=== PATIENT | male | born 1945 | race Caucasian/White ===

== ENCOUNTER 2018-11-28 18:52 | Emergency (ER) | payer MEDICARE, SELFPAY ==
[2018-11-28 18:52] VITALS: BP 165/90; PULSE 77; RESP 15; TEMP 37.1; O2SAT 99; BMI 34.7
--- NOTE | 2018-11-28 20:01 | RAD_ITS ---
STUDY: X-RAY - LEFT HAND, ATTENTION FIRST FINGER REASON FOR EXAM: Male, 72 years old. Laceration TECHNIQUE: 3 view(s) of the finger were obtained. COMPARISON: None. FINDINGS: Normal metacarpal head. There is mild degenerative arthrosis of the metacarpophalangeal joint. Normal proximal phalanx. Normal distal phalanx. Arthrosis of the interphalangeal joint. There is no acute fracture. There is no radiopaque foreign body. RAD/Finger(s) Min 2 Views IMPRESSION: Arthritic change. No fracture or foreign body. Electronically Signed: Graham Acosta MD at 20:38 EDT , Service support ,
--- NOTE | 2018-11-28 20:19 | ED.VISSUMM ---
- ER Visit Summary Date of Service: 11/28/18 Chief Complaint: Left thumb laceration History of Present Illness: The patient is a 72 M who cut his left thumb on a table saw shortly before arrival. Tetanus is up-to-date. Physical Examination: Vital signs significant for blood pressure 165/90, otherwise unremarkable. Patient sitting upright in bed no acute distress. Left upper extremity examination was a 3 cm laceration over the ulnar palmar aspect of the left thumb. He has full range of motion with normal cap refill. Sensation is intact. Test Results: Left thumb x-rays per my review showed no evidence of bony injury. Emergency Department Course and Treatment: Digital block was performed with 5 cc of 1% lidocaine. Wound is irrigated and closed with 7 interrupted sutures of 4-0 nylon. Dressing is applied. Patient is to have sutures removed in 7-10 days. Treatment Plan: [] Disposition: Discharge Impression: Left thumb laceration status post suture This note was generated with [employer] dictation software. It may contain incorrect words, spelling, and punctuation that were not noted in review of the chart prior to signing ED Disposition - Plan for ED Patient: Referrals: Washington Callejas, ELINA-C [Primary Care Provider] -
--- NOTE | 2018-11-28 20:22 | DCINST.ED_ITS ---
ED Disposition - Plan for ED Patient: Disposition: Home or Assisted Living Instructions: ED Laceration Hand Referrals: Washington Callejas, LAPIDARY APPRENTICE-C [Primary Care Provider] - 7 Days for suture removal
--- NOTE | 2018-11-28 20:22 | ED.DCSUM_ITS ---
- ER Visit Summary Date of Service: 11/28/18 Chief Complaint: Left thumb laceration History of Present Illness: The patient is a 72 M who cut his left thumb on a table saw shortly before arrival. Tetanus is up-to-date. Physical Examination: Vital signs significant for blood pressure 165/90, otherwise unremarkable. Patient sitting upright in bed no acute distress. Left upper extremity examination was a 3 cm laceration over the ulnar palmar aspect of the left thumb. He has full range of motion with normal cap refill. Sensation is intact. Test Results: Left thumb x-rays per my review showed no evidence of bony injury. Emergency Department Course and Treatment: Digital block was performed with 5 cc of 1% lidocaine. Wound is irrigated and closed with 7 interrupted sutures of 4- 0 nylon. Dressing is applied. Patient is to have sutures removed in 7-10 days. Treatment Plan: [] Disposition: Discharge Impression: Left thumb laceration status post suture This note was generated with [employer] dictation software. It may contain incorrect words, spelling, and punctuation that were not noted in review of the chart prior to signing ED Disposition - Plan for ED Patient: Referrals: Washington Callejas, ELINA-C [Primary Care Provider] -
--- NOTE | 2018-11-28 20:22 | ED.DEP ---
ED Disposition - Plan for ED Patient: Disposition: Home or Assisted Living Instructions: ED Laceration Hand Referrals: Washington Callejas, HOUSEKEEPING ASSOCIATE-C [Primary Care Provider] - 7 Days for suture removal
== END 2018-11-28 20:38 | disposition home or self-care (01) ==
PROVIDERS: Emergency Provider Emergency Medicine; Family Provider Nurse Practitioner Family; PCP Nurse Practitioner Family
DX: S61.012A Laceration without foreign body of left thumb without damage to nail, initial encounter (principal); W31.2XXA Contact with powered woodworking and forming machines, initial encounter; Y93.9 Activity, unspecified; Y92.9 Unspecified place or not applicable; Y99.9 Unspecified external cause status; K21.9 Gastro-esophageal reflux disease without esophagitis; E11.9 Type 2 diabetes mellitus without complications; I10 Essential (primary) hypertension; E78.00 Pure hypercholesterolemia, unspecified
CPT/HCPCS: 12002; 73140; 99284

== ENCOUNTER → 2021-06-10 14:40 | Outpatient (CLI) | payer MEDICARE, SELFPAY ==
[2021-06-10 20:34] LABS: Specimen Processing Control TNPT
== END ==
PROVIDERS: PCP Nurse Practitioner Family; Referring Provider Physician Assistant; Visit Provider Physician Assistant
DX: Z11.52 Encounter for screening for COVID-19 (principal)
CPT/HCPCS: 87635; U0005; U0003

== ENCOUNTER 2023-04-05 16:35 | Inpatient (IN) | payer MEDICARE, SELFPAY ==
[2023-04-05 16:36] VITALS: BP 137/77; PULSE 77; RESP 18; TEMP 36.4; O2SAT 96; BMI 35.5
--- NOTE | 2023-04-05 17:50 | ED.VIS.DYS ---
HPI History of Present Illness Chief Complaint: Shortness of Breath [facility] Medical History (Updated 04/05/23 @ 21:[address] Leanna Melgar MD) Anxiety and depression CKD (chronic kidney disease), stage III Diabetes mellitus, type 2 Former tobacco use HLD (hyperlipidemia) HTN (hypertension) Hx SBO Obesity RLS (restless legs syndrome) Home Medications amlodipine 5 mg tablet 5 mg PO DAILY 11/28/18 [History Last Taken Unknown] glimepiride 4 mg tablet 4 mg PO DAILY 11/28/18 [History Last Taken Unknown] hydrochlorothiazide 12.5 mg tablet 12.5 mg PO DAILY 11/28/18 [History Last Taken Unknown] metoprolol tartrate 100 mg tablet 100 mg PO BID 11/28/18 [History Last Taken Unknown] pioglitazone 30 mg tablet 30 mg PO DAILY 11/28/18 [History Last Taken Unknown] pramipexole 0.25 mg tablet 0.25 mg PO DAILY 11/28/18 [History Last Taken Unknown] sertraline 100 mg tablet 100 mg PO DAILY 11/28/18 [History Last Taken Unknown] simvastatin 5 mg tablet 5 mg PO DAILY 11/28/18 [History Last Taken Unknown] dulaglutide 1.5 mg/0.5 mL subcutaneous pen injector (Trulicity) 1.5 mg subcut QWEEK 04/05/23 [History Last Taken Unknown] meclizine 25 mg tablet 25 mg PO DAILY PRN PRN dizziness 04/05/23 [History Last Taken Unknown] meloxicam 15 mg tablet 15 mg PO DAILY 04/05/23 [History Last Taken Unknown] Allergy/AdvReac Type Severity Reaction Status Date / Time No Known Allergies Allergy Verified 04/05/23 16:36 Surgical History (Updated 04/05/23 @ 21:[address] Leanna Melgar MD) History of appendectomy History of shoulder surgery Social History (Updated 04/05/23 @ 21:[address] Leanna Melgar MD) household members: spouse Smoking Status: Never smoker alcohol intake: never substance use type: does not use EXAM Physical Exam Const Vital Signs: 04/05/23 16:36 04/05/23 17:47 04/05/23 21:00 Temperature 97.5 F L Temperature Source Temporal Pulse Rate 77 68 Respiratory Rate 18 12 Respiratory Effort Normal Non-Labored Respiratory Depth Normal Respiratory Pattern Normal Blood Pressure 137/77 H Blood Pressure Mean 97 Pulse Ox 96 97 Oxygen Delivery Method Room Air Room Air Room Air [facility] [place] Medical decision making narrative: HISTORY OF PRESENT ILLNESS: 77-year-old male here with shortness of breath. Notes shoulder surgery last week. He is not having chest tightness and shortness of breath. He further states earlier today was at physical therapy. Does not endorse chest pain but notes more chest tightness and sensation of being winded. The patient denies recent immobilization in the last 3 days, denies previous diagnosis of DVT or PE, hemoptysis, unilateral leg swelling or malignancy with treatment the last 6 months. No estrogen use noted. REVIEW OF SYSTEMS: Pertinent positives: Shortness of breath Pertinent negatives: Syncope, chest pain PHYSICAL EXAM: Nursing triage notes reviewed, Vital signs reviewed Constitutional: please see mdm HENT: MMM Eyes: Pupils equal round and reactive to light, Extraocular muscles intact Neck: No stridor, no JVD, full neck ROM Lungs: Clear to auscultation, No wheezing or rales. No increased work of breathing, no conversational dyspnea, no accessory muscle use, no nasal flaring. No respiratory distress noted Heart: Regular rate and rhythm, No murmurs, No rubs and No gallops, 2+ distal pulses (radial, femoral, posterior tibial) in all extremities Abdomen: Soft, there is no tenderness, rigidity, rebound or guarding, no obvious peritoneal signs, no palpable pulsatile abdominal masses, no auscultated abdominal bruit : No CVAT Extremities: No edema Neuro: No focal neurological deficits, cranial nerves II through XII intact, 5/5 strength in all extremities. Intact sensation to light touch in all extremities, 2+ reflexes bilateral patella tendons. Normal gait. No ataxia. Skin: No rash or lesions noted MEDICAL DECISION MAKING: Chief Complaint: Shortness of breath External records reviewed: No recent cardiac catheterizations, stress test or echocardiograms noted in the chart Factors affecting care: Hypertension, type 2 diabetes, hyperlipidemia Social determinants of health: Never smoker History obtained from others: Patient's spouse Consults: Internal medicine ALL IMAGES (IF OBTAINED) HAVE BEEN PERSONALLY REVIEWED AND INTERPRETED BY MYSELF. EKG with normal sinus rhythm, normal intervals, no STEMI, occasional PVCs [facility] Narrative: Patient was hemodynamically stable, afebrile, nontoxic-appearing. I considered the following differential diagnosis: PE, ACS, arrhythmia, anemia, myocardial ischemia, pneumonia Given patient recent surgery and chest pain obtain a CT of the chest. CT of the chest showed evidence of cute bilateral pulmonary embolism there is no evidence of heart strain. Patient troponin and BNP were negative. EKG was nonischemic. Given the patient's PE I started him on heparin and admitted to the floor for transfer to oral anticoagulation The patient and/or family, caregivers express understanding. The patient and/or family, caregivers agrees with the plan. Shared decision making: I will have a discussion with the patient and or visitors regarding risk/benefits of further testing or admission. They will be made aware of of the risk/benefits inherent in this decision they will be given the opportunity to voice understanding. Total critical care time today provided was at least 0 minutes. This excludes separately billable procedures. Critical care time (if documented) is secondary to the patient having high probability of clinically significant/life threatening deterioration in the patient's condition which required my urgent intervention. Lab Data Attestation: I reviewed the patient's lab results. Lab results narrative: CBC with no leukocytosis, no anemia, no thrombocytopenia PT, INR PTT without evidence of coagulopathy BMP without evidence of significant electrolyte abnormalities, no anion gap, no acute kidney injury. Troponin is negative, no evidence of myocardial ischemia BNP within normal limits suggestive of no increased myocyte stretch Labs: Laboratory Results - last 24 hr 04/05/23 18:40 WBC 5.9 RBC 4.55 L Hgb 14.1 Hct 43.8 MCV 96.3 H MCH 31.0 MCHC 32.2 RDW Std Deviation 45.3 H RDW Coeff of Sona 12.6 Plt Count 152 MPV 9.6 Immature Gran % (Auto) 0.500 Neut % (Auto) 68.1 Lymph % (Auto) 12.2 L [place] % (Auto) 13.0 H Eos % (Auto) 5.7 H Baso % (Auto) 0.5 Absolute Neuts (auto) 4.0 Absolute Lymphs (auto) 0.72 L Nucleated RBC % 0 PT 13.4 INR 1.0 APTT 26.8 Sodium 138 Potassium 5.0 Chloride 105 Carbon Dioxide 31.0 Anion Gap 2 L BUN 35 H Creatinine 1.60 H Estim Creat Clear Calc 44.39 Est GFR (MDRD) Af Amer 54 L Est GFR (MDRD) Non-Af 45 L BUN/Creatinine Ratio 21.9 H Glucose 112 H Calcium 9.3 Troponin I High Sens 9 B-Natriuretic Peptide 21.2 Radiography Diagnostic Testing: Clinical Impression(s) from Imaging Studies Chest CTA 04/05/23 17:52 IMPRESSION: Abnormal CTA chest examination, with bilateral pulmonary embolism. Electronically Signed: Graham Acosta MD at 20:23 EDT Reading Location ID and State: [address] [place] [address] , Service support , Discharge Plan Triage Chief Complaint: Shortness of Breath ED Provider: Mahamed Jaffe Dx/Rx/DC Orders Clinical Impression: Pulmonary embolism Primary Care Provider: Washington Callejas NP Disposition Disposition: Acute Care Hospital [facility]
--- NOTE | 2023-04-05 17:52 | EKG12_ITS ---
Test Reason : CP Blood Pressure : / mmHG Vent. Rate : 075 BPM Atrial Rate : 075 BPM P-R Int : 166 ms QRS Dur : 088 ms QT Int : 396 ms P-R-T Axes : 043 -19 035 degrees QTc Int : 442 ms Normal sinus rhythm Normal ECG Confirmed by NORMAN BOWER, TOÑITO ([id number]), online editor MACIEL STOUT ([id number]) on 04/06/2023 1:17:24 PM Referred By: YAS/DEBORAH Confirmed By:TOÑITO AUSTIN MD
--- NOTE | 2023-04-05 17:52 | CT_ITS ---
We are attempting to reach an attending provider to discuss findings. An addendum with communication details will be sent when the communication is complete. STUDY: CTA CHEST REASON FOR EXAM: Male, 77 years old. SOB, recent surgery, r/o PE RADIATION DOSAGE (If Supplied By Facility): CTDIvol = ( 22.17 ) mGy, DLP = ( 576.66 ) mGycm TECHNIQUE: The examination was performed with the intravenous administration of 100mL Isovue-370. Post-processing of the angiographic images was performed, with multiplanar reformation and 3D reconstruction. Individualized dose optimization techniques were used for this CT. COMPARISON: None. FINDINGS: There are filling defects involving bilateral central and peripheral pulmonary arteries consistent with pulmonary embolism. Embolism is seen including in first order, second, and third order branches. Normal thoracic aorta and visualized great vessels. There is no demonstrated aortic dissection. There are calcifications of the coronary arteries. The right ventricle left ventricle ratio is 0.8. Normal mediastinum. Normal hilar regions. Normal visualized trachea and bronchi. The lungs are well expanded. Normal pulmonary parenchyma. Normal pleura. Normal chest wall structures. There are degenerative changes of thoracic spine. There are multiple gallstones. CT/CTA Chest W/WO Contrast IMPRESSION: Abnormal CTA chest examination, with bilateral pulmonary embolism. Electronically Signed: Graham Acosta MD at 20:23 EDT ,
[2023-04-05 18:49] LABS: Absolute Lymphocyte Count 0.72 X10^3/uL (0.83-4.51); Basophil# 0.03 X10^3/uL; Basophil% 0.5 % (0-1); Eosinophil# 0.34 X10^3/uL; Eosinophils% 5.7 % (0-5); Hematocrit 43.8 % (40-54); Hemoglobin 14.1 g/dL (13.0-16.5); Lymphocyte # 0.72 X10^3/ul (0.83-4.51); Lymphocyte % 12.2 % (19-41); Mean Corp Hgb Conc 32.2 g/dL (32-36); Mean Corpuscular Volume 96.3 fL (80-94); Mean Platelet Vol. 9.6 fl (6.2-12.0); Monocyte# 0.77 X10^3/uL; NRBC Flagged by Analyzer 0 % (0-5); Neutrophil # 4.03 X10^3/uL (2.7-7.7); Neutrophil % 68.1 % (47-70); Platelet Count 152 K/mm3 (150-450); RBC Distribution Width CV 12.6 % (11.6-14.6); RBC Distribution Width SD 45.3 fl (35.1-43.9); Red Blood Count 4.55 M/mm3 (4.6-6.2); White Blood Count 5.9 K/mm3 (4.4-11.0)
[2023-04-05 19:13] LABS: BNP,B-Type NATRIURETIC PEPTIDE 21.2 pg/mL (0-100)
[2023-04-05 19:16] LABS: Anion Gap 2 (5-15); BUN 35 mg/dL (7-18); BUN/Creat Ratio 21.9 RATIO (10-20); Calcium,Total 9.3 mg/dL (8.5-10.1); Chloride 105 mmol/L (98-107); EST Glomerular Filtration Rate 45 mL/min (>60); Est Glom Filt Rate - Afr Amer 54 mL/min (>60); Estimated Creatinine Clearance 44.39 ml/min; Glucose 112 mg/dL (74-106); Sodium Level 138 mmol/L (136-145); Troponin-I HS 9 pg/mL (3.0-78.0)
[2023-04-05 20:47] LABS: Partial Thromboplast Time 26.8 Seconds (24.1-36.2); Prothrombin Time (Protime)PT. 13.4 SECONDS (11.7-14.9)
[2023-04-05] MEDS: HEPARIN/D5w 25,000 UNITS 25,000 UNITS/250 ML IV.SOLN. 10 UNITS CONT INF (20:52)
[2023-04-05 21:00] VITALS: PULSE 68; RESP 12; O2SAT 97
--- NOTE | 2023-04-05 21:24 | PCM.HP.STD ---
HPI - General General Date of Admission: 04/05/23 Date of Service: 04/05/23 Chief Complaint: Chest pain, dyspnea. HPI Narrative The patient is a 77 y/o M w/ PMHx: BREN noncompliant with CPAP, CKD stage III unclear subtype (03/02/23 Cr 1.55), Hypothyroidism, Hx SBO, Obesity, RLS, HTN, HLD, Anxiety and Depression, Diabetes mellitus type II, BREN who presents to the [facility] ED on 04/05/23 with history of right shoulder rotator cuff repair at [facility] outpatient approximately 1 week prior to current presentation on 03/29/2023 with since then extreme inactivity as he was under the belief that he could not do anything but he has not even been moving or very active and of the last 6 couple days he does noted dyspnea, worse with exertion and pleuritic chest discomfort bilaterally worse with deep inspiratory effort attempts prompting eventual ED evaluation. Work-up in the ED included T97.5, heart 77, BP 137/77, respiratory rate 18, 96% on room air, CBC with WC 5.9, hemoglobin 14.1, platelet 152 with lymphopenia, unremarkable coags, BMP with BUN/creatinine 35/1.60, glucose 112, troponin 9, BNP 21.2, CTPA with bilateral pulmonary emboli involving central and peripheral pulmonary arteries seen including in the first order, second and third order branches, EKG sinus rhythm with no acute evidence of ischemia. Patient records and labs were obtained from the [employer] system following review of his outpatient data. [facility] Medical History (Updated 04/05/23 @ 21:[address] Leanna Melgar MD) Anxiety and depression CKD (chronic kidney disease), stage III Diabetes mellitus, type 2 Former tobacco use HLD (hyperlipidemia) HTN (hypertension) Hx SBO Obesity RLS (restless legs syndrome) Home Medications amlodipine 5 mg tablet 5 mg PO DAILY 11/28/18 [History Last Taken Unknown] glimepiride 4 mg tablet 4 mg PO DAILY 11/28/18 [History Last Taken Unknown] hydrochlorothiazide 12.5 mg tablet 12.5 mg PO DAILY 11/28/18 [History Last Taken Unknown] metoprolol tartrate 100 mg tablet 100 mg PO BID 11/28/18 [History Last Taken Unknown] pioglitazone 30 mg tablet 30 mg PO DAILY 11/28/18 [History Last Taken Unknown] pramipexole 0.25 mg tablet 0.25 mg PO DAILY 11/28/18 [History Last Taken Unknown] sertraline 100 mg tablet 100 mg PO DAILY 11/28/18 [History Last Taken Unknown] simvastatin 5 mg tablet 5 mg PO DAILY 11/28/18 [History Last Taken Unknown] dulaglutide 1.5 mg/0.5 mL subcutaneous pen injector (Trulicity) 1.5 mg subcut QWEEK 04/05/23 [History Last Taken Unknown] meclizine 25 mg tablet 25 mg PO DAILY PRN PRN dizziness 04/05/23 [History Last Taken Unknown] meloxicam 15 mg tablet 15 mg PO DAILY 04/05/23 [History Last Taken Unknown] Allergy/AdvReac Type Severity Reaction Status Date / Time No Known Allergies Allergy Verified 04/05/23 16:36 Surgical History (Updated 04/05/23 @ 22:[address] Leanna Melgar MD) History of appendectomy History of shoulder surgery Social History (Updated 04/05/23 @ 22:[address] Leanna Melgar MD) household members: spouse Smoking Status: Former smoker how long ago did patient quit smoking: Quit remotely. alcohol intake: never substance use type: does not use ROS ROS Narrative Admission Review of Systems: CONSTITUTIONAL: No weight loss, fever, chills, + weakness or fatigue. HEENT: Eyes: No visual loss, blurred vision, double vision or yellow sclerae. Ears, Nose, Throat: No hearing loss, sneezing, congestion, runny nose or sore throat. SKIN: No rash or itching, lesions, wounds. CARDIOVASCULAR: + chest pain, chest pressure or chest discomfort. No palpitations, edema, orthopnea, syncopal events. RESPIRATORY: + shortness of breath, No cough or sputum, wheezing, hemoptysis. GASTROINTESTINAL: No anorexia, nausea, vomiting or diarrhea, abdominal pain, melena, BRBPR. GENITOURINARY: No dysuria, frequency, urgency or retention. NEUROLOGICAL: No headache, dizziness, syncope, paralysis, ataxia, numbness or tingling in the extremities, focal weakness, change in bowel or bladder control, seizure. MUSCULOSKELETAL: + muscle, back pain, joint pain or stiffness. HEMATOLOGIC: No anemia, bleeding or bruising. LYMPHATICS: No enlarged nodes. No history of splenectomy. PSYCHIATRIC: + history of depression or anxiety. ENDOCRINOLOGIC: No reports of sweating, cold or heat intolerance. No polyuria or polydipsia. ALLERGIES: No history of asthma, hives, eczema or rhinitis. Vital Signs Vital Signs Vital Signs: 04/05/23 16:36 04/05/23 17:47 04/05/23 21:00 Temperature 97.5 F L Temperature Source Temporal Pulse Rate 77 68 Respiratory Rate 18 12 Respiratory Effort Normal Non-Labored Respiratory Depth Normal Respiratory Pattern Normal Blood Pressure 137/77 H Blood Pressure Mean 97 Pulse Ox 96 97 Oxygen Delivery Method Room Air Room Air Room Air Weight Weight: 269 lb 8 oz Body Mass Index (BMI) 35.5 Physical Exam Narrative Physical Examination: General: Awake, alert, oriented x 3 and cooperative, seated upright in ED bed, notes some discomfort especially with deep inspiratory effort, denies any current severe chest pain at this time, heparin drip ongoing. Skin: Normal color, normal turgor, no icterus, no cyanosis except for recent expected postoperative changes right upper extremity status post rotator cuff repair. HEENT: AT/NC, EOMI, PERRLA, MMM, no carotid bruits or JVD noted; however, thickened neck makes evaluation difficult. Lungs: Mildly diminished, greater bases, mildly decreased effort secondary to discomfort elicited with deep inspiratory effort, no rales, ronchi or wheezing. Heart: Regular rate and rhythm; no gallop, rub audible. Abdomen: Soft, obese, NTTP, ND, normal BS, no HSM. Extremities: No cyanosis, no clubbing, status post recent right rotator cuff repair, peripheral pulses intact, no marked edema, expected postop skin changes. Neurological: Patient awake, alert, oriented as noted, cognitive function intact; pupils equally reactive to light and accommodation, cranial nerves grossly normal, moving all 4 extremities except expected reduction to the right upper extremity given recent OR, currently postoperative sling being replaced, strength accordingly mildly to moderately globally decreased secondary to acute presentation and recent operative intervention Psychiatric: Affect appears fatigued otherwise normal, no acute evidence of depressive or anxiety feelings. Results Lab / Micro Data 04/05/23 18:40 04/05/23 18:40 Labs: Laboratory Results - last 24 hr 04/05/23 18:40: WBC 5.9, RBC 4.55 L, Hgb 14.1, Hct 43.8, MCV 96.3 H, MCH 31.0, MCHC 32.2, RDW Std Deviation 45.3 H, RDW Coeff of Sona 12.6, Plt Count 152, MPV 9.6, Immature Gran % (Auto) 0.500, Neut % (Auto) 68.1, Lymph % (Auto) 12.2 L, [place] % (Auto) 13.0 H, Eos % (Auto) 5.7 H, Baso % (Auto) 0.5, Absolute Neuts (auto) 4.0, Absolute Lymphs (auto) 0.72 L, Nucleated RBC % 0, PT 13.4, INR 1.0, APTT 26.8, Sodium 138, Potassium 5.0, Chloride 105, Carbon Dioxide 31.0, Anion Gap 2 L, BUN 35 H, Creatinine 1.60 H, Estim Creat Clear Calc 44.39, Est GFR (MDRD) Af Amer 54 L, Est GFR (MDRD) Non-Af 45 L, BUN/Creatinine Ratio 21.9 H, Glucose 112 H, Calcium 9.3, Troponin I High Sens 9, B-Natriuretic Peptide 21.2 Radiology Impression Chest CTA 04/05/23 17:52 IMPRESSION: Abnormal CTA chest examination, with bilateral pulmonary embolism. Electronically Signed: Graham Acosta MD at 20:23 EDT , Assessment & Plan Assessment/Plan (1) Pulmonary embolism: PLAN: Plan The patient is a 77 y/o M w/ PMHx: BREN noncompliant with CPAP, CKD stage III unclear subtype (03/02/23 Cr 1.55), Hypothyroidism, Hx SBO, Obesity, RLS, HTN, HLD, Anxiety and Depression, Diabetes mellitus type II, BREN who presents to the [facility] ED on 04/05/23 with history of right shoulder rotator cuff repair at [facility] outpatient approximately 1 week prior to current presentation on 03/29/2023 with since then extreme inactivity as he was under the belief that he could not do anything but he has not even been moving or very active and of the last 6 couple days he does noted dyspnea, worse with exertion and pleuritic chest discomfort bilaterally worse with deep inspiratory effort attempts prompting eventual ED evaluation. #1. Dyspnea, chest pain secondary to Acute BL Pulmonary Embolism status post recent operative intervention with significant reduced activity, would consider provoked at this point: CTPA with bilateral pulmonary emboli involving central and peripheral pulmonary arteries seen including in the first order, second and third order branches, EKG sinus rhythm with no acute evidence of ischemia. Will admit to PCU, maintain on cardiac telemetry. Will obtain ECHO to be cautious although initial CT imaging without any concern for strain with normal BNP/troponin initial. Will continue therapeutic herparin drip regimen started in the ED with pending AM insurance oral regimen investigation. Patient surgeon (Dr. Birch) was courtesy updated. #2. Recent right upper extremity rotator cuff repair: We will continue PT and OT assessments, continue sling that is in place, nonweightbearing to this extremity. #3. Chart reported history hypothyroidism: Noted in history, not on regimen, will obtain TSH and free T4 to be cautious. #4. BREN: Patient has been noncompliant secondary to difficulty tolerating but given his presentation willing to try, CPAP nightly. #5. Diabetes mellitus type II: Hold oral home regimen, ADA diet, accu checks w/ ISS. #6. Hypertension: Continue home regimen including hydrochlorothiazide, amlodipine, metoprolol, PRN hydralazine. #7. Hyperlipidemia: We will continue patient on statin therapy. #8. History SBO: Patient with history of SBO previously with prior significant intervention for ruptured appendicitis #9. Obesity: Weight loss and lifestyle changes encouraged. #10. Restless leg syndrome: We will continue patient home pramipexole regimen. #11. Anxiety and depression: We will continue patient home sertraline regimen. #12. Chronic Kidney Disease Stage III, unclear subtype: Admission BUN/Cr 35/1.6, baseline renal function most recently 03/02/2023 creatinine 1.55, repeat BMP in AM. #13. DVT prophylaxis: We will continue heparin drip initiated in the ED pending case management/social work discussion for oral NOAC options [place]. Charges/Coding Visit Charges Inpatient E&M: 82428 Init Hosp L3
[2023-04-05 22:03] VITALS: BP 137/95; PULSE 73; RESP 19; TEMP 36.4; O2SAT 95
--- NOTE | 2023-04-05 22:47 | ECHOCS_ITS ---
Reason For Study: Dyspnea/SOB Procedure This was a 2D Doppler, Color Flow transthoracic echocardiogram. The study was technically difficult. Contrast injection was performed. Patient scanned supine due to recent rotator cuff surgery. Exam performed portable in patient room. Left Ventricle Normal LV size. Left ventricular systolic function is normal. The estimated ejection fraction is 65 %. Stage 1 diastolic dysfunction. No regional wall motion abnormalities noted. Right Ventricle Normal RV size. Normal systolic function. Tricuspid Valve Unable to estimate RV systolic pressure due to inadequate jet, pulmonary artery pressure probably normal. Pulmonic Valve The pulmonic valve is not well visualized. Great Vessels Normal aortic root. Pericardium/Pleural No pericardial effusion. Medication Diluted definity 4.5ml given slow IV push to enhance endocardial definition. MMode/2D Measurements & Calculations LVIDd: 5.1 cm IVSd: 1.2 cm Ao root diam: 3.7 cm LVIDs: 3.6 cm LVPWd: 1.1 cm LA dimension: 3.9 cm FS: 28.8 % LAV(MOD-sp4): 56.9 ml SV(MOD-sp4): 52.1 ml LVAd ap4: 28.9 cm2 LVLd ap4: 7.9 cm EDV(MOD-sp4): 86.6 ml EDV(sp4-el): 90.3 ml LVAs ap4: 17.4 cm2 LVLs ap4: 7.5 cm ESV(MOD-sp4): 34.5 ml ESV(sp4-el): 34.3 ml EF(MOD-sp4): 60.2 % EF(sp4-el): 62.0 % SV(sp4-el): 56.0 ml LA A4 area: 20.0 cm2 Time Measurements MV dec time: 0.20 sec Doppler Measurements & Calculations MV E max kan: 55.9 cm/sec Lat Peak E' Kan: 7.7 cm/sec Med Peak E' Kan: 6.7 cm/sec MV A max kan: 74.2 cm/sec E/E' lat: 7.3 E/E' med: 8.3 MV E/A: 0.75 MV V2 max: 79.1 cm/sec MV P1/2t max kan: 64.4 cm/sec PA V2 max: 74.6 cm/sec MV max P.5 mmHg MV P1/2t: 68.2 msec MV V2 mean: 40.6 cm/sec MV dec slope: 276.5 cm/sec2 MV mean P.81 mmHg MV V2 VTI: 23.1 cm MVA(P1/2t): 3.2 cm2 ECHO/Echo Complete W/ Contrast Interpretation Summary Normal LV size. Left ventricular systolic function is normal. The estimated ejection fraction is 65 %. Stage 1 diastolic dysfunction. Contrast injection was performed. The study was technically difficult. Ordering Physician: Leanna Melgar Performed By: Joe Kendrick RCS
[2023-04-05 23:01] VITALS: BMI 36.4
[2023-04-05 23:43] VITALS: BP 145/70; PULSE 71; RESP 18; TEMP 36.8; O2SAT 95
[2023-04-05 23:45] VITALS: O2SAT 95
[2023-04-05] MEDS: Acetaminophen 325 MG Tablet 650 MG PO (23:46)
[2023-04-05] MEDS: Atorvastatin Calcium 10 MG Tablet 5 MG PO (23:49)
[2023-04-05 23:57] VITALS: BP 145/70; PULSE 71
[2023-04-05] MEDS: Metoprolol Tartrate 100 MG Tablet PO (23:57)
[2023-04-06] MEDS: Pramipexole Di-HCl 0.25 MG Tablet PO (00:20)
[2023-04-06] MEDS: 0.9% Normal Saline 1,000 ML 999 ML IV (00:46)
[2023-04-06 01:10] LABS: Bedside Glucose 138 mg/dL (74-106)
[2023-04-06] MEDS: oxyCODONE 5 MG Tablet PO (03:40)
[2023-04-06 05:30] LABS: Absolute Lymphocyte Count 0.82 X10^3/uL (0.83-4.51); Absolute Neutrophil Count 3.3 X10^3/uL (2.0-7.7); Basophil# 0.02 X10^3/uL; Basophil% 0.4 % (0-1); Eosinophil# 0.31 X10^3/uL; Hematocrit 40.8 % (40-54); Hemoglobin 13.3 g/dL (13.0-16.5); Lymphocyte # 0.82 X10^3/ul (0.83-4.51); Lymphocyte % 15.9 % (19-41); Mean Corp Hgb Conc 32.6 g/dL (32-36); Mean Corpuscular Hgb 30.9 pg (27.0-32.0); Mean Corpuscular Volume 94.9 fL (80-94); Mean Platelet Vol. 10.2 fl (6.2-12.0); Monocyte# 0.66 X10^3/uL; Monocyte% 12.8 % (0-10); NRBC Flagged by Analyzer 0 % (0-5); Neutrophil # 3.33 X10^3/uL (2.7-7.7); Neutrophil % 64.3 % (47-70); Platelet Count 147 K/mm3 (150-450); RBC Distribution Width CV 12.7 % (11.6-14.6); White Blood Count 5.2 K/mm3 (4.4-11.0)
[2023-04-06 05:34] VITALS: BMI 36.4
[2023-04-06 06:23] LABS: ALB/GLOB Ratio 0.9 RATIO (0.9-2.4); AST(SGOT) 28 U/L (15-37); Alanine Aminotransfer ALT/SGPT 29 U/L (16-61); Albumin, Serum 2.9 g/dL (3.2-5.0); Alkaline Phosphatase 61 U/L (45-117); Anion Gap 5 (5-15); BUN 29 mg/dL (7-18); BUN/Creat Ratio 20.3 RATIO (10-20); Calcium,Total 8.6 mg/dL (8.5-10.1); Chloride 109 mmol/L (98-107); Creatinine, Serum 1.43 mg/dL (0.70-1.30); EST Glomerular Filtration Rate 51 mL/min (>60); Est Glom Filt Rate - Afr Amer 62 mL/min (>60); Estimated Creatinine Clearance 48.24 ml/min; Globulin 3.4 g/dL (2.2-4.2); Glucose 139 mg/dL (74-106); Potassium 4.1 mmol/L (3.5-5.1); Protein, Total 6.3 g/dL (6.4-8.2); Sodium Level 141 mmol/L (136-145); T4 Free Direct 1.07 ng/dL (0.76-1.46); Thyroid Stim Hormone (TSH) 4.34 uIU/mL (0.358-3.74)
[2023-04-06 07:00] LABS: Bedside Glucose 142 mg/dL (74-106)
[2023-04-06 07:37] LABS: Partial Thromboplast Time 42.4 Seconds (24.1-36.2)
[2023-04-06 08:18] VITALS: O2SAT 95
--- NOTE | 2023-04-06 08:57 | DCINST_ITS ---
Discharge Instructions Diet Discharge Diet: Low fat / Low cholesterol, 1800 Calorie Control Diet and 2000 mg Sodium Diet Activity Discharge Activity: Return to Normal Activity Weight Bearing Status: Weight bearing as tolerated Dressing / Incision Call your doctor if you observe: Fever of 101 or Higher, Coldness, Increased Pain, Numbness or Tingling, Change in Color, Inability to urinate, Inability to have a bowel movement, Shortness of breath, Dizziness, Fainting spells, Swelling in the ankles, Chest pain, Prolonged hiccupping, Increased palpitations (irregular heartbeat) and Calf discomfort Follow Up Care When: IN 2 WEEKS Test Results: Test results from this visit will be discussed in further detail at your follow- up appointment, if applicable. Discharge Plan Admission Admit Date/Time: 04/05/23 21:18 Primary Reason for Your Visit: Bilateral PE Attending Provider: Mckinley Patton Primary Care Provider: Washington Callejas NP Consulting Providers: Leanna Melgar Discharge Orders/Prescriptions Prescriptions: New sennosides-docusate sodium [Stool Softener-Stimulant Laxat] 8.6-50 mg Tablet 2 tab PO BID PRN PRN (Reason: Constipation) Qty: 0 0RF Eliquis DVT-PE Treat 30D Start 5 mg (74 tabs) tablets,dose pack 5 mg PO BID Qty: 74 2RF Rx Instructions: 10 mg twice daily for 1 week and then 5 mg twice daily to continue Continued metoprolol tartrate 100 MG tablet 100 mg PO BID sertraline 100 MG tablet 100 mg PO DAILY amlodipine 5 MG tablet 5 mg PO DAILY simvastatin 5 MG tablet 5 mg PO DAILY glimepiride 4 MG tablet 4 mg PO DAILY pramipexole 0.25 MG tablet 0.25 mg PO DAILY pioglitazone 30 MG tablet 30 mg PO DAILY meclizine 25 mg tablet 25 mg PO DAILY PRN PRN (Reason: dizziness) Trulicity 1.5 mg/0.5 mL pen injector 1.5 mg subcut QWEEK Rx Instructions: q Monday Held hydrochlorothiazide 12.5 MG tablet 12.5 mg PO DAILY Hold Instructions: Hold for 5 days. meloxicam 15 mg tablet 15 mg PO DAILY Hold Instructions: Hold for 1 week as patient has ALAN. Referrals / Follow Up: Washington Callejas NP, LITHOGRAPHIC RETOUCHER APPRENTICE-C [Primary Care Provider] - Disposition Disposition (needs filled in before D/C Order can be placed): Home, Self Care
[2023-04-06 09:45] VITALS: BP 141/76; PULSE 69; RESP 16; TEMP 36.2; O2SAT 97
[2023-04-06 10:32] LABS: Partial Thromboplast Time 46.5 Seconds (24.1-36.2)
[2023-04-06 10:59] VITALS: BP 141/76; PULSE 70
[2023-04-06] MEDS: amLODIPine 5 MG Tablet PO (10:59)
[2023-04-06] MEDS: Metoprolol Tartrate 100 MG Tablet PO (10:59)
[2023-04-06] MEDS: Sertraline 100 MG Tablet PO (10:59)
[2023-04-06] MEDS: hydroCHLOROthiazide 12.5mg 12.5 MG PO (10:59)
[2023-04-06] MEDS: Insulin Lispro 100 UNIT/ML INSULN.PEN SC (11:12)
[2023-04-06 11:35] VITALS: BP 148/84; PULSE 65; RESP 18; TEMP 36.1; O2SAT 100
--- NOTE | 2023-04-06 11:35 | PCM.DC.SUM ---
Providers Date of Admission: 04/05/23 Date of Discharge: 04/06/23 Primary Care Physician: Washington Callejas, RECYCLER FORKLIFT DRIVER TRUCK DRIVER-C Reason For Visit: BL PE Diagnosis Discharge Diagnosis (1) Pulmonary embolism: Status: Acute Code(s): I26.99 - Other pulmonary embolism without acute cor pulmonale Qualifiers: Pulmonary embolism type: other Chronicity: acute Acute cor pulmonale presence: without acute cor pulmonale Qualified Code(s): I26.99 - Other pulmonary embolism without acute cor pulmonale Plan 1. Acute BL Pulmonary Embolism most likely provoked thromboembolic phenomenon: Patient is being admitted in PCU.Chest CTA images individually reviewed shows filling defect involving bilateral central and peripheral pulmonary arteries seen in first-order second-order and third order branches consistent with bilateral pulmonary embolism. Patient had right-sided rotator cuff surgery done last week on 03/29/2023. Patient started having symptoms of exertional pleuritic chest pain discomfort bilaterally worse with deep inspiration along with shortness of breath progressively getting worse in the last 1 week. Patient was started on IV heparin drip. 2D echo was done but report pending. Patient is discharged on Eliquis 10 mg p.o. twice daily for 1 week then 5 mg twice daily to continue. Patient needs to take at least for 6 months seeing the burden of blood clots. #2. Recent right upper extremity rotator cuff repair: We will continue PT and OT assessments, continue sling that is in place, nonweightbearing to this extremity. Follow-up orthopedic surgeon in 1 week. #3. Unclear whether patient has overt hypothyroidism or subclinical hypothyroidism: Patient not on levothyroxine or thyroid supplement at home. TSH 4.34, free T41.07. TSH slightly elevated. In my opinion patient has subclinical hypothyroidism. Follow-up thyroid function test after 3 months. #4. BREN: Patient has been noncompliant secondary to difficulty tolerating but given his presentation willing to try, CPAP nightly. #5. Diabetes mellitus type II: Hold oral home regimen, ADA diet, accu checks with sliding scale insulin glucoses controlled. #6. Hypertension: Continue home regimen including hydrochlorothiazide, amlodipine, metoprolol, PRN hydralazine. #7. Hyperlipidemia: continue patient on statin therapy. #8. History SBO: Patient with history of SBO previously with prior significant intervention for ruptured appendicitis #9. Obesity: Weight loss and lifestyle changes encouraged. #10. Restless leg syndrome: We will continue patient home pramipexole regimen. #11. Anxiety and depression: We will continue patient home sertraline regimen. #12. 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 Admission BUN/Cr 35/1.6, baseline renal function most recently 03/02/2023 creatinine 1.55, repeat BMP shows improvement 1.43. Advised to hold hydrochlorothiazide for 5 days and repeat BMP before resumption. #13. DVT prophylaxis: We will continue heparin drip initiated in the ED pending case management/social work discussion for oral NOAC options [place]. Medications at Discharge Home Medications amlodipine 5 mg tablet 5 mg PO DAILY blood pressure 11/28/18 glimepiride 4 mg tablet 4 mg PO DAILY diabetes 11/28/18 hydrochlorothiazide 12.5 mg tablet 12.5 mg PO DAILY diuretic 11/28/18 metoprolol tartrate 100 mg tablet 100 mg PO BID blood pressure 11/28/18 pioglitazone 30 mg tablet 30 mg PO DAILY diabetes 11/28/18 pramipexole 0.25 mg tablet 0.25 mg PO DAILY restless legs 11/28/18 sertraline 100 mg tablet 100 mg PO DAILY mental health 11/28/18 simvastatin 5 mg tablet 5 mg PO DAILY cholesterol 11/28/18 dulaglutide 1.5 mg/0.5 mL subcutaneous pen injector (Trulicity) 1.5 mg subcut QWEEK diabetes 04/05/23 meclizine 25 mg tablet 25 mg PO DAILY PRN PRN dizziness 04/05/23 meloxicam 15 mg tablet 15 mg PO DAILY bone health 04/05/23 apixaban 5 mg (74 tabs) tablets in a dose pack (Eliquis DVT-PE Treat 30D Start) 5 mg PO BID #74 tabs 04/06/23 dextromethorphan-guaifenesin ER 60 mg-1,200 mg tab,extend release,12hr (Mucinex DM) 1 tab PO Q12H 7 days #14 tabs 04/06/23 sennosides 8.6 mg-docusate sodium 50 mg tablet (Stool Softener-Stimulant Laxative) 2 tab PO BID PRN PRN Constipation #0 tabs 04/06/23 Physical Exam Narrative General: Alert, Oriented x3, Cooperative, morbid obesity BMI 36.4 kg/m? HEENT: Atraumatic, PERRLA, EOMI, Normocephalic Oral: Oral mucosa moist. No Gingival or Mucosal Lesions/ Ulcerations Neck: Supple, No JVD, Negative Carotid Bruits Lungs: Air entry diminished in bilateral lung bases. No crepitation/rhonchi Cardiovascular: Regular rate, Regular Rhythm, Normal S1, Normal S2, No murmurs Abdomen: Bowel Sounds Present, Soft, Non Tender, Non-Distended : No renal angle tenderness. No suprapubic tenderness. Extremities: Right shoulder: Sling and swath. No acute tenderness. No edema, Capillary Refill Less than 3 Seconds Skin: No rashes, No breakdown Musculoskeletal: No Tenderness to Palpation of Joints or Extremities. Range of motion intact in lower extremities. Neurological: Cranial nerves II-XII grossly intact, DTR 2+/4 and Symmetrical, Neuro grossly intact Psych/Mental Status: Normal Affect, Appropriate. Weight / BMI Weight Weight: 268 lb 11.896 oz Body Mass Index (BMI) 36.4 ABG / Lab / Microbiology Data 04/06/23 03:30 04/06/23 03:30 Laboratory: Laboratory Results - last 24 hr 04/05/23 18:40: WBC 5.9, RBC 4.55 L, Hgb 14.1, Hct 43.8, MCV 96.3 H, MCH 31.0, MCHC 32.2, RDW Std Deviation 45.3 H, RDW Coeff of Sona 12.6, Plt Count 152, MPV 9.6, Immature Gran % (Auto) 0.500, Neut % (Auto) 68.1, Lymph % (Auto) 12.2 L, [place] % (Auto) 13.0 H, Eos % (Auto) 5.7 H, Baso % (Auto) 0.5, Absolute Neuts (auto) 4.0, Absolute Lymphs (auto) 0.72 L, Nucleated RBC % 0, PT 13.4, INR 1.0, APTT 26.8, Sodium 138, Potassium 5.0, Chloride 105, Carbon Dioxide 31.0, Anion Gap 2 L, BUN 35 H, Creatinine 1.60 H, Estim Creat Clear Calc 44.39, Est GFR (MDRD) Af Amer 54 L, Est GFR (MDRD) Non-Af 45 L, BUN/Creatinine Ratio 21.9 H, Glucose 112 H, Calcium 9.3, Troponin I High Sens 9, B-Natriuretic Peptide 21.2 04/05/23 23:45: POC Glucose 138 H 04/06/23 03:30: WBC 5.2, RBC 4.30 L, Hgb 13.3, Hct 40.8, MCV 94.9 H, MCH 30.9, MCHC 32.6, RDW Std Deviation 44.0 H, RDW Coeff of Sona 12.7, Plt Count 147 L, MPV 10.2, Immature Gran % (Auto) 0.600, Neut % (Auto) 64.3, Lymph % (Auto) 15.9 L, [place] % (Auto) 12.8 H, Eos % (Auto) 6.0 H, Baso % (Auto) 0.4, Absolute Neuts (auto) 3.3, Absolute Lymphs (auto) 0.82 L, Nucleated RBC % 0, APTT 42.4 H, Sodium 141, Potassium 4.1, Chloride 109 H, Carbon Dioxide 27.0, Anion Gap 5, BUN 29 H, Creatinine 1.43 H, Estim Creat Clear Calc 48.24, Est GFR (MDRD) Af Amer 62, Est GFR (MDRD) Non-Af 51 L, BUN/Creatinine Ratio 20.3 H, Glucose 139 H, Calcium 8.6, Total Bilirubin 0.50, AST 28, ALT 29, Alkaline Phosphatase 61, Total Protein 6.3 L, Albumin 2.9 L, Globulin 3.4, Albumin/Globulin Ratio 0.9, TSH 4.34 H, Free T4 1.07 04/06/23 06:16: POC Glucose 142 H 04/06/23 10:07: APTT 46.5 H Radiography Diagnostic Testing: Radiology Impression Chest CTA 04/05/23 17:52 IMPRESSION: Abnormal CTA chest examination, with bilateral pulmonary embolism. Electronically Signed: Graham Acosta MD at 20:23 EDT , ADDENDUM: 04/06/23 0004 IMPRESSION: Abnormal CTA chest examination, with bilateral pulmonary embolism. N.B. : The above Results were Read Back by Graham Acosta MD to SHANEL SORENSON DO, and understanding confirmed on 04/05/2023 23:57:37 (ET). Electronically Signed: Graham Acosta MD at 20:23 EDT , D/C Instructions Discharge Diet: Low fat / Low cholesterol, 1800 Calorie Control Diet and 2000 mg Sodium Diet Weight Bearing Status: Weight bearing as tolerated Call your doctor if you observe: Fever of 101 or Higher, Coldness, Increased Pain, Numbness or Tingling, Change in Color, Inability to urinate, Inability to have a bowel movement, Shortness of breath, Dizziness, Fainting spells, Swelling in the ankles, Chest pain, Prolonged hiccupping, Increased palpitations (irregular heartbeat) and Calf discomfort When: IN 2 WEEKS Meaningful Use Info Meaningful Use Diagnoses (Choose all that apply): VTE VTE Anticoag overlap given w/in hospital stay or rx'd at dc?: No Reason overlap not ordered, prescribed, or given for 5 days: Procedure Not Indicated and Treatment Not Indicated Discharge Plan Admission Admit Date/Time: 04/05/23 21:18 Primary Reason for Your Visit: Bilateral PE Attending Provider: Mckinley Patton Primary Care Provider: Washington Callejas RECYCLER FORKLIFT DRIVER TRUCK DRIVER Consulting Providers: Leanna Melgar Instructions Additional Instructions / Restrictions: Follow-up BMP in 3 days and titrate the dose of HCTZ accordingly. Discharge Orders/Prescriptions Prescriptions: New sennosides-docusate sodium [Stool Softener-Stimulant Laxat] 8.6-50 mg Tablet 2 tab PO BID PRN PRN (Reason: Constipation) Qty: 0 0RF Eliquis DVT-PE Treat 30D Start 5 mg (74 tabs) tablets,dose pack 5 mg PO BID Qty: 74 2RF Rx Instructions: 10 mg twice daily for 1 week and then 5 mg twice daily to continue dextromethorphan-guaifenesin [Mucinex DM] 60-1,200 mg tablet extended release 12 hr 1 tab PO Q12H 7 Days Qty: 14 0RF Continued metoprolol tartrate 100 MG tablet 100 mg PO BID sertraline 100 MG tablet 100 mg PO DAILY amlodipine 5 MG tablet 5 mg PO DAILY simvastatin 5 MG tablet 5 mg PO DAILY glimepiride 4 MG tablet 4 mg PO DAILY pramipexole 0.25 MG tablet 0.25 mg PO DAILY pioglitazone 30 MG tablet 30 mg PO DAILY meclizine 25 mg tablet 25 mg PO DAILY PRN PRN (Reason: dizziness) Trulicity 1.5 mg/0.5 mL pen injector 1.5 mg subcut QWEEK Rx Instructions: q Monday Held hydrochlorothiazide 12.5 MG tablet 12.5 mg PO DAILY Hold Instructions: Hold for 5 days. meloxicam 15 mg tablet 15 mg PO DAILY Hold Instructions: Hold for 1 week as patient has ALAN. Referrals / Follow Up: Washington Callejas NP, RECYCLER FORKLIFT DRIVER TRUCK DRIVER-C [Primary Care Provider] - Trey Wong DO [Med Staff - Active Staff] - Within 2 Weeks (Bilateral pulmonary embolism in first, second and third order pulmonary branches) Disposition Disposition (needs filled in before D/C Order can be placed): Home, Self Care
--- NOTE | 2023-04-06 12:05 | CASEMGMT ---
RN CM TEXTILE MACHINERY SALES REPRESENTATIVE CM to room to meet with patient for initial transition planning/care coordination assessment. RN BERNADETTE introduced self and role at [facility].? Pt voices understanding and consents to assessment at this time.? Pt sitting up in chair in room in no distress at this time.? in room w/pt. Pt is A/O at this time and answers all questions appropriately.?? Care providers, pharmacy, and demographics verified/updated at this time. PCP: ELINA Callejas Specialists: none Preferred Pharmacy: [facility] Retail Insurance: [employer] [facility] Prescription Benefit:? Yes. Pt to discharge home on Eliquis. Discussed Eliquis 30-day savings card and made aware this will be applied by [facility] Retail pharmacy. Living Will/HPOA:? Has both LW and HCPOA, who is his , Gudelia LNOK: , Gudelia Living Arrangements: Lives w/ in one-story home w/3 steps to enter. Independent. Works full-time. Transportation: Pt states drives self and states no transportation concerns at this time.? also drives. DME: States has grab bars. Also has a shower chair, cane, and walker available, but does not use any AD to ambulate. Has a BP cuff. Pt does not have a pulse ox and does not have home O2. Should pt qualify for home O2, he prefers [employer] for DME co. OMID FLEMING recommended to get a pulse ox. Pt and state this is affordable. Pt and state no need for further DME at this time.? HHC/SNF: No hx of either. No needs identified. Pt currently going to [facility] for OP PT and plans to resume this once home. Pt wishes to return home and states has no concerns with going home at time of discharge.? CM to follow for home oxygen needs and any further discharge planning/needs.? Pt and voice no further concerns/needs at this time.? Advised them to ask for CM if any further questions/concerns/needs arise.? They voice understanding. PLAN: ?Home. Petros LAIRD RN, CM
--- NOTE | 2023-04-06 13:40 | PHA.DC_ITS ---
Pharmacy [facility] Pharmacy Service has performed discharge medication reconciliation and counseling for this patient. The patient's discharge medication list was reviewed for discrepancies and discrepancies were resolved. The patient was counseled on the following discharge medications and changes in medications for homegoing were reviewed. The Reason for Use, instructions for use, and potential side effects were reviewed for all new medications. The patient's questions regarding all of their medications were answered. 1. Mucinex DM 2. Eliquis 3. Senna-s The patient was able to verbally demonstrate an understanding of their discharge medications. The patient was counselled on new medications by pharmacy informatics manager [place]. Medications at Discharge Home Medications amlodipine 5 mg tablet 5 mg PO DAILY blood pressure 11/28/18 glimepiride 4 mg tablet 4 mg PO DAILY diabetes 11/28/18 hydrochlorothiazide 12.5 mg tablet 12.5 mg PO DAILY diuretic 11/28/18 metoprolol tartrate 100 mg tablet 100 mg PO BID blood pressure 11/28/18 pioglitazone 30 mg tablet 30 mg PO DAILY diabetes 11/28/18 pramipexole 0.25 mg tablet 0.25 mg PO DAILY restless legs 11/28/18 sertraline 100 mg tablet 100 mg PO DAILY mental health 11/28/18 simvastatin 5 mg tablet 5 mg PO DAILY cholesterol 11/28/18 dulaglutide 1.5 mg/0.5 mL subcutaneous pen injector (Trulicity) 1.5 mg subcut QWEEK diabetes 04/05/23 meclizine 25 mg tablet 25 mg PO DAILY PRN PRN dizziness 04/05/23 meloxicam 15 mg tablet 15 mg PO DAILY bone health 04/05/23 apixaban 5 mg (74 tabs) tablets in a dose pack (Eliquis DVT-PE Treat 30D Start) 5 mg PO BID #74 tabs 04/06/23 dextromethorphan-guaifenesin ER 60 mg-1,200 mg tab,extend release,12hr (Mucinex DM) 1 tab PO Q12H 7 days #14 tabs 04/06/23 sennosides 8.6 mg-docusate sodium 50 mg tablet (Stool Softener-Stimulant Laxative) 2 tab PO BID PRN PRN Constipation #0 tabs 04/06/23
[2023-04-06] MEDS: APIXABAN 5 MG TABLET 10 MG PO (14:44)
[2023-04-06 15:35] VITALS: O2SAT 95
[2023-04-06 16:34] LABS: Bedside Glucose 184 mg/dL (74-106)
== END 2023-04-06 16:10 | disposition home or self-care (01) | DRG 176 ==
LOC: ED 18:11 → PCU 21:34
PROVIDERS: Admitting Provider Family Medicine; Emergency Provider Emergency Medicine; PCP Nurse Practitioner Family; Visit Provider Internal Medicine
DX: I26.99 Other pulmonary embolism without acute cor pulmonale (principal); E03.9 Hypothyroidism, unspecified; E11.21 Type 2 diabetes mellitus with diabetic nephropathy; E11.22 Type 2 diabetes mellitus with diabetic chronic kidney disease; N18.30 Chronic kidney disease, stage 3 unspecified; G47.33 Obstructive sleep apnea (adult) (pediatric); E78.5 Hyperlipidemia, unspecified; I12.9 Hypertensive chronic kidney disease with stage 1 through stage 4 chronic kidney disease, or unspecified chronic kidney disease; G25.81 Restless legs syndrome; F32.A Depression, unspecified; F41.9 Anxiety disorder, unspecified; Z87.891 Personal history of nicotine dependence; E66.9 Obesity, unspecified; Z68.35 Body mass index [BMI] 35.0-35.9, adult
CPT/HCPCS: 36415; 71275; 80048; 80053; 82962; 83880; 84439; 84443; 84484; 85025; 85610; 85730; 93005; 93306; 94668; 97161; 97166; 99252; 99285; J7030; Q9957; Q9967; A4216; C8929; G0463

== ENCOUNTER 2025-08-25 22:51 | Emergency (ER) | payer MEDICARE, SELFPAY ==
[2025-08-25 22:53] VITALS: BP 128/84; PULSE 92; RESP 28; TEMP 36.3; O2SAT 94; BMI 32.5
--- NOTE | 2025-08-25 22:57 | EKG12_ITS ---
Test Reason : DYSRHYTHMIA Blood Pressure : */* mmHG Vent. Rate : 97 BPM Atrial Rate : 97 BPM P-R Int : 148 ms QRS Dur : 86 ms QT Int : 358 ms P-R-T Axes : 32 -20 48 degrees QTcB Int : 454 ms Normal sinus rhythm Normal ECG Confirmed by NORMAN BOWER, TOÑITO ([id number]), digital editor MACIEL STOUT ([id number]) on 08/26/2025 1:28:52 PM Referred By: Confirmed By: TOÑITO AUSTIN MD
--- NOTE | 2025-08-25 22:57 | CT_ITS ---
PROCEDURE: BRAIN/HEAD WITHOUT CONTRAST 08/25/2025 REASON FOR EXAM: ALTERED MENTAL STATUS TECHNIQUE: Procedure Code: CTBR Modality: CT Procedure: BRAIN/HEAD WITHOUT CONTRAST Coronal and Sagittal reconstruction series were provided. One or more dose reduction techniques were used (e.g., Automated exposure control, adjustment of the mA and/or kV according to patient size, use of iterative reconstruction technique. RADIATION DOSE SUMMARY: CTDlvol: 44.99 mGy DLP: 1032 mGycm COMPARISON: None. FINDINGS: Right pterional craniectomy. Herniation of the right frontal, parietal and temporal lobes through the craniectomy defect. Hyperdense material is noted in the corresponding sulci, probably associated subarachnoid hemorrhage with surrounding edema. Liquefied hematoma is noted in the right temporal lobe measuring 4.3 x 2.1 cm. 2 mm midline shift to the right side. Cortical/subcortical hypodensity in the territory of the right middle cerebral artery, probably secondary to ischemic pathology. Right mastoid effusion. Moderate chronic mucosal inflammatory changes of the maxillary, sphenoid sinuses and ethmoid air cells. Hypodense foci in the periventricular and subcortical white matter, probably moderate chronic ischemic white matter disease. Normal size of the ventricles and extra-axial spaces for the patient's age. Normal brainstem. Normal cerebellum. There is no demonstrated intraventricular hemorrhage. There is no demonstrated fracture. CT/Brain/Head without Contrast IMPRESSION: Right pterional craniectomy. Herniation of the right frontal, parietal and temporal lobes through the cranie ctomy defect. Hyperdense material is noted in the corresponding sulci, probably associated subarachnoid hemorrhage with surroundi ng edema. Liquefied hematoma is noted in the right temporal lobe measuring 4.3 x 2.1 cm. 2 mm midline shift to the right side. Cortical/subcortical hypodensity in the territory of the right middle cerebral artery, probably secondary to ischemic pathology. Right mastoid effusion. Moderate chronic mucosal inflammatory changes of the maxillary, sphenoid sinuse s and ethmoid air cells. Hypodense foci in the periventricular and subcortical white matter, probably mo derate chronic ischemic white matter disease. I discussed the findings with Dr. Peyman Joel at 12:35 am EST. Reading Location: [place] [id number]
[2025-08-25 22:59] VITALS: PULSE 99; RESP 44
--- NOTE | 2025-08-25 22:59 | EX.ED.DYSGE1 ---
HPI History of Present Illness Chief Complaint: Unresponsive Informant: EMS Onset/Context/Timing Onset: Days Context: Gradual Onset Timing: Continuous Worsened by: Nothing Relieved by: Nothing Narrative Narrative: Patient presents with unresponsiveness that was noticed today. Patient's last known well was approximately 3 days ago. Patient had a recent craniotomy for hemorrhagic stroke. Patient is at the care of a nursing facility. Patient was noticed to be unresponsive tonight. EMS noted that the patient was having difficulty breathing. EMS started bagging the patient. Patient is nonverbal and is a poor informant. Patient was treated for his hemorrhagic stroke at [facility]. [facility] Medical History Former tobacco use CKD (chronic kidney disease), stage III Pulmonary embolism Hx SBO Anxiety and depression RLS (restless legs syndrome) Obesity HLD (hyperlipidemia) HTN (hypertension) Diabetes mellitus, type 2 Home Medications Medication Instructions Recorded Last Taken Type amlodipine 5 mg tablet 10 mg feeding tube DAILY blood 11/28/18 Unknown History pressure hydrochlorothiazide 12.5 mg tablet 25 mg feeding tube DAILY diuretic 11/28/18 Unknown History Held on 04/06/23. Instructions: Hold for 5 days. metoprolol tartrate 100 mg tablet 100 mg feeding tube BID blood 11/28/18 Unknown History pressure pramipexole 0.25 mg tablet 0.25 mg feeding tube DAILY 11/28/18 Unknown History restless legs sertraline 100 mg tablet 100 mg feeding tube DAILY mental 11/28/18 Unknown History health dulaglutide 1.5 mg/0.5 mL 1.5 mg subcut QWEEK diabetes 04/05/23 Unknown History subcutaneous pen injector (Trulicity) apixaban 5 mg (74 tabs) tablets in 5 mg PO BID #74 tabs 04/06/23 Unknown Rx a dose pack (Eliquis DVT-PE Treat 30D Start) dextromethorphan-guaifenesin ER 60 1 tab PO Q12H 7 days #14 tabs 04/06/23 Unknown Rx mg-1,200 mg tab,extend release,12hr (Mucinex DM) sennosides 8.6 mg-docusate sodium 2 tab PO BID PRN PRN Constipation 04/06/23 Unknown Rx 50 mg tablet (Stool #0 tabs Softener-Stimulant Laxative) aspirin 81 mg tablet,delayed 81 mg feeding tube DAILY 08/25/25 Unknown History release (Adult Aspirin Regimen) atorvastatin 40 mg tablet (Lipitor) 40 mg feeding tube DAILY 08/25/25 Unknown History ferrous sulfate 325 mg (65 mg 325 mg feeding tube DAILY 08/25/25 Unknown History iron) tablet (Feosol) heparin (porcine) 5,000 unit/mL (1 5,000 unit subcut Q8H 08/25/25 Unknown History mL) injection cartridge insulin glargine 100 unit/mL (3 50 unit subcut .morning 08/25/25 Unknown History mL) subcutaneous pen (Lantus Solostar U-100 Insulin) insulin regular human 100 unit/mL 1 sliding scale dose subcut .4x 08/26/25 Unknown History injection solution (Humulin R per day Regular U-100 Insulin) levothyroxine 50 mcg tablet 50 mcg feeding tube DAILY 08/26/25 Unknown History (Synthroid) lisinopril 10 mg tablet 10 mg feeding tube DAILY 08/26/25 Unknown History omeprazole 10 mg capsule,delayed 20 mg feeding tube DAILY 08/26/25 Unknown History release omeprazole 20 mg tablet,delayed 20 mg PO DAILY 08/26/25 Unknown History release polyethylene glycol 3350 17 17 g feeding tube BID 08/26/25 Unknown History gram/dose oral powder (Miralax) spironolactone 25 mg tablet 25 mg feeding tube DAILY 08/26/25 Unknown History Allergy/AdvReac Type Severity Reaction Status Date / Time No Known Allergies Allergy Verified 08/25/25 22:57 Surgical History History of shoulder surgery History of appendectomy Social History household members: spouse Smoking Status: Unknown if ever smoked how long ago did patient quit smoking: Quit remotely. alcohol intake: never substance use type: does not use ROS ROS ED Review of Systems ROS Unobtainable: due to mental condition and due to mental status EXAM Physical Exam Const Vital Signs: 08/25/25 22:53 08/25/25 22:59 08/25/25 23:00 Temperature 97.3 F L Temperature Source Temporal Pulse Rate 92 99 Respiratory Rate 28 H 44 H Respiratory Effort Respiratory Depth Respiratory Pattern Tachypnea Blood Pressure 128/84 H Blood Pressure Mean 98 Pulse Ox 94 Oxygen Delivery Method Nasal Cannula Room Air Oxygen Flow Rate (L/min) 3 Fraction of Inspired Oxygen (FIO2) 08/25/25 23:03 08/25/25 23:22 08/25/25 23:32 Temperature 99.8 F H Temperature Source Core Pulse Rate 95 97 Respiratory Rate 40 H 45 H Respiratory Effort Respiratory Depth Respiratory Pattern Tachypnea Blood Pressure 122/83 H 132/86 H Blood Pressure Mean 96 101 Pulse Ox 91 89 Oxygen Delivery Method Nasal Cannula Nasal Cannula Oxygen Flow Rate (L/min) 3 6 Fraction of Inspired Oxygen (FIO2) 08/25/25 23:40 08/26/25 00:00 08/26/25 00:25 Temperature 101.9 F H Temperature Source Core Pulse Rate 105 H Respiratory Rate 47 H Respiratory Effort Accessory Muscle Use Retracting Respiratory Depth Deep Respiratory Pattern Tachypnea Blood Pressure 125/80 H Blood Pressure Mean 95 Pulse Ox 94 91 Oxygen Delivery Method Venturi Mask Venturi Mask Oxygen Flow Rate (L/min) 12 Fraction of Inspired Oxygen (FIO2) 08/26/25 00:30 08/26/25 00:33 Temperature 102 F H Temperature Source Core Pulse Rate 105 H 102 H Respiratory Rate 13 14 Respiratory Effort Respiratory Depth Respiratory Pattern Normal Blood Pressure 103/69 Blood Pressure Mean 80 Pulse Ox 98 98 Oxygen Delivery Method Mechanical Ventilator Oxygen Flow Rate (L/min) Fraction of Inspired Oxygen (FIO2) 100 Positive well nourished and well developed General Appearance ED: well developed HEENT Reports dry mucous membranes Mouth ED: Yes dry mucous membranes Mouth: dry mucous membranes Neck supple and no JVD Resp normal respiratory effort Auscultation: rhonchi Cardio regular rate and regular rhythm GI non-distended Palpation: soft Neuro Neuro Narrative: Patient has a history of left hemiparesis from prior stroke Sensorium / Orientation: stuporous Motor Exam: general weakness MDM MDM MDM Narrative Medical decision making narrative: Differential diagnosis includes but is not limited to pneumonia, sepsis, electrolyte abnormality, intracranial bleeding, stroke, cardiac dysrhythmia, cardiac ischemia, and urinary tract infection. CT scan of the brain will be obtained to assess for stroke and intracranial bleeding. Chest x-ray will be obtained to assess for pneumonia and bronchitis. EKG will be obtained to assess for cardiac dysrhythmia and cardiac ischemia. CBC will be obtained to assess for leukocytosis and anemia. Comprehensive metabolic profile will be obtained to assess for hepatic function, renal function, and electrolyte abnormality. PT with INR and PTT will be obtained to assess for coagulopathy. BNP will be obtained to assess for congestive heart failure. High-sensitivity troponin will be obtained to assess for cardiac ischemia. 2-hour repeat high-sensitivity troponin will be obtained to assess for ongoing cardiac ischemia. Serum lactate will be obtained to assess for sepsis. Urinalysis will be obtained to assess for urinary tract infection and hematuria. Blood cultures will be obtained to assess for sepsis. Urine culture will be obtained to assess for urinary tract infection. History & Record Review Discussion w/independent historian: EMS personnel Additional record(s) reviewed:: Prior inpatient record, Prior ED visit and Prior labs Lab Data Attestation: I reviewed the patient's lab results. Lab results narrative: CBC reviewed leukocytosis 17.1. The remainder is within normal limits. PT with INR and PTT were reviewed. Pro time was 15.8 and INR is 1.2. Urinalysis was reviewed. There is no evidence of urinary tract infection or hematuria. Comprehensive metabolic profile shows elevated BUN of 106 and creatinine of 1.77 these were increased from previous results. Serum lactate was reviewed and was normal at 1.7. Initial high-sensitivity troponin was reviewed and was elevated at 71. BNP was reviewed and was normal at 568. Labs: Laboratory Results - last 24 hr 08/25/25 08/25/25 22:54 23:00 WBC 17.1 H RBC 4.78 Hgb 14.7 Hct 45.4 MCV 95.0 H MCH 30.8 MCHC 32.4 RDW Std Deviation 48.0 H RDW Coeff of Sona 13.9 Plt Count 326 MPV 10.8 Immature Gran % (Auto) 0.500 Neut % (Auto) 85.4 H Lymph % (Auto) 5.7 L [place] % (Auto) 8.1 Eos % (Auto) 0.1 Baso % (Auto) 0.2 Absolute Neuts (auto) 14.6 H Absolute Lymphs (auto) 0.98 Nucleated RBC % 0 PT 15.8 H INR 1.2 APTT 27.8 Sodium 148 H Potassium 4.9 Chloride 108 Carbon Dioxide 27.8 Anion Gap 12 BUN 106 H* Creatinine 1.77 H Estim Creat Clear Calc 43.84 L Est GFR (MDRD) Non-Af 39 L BUN/Creatinine Ratio 59.9 H Glucose 160 H Lactic Acid 1.7 Calcium 8.6 Total Bilirubin 0.62 AST 109 H ALT 89 H Alkaline Phosphatase 99 Troponin T High Sens 71 H* NT pro BNP II 568 Total Protein 6.6 Albumin 3.1 L Globulin 3.6 Albumin/Globulin Ratio 0.9 Urine Color Yellow Urine Clarity Clear Urine pH 6.0 Ur Specific [place] 1.015 Urine Protein 15 H Urine Glucose (UA) Normal Urine Ketones Negative Urine Occult Blood 50 H Urine Nitrite Negative Urine Bilirubin Negative Urine Urobilinogen Normal Ur Leukocyte Esterase Negative Urine RBC 0-5 SEEN Urine WBC 0 SEEN Ur Squamous Epith Cells 0 SEEN Urine Bacteria 0 SEEN Urine Mucus 0 SEEN ABG Data Attestation: I personally reviewed and interpreted this ABG as follows: Interpretation: Arterial blood gas was reviewed. There is a respiratory alkalosis. pH was 7.57 and pCO2 is 31.4. pO2 was 38.6, bicarb was 28.7. Oxygen saturation was 81.6%. Respiratory therapist felt that there could be a mixture of venous blood mixed with arterial blood. ABG results: ABG 08/25/25 23:18 Specimen Type ART Sample Site L Radial pH 7.57 H Bicarbonate Actual 28.7 H Total CO2 30 Base Excess 7 H O2 Saturation 82 L O2 % 3.0 ABG pCO2 31.4 L ABG pO2 39 L* David Test Positive O2 Delivery Device Cannula Vent Mode Not entered Crit Call To/Read Back Yes Blood Gas Notified Whom Marycruz Blood Gas Notified Time 23:20:28 Radiography Chest X-Ray - ED: 1 View, Read by ED Physician, Read by Radiologist and Right Infiltrate Diagnostic Testing: Clinical Impression(s) from Imaging Studies Brain CT 08/25/25 22:57 IMPRESSION: Right pterional craniectomy. Herniation of the right frontal, parietal and temporal lobes through the craniectomy defect. Hyperdense material is noted in the corresponding sulci, probably associated subarachnoid hemorrhage with surrounding edema. Liquefied hematoma is noted in the right temporal lobe measuring 4.3 x 2.1 cm. 2 mm midline shift to the right side. Cortical/subcortical hypodensity in the territory of the right middle cerebral artery, probably secondary to ischemic pathology. Right mastoid effusion. Moderate chronic mucosal inflammatory changes of the maxillary, sphenoid sinuses and ethmoid air cells. Hypodense foci in the periventricular and subcortical white matter, probably moderate chronic ischemic white matter disease. I discussed the findings with Dr. Peyman Joel at 12:35 am EST. Reading Location: [place] [id number] Chest X-Ray 08/25/25 23:25 IMPRESSION: Left lower lung zone 7 mm nodule noted. Bilateral basilar atelectasis and right lower lung zone pneumonic consolidation. Reading Location: [place] [id number] Portable 1 view chest x-ray was obtained. On my independent interpretation, lung dillon show a right lower lobe consolidation and bibasilar atelectasis. There is also a left lower lung nodule measuring 7 mm. There is normal cardiac silhouette. Bony thorax is normal. Radiologist also interpreted the x-ray and agrees. CT scan of the brain was obtained. There is a right craniectomy. There is some herniation of the brain through the craniectomy. There is a question of subarachnoid hemorrhage. It is unclear if this is old or new. This was interpreted by the radiologist. I also independently reviewed the images. I also noted the herniation through the craniectomy and subarachnoid blood. EKG Initial EKG: Attestation: I personally reviewed and interpreted this EKG as follows: Interpretation: Sinus Rhythm (97) and No Acute Injury Pattern Comments: EKG was obtained. On my independent interpretation, it showed a normal sinus rhythm with a rate of 97. WI interval, QRS interval, and QTc intervals were all normal. There is borderline left axis deviation -20. There are no acute ST or T wave changes. Prior EKG tracings: available for review Prior: Unchanged (04/05/2023) Management Discussion w/another healthcare provider: Radiologist Treatment and Re-Evaluation :: was advised of the findings. Patient was starting to become more tachypneic. Because of this, I recommended endotracheal intubation. is agreeable with this. Patient was given etomidate and rocuronium. After adequate sedation and paralysis, patient was intubated with a 7.5 endotracheal tube. There is good consultation on the tube. There is good color change noted with capnography. Breath sounds were equal bilaterally. Patient was placed on the ventilator. was advised of the need for transfer back to [facility]. is agreeable with this. Case was discussed with Dr. Esposito from MICU at [facility]. She recommended contacting neurosurgery. Case was discussed with Dr. Maria from neurosurgery. He did not feel that this was a neurosurgical issue. He recommended admitting to the neuro ICU. Case was discussed with Dr. Yepez. He accepted the patient to be transferred there. He recommended starting vancomycin and Zosyn. This was ordered. Patient will be transferred when a bed becomes available. Transfer service stated that there were beds. Transfer form was filled out. Procedures Intubations Intubation Method: orotracheal Intubation Verification: Positive color change and Bilateral breath sounds confirmed Intubation Complications: no complications Critical Care Time Critical Care Time: Yes Critical care time (excluding procedures): 30-74 minutes (42), Including time spent:, Discussing w/Patient &/or Family/Hearing Aid Consultant, Discussing w/Consultants, Arranging Admission or Transfer and Performing Direct Patient Care at Bedside Discharge Plan Triage Chief Complaint: Unresponsive ED Provider: Peyman Joel Dx/Rx/DC Orders Clinical Impression: Aspiration pneumonia, Altered mental status, Status post craniectomy, Dehydration, Hypernatremia Prescriptions: No Action metoprolol tartrate 100 MG tablet 100 mg feeding tube BID sertraline 100 MG tablet 100 mg feeding tube DAILY amlodipine 5 MG tablet 10 mg feeding tube DAILY pramipexole 0.25 MG tablet 0.25 mg feeding tube DAILY hydrochlorothiazide 12.5 MG tablet 25 mg feeding tube DAILY Trulicity 1.5 mg/0.5 mL pen injector 1.5 mg subcut QWEEK Rx Instructions: q Monday sennosides-docusate sodium [Stool Softener-Stimulant Laxat] 8.6-50 mg Tablet 2 tab PO BID PRN PRN (Reason: Constipation) Qty: 0 0RF Eliquis DVT-PE Treat 30D Start 5 mg (74 tabs) tablets,dose pack 5 mg PO BID Qty: 74 2RF Rx Instructions: 10 mg twice daily for 1 week and then 5 mg twice daily to continue dextromethorphan-guaifenesin [Mucinex DM] 60-1,200 mg tablet extended release 12 hr 1 tab PO Q12H 7 Days Qty: 14 0RF aspirin [Adult Aspirin Regimen] 81 mg tablet,delayed release (DR/EC) 81 mg feeding tube DAILY atorvastatin [Lipitor] 40 mg tablet 40 mg feeding tube DAILY ferrous sulfate [Feosol] 325 mg (65 mg iron) tablet 325 mg feeding tube DAILY heparin (porcine) 5,000 unit/mL (1 mL) cartridge 5,000 unit subcut Q8H insulin glargine [Lantus Solostar U-100 Insulin] 100 unit/mL (3 mL) insulin pen 50 unit subcut .morning levothyroxine [Synthroid] 50 mcg tablet 50 mcg feeding tube DAILY lisinopril 10 mg tablet 10 mg feeding tube DAILY polyethylene glycol 3350 [Miralax] 17 gram/dose powder 17 g feeding tube BID omeprazole 20 mg tablet,delayed release (DR/EC) 20 mg PO DAILY omeprazole 10 mg capsule,delayed release(DR/EC) 20 mg feeding tube DAILY spironolactone 25 mg tablet 25 mg feeding tube DAILY Humulin R Regular U-100 Insuln 100 unit/mL solution 1 sliding scale dose subcut .4x per day Patient Comments: plus 22 units Primary Care Provider: Washington Callejas NP Referrals: Washington Callejas NP, [facility] [Primary Care Provider, Family Practice] Print Language: Lao Disposition Disposition: Acute Care Hospital Discharge Location: [facility]
[2025-08-25 23:03] VITALS: BP 122/83; PULSE 95; RESP 40; TEMP 37.7; O2SAT 91
[2025-08-25 23:12] LABS: Mucous, Urine 0 SEEN /hpf (<or=2+); Squamous Epithelial Cells - UA 0 SEEN /hpf (0-5)
[2025-08-25 23:16] LABS: Hematocrit 45.4 % (40-54); Hemoglobin 14.7 g/dL (13.0-16.5); Immature Granulocytes Count 0.080 X10^3/uL (0.0-0.0); Mean Corp Hgb Conc 32.4 g/dL (32-36); Mean Corpuscular Volume 95.0 fL (80-94); Mean Platelet Vol. 10.8 fl (6.2-12.0); NRBC Flagged by Analyzer 0 % (0-5); Platelet Count 326 K/mm3 (150-450); RBC Distribution Width CV 13.9 % (11.6-14.6); RBC Distribution Width SD 48.0 fl (35.1-43.9); Red Blood Count 4.78 M/mm3 (4.6-6.2); White Blood Count 17.1 K/mm3 (4.4-11.0)
[2025-08-25 23:17] LABS: Color, Urine Yellow (Yellow); Glucose, Dipstick Normal (Normal); Ketone-Dipstick Negative (Negative); Leukocyte Esterase-Dipstick Negative /ul (Negative); Nitrite-Dipstick Negative (Negative); Occult Blood-Urine 50 /ul (Negative); Protein-Dipstick 15 mg/dl (Negative); Specific Gravity, Urine 1.015 (1.002-1.030); Urine Bilirubin Dipstick Negative (Negative)
[2025-08-25 23:22] VITALS: BP 132/86; PULSE 97; RESP 45; O2SAT 89
[2025-08-25 23:23] LABS: Allen Test Positive; Base Excess 7 mmol/L (-2 to +2); FI02 3.0; PO2 39 mmHG (75-100); SITE L Radial; SO2 82 % (94-98)
[2025-08-25 23:25] LABS: Red Blood Cells-Urine 0-5 SEEN /hpf (0-5)
--- NOTE | 2025-08-25 23:25 | RAD_ITS ---
PROCEDURE: CHEST 1 VIEW (PORTABLE) 08/25/2025 REASON FOR EXAM: DYSPNEA TECHNIQUE: Frontal view of the chest. COMPARISON: 04/05/2023 FINDINGS: The lungs are expanded. Left lower lung zone 7 mm nodule is noted. Bilateral basilar atelectasis and right lower lung zone medial segment faint consolidation. No effusion. No pneumothorax. Normal heart and pericardium. Normal visualized aortic arch and descending thoracic aorta. No acute osseous abnormalities . There is no demonstrated abnormality of the visualized soft tissue structures of the upper abdomen. RAD/Chest 1 View (Portable) IMPRESSION: Left lower lung zone 7 mm nodule noted. Bilateral basilar atelectasis and right lower lung zone pneumonic consolidation . Reading [facility]
[2025-08-25 23:28] LABS: Partial Thromboplast Time 27.8 Seconds (24.1-36.2); Prothrombin Time (Protime)PT. 15.8 SECONDS (11.7-14.9)
[2025-08-25 23:40] VITALS: O2SAT 94
[2025-08-25 23:59] LABS: Pro- Brain NATRIURETIC PEPTIDE 568 pg/mL (<=1800)
[2025-08-26] VITALS (10 sets, daily range): BP systolic 99–125; BP diastolic 65–80; PULSE 90–105; RESP 13–47; TEMP 38.3–38.8; O2SAT 90–98
[2025-08-26 00:03] LABS: AST(SGOT) 109 U/L (<=37); Alanine Aminotransfer ALT/SGPT 89 U/L (<=46); Albumin, Serum 3.1 g/dL (3.4-4.8); Alkaline Phosphatase 99 U/L (40-129); Calcium,Total 8.6 mg/dL (7.6-11.0); Carbon Dioxide 27.8 mmol/L (21.0-32.0); Estimated Creatinine Clearance 43.84 ml/min (50-250); Glucose 160 mg/dL (70-99)
[2025-08-26 00:04] LABS: Anion Gap 12 (5-15); Chloride 108 mmol/L (98-108); Globulin 3.6 g/dL (2.2-4.2); Potassium 4.9 mmol/L (3.3-5.1)
--- NOTE | 2025-08-26 00:06 | CPS ---
Pt.'s ABG indicative of mixed ABG/VBG blood. Physician agreeable and okayed gas.
[2025-08-26 00:16] LABS: BUN 106 mg/dL (4-19); BUN/Creat Ratio 59.9 RATIO (10-20); Troponin T High Sensitivity 71 ng/L (<=22)
[2025-08-26] MEDS: Ampicillin/Sulbactam 3 GM in 0.9% Normal Saline (100mL MB+) 100 ML IV (00:19)
[2025-08-26] MEDS: 0.9% Normal Saline (1000mL) 1,000 ML 1000 ML IV (00:22)
--- OUTSIDE RECORDS SUMMARY | 2025-08-26 00:57 | XMS RPT_ITS | CCD ---
Author Organization [facility] Care Team Providers Care Commissioned Fire Officer Name Role Phone DEMETRIUS MEJIA APRN, CNP Primary Care Phys ician Júnior COSMETOLOGY TEACHER, COSMETOLOGY TEACHER-C Demetrius Scanlon Primary Care Pr ovider Dr. Mahamed Jaffe Emergency Provider Dr. Leanna Melgar Admit Provider [phone] Leanna Melgar Attending Provider Dr. Leanna Melgar Other Provider Demetrius Callejas CNP Primary Care Provider DEMETRIUS CALLEJAS Primary Care Unavailable Dr. Gennaro Grace Attending Provider Dr. Mckinley Patton Attending Provider [phone] Dr. Mckinley Patton Other Provider [phone] Demetrius Callejas Primary Care Unavail able Mckinley Patton Attending Unavailable Leanna Melgar Admitting Unavailable Leanna Melgar Consulting Unavailable Mckinley Patton Consulting Unavailable Leanna Melgar Attending Unavailable Demetrius Callejas Primary Care Unavail able Mckinley Patton Attending Unavailable Leanna Melgar Admitting Unavailable Leanna Melgar Consulting Unavailable Demetrius Callejas Primary Care Unavail able Gennaro Grace Attending Unavailable JÚNIOR Gonzalez CNP, DEMETRIUS Melendrez Attending U navailable JÚNIOR CORRECTION WARDEN - PEDIATRIC SOCIAL WORKER, DEMETRIUS Melendrez Primary Care U navailable JÚNIOR CORRECTION WARDEN - PEDIATRIC SOCIAL WORKER, DEMETRIUS Melendrez Attending U navailable JÚNIOR CORRECTION WARDEN - PEDIATRIC SOCIAL WORKER, DEMETRIUS Melendrez Primary Care U navailable JÚNIOR CORRECTION WARDEN - PEDIATRIC SOCIAL WORKER, DEMETRIUS Melendrez Attending U navailable JÚNIOR CORRECTION WARDEN - PEDIATRIC SOCIAL WORKER, DEMETRIUS Melendrez Primary Care U navailable JÚNIOR CORRECTION WARDEN - PEDIATRIC SOCIAL WORKER, DEMETRIUS Melendrez Referring U navailable JÚNIOR CORRECTION WARDEN - PEDIATRIC SOCIAL WORKER, DEMETRIUS Melendrez Attending U navailable JÚNIOR CORRECTION WARDEN - PEDIATRIC SOCIAL WORKER, DEMETRIUS Melendrez Primary Care U navailable JÚNIOR CORRECTION WARDEN - PEDIATRIC SOCIAL WORKER, DEMETRIUS Melendrez Attending U navailable JÚNIOR CORRECTION WARDEN - PEDIATRIC SOCIAL WORKER, DEMETRIUS Melendrez Primary Care U navailable JÚNIOR CORRECTION WARDEN - PEDIATRIC SOCIAL WORKER, DEMETRIUS Melendrez Attending U navailable JÚNIOR CORRECTION WARDEN - PEDIATRIC SOCIAL WORKER, DEMETRIUS Melendrez Primary Care U navailable JÚNIOR CORRECTION WARDEN - PEDIATRIC SOCIAL WORKER, DEMETRIUS Melendrez Attending U navailable JÚNIOR CORRECTION WARDEN - PEDIATRIC SOCIAL WORKER, DEMETRIUS Melendrez Primary Care U navailable JÚNIOR CORRECTION WARDEN - PEDIATRIC SOCIAL WORKER, DEMETRIUS Melendrez Attending U navailable JÚNIOR CORRECTION WARDEN - PEDIATRIC SOCIAL WORKER, DEMETRIUS Melendrez Primary Care U navailable MEE GARZA Attending Unavailable JÚNIOR CORRECTION WARDEN - PEDIATRIC SOCIAL WORKER, DEMETRIUS Melendrez Primary Care U navailable JÚNIOR CORRECTION WARDEN - PEDIATRIC SOCIAL WORKER, DEMETRIUS Melendrez Primary Care U navailable JÚNIOR CORRECTION WARDEN - PEDIATRIC SOCIAL WORKER, DEMETRIUS Melendrez Attending U navailable JÚNIOR CORRECTION WARDEN - PEDIATRIC SOCIAL WORKER, DEMETRIUS Melendrez Primary Care U navailable NICK, ESSIE Attending Unavailable JÚNIOR CORRECTION WARDEN - PEDIATRIC SOCIAL WORKER, DEMETRIUS Melendrez Primary Care U navailable LYNNETTE OLIVERA MD Attending Unavailable JÚNIOR CORRECTION WARDEN - PEDIATRIC SOCIAL WORKER, DEMETRIUS Melendrez Primary Care U navailable JÚNIOR CORRECTION WARDEN - PEDIATRIC SOCIAL WORKER, DEMETRIUS Melendrez Attending U navailable JÚNIOR CORRECTION WARDEN - PEDIATRIC SOCIAL WORKER, DEMETRIUS Melendrez Primary Care U navailable JÚNIOR CORRECTION WARDEN - PEDIATRIC SOCIAL WORKER, DEMETRIUS Melendrez Attending U navailable JÚNIOR CORRECTION WARDEN - PEDIATRIC SOCIAL WORKER, DEMETRIUS Melendrez Primary Care U navailable SUSHIL KIMBLE Attending Unavailable JÚNIOR CORRECTION WARDEN - PEDIATRIC SOCIAL WORKER, DEMETRIUS Melendrez Attending U navailable JÚNIOR CORRECTION WARDEN - PEDIATRIC SOCIAL WORKER, DEMETRIUS Melendrez Primary Care U navailable JÚNIOR CORRECTION WARDEN - PEDIATRIC SOCIAL WORKER, DEMETRIUS Melendrez Attending U navailable JÚNIOR CORRECTION WARDEN - PEDIATRIC SOCIAL WORKER, DEMETRIUS Melendrez Primary Care U navailable Medications Current Medications Medication Drug Class(es) Dates Sig (Normalized) Sig (Original) amLODIPine 10 mg oral tablet (20 sources) Dihydropyridine Calcium Channel Bobby Start: 01-24-2025 amLODIPine 10 mg oral tablet Dose : 10 mg = 1 tab(s), Oral, qDay, # 30 tab(s), 0 Refill(s) Start Date: 01/24/25 Status: Ordered Quantity: 30.0 Unit: tab(s) Repeat number: 1 Start: 11-04-2024 amLODIPine 5 m g oral tablet Dose : 5 mg = 1 tab(s), Oral, qDay, # 90 tab(s), 3 Refill(s), [id number] HTN, goal below 140/90, 183, cm, 10/25/24 9:05:00 EST, Height, kg, 10/25/24 9:05:00 EST, Dosing Weight Start Date: 11/04/24 Status: Ordered Quantity: 90.0 Unit: tab(s) Repeat number: 4 Indications: Essential (primary) hypertension; Start: 04-22-2024 amLODIPine 5 m g oral tablet Dose : 5 mg = 1 tab(s), Oral, qDay, # 90 tab(s), 3 Refill(s), Pharmacy: [facility], HTN, goal below 140/90, 182.5, cm, 01/25/24 10:08:00 EDT, Height, kg, 01/25/24 10:08:00 EDT, Dosing Weight Start Date: 04/22/24 Status: Ordered Start: 08-24-2023 amLODIPine 5 m g oral tablet Dose : 5 mg = 1 tab(s), Oral, qDay, # 90 tab(s), 1 Refill(s), Pharmacy: [facility], HTN, goal below 140/90, 182.5, cm, 08/24/23 9:43:00 EST, Height, kg, 08/24/23 9:43:00 EST, Dosing Weight Start Date: 08/24/23 Status: Ordered Start: 08-20-2021 End: 05-17-2022 amLODIPine 10 mg oral tablet Dose : 10 mg = 1 tab(s), Oral, qDay, # 90 tab(s), 2 Refill(s), Pharmacy: [facility], HTN, goal below 140/90, 181.3, cm, 08/20/21 15:34:00 EST, Height, kg, 08/20/21 15:34:00 EST, Dosing Weight Start Date: 08/20/21 Stop Date: 05/17/22 Status: Ordered Start: 11-28-2018 amLODIPine 5 m g oral tablet Dose : 5 mg = 1 tab(s), Oral, qDay, filling in lieu of pcp, # 90 tab(s), 0 Refill(s), Pharmacy: [facility], HTN, goal below 140/90, 182.9, cm, 02/03/23 14:28:00 EDT, Height, kg, 02/03/23 14:28:00 EDT, Dosing Weight Start Date: 02/27/23 Status: Ordered apixaban 5 mg oral tablet (9 sources) Factor Xa Inhibitor Start: 08-24-2023 Eliquis 5 mg oral tablet Dose : 5 mg = 1 tab(s), Oral, BID, # 180 tab(s), 1 Refill(s), Pharmacy: [facility], 182.5, cm, 08/24/23 9:43:00 EST, Height, 120.2, kg, 08/24/23 9:43:00 EST, Dosing Weight Start Date: 08/24/23 Status: Ordered Start: 04-11-2023 End: 05-11-2023 Eliquis 5 mg oral tablet Dos e : 5 mg = 1 tab(s), Oral, BID, # 180 tab(s), 1 Refill(s), Pharmacy: [facility], 182.9, cm, 04/11/23 7:31:00 EDT, Height, 120.6, kg, 04/11/23 7:31:00 EDT, Dosing Weight Start Date: 04/11/23 Stop Date: 05/11/23 Status: Ordered Start: 04-06-2023 End: 05-07-2023 Eliquis Starter Pack for Darin atment of DVT and PE 5 mg oral tablet [10mg BID x 7days-then 5mg BID], Oral, BID, # 74 tab(s), 0 Refill(s), DVT Treatment Dosing, 121.3 Start Date: 04/07/23 Stop Date: 05/07/23 Status: Ordered cephalexin 500 mg oral capsule (2 sources) Cephalosporin Antibacterial Start: 06-15-2023 cephalexin 500 mg oral capsule Dose : 500 mg = 1 cap(s), Oral, BID, # 10 cap(s), 0 Refill(s), Pharmacy: [id number], 182.5, cm, 06/13/23 8:12:00 EDT, Height, 116.4, kg, 06/13/23 8:12:00 EDT, Dosing Weight Start Date: 06/15/23 Status: Ordered 12 hr dextromethorphan hydrobromide 60 mg / guaiFENesin 1200 mg extended release oral tablet (1 source) Uncompetitive X-mejbao-H-asparta te Receptor Antagonist, Sigma-1 Agonist Start: 04-06-2023 take 60-1200 mg by mouth every twelve hours Dextromethorphan -Guaifenesin (Mucinex Dm) 60-1,200 mg tablet extended release 12 hr Active 1 TABLET PO Q12H 14 April 06, 2023 12:00am docusate sodium 50 mg / sennosides, long-term 8.6 mg oral tablet (1 source) Start: 04-06-2023 take 2 tablets by mouth twice daily as needed Sennosides-Docus ate Sodium (Stool Softener-Stimula nt Laxat) 8.6-50 mg Tablet Active 2 TABLET PO TWICE DAILY NEEDED 0 April 06, 2023 12:00am 0.5 ml dulaglutide 3 mg/ml auto-injector (16 sources) GLP-1 Receptor Agonist Start: 07-26-2024 End: 01-22-2025 inject 1 dose by subcutaneous injection every week Trulicity Pen 1.5 mg/0.5 mL subcutaneous solution Dose : 1.5 mg =, Subcutaneous, qWeek, X 90 day(s), # 3 EA, 1 Refill(s), 01/22/25 10:35:00 AM EDT, Pharmacy: [facility] #[id number], DM type 2, goal HbA1c Start Date: 07/26/24 Stop Date: 01/22/25 Status: Ordered Start: 11-19-2021 End: 07-21-2024 inject 1 dose by subcutaneous injection every week Trulicity Pen 1.5 mg/0.5 mL subcutaneous solution Dose : 1.5 mg =, Subcutaneous, qWeek, X 90 day(s), # 3 EA, 0 Refill(s), 07/21/24 12:05:00 PM EST, [facility] DM type 2, goal HbA1c Start Date: 04/22/24 Stop Date: 07/21/24 Status: Ordered empagliflozin 10 mg oral tablet (3 sources) Sodium-Glucose Cotransporter 2 Inhibitor Start: 01-24-2025 Jardiance 10 mg oral tablet Dose : 10 mg = 1 tab(s), Oral, qAM, # 30 tab(s), 0 Refill(s) Start Date: 01/24/25 Status: Ordered Quantity: 30.0 Unit: tab(s) Repeat number: 1 Start: 12-27-2024 Jardiance 10 m g oral tablet Dose : 10 mg = 1 tab(s), Oral, qAM, 0 Refill(s) Start Date: 12/27/24 Status: Ordered Repeat number: 1 ferrous sulfate 325 mg oral tablet (19 sources) Start: 05-14-2019 IRON (ferrous sulfate 325 mg) 65 mg oral tablet Dose : 325 mg = 1 tab(s), Oral, BIDM, Take with food. Every other day, # 60 tab(s), 3 Refill(s) Start Date: 05/14/19 Status: Ordered Quantity: 60.0 Unit: tab(s) Repeat number: 1 Comment on above: Take 325 mg by mouth twice daily. glimepiride 4 mg oral tablet (20 sources) Sulfonylurea Start: 07-26-2024 End: 07-23-2025 glimepiride 4 mg oral tablet Dose : 4 mg = 1 tab(s), Oral, qDay, # 90 tab(s), 1 Refill(s), Pharmacy: [facility] DM type 2, goal HbA1c Start Date: 01/24/25 Stop Date: 07/23/25 Status: Ordered Quantity: 90.0 Unit: tab(s) Repeat number: 2 Indications: Type 2 diabetes mellitus without complications; Start: 04-22-2024 glimepiride 4 mg oral tablet Dose : 4 mg = 1 tab(s), Oral, qDay, # 90 tab(s), 0 Refill(s), Pharmacy: [facility] DM type 2, goal HbA1c Start Date: 04/22/24 Status: Ordered Start: 08-24-2023 End: 02-20-2024 glimepiride 4 mg oral tablet Dose : 4 mg = 1 tab(s), Oral, qDay, # 90 tab(s), 1 Refill(s), Pharmacy: [facility], DM type 2, goal HbA1c Start Date: 08/24/23 Stop Date: 02/20/24 Status: Ordered Start: 11-28-2018 End: 05-28-2023 glimepiride 4 mg oral tablet Dose : 4 mg = 1 tab(s), Oral, qDay, filling in lieu of pcp, # 90 tab(s), 0 Refill(s), Pharmacy: [facility], DM type 2, goal HbA1c Start Date: 02/27/23 Stop Date: 05/28/23 Status: Ordered take 1 tablet by melyssa th once daily glimepiride 2 mg tablet Take 2 mg by mouth once daily. 0 Active Comment on above: Take 2 mg by mouth o nce daily. hydroCHLOROthiazide 12.5 mg oral tablet (17 sources) Thiazide Diuretic Start: End: hydroCHLOROthiazide 12.5 mg oral tablet Dose : 12.5 mg = 1 tab(s), Oral, qDay, filling in lieu of pcp, # 90 tab(s), 1 Refill(s), Pharmacy: [facility] HTN, goal below 140/90, 183, cm, 07/26/24 9:57:00 EST, Height, kg, 07/26/24 9:57:00 EST, Dosing Weight Start Date: 07/26/24 Stop Date: 01/22/25 Status: Ordered Start: 04-22-2024 hydroCHLOROthi azide 12.5 mg oral tablet Dose : 12.5 mg = 1 tab(s), Oral, qDay, filling in lieu of pcp, # 90 tab(s), 0 Refill(s), Pharmacy: [facility] HTN, goal below 140/90, 182.5, cm, 01/25/24 10:08:00 EDT, Height, kg, 01/25/24 10:08:00 EDT, Dosing Weight Start Date: 04/22/24 Status: Ordered Start: 08-24-2023 End: 02-20-2024 hydroCHLOROthiazide 12.5 mg oral tablet Dose : 12.5 mg = 1 tab(s), Oral, qDay, filling in lieu of pcp, # 90 tab(s), 1 Refill(s), Pharmacy: [facility], HTN, goal below 140/90, 182.5, cm, 08/24/23 9:43:00 EST, Height, kg, 08/24/23 9:43:00 EST, Dosing Weight Start Date: 08/24/23 Stop Date: 02/20/24 Status: Ordered Start: 11-28-2018 End: 05-28-2023 hydroCHLOROthiazide 12.5 mg oral tablet Dose : 12.5 mg = 1 tab(s), Oral, qDay, filling in lieu of pcp, # 90 tab(s), 0 Refill(s), Pharmacy: [facility], HTN, goal below 140/90, 182.9, cm, 02/03/23 14:28:00 EDT, Height, kg, 02/03/23 14:28:00 EDT, Dosing Weight Start Date: 02/27/23 Stop Date: 05/28/23 Status: Ordered levothyroxine sodium 0.05 mg oral tablet (12 sources) l-Thyroxine Start: 07-26-2024 End: 07-23-2025 levothyroxine 50 mcg (0.05 mg) oral tablet Dose : 50 mcg = 1 tab(s), Oral, qDay, # 90 tab(s), 1 Refill(s), Pharmacy: [facility] Hypothyroidism in adult, 183, cm, 01/24/25 9:39:00 EDT, Height, kg, 01/24/25 9:39:00 EDT, Dosing Weight Start Date: 01/24/25 Stop Date: 07/23/25 Status: Ordered Quantity: 90.0 Unit: tab(s) Repeat number: 2 Indications: Hypothyroidism, unspecified; Start: 04-22-2024 levothyroxine 50 mcg (0.05 mg) oral tablet Dose : 50 mcg = 1 tab(s), Oral, qDay, # 90 tab(s), 0 Refill(s), Pharmacy: [facility] Hypothyroidism in adult, 182.5, cm, 01/25/24 10:08:00 EDT, Height, kg, 01/25/24 10:08:00 EDT, Dosing Weight Start Date: 04/22/24 Status: Ordered Start: 08-24-2023 levothyroxine 25 mcg (0.025 mg) oral tablet Dose : 25 mcg = 1 tab(s), Oral, qDay, # 90 tab(s), 1 Refill(s), Pharmacy: [facility], Hypothyroidism in adult Thyroid enlargement, 182.5, cm, 08/24/23 9:43:00 EST, Height, kg, 08/24/23 9:43:00 EST, Dosing Weight Start Date: 08/24/23 Status: Ordered Start: 04-27-2023 End: 05-27-2023 levothyroxine 25 mcg (0.025 mg) oral tablet Dose : 25 mcg = 1 tab(s), Oral, qDay, # 90 tab(s), 1 Refill(s), Pharmacy: [facility], Hypothyroidism in adult Thyroid enlargement, 182.5, cm, 04/27/23 7:16:00 EDT, Height, kg, 04/27/23 7:16:00 EDT, Dosing Weight Start Date: 04/27/23 Stop Date: 05/27/23 Status: Ordered meclizine hydrochloride 25 mg oral tablet (5 sources) Antiemetic Start: 04-05-2023 take 25 mg by mouth once daily as needed Meclizine Active 25 MG PO DAILY NEEDED April 05, 2023 12:00am Start: 01-11-2022 End: 08-27-2022 meclizine 25 mg oral tablet Dose : 25 mg = 1 tab(s), Oral, TID, PRN Dizziness, X 90 day(s), # 270 tab(s), 1 Refill(s), 08/27/22 16:13:00 EST, Pharmacy: [facility] ([facility]), 182.9, cm, 02/28/22 15:38:00 EDT, Height, kg, 02/28/22 1... Start Date: 02/28/22 Stop Date: 08/27/22 Status: Ordered Start: 02-20-2020 take 1 tablet by melyssa every eight hours meclizine 25 mg oral tablet See Instructions, TAKE 1 TABLET EVERY 8 HOURS, # 270 tab(s), 1 Refill(s), Pharmacy: [facility], 181, cm, 01/16/20 10:22:00 EDT, Height, kg, 01/16/20 10:22:00 EDT, Dosing Weight Start Date: 02/20/20 Status: Ordered meloxicam 15 mg oral tablet (17 sources) Nonsteroidal Anti-inflammatory Drug Start: 07-26-2024 End: 01-22-2025 meloxicam 15 mg oral tablet Dose : 15 mg = 1 tab(s), Oral, qDay, # 90 tab(s), 1 Refill(s), Pharmacy: [facility] 183, cm, 07/26/24 9:57:00 EST, Height, kg, 07/26/24 9:57:00 EST, Dosing Weight Start Date: 07/26/24 Stop Date: 01/22/25 Status: Ordered Start: 04-22-2024 meloxicam 15 m g oral tablet Dose : 15 mg = 1 tab(s), Oral, qDay, # 90 tab(s), 0 Refill(s), Pharmacy: [facility] 182.5, cm, 01/25/24 10:08:00 EDT, Height, kg, 01/25/24 10:08:00 EDT, Dosing Weight Start Date: 04/22/24 Status: Ordered Start: 08-24-2023 End: 02-20-2024 meloxicam 15 mg oral tablet Dose : 15 mg = 1 tab(s), Oral, qDay, # 90 tab(s), 1 Refill(s), Pharmacy: [facility], 182.5, cm, 08/24/23 9:43:00 EST, Height, kg, 08/24/23 9:43:00 EST, Dosing Weight Start Date: 08/24/23 Stop Date: 02/20/24 Status: Ordered Start: 11-22-2022 End: 05-21-2023 meloxicam 15 mg oral tablet Dose : 15 mg = 1 tab(s), Oral, qDay, # 90 tab(s), 1 Refill(s), Pharmacy: [facility], 183, cm, 11/22/22 15:43:00 EDT, Height, kg, 11/22/22 15:43:00 EDT, Dosing Weight Start Date: 11/22/22 Stop Date: 05/21/23 Status: Ordered Start: 08-20-2021 End: 08-27-2022 meloxicam 15 mg oral tablet Dose : 15 mg = 1 tab(s), Oral, qDay, # 90 tab(s), 1 Refill(s), Pharmacy: [facility] (Now [facility]), 182.9, cm, 02/28/22 15:38:00 EDT, Height, kg, 02/28/22 15:38:00 EDT, Dosing Weight Start Date: 02/28/22 Stop Date: 08/27/22 Status: Ordered metoprolol tartrate 100 mg oral tablet (20 sources) beta-Adrenergic Bobby Start: 07-26-2024 End: 07-23-2025 Metoprolol Tartrate 100 mg oral tablet Dose : 100 mg = 1 tab(s), Oral, BID, # 180 tab(s), 1 Refill(s), Pharmacy: [facility], HTN, goal below 140/90, 183, cm, 01/24/25 9:39:00 EDT, Height, kg, 01/24/25 9:39:00 EDT, Dosing Weight Start Date: 01/24/25 Stop Date: 07/23/25 Status: Ordered Quantity: 180.0 Unit: tab(s) Repeat number: 2 Indications: Essential (primary) hypertension; Start: 04-22-2024 Metoprolol Tar trate 100 mg oral tablet Dose : 100 mg = 1 tab(s), Oral, BID, filling in lieu of pcp, # 180 tab(s), 0 Refill(s), Pharmacy: [facility] HTN, goal below 140/90, 182.5, cm, 01/25/24 10:08:00 EDT, Height, kg, 01/25/24 10:08:00 EDT, Dosing Weight Start Date: 04/22/24 Status: Ordered Start: 08-24-2023 End: 02-20-2024 Metoprolol Tartrate 100 mg o ral tablet Dose : 100 mg = 1 tab(s), Oral, BID, filling in lieu of pcp, # 180 tab(s), 1 Refill(s), Pharmacy: [facility], HTN, goal below 140/90, 182.5, cm, 08/24/23 9:43:00 EST, Height, kg, 08/24/23 9:43:00 EST, Dosing Weight Start Date: 08/24/23 Stop Date: 02/20/24 Status: Ordered Start: 11-28-2018 End: 05-28-2023 Metoprolol Tartrate 100 mg o ral tablet Dose : 100 mg = 1 tab(s), Oral, BID, filling in lieu of pcp, # 180 tab(s), 0 Refill(s), Pharmacy: [facility], HTN, goal below 140/90, 182.9, cm, 02/03/23 14:28:00 EDT, Height, kg, 02/03/23 14:28:00 EDT, Dosing Weight Start Date: 02/27/23 Stop Date: 05/28/23 Status: Ordered Comment on above: Take 100 mg by mouth twice daily. Multivitamin preparation (18 sources) Start: 05-14-2019 take 1 tablet by mouth once daily Multivitamin Dose = 1 tab(s), Oral, Daily, 0 Refill(s) Start Date: 05/14/19 Status: Ordered Repeat number: 1 Start: 05-14-2019 take 1 tablet by melyssa th once daily Multivitamin Dose = 1 tab(s), Oral, Daily, 0 Refill(s) Start Date: 05/14/19 Status: Ordered omeprazole 10 mg delayed release oral capsule (19 sources) Proton Pump Inhibitor Start: 03-17-2025 omeprazo le 10 mg oral delayed release capsule Dose : 10 mg = 1 cap(s), Oral, qDay, OTC, # 90 cap(s), 0 Refill(s), Pharmacy: [facility] 183, cm, 01/24/25 9:39:00 EDT, Height, kg, 01/24/25 9:39:00 EDT, Dosing Weight Start Date: 03/17/25 Status: Ordered Quantity: 90.0 Unit: cap(s) Repeat number: 1 Start: 11-04-2024 omeprazole 10 mg oral delayed release capsule Dose : 10 mg = 1 cap(s), Oral, qDay, OTC, # 90 cap(s), 0 Refill(s), Pharmacy: [facility] 183, cm, 10/25/24 9:05:00 EST, Height, kg, 10/25/24 9:05:00 EST, Dosing Weight Start Date: 11/04/24 Status: Ordered Quantity: 90.0 Unit: cap(s) Repeat number: 1 Start: 04-22-2024 omeprazole 10 mg oral delayed release capsule Dose : 10 mg = 1 cap(s), Oral, qDay, OTC, # 90 cap(s), 0 Refill(s), [facility] 182.5, cm, 01/25/24 10:08:00 EDT, Height, kg, 01/25/24 10:08:00 EDT, Dosing Weight Start Date: 04/22/24 Status: Ordered Start: 08-24-2023 omeprazole 10 mg oral delayed release capsule Dose : 10 mg = 1 cap(s), Oral, qDay, OTC, # 90 cap(s), 1 Refill(s), Pharmacy: [facility], 182.5, cm, 08/24/23 9:43:00 EST, Height, kg, 08/24/23 9:43:00 EST, Dosing Weight Start Date: 08/24/23 Status: Ordered Start: 08-20-2021 omeprazole 10 mg oral delayed release capsule Dose : 10 mg = 1 cap(s), Oral, qDay, OTC, # 90 cap(s), 2 Refill(s), Pharmacy: [facility], 181.3, cm, 08/20/21 15:34:00 EST, Height, kg, 08/20/21 15:34:00 EST, Dosing Weight Start Date: 08/20/21 Status: Ordered take 1 tablet by melyssa once daily Omeprazole Magnesium (PRILOSEC OTC) 20 mg tablet Take 20 mg by mouth once daily. 0 Active Comment on above: Take 20 mg by mouth once daily. pioglitazone 30 mg oral tablet (20 sources) Peroxisome Proliferator Receptor alpha Agonist, Peroxisome Proliferator Receptor gamma Agonist, Thiazolidinedione Start: 07-26-2024 End: 07-23-2025 pioglitazone 30 mg oral tablet Dose : 30 mg = 1 tab(s), Oral, Daily, # 90 tab(s), 1 Refill(s), Pharmacy: [facility] DM type 2, goal HbA1c Start Date: 01/24/25 Stop Date: 07/23/25 Status: Ordered Quantity: 90.0 Unit: tab(s) Repeat number: 2 Indications: Type 2 diabetes mellitus without complications; Start: 04-22-2024 pioglitazone 3 0 mg oral tablet Dose : 30 mg = 1 tab(s), Oral, Daily, # 90 tab(s), 0 Refill(s), Pharmacy: [facility] DM type 2, goal HbA1c Start Date: 04/22/24 Status: Ordered Start: 08-24-2023 End: 02-20-2024 pioglitazone 30 mg oral tabl et Dose : 30 mg = 1 tab(s), Oral, Daily, # 90 tab(s), 1 Refill(s), Pharmacy: [facility], DM type 2, goal HbA1c Start Date: 08/24/23 Stop Date: 02/20/24 Status: Ordered Start: 11-28-2018 End: 05-28-2023 pioglitazone 30 mg oral tabl et Dose : 30 mg = 1 tab(s), Oral, Daily, filling in lieu of pcp, # 90 tab(s), 0 Refill(s), Pharmacy: [facility], DM type 2, goal HbA1c Start Date: 02/27/23 Stop Date: 05/28/23 Status: Ordered pramipexole dihydrochloride 0.25 mg oral tablet (20 sources) Nonergot Dopamine Agonist Start: 07-26-2024 End: 07-23-2025 pramipexole 0.25 mg oral tablet Dose : 0.25 mg = 1 tab(s), Oral, qDay, # 90 tab(s), 1 Refill(s), Pharmacy: [facility] Restless leg syndrome, 183, cm, 01/24/25 9:39:00 EDT, Height, kg, 01/24/25 9:39:00 EDT, Dosing Weight Start Date: 01/24/25 Stop Date: 07/23/25 Status: Ordered Quantity: 90.0 Unit: tab(s) Repeat number: 2 Indications: Restless legs syndrome; Start: 04-22-2024 pramipexole 0. 25 mg oral tablet Dose : 0.25 mg = 1 tab(s), Oral, qDay, # 90 tab(s), 0 Refill(s), [facility] Restless leg syndrome, 182.5, cm, 01/25/24 10:08:00 EDT, Height, kg, 01/25/24 10:08:00 EDT, Dosing Weight Start Date: 04/22/24 Status: Ordered Start: 08-24-2023 pramipexole 0. 25 mg oral tablet Dose : 0.25 mg = 1 tab(s), Oral, qDay, # 90 tab(s), 1 Refill(s), Pharmacy: [facility], Restless leg syndrome, 182.5, cm, 08/24/23 9:43:00 EST, Height, kg, 08/24/23 9:43:00 EST, Dosing Weight Start Date: 08/24/23 Status: Ordered Start: 11-28-2018 pramipexole 0. 25 mg oral tablet Dose : 0.25 mg = 1 tab(s), Oral, qDay, filling in lieu of pcp, # 90 tab(s), 0 Refill(s), Pharmacy: [facility], Restless leg syndrome, 182.9, cm, 02/03/23 14:28:00 EDT, Height, kg, 02/03/23 14:28:00 EDT, Dosing Weight Start Date: 02/27/23 Status: Ordered sertraline 100 mg oral tablet (20 sources) Serotonin Reuptake Inhibitor Start: 07-26-2024 End: 07-23-2025 sertraline 100 mg oral tablet Dose : 100 mg = 1 tab(s), Oral, qDay, # 90 tab(s), 1 Refill(s), [facility] Cyclothymic disorder, 183, cm, 01/24/25 9:39:00 EDT, Height, kg, 01/24/25 9:39:00 EDT, Dosing Weight Start Date: 01/24/25 Stop Date: 07/23/25 Status: Ordered Quantity: 90.0 Unit: tab(s) Repeat number: 2 Indications: Cyclothymic disorder; Start: 04-22-2024 sertraline 100 mg oral tablet Dose : 100 mg = 1 tab(s), Oral, qDay, # 90 tab(s), 0 Refill(s), Pharmacy: [facility] Cyclothymic disorder, 182.5, cm, 01/25/24 10:08:00 EDT, Height, kg, 01/25/24 10:08:00 EDT, Dosing Weight Start Date: 04/22/24 Status: Ordered Start: 08-24-2023 End: 02-20-2024 sertraline 100 mg oral table t Dose : 100 mg = 1 tab(s), Oral, qDay, # 90 tab(s), 1 Refill(s), Pharmacy: [facility], Cyclothymic disorder, 182.5, cm, 08/24/23 9:43:00 EST, Height, kg, 08/24/23 9:43:00 EST, Dosing Weight Start Date: 08/24/23 Stop Date: 02/20/24 Status: Ordered Start: 11-28-2018 End: 05-28-2023 sertraline 100 mg oral table t Dose : 100 mg = 1 tab(s), Oral, qDay, filling in lieu of pcp, # 90 tab(s), 0 Refill(s), Pharmacy: [facility], Cyclothymic disorder, 182.9, cm, 02/03/23 14:28:00 EDT, Height, kg, 02/03/23 14:28:00 EDT, Dosing Weight Start Date: 02/27/23 Stop Date: 05/28/23 Status: Ordered Comment on above: Take 100 mg by mouth once daily. simvastatin 5 mg oral tablet (17 sources) HMG-CoA Reductase Inhibitor Start: 07-26-2024 End: 07-23-2025 simvastatin 5 mg oral tablet Dose : 5 mg = 1 tab(s), Oral, qHS, # 90 tab(s), 1 Refill(s), [facility] 183, cm, 01/24/25 9:39:00 EDT, Height, kg, 01/24/25 9:39:00 EDT, Dosing Weight Start Date: 01/24/25 Stop Date: 07/23/25 Status: Ordered Quantity: 90.0 Unit: tab(s) Repeat number: 2 Start: 04-22-2024 simvastatin 5 mg oral tablet Dose : 5 mg = 1 tab(s), Oral, qHS, # 90 tab(s), 0 Refill(s), Pharmacy: [facility] 182.5, cm, 01/25/24 10:08:00 EDT, Height, kg, 01/25/24 10:08:00 EDT, Dosing Weight Start Date: 04/22/24 Status: Ordered Start: 08-24-2023 simvastatin 5 mg oral tablet Dose : 5 mg = 1 tab(s), Oral, qHS, # 90 tab(s), 1 Refill(s), Pharmacy: [facility], 182.5, cm, 08/24/23 9:43:00 EST, Height, kg, 08/24/23 9:43:00 EST, Dosing Weight Start Date: 08/24/23 Status: Ordered Start: 05-08-2023 simvastatin 5 mg oral tablet Dose : 5 mg = 1 tab(s), Oral, qHS, # 90 tab(s), 1 Refill(s), [facility]acy: [id number], 182.5, cm, 04/27/23 7:16:00 EDT, Height, kg, 04/27/23 7:16:00 EDT, Dosing Weight Start Date: 05/08/23 Status: Ordered Start: 11-28-2018 End: 08-27-2022 take 5 mg by mouth once daily Simvastatin Active 5 MG PO DAILY November 28, 2018 12:00am spironolactone 25 mg oral tablet (17 sources) Aldosterone Antagonist Start: 07-26-2024 End: 07-23-2025 spironolactone 25 mg oral tablet Dose : 25 mg = 1 tab(s), Oral, qDay, # 90 tab(s), 1 Refill(s), Pharmacy: [facility] Left ventricular hypertrophy, 183, cm, 01/24/25 9:39:00 EDT, Height, kg, 01/24/25 9:39:00 EDT, Dosing Weight Start Date: 01/24/25 Stop Date: 07/23/25 Status: Ordered Quantity: 90.0 Unit: tab(s) Repeat number: 2 Indications: Cardiomegaly; Start: 04-22-2024 spironolactone 25 mg oral tablet Dose : 25 mg = 1 tab(s), Oral, qDay, # 90 tab(s), 0 Refill(s), [facility] Left ventricular hypertrophy, 182.5, cm, 01/25/24 10:08:00 EDT, Height, kg, 01/25/24 10:08:00 EDT, Dosing Weight Start Date: 04/22/24 Status: Ordered Start: 08-24-2023 spironolactone 25 mg oral tablet Dose : 25 mg = 1 tab(s), Oral, qDay, # 90 tab(s), 1 Refill(s), Pharmacy: [facility], Left ventricular hypertrophy, 182.5, cm, 08/24/23 9:43:00 EST, Height, kg, 08/24/23 9:43:00 EST, Dosing Weight Start Date: 08/24/23 Status: Ordered Start: 02-27-2023 spironolactone 25 mg oral tablet Dose : 25 mg = 1 tab(s), Oral, qDay, with meals filling in lieu of pcp, # 90 tab(s), 0 Refill(s), Pharmacy: [facility], Left ventricular hypertrophy, 182.9, cm, 02/03/23 14:28:00 EDT, Height, kg, 02/03/23 14:28:00 EDT, Dosing Weight Start Date: 02/27/23 Status: Ordered Start: 02-28-2022 spironolactone 25 mg oral tablet Dose : 25 mg = 1 tab(s), Oral, qDay, with meals, # 90 tab(s), 1 Refill(s), Pharmacy: [facility] (Now [facility]), Left ventricular hypertrophy, 182.9, cm, 02/28/22 15:38:00 EDT, Height, kg, 02/28/22 15:38:00 E... Start Date: 02/28/22 Status: Ordered Start: 01-11-2022 spironolactone 25 mg oral tablet Dose : 25 mg = 1 tab(s), Oral, qDay, with meals, # 90 tab(s), 1 Refill(s), Pharmacy: [facility], Left ventricular hypertrophy, 181.3, cm, 01/11/22 15:53:00 EDT, Height, kg, 01/11/22 15:53:00 EDT, Dosing Weight Start Date: 01/11/22 Status: Ordered traMADol hydrochloride 50 mg oral tablet (1 source) Opioid Agonist Start: 06-23-2022 End: 06-28-2022 traMADol 50 mg oral tablet Dose : 50 mg = 1 tab(s), Oral, q6hr, Fill Date: 06/23/2022, X 5 day(s), # 20 tab(s), 0 Refill(s), 06/28/22 14:13:00 EDT, Pharmacy: [facility] #[id number], Pain and swelling of left knee, 182.9, cm, 06/23/22 13:20:00 EDT, Height, 122.7 Start Date: 06/23/22 Stop Date: 06/28/22 Status: Ordered Completed/Discontinued Medications Medication Drug Class(es) Dates Sig (Normalized) Sig (Original) lisinopril 10 mg oral tablet (1 source) Angiotensin Converting Enzyme Inhibitor take 2 tablets by mouth once daily lisinopril 10 mg tablet Take 20 mg by mouth once daily. 0 Active Comment on above: Take 20 mg by mouth once daily. 24 hr metFORMIN hydrochloride 500 mg extended release oral tablet (2 sources) Biguanide Start: 11-28-2018 End: 04-05-2023 take 500 mg by mouth once daily Metformin Discontinued 500 MG PO DAILY November 28, 2018 12:00am April 05, 2023 9:27pm multivitamin tablet (1 source) take 1 tablet by mouth once daily multivitamin tablet Take 1 tablet by mouth once daily. 0 Active Comment on above: Take 1 tablet by melyssa th once daily. Problems Active Problems Problem Classification Problem Date Documented Date Episodic/Chronic Biliary tract disease (3 sources) Cholelithiasis without obstruction 08-16-2024 Episodic Chronic kidney disease (19 sources) Chronic kidney disease stage 3; Translations: [Chronic kidney disease, stage 3 unspecified] Onset: 4 02-28-2022 Chronic Chronic kidney disease (4 sources) Chronic kidney disease; Translations: [Chronic kidney disease, stage 3 unspecified] Onset: 3 Conditions associated with dizziness or vertigo (4 sources) Vertigo 01-11-2022 Episodic Congestive heart failure; nonhypertensive (8 sources) Diastolic dysfunction 11-21-2023 Chronic Comment on above: 04/05/2023 Echocardi ogram SUMMARY: 1. Normal LV size. 2. Left ventricular systolic function is normal. 3. The estimated ejection fraction is 65%. 4. Stage I diastolic dysfunction noted. 5. Contrast injection was performed, however, the study was technically difficult but determined benign 12/06/2021 Echocardi ogram SUMMARY: 1. Left ventricle: The cavity size is normal. Wall thickness is mildly increased. Concentric Left Ventricular Hypertrophy Systolic function is normal. The estimated ejection fraction is 55-60%. Wall motion is normal; there are no regional wall motion abnormalities. Unable to assess diastolic function. 2. Ventricular septum: Thickness is mildly increased. 3. Right ventricle: The RV systolic pressure by Doppler is 12 mm Hg. 4. Right atrium: The atrium is mildly dilated. The estimated right atrial pressure is 3 mm Hg. Deficiency and other anemia (10 sources) Anemia 08-24-2023 Episodic Diabetes mellitus without complication (20 sources) Type 2 diabetes mellitus; Translations: [Type 2 diabetes mellitus without complication] Onset: 3 01-16-2020 Chronic Disorders of lipid metabolism (20 sources) Hyperlipidemia; Translations: [Hyperlipidemia, unspecified] Onset: 3 01-16-2020 Chronic Esophageal disorders (20 sources) Gastroesophageal reflux disease; Translations: [Gastroesophageal reflux disease with hiatal hernia] Onset: 4 05-14-2019 Chronic Comment on above: (11/15/2023 11:[address] Angiography Chest w/ Contrast) FINDINGS: No pulmonary embolism is seen on this study to the level of the segmental branches. There is complete resolution of previous emboli. The main pulmonary artery is 3.3 cm in diameter. Nonaneurysmal aorta with moderate atherosclerotic calcification. Mild coronary artery calcifications also. Small hiatal hernia. No dilatation of the esophagus. No pathologic lymphadenopathy in the chest, pleural or pericardial effusion. The included upper abdomen shows gallstones. There is a small fluid density lesion in the inferior right lobe of liver suggesting a cyst of about 2 cm. The lungs show no consolidation, mass or suspicious nodules. There is a calcified granuloma in the right middle lobe. No acute aggressive skeletal abnormality. Thoracic spine degenerative changes. IMPRESSION: 1. Complete resolution of previous pulmonary embolism. No acute findings in the chest. 2. Incidental findings as described. Essential hypertension (20 sources) Hypertensive disorder; Translations: [Essential (primary) hypertension] Onset: 3 01-16-2020 Chronic Comment on above: 12/06/2021 Echocardi ogram: Summary: 1. Left ventricle: The cavity size is normal. Wall thickness is mildly increased. Concentric Left Ventricular Hypertrophy Systolic function is normal. The estimated ejection fraction is 55-60%. Wall motion is normal; there are no regional wall motion abnormalities. Unable to assess diastolic function. 2. Ventricular septum: Thickness is mildly increased. 3. Right ventricle: The RV systolic pressure by Doppler is 12 mm Hg. 4. Right atrium: The atrium is mildly dilated. The estimated right atrial pressure is 3 mm Hg 04/05/2023 Echocardi ogram SUMMARY: 1. Normal LV size. 2. Left ventricular systolic function is normal. 3. The estimated ejection fraction is 65%. 4. Stage I diastolic dysfunction noted. 5. 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 Left ventricle: The cavity size is normal. Wall thickness is mildly increased. Concentric Left Ventricular Hypertrophy Systolic function is normal. The estimated ejection fraction is 55-60%. Wall motion is normal; there are no regional wall motion abnormalities. Unable to assess diastolic function. 2. Ventricular septum: Thickness is mildly increased. 3. Right ventricle: The RV systolic pressure by Doppler is 12 mm Hg. 4. Right atrium: The atrium is mildly dilated. The estimated right atrial pressure is 3 mm Hg. Other circulatory disease (8 sources) Disorder of aorta 11-21-2023 Chronic Comment on above: (11/15/2023 11:[address] Angiography Chest w/ Contrast) FINDINGS: No pulmonary embolism is seen on this study to the level of the segmental branches. There is complete resolution of previous emboli. The main pulmonary artery is 3.3 cm in diameter. Nonaneurysmal aorta with moderate atherosclerotic calcification. Mild coronary artery calcifications also. Small hiatal hernia. No dilatation of the esophagus. No pathologic lymphadenopathy in the chest, pleural or pericardial effusion. The included upper abdomen shows gallstones. There is a small fluid density lesion in the inferior right lobe of liver suggesting a cyst of about 2 cm. The lungs show no consolidation, mass or suspicious nodules. There is a calcified granuloma in the right middle lobe. No acute aggressive skeletal abnormality. Thoracic spine degenerative changes. IMPRESSION: 1. Complete resolution of previous pulmonary embolism. No acute findings in the chest. 2. Incidental findings as described. Other hematologic conditions (11 sources) Myelofibrosis 05-14-2019 Chronic Other hereditary and degenerative nervous system conditions (18 sources) Restless legs 05-14-2019 Chronic Other liver diseases (11 sources) Liver cyst 11-21-2023 Chronic Comment on above: (11/15/2023 11:[address] Angiography Chest w/ Contrast) FINDINGS: No pulmonary embolism is seen on this study to the level of the segmental branches. There is complete resolution of previous emboli. The main pulmonary artery is 3.3 cm in diameter. Nonaneurysmal aorta with moderate atherosclerotic calcification. Mild coronary artery calcifications also. Small hiatal hernia. No dilatation of the esophagus. No pathologic lymphadenopathy in the chest, pleural or pericardial effusion. The included upper abdomen shows gallstones. There is a small fluid density lesion in the inferior right lobe of liver suggesting a cyst of about 2 cm. The lungs show no consolidation, mass or suspicious nodules. There is a calcified granuloma in the right middle lobe. No acute aggressive skeletal abnormality. Thoracic spine degenerative changes. IMPRESSION: 1. Complete resolution of previous pulmonary embolism. No acute findings in the chest. 2. Incidental findings as described. 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 Other non-traumatic joint disorders (5 sources) Shoulder pain 10-18-2019 Episodic Other non-traumatic joint disorders (1 source) Pain of right shoulder joint; Translations: [Pain in right shoulder] Episodic Pulmonary heart disease (19 sources) Pulmonary embolism; Translations: [Other pulmonary embolism without acute cor pulmonale] Onset: 3 04-05-2023 Episodic Residual codes; unclassified (18 sources) Obstructive sleep apnea syndrome 05-14-2019 Chronic Residual codes; unclassified (5 sources) Edema of lower extremity 11-19-2021 Episodic Residual codes; unclassified (18 sources) Increased body mass index 01-16-2020 Episodic Residual codes; unclassified (1 source) Past history of procedure; Translations: [Other specified postprocedural states] Episodic Spondylosis; intervertebral disc disorders; other back problems (3 sources) Degeneration of lumbosacral intervertebral disc 08-16-2024 Chronic Spondylosis; intervertebral disc disorders; other back problems (3 sources) Spinal stenosis of lumbar region 08-16-2024 Episodic Thyroid disorders (20 sources) Hypothyroidism; Translations: [Hypothyroidism, unspecified] Onset: 3 Chronic Unclassified (3 sources) Pain of knee region 06-23-2022 Unclassified (20 sources) Patient encounter status 02-28-2022 Unclassified (1 source) Vaccination needed 06-23-2022 Unclassified (15 sources) Chronic pain of right upper limb 11-22-2022 Comment on above: (05/15/2019 15:48 ED T XR Shoulder Minimum 2 Views Right) FINDINGS: No fracture or dislocation is identified. There is prominent spurring at the acromioclavicular joint without separation or offset, stable suspect ossification along the coracoclavicular ligament, also stable. IMPRESSION: 1. No acute fracture or dislocation. Stable degenerative changes described. Unclassified (2 sources) Drug therapy finding 08-23-2022 Comment on above: Medication managemen t contract signed: 08/2022 Unclassified (15 sources) Non-smoker 08-30-2022 Unclassified (13 sources) Rupture of rotator cuff of shoulder 03-27-2023 Past or Other Problems Problem Classification Problem Date Documented Date Episodic/Chronic Deficiency and other anemia (1 source) Iron deficiency anemia; Translations: [Iron deficiency anemia, unspecified] Onset: 02-01-2012 02-01-2012 Episodic Nutritional deficiencies (10 sources) Iron deficiency; Translations: [Iron deficiency] Onset: 08-17-2023 05-14-2019 Episodic Other screening for suspected conditions (not mental disorders or infectious disease) (19 sources) Echocardiogram abnormal; Translations: [Encounter for screening for malignant neoplasm of prostate] Onset: 07-18-2024 12-14-2021 Episodic Comment on above: Echo Summary: 2021 1. Left ventricle: The cavity size is normal. Wall thickness is mildly increased. Concentric Left Ventricular Hypertrophy Systolic function is normal. The estimated ejection fraction is 55-60%. Wall motion is normal; there are no regional wall motion abnormalities. Unable to assess diastolic function. 2. Ventricular septum: Thickness is mildly increased. 3. Right ventricle: The RV systolic pressure by Doppler is 12 mm Hg. 4. Right atrium: The atrium is mildly dilated. The estimated right atrial pressure is 3 mm Hg. Results Test Name Value Interpretation Reference Range Facility .GFRon 04-07-2025 Estimated Glomerular Filtration Rate 51 ml/min/1.73sqm Normal [facility] Comment on above: Result Comment: Stages of Chronic Kidney Disease (CKD) Stage Description eGFR(ml/min/1.73 sq.m.) CKD 1 Normal kidney function or >=90 normal kindney function with possible kidney damage (ex. Proteinuria) CKD 2 Kidney damage with mild loss 60-89 of kidney function CKD 3a Mild to moderate loss of kidney 45-59 function CKD 3b Moderate to severe loss of 30-44 of kindey function CKD 4 Severe loss of kidney function 15-29 CKD 5 Kidney failure <15 Note: (go live 2024) the eGFR calculation was updated to the 2020 CKD-EPI creatinine equation without a race factor to calculate the eGFR results. Performed By: #### F ERR, GFR, FE, ADIFF, MG, IBC, ANEU, CMP, PHOS, CBC #### [address] [address] #### PTH #### [address] [address] CREon 04-07-2025 Creatinine [Mass/Vol] 1.40 mg/dL High 0.67-1.17 [facility] Comment on above: Performed By: #### F ERR, GFR, FE, ADIFF, MG, IBC, ANEU, CMP, PHOS, CBC #### [address] [address] #### PTH #### [address] [address] [address] LIVER AND SPLEEN W/CONTRA [facility] 04-07-2025 CT LIVER AND SPLEEN W/CONTRAST ORIGINAL EXAM: Multiphase CT of the abdomen with contrast (CT Liver Protocol) dated 04/07/2025. INDICATION: ORDERING SYSTEM PROVIDED HISTORY: Reason for Exam: See comments HYPODENSE MASS INFERIOR-MEDIAL ASPECTI RT HEPATIC LOBE FOLLOW UPNO HX CA COMPARISON: CTA abdomen 08/13/2024 and abdominal ultrasound 06/21/2024 TECHNIQUE: CT images were obtained from the lung bases to the upper thighs following the administration of 120 mL Omnipaque intravenous contrast and reconstructed to a slice thickness of 2.5 and 0.625 mm. Imaging was acquired in an early arterial phase and repeated during a portal venous phase post contrast. Coronal and sagittal reformatted images were obtained and reviewed. CT Radiation Dose: Integrated Dose-length product (DLP) = 541.52 mGy*cm. CT Dose Reduction Employed: Per department protocol including the following measures where applicable: Automated exposure control, adjustment of the mAs and/or kVp according to patient size and/or exam, and an iterative reconstruction algorithm. FINDINGS: The bilateral lung bases are unremarkable. There is a trace amount of pericardial fluid. Mild degenerative changes are noted within the spine. No acute osseous abnormalities. A roughly 1.9 cm round, well-marginated, uniformly hypodense, nonenhancing lesion is seen within the inferior medial right hepatic lobe, consistent with a benign hepatic cyst. The spleen, pancreas, and adrenal glands appear normal. There is cholelithiasis. The visualized portion of the bilateral kidneys demonstrate symmetric excretion. No evidence of hydronephrosis is seen. The visualized portion of the GI tract demonstrates no acute abnormalities. No visualized intra-abdominal lymphadenopathy, free fluid, or free air. Mild aortic atherosclerosis is noted. IMPRESSION: 1.9 cm benign hepatic cyst within the inferomedial right hepatic lobe. No follow-up imaging is needed. Cholelithiasis. I have personally reviewed the images of this examination and agree with the resident's findings and interpretation. Interpreted by: Essie To MD Preliminary Report By: Harriet Sheehan Electronically signed By Essie To MD Dictated Date: 04/07/2025 2:18:43 PM Prelim Date: 04/07/2025 4:15:18 PM Sign Date: 04/07/2025 4:15:18 PM Ordering Provider: DEMETRIUS CALLEJAS [facility] LABORATORYOrdered By: SYSTEM SYSTEM on 04-07-2025 Creatinine [Mass/Vol] 1.40 mg/dL High 0.67 - 1.17 mg/dL AO ADM SS Estimated Glomerular Filtration Rate 51 ml/min/1.73sqm Invalid Interpretation Code AO Chemistry S Comment on above: Interpretive Data: Stages of Chronic Kidney Disease (CKD) Stage Description eGFR(ml/min/1.73 sq.m.) CKD 1 Normal kidney function or >=90 normal kindney function with possible kidney damage (ex. Proteinuria) CKD 2 Kidney damage with mild loss 60-89 of kidney function CKD 3a Mild to moderate loss of kidney 45-59 function CKD 3b Moderate to severe loss of 30-44 of kindey function CKD 4 Severe loss of kidney function 15-29 CKD 5 Kidney failure <15 Note: (go live 2024) the eGFR calculation was updated to the 2020 CKD-EPI creatinine equation without a race factor to calculate the eGFR results. .Auto Diffon 01-20-2025 Basophil, Absolute 0.0 10 3/mcL Normal 0.0-0.3 [facility] Comment on above: Performed By: #### F ERR, GFR, FE, ADIFF, MG, IBC, ANEU, CMP, PHOS, CBC #### [place] [id number] [place], [place] [address] #### PTH #### [address] [address] Basophils/100 WBC (Bld) 0.6 % Normal 0.0-2.[address] [facility] Comment on above: Performed By: #### F ERR, GFR, FE, ADIFF, MG, IBC, ANEU, CMP, PHOS, CBC #### [address] [address] #### PTH #### [address] [address] Eosinophil, Absolute 0.1 10 3/mcL Normal 0.0-0.7 [facility] Comment on above: Performed By: #### F ERR, GFR, FE, ADIFF, MG, IBC, ANEU, CMP, PHOS, CBC #### [place] [address] #### PTH #### [address] [address] Eosinophils/100 WBC (Bld) 2.9 % Normal 0.0-6.[address] [facility] Comment on above: Performed By: #### F ERR, GFR, FE, ADIFF, MG, IBC, ANEU, CMP, PHOS, CBC #### [place] [address] #### PTH #### [address] [address] Lymphocyte, Absolute 1.0 10 3/mcL Normal 0.9-4.3 [facility] Comment on above: Performed By: #### F ERR, GFR, FE, ADIFF, MG, IBC, ANEU, CMP, PHOS, CBC #### [place] [address] #### PTH #### [address] [address] Lymphocytes/100 WBC (Bld) 19.7 % Low 20.0-40.[address] [facility] Comment on above: Performed By: #### F ERR, GFR, FE, ADIFF, MG, IBC, ANEU, CMP, PHOS, CBC #### [place] [address] #### PTH #### [address] [address] Monocyte, Absolute 0.6 10 3/mcL Normal 0.1-1.4 [facility] Comment on above: Performed By: #### F ERR, GFR, FE, ADIFF, MG, IBC, ANEU, CMP, PHOS, CBC #### [address] [address] #### PTH #### [address] [address] Monocytes/100 WBC (Bld) 12.7 % Normal 2.0-13.[address] [facility] Comment on above: Performed By: #### F ERR, GFR, FE, ADIFF, MG, IBC, ANEU, CMP, PHOS, CBC #### [address] [address] #### PTH #### [address] [address] Neutrophils/100 WBC (Bld) 64.1 % Normal 50.0-75.[address] [facility] Comment on above: Performed By: #### F ERR, GFR, FE, ADIFF, MG, IBC, ANEU, CMP, PHOS, CBC #### [address] [address] #### PTH #### [address] [address] .GFRon 01-20-2025 Estimated Glomerular Filtration Rate 51 ml/min/1.73sqm Normal [facility] Comment on above: Result Comment: Stages of Chronic Kidney Disease (CKD) Stage Description eGFR(ml/min/1.73 sq.m.) CKD 1 Normal kidney function or >=90 normal kindney function with possible kidney damage (ex. Proteinuria) CKD 2 Kidney damage with mild loss 60-89 of kidney function CKD 3a Mild to moderate loss of kidney 45-59 function CKD 3b Moderate to severe loss of 30-44 of kindey function CKD 4 Severe loss of kidney function 15-29 CKD 5 Kidney failure <15 Note: (go live 2024) the eGFR calculation was updated to the 2020 CKD-EPI creatinine equation without a race factor to calculate the eGFR results. Performed By: #### F ERR, GFR, FE, ADIFF, MG, IBC, ANEU, CMP, PHOS, CBC #### [place] [address] #### PTH #### [place] [address] .NEUABSon 01-20-2025 Neutrophil, Absolute 3.2 10 3/mcL Normal 2.3-8.1 [facility] Comment on above: Performed By: #### F ERR, GFR, FE, ADIFF, MG, IBC, ANEU, CMP, PHOS, CBC #### [place] [address] #### PTH #### [place] [address] A1Con 01-20-2025 Glucose [Mass/Vol] 166 mg/dL Normal [facility] Comment on above: Result Comment: Ayana mated Average Glucose calculated by equation ((28.7xA1C)-46.7) Estimated average glucose (eAG) is a calculated value from Hemoglobin A1C and is career services representative of the average blood glucose level in the last 2-3 month period. Normal range: less than 114 mg/dL Performed By: #### F ERR, GFR, FE, ADIFF, MG, IBC, ANEU, CMP, PHOS, CBC #### [place] [address] #### PTH #### [place] [address] HbA1c (Bld) [Mass fraction] 7.4 % High 4.3-6.[address] [facility] Comment on above: Performed By: #### F ERR, GFR, FE, ADIFF, MG, IBC, ANEU, CMP, PHOS, CBC #### [place] [address] #### PTH #### [place] [address] CBCon 01-20-2025 Erythrocyte distribution width (RBC) [Ratio] 13.3 % Normal 11.5-15.[address] [facility] Comment on above: Performed By: #### F ERR, GFR, FE, ADIFF, MG, IBC, ANEU, CMP, PHOS, CBC #### [address] [address] #### PTH #### [place] [address] Hematocrit (Bld) [Volume fraction] 45.3 % Normal 40.0-52.[address] [facility] Comment on above: Performed By: #### F ERR, GFR, FE, ADIFF, MG, IBC, ANEU, CMP, PHOS, CBC #### [place] [address] #### PTH #### [place] [address] Hgb 15.2 G/dL Normal 13.0-17.[address] [facility] Comment on above: Performed By: #### F ERR, GFR, FE, ADIFF, MG, IBC, ANEU, CMP, PHOS, CBC #### [place] [address] #### PTH #### [place] [address] MCH (RBC) [Entitic mass] 30.9 pg Normal 27.0-33.[address] [facility] Comment on above: Performed By: #### F ERR, GFR, FE, ADIFF, MG, IBC, ANEU, CMP, PHOS, CBC #### [place] [address] #### PTH #### [place] [address] MCHC 33.6 G/dL Normal 32.0-36.[address] [facility] Comment on above: Performed By: #### F ERR, GFR, FE, ADIFF, MG, IBC, ANEU, CMP, PHOS, CBC #### [place] [address] #### PTH #### [place] [address] MCV (RBC) [Entitic vol] 92.1 fL Normal 81.0-100.[address] [facility] Comment on above: Performed By: #### F ERR, GFR, FE, ADIFF, MG, IBC, ANEU, CMP, PHOS, CBC #### [place] [address] #### PTH #### [place] [address] Platelet 157 10 3/mcL Normal 150-[address] [facility] Comment on above: Performed By: #### F ERR, GFR, FE, ADIFF, MG, IBC, ANEU, CMP, PHOS, CBC #### [place] [address] #### PTH #### [place] [address] Platelet mean volume (Bld) [Entitic vol] 8.2 fL Normal 6.4-10.[address] [facility] Comment on above: Performed By: #### F ERR, GFR, FE, ADIFF, MG, IBC, ANEU, CMP, PHOS, CBC #### [place] [address] #### PTH #### [place] [address] RBC 4.92 10 6/mcL Normal 4.50-6.[address] [facility] Comment on above: Performed By: #### F ERR, GFR, FE, ADIFF, MG, IBC, ANEU, CMP, PHOS, CBC #### [place] [address] #### PTH #### [place] [address] WBC 5.0 10 3/mcL Normal 4.5-10.[address] [facility] Comment on above: Performed By: #### F ERR, GFR, FE, ADIFF, MG, IBC, ANEU, CMP, PHOS, CBC #### [place] [address] #### PTH #### [place] [id number] CMPon 01-20-2025 Albumin Level 3.6 G/dL Normal 3.4-4.[address] [facility] Comment on above: Performed By: #### F ERR, GFR, FE, ADIFF, MG, IBC, ANEU, CMP, PHOS, CBC #### [place] [address] #### PTH #### [place] [address] Albumin/Globulin [Mass ratio] 1.0 {ratio} Low 1.1-2.[address] [facility] Comment on above: Performed By: #### F ERR, GFR, FE, ADIFF, MG, IBC, ANEU, CMP, PHOS, CBC #### [place] [address] #### PTH #### [place] [address] ALP [Catalytic activity/Vol] 75 U/L Normal 40-[address] [facility] Comment on above: Performed By: #### F ERR, GFR, FE, ADIFF, MG, IBC, ANEU, CMP, PHOS, CBC #### [place] [address] #### PTH #### [place] [address] ALT [Catalytic activity/Vol] 43 U/L Normal 16-[address] [facility] Comment on above: Performed By: #### F ERR, GFR, FE, ADIFF, MG, IBC, ANEU, CMP, PHOS, CBC #### [place] [address] #### PTH #### [place] [address] AST [Catalytic activity/Vol] 34 U/L Normal 10-[address] [facility] Comment on above: Performed By: #### F ERR, GFR, FE, ADIFF, MG, IBC, ANEU, CMP, PHOS, CBC #### [place] [id number] #### PTH #### [address] [address] Bili Total 0.8 mg/dL Normal 0.2-1.[address] [facility] Comment on above: Result Comment: Use of this assay is not recommended for patients undergoing treatment with eltrombopag due to the potential for falsely elevated results. Performed By: #### F ERR, GFR, FE, ADIFF, MG, IBC, ANEU, CMP, PHOS, CBC #### [place] [address] #### PTH #### [place] [address] BUN/Creatinine Ratio 18 ratio Normal 7-27 [facility] Comment on above: Performed By: #### F ERR, GFR, FE, ADIFF, MG, IBC, ANEU, CMP, PHOS, CBC #### [place] [address] #### PTH #### [place] [address] Calcium [Mass/Vol] 9.1 mg/dL Normal 8.4-10.2 [facility] Comment on above: Performed By: #### F ERR, GFR, FE, ADIFF, MG, IBC, ANEU, CMP, PHOS, CBC #### [place] [address] #### PTH #### [place] [address] Chloride [Moles/Vol] 107 mmol/L Normal 98-107 [facility] Comment on above: Performed By: #### F ERR, GFR, FE, ADIFF, MG, IBC, ANEU, CMP, PHOS, CBC #### [place] [address] #### PTH #### [place] [id number] CO2 [Moles/Vol] 28 mmol/L Normal 23-[address] [facility] Comment on above: Performed By: #### F ERR, GFR, FE, ADIFF, MG, IBC, ANEU, CMP, PHOS, CBC #### [place] [address] #### PTH #### [address] [address] Creatinine [Mass/Vol] 1.41 mg/dL High 0.67-1.17 [facility] Comment on above: Performed By: #### F ERR, GFR, FE, ADIFF, MG, IBC, ANEU, CMP, PHOS, CBC #### [place] [address] #### PTH #### [place] [address] Electrolyte Balance 8.0 mEq/L Normal 4.0-15.0 [facility] Comment on above: Performed By: #### F ERR, GFR, FE, ADIFF, MG, IBC, ANEU, CMP, PHOS, CBC #### [place] [address] #### PTH #### [place] [address] Globulin 3.5 G/dL Normal 2.7-4.[address] [facility] Comment on above: Performed By: #### F ERR, GFR, FE, ADIFF, MG, IBC, ANEU, CMP, PHOS, CBC #### [place] [address] #### PTH #### [address] [address] Glucose [Mass/Vol] 147 mg/dL High 83-110 [facility] Comment on above: Performed By: #### F ERR, GFR, FE, ADIFF, MG, IBC, ANEU, CMP, PHOS, CBC #### [place] [address] #### PTH #### [address] [address] Potassium [Moles/Vol] 4.7 mmol/L Normal 3.5-5.1 [facility] Comment on above: Performed By: #### F ERR, GFR, FE, ADIFF, MG, IBC, ANEU, CMP, PHOS, CBC #### [address] [address] #### PTH #### [address] [address] Sodium [Moles/Vol] 143 mmol/L Normal 136-145 [facility] Comment on above: Performed By: #### F ERR, GFR, FE, ADIFF, MG, IBC, ANEU, CMP, PHOS, CBC #### [place] [address] #### PTH #### [place] [address] Total Protein 7.1 G/dL Normal 6.4-8.[address] [facility] Comment on above: Performed By: #### F ERR, GFR, FE, ADIFF, MG, IBC, ANEU, CMP, PHOS, CBC #### [place] [address] #### PTH #### [place] [address] Urea nitrogen [Mass/Vol] 25 mg/dL High 7-[address] [facility] Comment on above: Performed By: #### F ERR, GFR, FE, ADIFF, MG, IBC, ANEU, CMP, PHOS, CBC #### [place] [address] #### PTH #### [place] [address] FEon 01-20-2025 Iron [Mass/Vol] 83 ug/dL Normal 65-[address] [facility] Comment on above: Performed By: #### F ERR, GFR, FE, ADIFF, MG, IBC, ANEU, CMP, PHOS, CBC #### [address] [address] #### PTH #### [place] [id number] FT4on 01-20-2025 Free T4 [Mass/Vol] 0.95 ng/dL Normal 0.76-1.46 [facility] Comment on above: Performed By: #### F ERR, GFR, FE, ADIFF, MG, IBC, ANEU, CMP, PHOS, CBC #### [address] [address] #### PTH #### [address] [address] IBCon 01-20-2025 TIBC 337 mcg/dL Normal 250-[address] [facility] Comment on above: Performed By: #### F ERR, GFR, FE, ADIFF, MG, IBC, ANEU, CMP, PHOS, CBC #### [address] [address] #### PTH #### [address] [address] LABORATORYOrdered By: SYSTEM SYSTEM on 01-20-2025 25-hydroxyvitamin D3 [Mass/Vol] 41.4 ng/mL Invalid Interpretation Code AO ADM SS Comment on above: Interpretive Data: I nterpretive Values Based on Total 25(OH) Vitamin D: Deficient <20 ng/mL Insufficient 20 - <30 ng/mL Sufficient 30-100 ng/mL Albumin BCP dye [Mass/Vol] 3.6 G/dL Normal 3.4 - 4.8 G/dL AO ADM SS Albumin/Globulin [Mass ratio] 1.0 {ratio} Low 1.1 - 2.5 ratio AO ADM SS ALP [Catalytic activity/Vol] 75 U/L Normal 40 - 135 U/L AO ADM SS ALT With P-5'-P [Catalytic activity/Vol] 43 U/L Normal 16 - 63 U/L AO ADM SS AST With P-5'-P [Catalytic activity/Vol] 34 U/L Normal 10 - 40 U/L AO ADM SS Basophils (Bld) [#/Vol] 0.0 103/mcL Normal 0.0 - 0.3 10^3/mcL AO Workflow SS Basophils/100 WBC (Bld) 0.6 % Normal 0.0 - 2.5 % AO Workflow SS Bilirubin [Mass/Vol] 0.8 mg/dL Normal 0.2 - 1 .0 mg/dL AO ADM SS Comment on above: Interpretive Data: U se of this assay is not recommended for patients undergoing treatment with eltrombopag due to the potential for falsely elevated results. Calcium [Mass/Vol] 9.1 mg/dL Normal 8.4 - 10. 2 mg/dL AO ADM SS Chloride [Moles/Vol] 107 mmol/L Normal 98 - 10 7 mmol/L AO ADM SS CO2 [Moles/Vol] 28 mmol/L Normal 23 - 31 mmol/L AO ADM SS Creatinine [Mass/Vol] 1.41 mg/dL High 0.67 - 1.17 mg/dL AO ADM SS Electrolyte Balance 8.0 mEq/L Normal 4.0 - 15 .0 mEq/L AO ADM SS Eosinophil, Absolute 0.1 103/mcL Normal 0.0 - 0 .7 10^3/mcL AO Workflow SS Eosinophils/100 WBC (Bld) 2.9 % Normal 0.0 - 6.0 % AO Workflow SS Erythrocyte distribution width (RBC) [Ratio] 13.3 % Normal 11.5 - 15.5 % AO Workflow SS Estimated Glomerular Filtration Rate 51 ml/min/1.73sqm Invalid Interpretation Code AO Chemistry S Comment on above: Interpretive Data: Stages of Chronic Kidney Disease (CKD) Stage Description eGFR(ml/min/1.73 sq.m.) CKD 1 Normal kidney function or >=90 normal kindney function with possible kidney damage (ex. Proteinuria) CKD 2 Kidney damage with mild loss 60-89 of kidney function CKD 3a Mild to moderate loss of kidney 45-59 function CKD 3b Moderate to severe loss of 30-44 of kindey function CKD 4 Severe loss of kidney function 15-29 CKD 5 Kidney failure <15 Note: (go live 2024) the eGFR calculation was updated to the 2020 CKD-EPI creatinine equation without a race factor to calculate the eGFR results. Free T4 [Mass/Vol] 0.95 ng/dL Normal 0.76 - 1. 46 ng/dL AO ADM SS Globulin 3.5 G/dL Normal 2.7 - 4.4 G/dL AO ADM SS Glucose [Mass/Vol] 166 mg/dL Invalid Interpretation Code AO Chemistry S Comment on above: Interpretive Data: E stimated average glucose (eAG) is a calculated value from Hemoglobin A1C and is career services representative of the average blood glucose level in the last 2-3 month period. Normal range: less than 114 mg/dL Glucose [Mass/Vol] 147 mg/dL High 83 - 110 mg/dL AO ADM SS HbA1c (Bld) [Mass fraction] 7.4 % High 4.3 - 6.4 % AO ADM SS Hematocrit (Bld) [Volume fraction] 45.3 % Normal 40.0 - 52.0 % AO Workflow SS Hemoglobin (Bld) [Mass/Vol] 15.2 G/dL Normal 13.0 - 17.5 G/dL AO Workflow SS Iron [Mass/Vol] 83 ug/dL Normal 65 - 175 mcg/dL AO ADM SS Iron binding capacity [Mass/Vol] 337 mcg/dL Normal 250 - 450 mcg/dL AO ADM SS Lymphocytes (Bld) [#/Vol] 1.0 103/mcL Normal 0.9 - 4.3 10^3/mcL AO Workflow SS Lymphocytes/100 WBC (Bld) 19.7 % Low 20.0 - 40.0 % AO Workflow SS Magnesium [Mass/Vol] 2.0 mg/dL Normal 1.8 - 2 .4 mg/dL AO ADM SS MCH (RBC) [Entitic mass] 30.9 pg Normal 27.0 - 33.0 pg AO Workflow SS MCHC 33.6 G/dL Normal 32.0 - 36.0 G/dL AO Workflow SS MCV (RBC) [Entitic vol] 92.1 fL Normal 81.0 - 100.0 fL AO Workflow SS Monocytes (Bld) [#/Vol] 0.6 103/mcL Normal 0.1 - 1.4 10^3/mcL AO Workflow SS Monocytes/100 WBC (Bld) 12.7 % Normal 2.0 - 13.0 % AO Workflow SS Neutrophils (Bld) [#/Vol] 3.2 103/mcL Normal 2.3 - 8.1 10^3/mcL AO Workflow SS Neutrophils/100 WBC (Bld) 64.1 % Normal 50.0 - 75.0 % AO Workflow SS Parathyrin.intact [Mass/Vol] 128.5 pg/mL High 18.5 - 88.0 pg/mL AH ADM SS Platelet mean volume (Bld) [Entitic vol] 8.2 fL Normal 6.4 - 10.5 fL AO Workflow SS Platelets (Bld) [#/Vol] 157 103/mcL Normal 150 - 450 10^3/mcL AO Workflow SS Potassium [Moles/Vol] 4.7 mmol/L Normal 3.5 - 5.1 mmol/L AO ADM SS Prostate specific Ag [Mass/Vol] 1.35 ng/mL Normal 0.02 - 4.00 ng/mL AH ADM SS Comment on above: Interpretive Data: P atient results determined by assays using different manufacturers for methods may not be comparable. Protein [Mass/Vol] 7.1 G/dL Normal 6.4 - 8.2 G/dL AO ADM SS RBC (Bld) [#/Vol] 4.92 106/mcL Normal 4.50 - 6.0 0 10^6/mcL AO Workflow SS Sodium [Moles/Vol] 143 mmol/L Normal 136 - 145 mmol/L AO ADM SS TSH Qn 2.55 m[IU]/L Normal 0.36 - 3.74 mcIU/mL AO ADM SS Urea nitrogen [Mass/Vol] 25 mg/dL High 7 - 18 mg/dL AO ADM SS Urea nitrogen/Creatinine [Mass ratio] 18 ratio Normal 7 - 27 ratio AO ADM SS WBC (Bld) [#/Vol] 5.0 103/mcL Normal 4.5 - 10.8 10^3/mcL AO Workflow SS LABORATORYOrdered By: Monae Gregory on 01-20-2025 Cholesterol [Mass/Vol] 129 mg/dL Normal 0 - 200 mg/dL AO ADM SS Comment on above: Interpretive Data: C holesterol Reference Interval: Less than 200 Desirable 200-239 Borderline high risk 240 and above High risk Cholesterol in HDL [Mass/Vol] 38 mg/dL Low 40 - 60 mg/dL AO ADM SS Cholesterol in LDL [Mass/Vol] 71 mg/dL Normal 0 - 130 mg/dL AO ADM SS Triglyceride [Mass/Vol] 98 mg/dL Normal 0 - 150 mg/dL AO ADM SS Comment on above: Interpretive Data: T riglyceride Reference Interval: Less than 150 Normal 150-199 Borderline high risk 200-499 High risk 500 or higher Very high risk LIPIDon 01-20-2025 Cholesterol [Mass/Vol] 129 mg/dL Normal 0-200 [facility] Comment on above: Result Comment: Chol esterol Reference Interval: Less than 200 Desirable 200-239 Borderline high risk 240 and above High risk Performed By: #### F ERR, GFR, FE, ADIFF, MG, IBC, ANEU, CMP, PHOS, CBC #### [address] [address] #### PTH #### [address] [address] Cholesterol in HDL [Mass/Vol] 38 mg/dL Low 40-[address] [facility] Comment on above: Performed By: #### F ERR, GFR, FE, ADIFF, MG, IBC, ANEU, CMP, PHOS, CBC #### [address] [address] #### PTH #### [address] [address] Cholesterol in LDL [Mass/Vol] 71 mg/dL Normal 0-[address] [facility] Comment on above: Performed By: #### F ERR, GFR, FE, ADIFF, MG, IBC, ANEU, CMP, PHOS, CBC #### [address] [address] #### PTH #### [address] [address] Triglyceride [Mass/Vol] 98 mg/dL Normal 0-[address] [facility] Comment on above: Result Comment: Trig lyceride Reference Interval: Less than 150 Normal 150-199 Borderline high risk 200-499 High risk 500 or higher Very high risk Performed By: #### F ERR, GFR, FE, ADIFF, MG, IBC, ANEU, CMP, PHOS, CBC #### [address] [address] #### PTH #### [address] [address] MGon 01-20-2025 Magnesium [Mass/Vol] 2.0 mg/dL Normal 1.8-2.4 [facility] Comment on above: Performed By: #### F ERR, GFR, FE, ADIFF, MG, IBC, ANEU, CMP, PHOS, CBC #### [address] [address] #### PTH #### [address] [address] PSAon 01-20-2025 Prostate Specific Antigen 1.35 ng/mL Normal 0.02-4.[address] [facility] Comment on above: Result Comment: Pratima ent results determined by assays using different manufacturers for methods may not be comparable. Performed By: #### F ERR, GFR, FE, ADIFF, MG, IBC, ANEU, CMP, PHOS, CBC #### [place] [address] #### PTH #### [place] [address] PTHon 01-20-2025 PTH, Intact 128.5 pg/mL High 18.5-88.[address] [facility] Comment on above: Performed By: #### F ERR, GFR, FE, ADIFF, MG, IBC, ANEU, CMP, PHOS, CBC #### [place] [address] #### PTH #### [place] [address] TSHon 01-20-2025 TSH Qn 2.55 m[IU]/L Normal 0.36-3.[address] [facility] Comment on above: Performed By: #### F ERR, GFR, FE, ADIFF, MG, IBC, ANEU, CMP, PHOS, CBC #### [address] [address] #### PTH #### [place] [address] VIDHon 01-20-2025 Vit. D 25-Hydroxy 41.4 ng/mL Normal [facility] Comment on above: Result Comment: Inte rpretive Values Based on Total 25(OH) Vitamin D: Deficient <20 ng/mL Insufficient 20 - <30 ng/mL Sufficient 30-100 ng/mL Performed By: #### F ERR, GFR, FE, ADIFF, MG, IBC, ANEU, CMP, PHOS, CBC #### [place] [address] #### PTH #### [place] [address] .Auto Diffon 11-28-2024 Basophil, Absolute 0.0 10 3/mcL Normal 0.0-0.2 [facility] Comment on above: Performed By: #### F ERR, GFR, FE, ADIFF, MG, IBC, ANEU, CMP, PHOS, CBC #### [address] [address] #### PTH #### [address] [address] Basophils/100 WBC (Bld) 0.8 % Normal 0.0-2.[address] [facility] Comment on above: Performed By: #### F ERR, GFR, FE, ADIFF, MG, IBC, ANEU, CMP, PHOS, CBC #### [place] [address] #### PTH #### [address] [address] Eosinophil, Absolute 0.2 10 3/mcL Normal 0.0-0.7 [facility] Comment on above: Performed By: #### F ERR, GFR, FE, ADIFF, MG, IBC, ANEU, CMP, PHOS, CBC #### [place] [address] #### PTH #### [address] [address] Eosinophils/100 WBC (Bld) 3.6 % Normal 0.0-7.[address] [facility] Comment on above: Performed By: #### F ERR, GFR, FE, ADIFF, MG, IBC, ANEU, CMP, PHOS, CBC #### [place] [address] #### PTH #### [address] [address] Lymphocyte, Absolute 1.0 10 3/mcL Normal 0.9-4.3 [facility] Comment on above: Performed By: #### F ERR, GFR, FE, ADIFF, MG, IBC, ANEU, CMP, PHOS, CBC #### [place] [address] #### PTH #### [address] [address] Lymphocytes/100 WBC (Bld) 23.6 % Normal 20.0-40.[address] [facility] Comment on above: Performed By: #### F ERR, GFR, FE, ADIFF, MG, IBC, ANEU, CMP, PHOS, CBC #### [address] [address] #### PTH #### [address] [address] Monocyte, Absolute 0.6 10 3/mcL Normal 0.1-1.4 [facility] Comment on above: Performed By: #### F ERR, GFR, FE, ADIFF, MG, IBC, ANEU, CMP, PHOS, CBC #### [address] [address] #### PTH #### [address] [address] Monocytes/100 WBC (Bld) 12.7 % Normal 2.0-13.[address] [facility] Comment on above: Performed By: #### F ERR, GFR, FE, ADIFF, MG, IBC, ANEU, CMP, PHOS, CBC #### [address] [address] #### PTH #### [address] [address] Neutrophils/100 WBC (Bld) 59.3 % Normal 50.0-75.[address] [facility] Comment on above: Performed By: #### F ERR, GFR, FE, ADIFF, MG, IBC, ANEU, CMP, PHOS, CBC #### [address] [address] #### PTH #### [address] [address] .GFRon 11-28-2024 Estimated Glomerular Filtration Rate 48 ml/min/1.73sqm Normal [facility] Comment on above: Result Comment: Stages of Chronic Kidney Disease (CKD) Stage Description eGFR(ml/min/1.73 sq.m.) CKD 1 Normal kidney function or >=90 normal kindney function with possible kidney damage (ex. Proteinuria) CKD 2 Kidney damage with mild loss 60-89 of kidney function CKD 3a Mild to moderate loss of kidney 45-59 function CKD 3b Moderate to severe loss of 30-44 of kindey function CKD 4 Severe loss of kidney function 15-29 CKD 5 Kidney failure <15 Note: (go live 2024) the eGFR calculation was updated to the 2020 CKD-EPI creatinine equation without a race factor to calculate the eGFR results. Performed By: #### F ERR, GFR, FE, ADIFF, MG, IBC, ANEU, CMP, PHOS, CBC #### [place] [address] #### PTH #### [address] [address] .NEUABSon 11-28-2024 Neutrophil, Absolute 2.6 10 3/mcL Normal 2.3-8.1 [facility] Comment on above: Performed By: #### F ERR, GFR, FE, ADIFF, MG, IBC, ANEU, CMP, PHOS, CBC #### [place] [address] #### PTH #### [address] [address] CBCon 11-28-2024 Erythrocyte distribution width (RBC) [Ratio] 13.3 % Normal 11.5-15.[address] [facility] Comment on above: Performed By: #### F ERR, GFR, FE, ADIFF, MG, IBC, ANEU, CMP, PHOS, CBC #### [place] [address] #### PTH #### [place] [address] Hematocrit (Bld) [Volume fraction] 47.7 % Normal 40.0-52.[address] [facility] Comment on above: Performed By: #### F ERR, GFR, FE, ADIFF, MG, IBC, ANEU, CMP, PHOS, CBC #### [place] [address] #### PTH #### [place] [address] Hgb 16.0 G/dL Normal 13.0-17.[address] [facility] Comment on above: Performed By: #### F ERR, GFR, FE, ADIFF, MG, IBC, ANEU, CMP, PHOS, CBC #### [place] [address] #### PTH #### [place] [address] MCH (RBC) [Entitic mass] 31.0 pg Normal 27.0-33.[address] [facility] Comment on above: Performed By: #### F ERR, GFR, FE, ADIFF, MG, IBC, ANEU, CMP, PHOS, CBC #### [place] [address] #### PTH #### [place] [address] MCHC 33.5 G/dL Normal 32.0-36.[address] [facility] Comment on above: Performed By: #### F ERR, GFR, FE, ADIFF, MG, IBC, ANEU, CMP, PHOS, CBC #### [place] [address] #### PTH #### [place] [address] MCV (RBC) [Entitic vol] 92.4 fL Normal 81.0-100.[address] [facility] Comment on above: Performed By: #### F ERR, GFR, FE, ADIFF, MG, IBC, ANEU, CMP, PHOS, CBC #### [place] [address] #### PTH #### [place] [address] Platelet 153 10 3/mcL Normal 150-[address] [facility] Comment on above: Performed By: #### F ERR, GFR, FE, ADIFF, MG, IBC, ANEU, CMP, PHOS, CBC #### [address] [address] #### PTH #### [address] [address] Platelet mean volume (Bld) [Entitic vol] 8.2 fL Normal 6.4-10.[address] [facility] Comment on above: Performed By: #### F ERR, GFR, FE, ADIFF, MG, IBC, ANEU, CMP, PHOS, CBC #### [place] [address] #### PTH #### [place] [address] RBC 5.16 10 6/mcL Normal 4.50-6.[address] [facility] Comment on above: Performed By: #### F ERR, GFR, FE, ADIFF, MG, IBC, ANEU, CMP, PHOS, CBC #### [place] [address] #### PTH #### [place] [address] WBC 4.4 10 3/mcL Low 4.5-10.[address] [facility] Comment on above: Performed By: #### F ERR, GFR, FE, ADIFF, MG, IBC, ANEU, CMP, PHOS, CBC #### [address] [address] #### PTH #### [place] [address] CMPon 11-28-2024 Albumin Level 3.9 G/dL Normal 3.4-4.[address] [facility] Comment on above: Performed By: #### F ERR, GFR, FE, ADIFF, MG, IBC, ANEU, CMP, PHOS, CBC #### [place] [address] #### PTH #### [place] [address] Albumin/Globulin [Mass ratio] 1.1 {ratio} Normal 1.1-2.[address] [facility] Comment on above: Performed By: #### F ERR, GFR, FE, ADIFF, MG, IBC, ANEU, CMP, PHOS, CBC #### [place] [address] #### PTH #### [place] [address] ALP [Catalytic activity/Vol] 75 U/L Normal 40-[address] [facility] Comment on above: Performed By: #### F ERR, GFR, FE, ADIFF, MG, IBC, ANEU, CMP, PHOS, CBC #### [place] [address] #### PTH #### [place] [address] ALT [Catalytic activity/Vol] 42 U/L Normal 16-[address] [facility] Comment on above: Performed By: #### F ERR, GFR, FE, ADIFF, MG, IBC, ANEU, CMP, PHOS, CBC #### [place] [address] #### PTH #### [place] [address] AST [Catalytic activity/Vol] 32 U/L Normal 10-[address] [facility] Comment on above: Performed By: #### F ERR, GFR, FE, ADIFF, MG, IBC, ANEU, CMP, PHOS, CBC #### [place] [address] #### PTH #### [place] [address] Bili Total 0.7 mg/dL Normal 0.2-1.[address] [facility] Comment on above: Result Comment: Use of this assay is not recommended for patients undergoing treatment with eltrombopag due to the potential for falsely elevated results. Performed By: #### F ERR, GFR, FE, ADIFF, MG, IBC, ANEU, CMP, PHOS, CBC #### [place] [address] #### PTH #### [place] [address] BUN/Creatinine Ratio 17 ratio Normal 7-27 [facility] Comment on above: Performed By: #### F ERR, GFR, FE, ADIFF, MG, IBC, ANEU, CMP, PHOS, CBC #### [address] [address] #### PTH #### [address] [address] [address] Calcium [Mass/Vol] 9.3 mg/dL Normal 8.4-10.2 [facility] Comment on above: Performed By: #### F ERR, GFR, FE, ADIFF, MG, IBC, ANEU, CMP, PHOS, CBC #### [place] [address] #### PTH #### [address] [address] Chloride [Moles/Vol] 106 mmol/L Normal 98-107 [facility] Comment on above: Performed By: #### F ERR, GFR, FE, ADIFF, MG, IBC, ANEU, CMP, PHOS, CBC #### [address] [address] #### PTH #### [address] [address] CO2 [Moles/Vol] 31 mmol/L Normal 23-[address] [facility] Comment on above: Performed By: #### F ERR, GFR, FE, ADIFF, MG, IBC, ANEU, CMP, PHOS, CBC #### [place] [address] #### PTH #### [address] [address] Creatinine [Mass/Vol] 1.48 mg/dL High 0.70-1.30 [facility] Comment on above: Result Comment: Test ing performed on [employer] Dimension EXL analyzer using a modified kinetic Meño technique. Performed By: #### F ERR, GFR, FE, ADIFF, MG, IBC, ANEU, CMP, PHOS, CBC #### [place] [address] #### PTH #### [address] [address] Electrolyte Balance 6.0 mEq/L Normal 4.0-15.0 [facility] Comment on above: Performed By: #### F ERR, GFR, FE, ADIFF, MG, IBC, ANEU, CMP, PHOS, CBC #### [address] [address] #### PTH #### [address] [address] Globulin 3.4 G/dL Normal 1.5-3.[address] [facility] Comment on above: Performed By: #### F ERR, GFR, FE, ADIFF, MG, IBC, ANEU, CMP, PHOS, CBC #### [place] [address] #### PTH #### [address] [address] Glucose [Mass/Vol] 123 mg/dL High 83-110 [facility] Comment on above: Performed By: #### F ERR, GFR, FE, ADIFF, MG, IBC, ANEU, CMP, PHOS, CBC #### [address] [address] #### PTH #### [address] [address] Potassium [Moles/Vol] 4.4 mmol/L Normal 3.5-5.1 [facility] Comment on above: Performed By: #### F ERR, GFR, FE, ADIFF, MG, IBC, ANEU, CMP, PHOS, CBC #### [address] [address] #### PTH #### [address] [address] Sodium [Moles/Vol] 143 mmol/L Normal 136-145 [facility] Comment on above: Performed By: #### F ERR, GFR, FE, ADIFF, MG, IBC, ANEU, CMP, PHOS, CBC #### [place] [id number] #### PTH #### [address] [address] Total Protein 7.3 G/dL Normal 6.4-8.[address] [facility] Comment on above: Performed By: #### F ERR, GFR, FE, ADIFF, MG, IBC, ANEU, CMP, PHOS, CBC #### [address] [address] #### PTH #### [place] [address] Urea nitrogen [Mass/Vol] 25 mg/dL High 7-[address] [facility] Comment on above: Performed By: #### F ERR, GFR, FE, ADIFF, MG, IBC, ANEU, CMP, PHOS, CBC #### [place] [address] #### PTH #### [place] [address] FEon 11-28-2024 Iron [Mass/Vol] 89 ug/dL Normal 65-[address] [facility] Comment on above: Performed By: #### F ERR, GFR, FE, ADIFF, MG, IBC, ANEU, CMP, PHOS, CBC #### [place] [address] #### PTH #### [place] [address] Ruby 11-28-2024 Ferritin [Mass/Vol] 76.0 ng/mL Normal 26.0-388.0 [facility] Comment on above: Performed By: #### F ERR, GFR, FE, ADIFF, MG, IBC, ANEU, CMP, PHOS, CBC #### [place] [address] #### PTH #### [place] [address] IBCon 11-28-2024 TIBC 356 mcg/dL Normal 250-[address] [facility] Comment on above: Performed By: #### F ERR, GFR, FE, ADIFF, MG, IBC, ANEU, CMP, PHOS, CBC #### [address] [address] #### PTH #### [address] [address] MGon 11-28-2024 Magnesium [Mass/Vol] 1.9 mg/dL Normal 1.8-2.4 [facility] Comment on above: Performed By: #### F ERR, GFR, FE, ADIFF, MG, IBC, ANEU, CMP, PHOS, CBC #### [address] [address] #### PTH #### [place] [address] PHOSon 11-28-2024 Phosphate [Mass/Vol] 3.2 mg/dL Normal 2.3-4.1 [facility] Comment on above: Performed By: #### F ERR, GFR, FE, ADIFF, MG, IBC, ANEU, CMP, PHOS, CBC #### [address] [address] #### PTH #### [place] [address] PTHon 11-28-2024 PTH, Intact 102.5 pg/mL High 18.5-88.[address] [facility] Comment on above: Performed By: #### F ERR, GFR, FE, ADIFF, MG, IBC, ANEU, CMP, PHOS, CBC #### [address] [address] #### PTH #### [address] [address] RPCURon 11-28-2024 U Creatinine 252.0 mg/dL Normal [facility] Comment on above: Performed By: #### F ERR, GFR, FE, ADIFF, MG, IBC, ANEU, CMP, PHOS, CBC #### [address] [address] #### PTH #### [place] [address] U Protein 130 mg/dL Normal [facility] Comment on above: Performed By: #### F ERR, GFR, FE, ADIFF, MG, IBC, ANEU, CMP, PHOS, CBC #### [address] [address] #### PTH #### [facility] [address] [place] [address] U Ratio Prot/Creat 0.5 ratio Normal [facility] Comment on above: Performed By: #### F ERR, GFR, FE, ADIFF, MG, IBC, ANEU, CMP, PHOS, CBC #### [place] [address] [place], [place] [address] #### PTH #### [address] [address] [address] ANGIOGRAPHY RENAL ARTERIE S W/PPon 08-14-2024 CT ANGIOGRAPHY RENAL ARTERIES W/PP ORIGINAL EXAMINATION: CTA OF THE ABDOMEN WITH CONTRAST 08/13/2024 10:08 am TECHNIQUE: CTA of the abdomen was performed with the administration of intravenous contrast. Multiplanar reformatted images are provided for review. MIP images are provided for review. Automated exposure control, iterative reconstruction, and/or weight based adjustment of the mA/kV was utilized to reduce the radiation dose to as low as reasonably achievable. COMPARISON: None. HISTORY: ORDERING SYSTEM PROVIDED HISTORY: Reason for Exam: Renal CT angiogram to evaluate for progressive renal artery disease. FINDINGS: Visualized descending thoracic aorta, abdominal aorta, common iliac, visualized internal and external iliac arteries demonstrate no acute CT angiographic abnormality. Celiac artery and its branches, superior mesenteric artery and its branches, renal arteries and their branches, inferior mesenteric artery and its branches demonstrate no acute CT angiographic abnormality. No hemodynamically significant renal artery stenosis. Small accessory right renal artery noted supplying portions of inferior pole the right kidney. Visualized lower thorax: Foci of parenchymal scarring and subsegmental atelectasis which appear chronic. No acute CT abnormality visualized lower thorax. Abdominal organs: Gallstones without CT evidence of acute cholecystitis, biliary ductal dilatation or pancreatitis. Hypodense mass inferior-medial aspect right hepatic lobe 2.3 cm in greatest dimension with density values suggesting cyst. Finding is similar to abdomen ultrasound 06/21/2024. GI tract: No acute CT abnormality. Unremarkable appearance of GI anastomosis right lower abdomen. Mesentery and retroperitoneum: Vascular findings described above. No acute CT abnormality. Osseous structures and soft tissues: Advanced intervertebral disc space narrowing, foraminal osteophyte formation and exiting nerve effacement/compress ion L5-S1, moderate-severe central spinal canal stenosis and nerve effacement L4-L5. Findings are due to disc bulging, disc space narrowing and osteophyte formation. No acute abnormality. IMPRESSION: 1. No acute CT angiographic abnormality. No hemodynamically significant renal artery stenosis. Small accessory right renal artery supplying portions of inferior pole right kidney. 2. Gallstones without CT evidence of acute cholecystitis, biliary ductal dilatation or pancreatitis. 3. Hypodense mass inferior-medial aspect right hepatic lobe 2.3 cm in greatest dimension with density values suggesting cyst. Finding is similar to abdomen ultrasound 06/21/2024. 4. Advanced intervertebral disc space narrowing, foraminal osteophyte formation and exiting nerve effacement/compress ion L5-S1, moderate-severe central spinal canal stenosis and nerve effacement L4-L5. Findings are due to disc bulging, disc space narrowing and osteophyte formation. Interpreted by: Essie Nunez DO Preliminary Report By: Essie Nunez DO Electronically signed By Essie Nunez DO Dictated Date: 08/14/2024 3:59:48 PM Prelim Date: 08/14/2024 4:06:52 PM Sign Date: 08/14/2024 4:06:52 PM Ordering Provider: DEMETRIUS CALLEJAS Normal [facility] .GFRon 08-13-2024 GFR 52 ml/min/1.73sqm Normal [facility] Comment on above: Result Comment: GFR Population mean for , Non- Americans Ages 20-29 = 116 mL/min/1.73 sq.m. Ages 30-39 = 107 mL/min/1.73 sq.m. Ages 40-49 = 99 mL/min/1.73 sq.m. Ages 50-59 = 93 mL/min/1.73 sq.m. Ages 60-69 = 85 mL/min/1.73 sq.m. Ages 70+ = 75 mL/min/1.73 sq.m. Chronic Kidney Disease: Less than 60 mL/min/1.73 square meters End Stage Renal Disease: Less than 15 mL/min/1.73 square meters Performed By: #### F ERR, GFR, FE, ADIFF, MG, IBC, ANEU, CMP, PHOS, CBC #### [address] [address] #### PTH #### [address] [address] GFR Non- 43 ml/min/1.73sqm Normal [facility] Comment on above: Result Comment: GFR Population mean for , Non- Americans Ages 20-29 = 116 mL/min/1.73 sq.m. Ages 30-39 = 107 mL/min/1.73 sq.m. Ages 40-49 = 99 mL/min/1.73 sq.m. Ages 50-59 = 93 mL/min/1.73 sq.m. Ages 60-69 = 85 mL/min/1.73 sq.m. Ages 70+ = 75 mL/min/1.73 sq.m. Chronic Kidney Disease: Less than 60 mL/min/1.73 square meters End Stage Renal Disease: Less than 15 mL/min/1.73 square meters Performed By: #### F ERR, GFR, FE, ADIFF, MG, IBC, ANEU, CMP, PHOS, CBC #### [address] [address] #### PTH #### [address] [address] CREon 08-13-2024 Creatinine [Mass/Vol] 1.57 mg/dL High 0.70-1.30 [facility] Comment on above: Result Comment: Test ing performed on [employer] Dimension EXL analyzer using a modified kinetic Meño technique. Performed By: #### F ERR, GFR, FE, ADIFF, MG, IBC, ANEU, CMP, PHOS, CBC #### [address] [address] #### PTH #### [address] [address] LABORATORYOrdered By: SYSTEM SYSTEM on 08-13-2024 Creatinine [Mass/Vol] 1.57 mg/dL High 0.70 - 1.30 mg/dL AO ADM SS Comment on above: Interpretive Data: T esting performed on [employer] Dimension EXL analyzer using a modified kinetic Meño technique. GFR/1.73 sq M.predicted among blacks MDRD (S/P/Bld) [Vol rate/Area] 52 ml/min/1.73sqm Invalid Interpretation Code AO Chemistry S Comment on above: Interpretive Data: GFR Population mean for , Non- Americans Ages 20-29 = 116 mL/min/1.73 sq.m. Ages 30-39 = 107 mL/min/1.73 sq.m. Ages 40-49 = 99 mL/min/1.73 sq.m. Ages 50-59 = 93 mL/min/1.73 sq.m. Ages 60-69 = 85 mL/min/1.73 sq.m. Ages 70+ = 75 mL/min/1.73 sq.m. Chronic Kidney Disease: Less than 60 mL/min/1.73 square meters End Stage Renal Disease: Less than 15 mL/min/1.73 square meters GFR/1.73 sq M.predicted among non-blacks MDRD (S/P/Bld) [Vol rate/Area] 43 ml/min/1.73sqm Invalid Interpretation Code AO Chemistry S Comment on above: Interpretive Data: GFR Population mean for , Non- Americans Ages 20-29 = 116 mL/min/1.73 sq.m. Ages 30-39 = 107 mL/min/1.73 sq.m. Ages 40-49 = 99 mL/min/1.73 sq.m. Ages 50-59 = 93 mL/min/1.73 sq.m. Ages 60-69 = 85 mL/min/1.73 sq.m. Ages 70+ = 75 mL/min/1.73 sq.m. Chronic Kidney Disease: Less than 60 mL/min/1.73 square meters End Stage Renal Disease: Less than 15 mL/min/1.73 square meters .Auto Diffon 07-18-2024 Basophil, Absolute 0.0 10 3/mcL Normal 0.0-0.2 [facility] Comment on above: Performed By: #### F ERR, GFR, FE, ADIFF, MG, IBC, ANEU, CMP, PHOS, CBC #### [place] [address] #### PTH #### [address] [address] Basophils/100 WBC (Bld) 0.6 % Normal 0.0-2.[address] [facility] Comment on above: Performed By: #### F ERR, GFR, FE, ADIFF, MG, IBC, ANEU, CMP, PHOS, CBC #### [place] [address] #### PTH #### [address] [address] Eosinophil, Absolute 0.2 10 3/mcL Normal 0.0-0.7 [facility] Comment on above: Performed By: #### F ERR, GFR, FE, ADIFF, MG, IBC, ANEU, CMP, PHOS, CBC #### [place] [address] #### PTH #### [address] [address] Eosinophils/100 WBC (Bld) 4.6 % Normal 0.0-7.[address] [facility] Comment on above: Performed By: #### F ERR, GFR, FE, ADIFF, MG, IBC, ANEU, CMP, PHOS, CBC #### [place] [address] #### PTH #### [address] [address] Lymphocyte, Absolute 0.9 10 3/mcL Normal 0.9-4.3 [facility] Comment on above: Performed By: #### F ERR, GFR, FE, ADIFF, MG, IBC, ANEU, CMP, PHOS, CBC #### [place] [address] #### PTH #### [address] [address] Lymphocytes/100 WBC (Bld) 20.6 % Normal 20.0-40.[address] [facility] Comment on above: Performed By: #### F ERR, GFR, FE, ADIFF, MG, IBC, ANEU, CMP, PHOS, CBC #### [address] [address] #### PTH #### [address] [address] Monocyte, Absolute 0.5 10 3/mcL Normal 0.1-1.4 [facility] Comment on above: Performed By: #### F ERR, GFR, FE, ADIFF, MG, IBC, ANEU, CMP, PHOS, CBC #### [address] [address] #### PTH #### [address] [address] Monocytes/100 WBC (Bld) 12.8 % Normal 2.0-13.[address] [facility] Comment on above: Performed By: #### F ERR, GFR, FE, ADIFF, MG, IBC, ANEU, CMP, PHOS, CBC #### [address] [address] #### PTH #### [address] [address] Neutrophils/100 WBC (Bld) 61.4 % Normal 50.0-75.[address] [facility] Comment on above: Performed By: #### F ERR, GFR, FE, ADIFF, MG, IBC, ANEU, CMP, PHOS, CBC #### [address] [address] #### PTH #### [address] [address] .GFRon 07-18-2024 GFR 45 ml/min/1.73sqm Normal [facility] Comment on above: Result Comment: GFR Population mean for , Non- Americans Ages 20-29 = 116 mL/min/1.73 sq.m. Ages 30-39 = 107 mL/min/1.73 sq.m. Ages 40-49 = 99 mL/min/1.73 sq.m. Ages 50-59 = 93 mL/min/1.73 sq.m. Ages 60-69 = 85 mL/min/1.73 sq.m. Ages 70+ = 75 mL/min/1.73 sq.m. Chronic Kidney Disease: Less than 60 mL/min/1.73 square meters End Stage Renal Disease: Less than 15 mL/min/1.73 square meters Performed By: #### F ERR, GFR, FE, ADIFF, MG, IBC, ANEU, CMP, PHOS, CBC #### [address] [address] #### PTH #### [address] [address] GFR Non- 37 ml/min/1.73sqm Normal [facility] Comment on above: Result Comment: GFR Population mean for , Non- Americans Ages 20-29 = 116 mL/min/1.73 sq.m. Ages 30-39 = 107 mL/min/1.73 sq.m. Ages 40-49 = 99 mL/min/1.73 sq.m. Ages 50-59 = 93 mL/min/1.73 sq.m. Ages 60-69 = 85 mL/min/1.73 sq.m. Ages 70+ = 75 mL/min/1.73 sq.m. Chronic Kidney Disease: Less than 60 mL/min/1.73 square meters End Stage Renal Disease: Less than 15 mL/min/1.73 square meters Performed By: #### F ERR, GFR, FE, ADIFF, MG, IBC, ANEU, CMP, PHOS, CBC #### [address] [address] #### PTH #### [address] [address] .NEUABSon 07-18-2024 Neutrophil, Absolute 2.6 10 3/mcL Normal 2.3-8.1 [facility] Comment on above: Performed By: #### F ERR, GFR, FE, ADIFF, MG, IBC, ANEU, CMP, PHOS, CBC #### [address] [address] #### PTH #### [address] [address] A1Con 07-18-2024 Glucose [Mass/Vol] 131 mg/dL Normal [facility] Comment on above: Result Comment: Ayana mated Average Glucose calculated by equation ((28.7xA1C)-46.7) Estimated average glucose (eAG) is a calculated value from Hemoglobin A1C and is career services representative of the average blood glucose level in the last 2-3 month period. Normal range: less than 114 mg/dL Performed By: #### F ERR, GFR, FE, ADIFF, MG, IBC, ANEU, CMP, PHOS, CBC #### [place] [address] #### PTH #### [place] [address] HbA1c (Bld) [Mass fraction] 6.2 % Normal 4.3-6.[address] [facility] Comment on above: Performed By: #### F ERR, GFR, FE, ADIFF, MG, IBC, ANEU, CMP, PHOS, CBC #### [place] [address] #### PTH #### [address] 07-18-2024 Erythrocyte distribution width (RBC) [Ratio] 12.9 % Normal 11.5-15.[address] [facility] Comment on above: Performed By: #### F ERR, GFR, FE, ADIFF, MG, IBC, ANEU, CMP, PHOS, CBC #### [place] [address] #### PTH #### [place] [address] Hematocrit (Bld) [Volume fraction] 45.2 % Normal 40.0-52.[address] [facility] Comment on above: Performed By: #### F ERR, GFR, FE, ADIFF, MG, IBC, ANEU, CMP, PHOS, CBC #### [place] [address] #### PTH #### [place] [address] Hgb 15.3 G/dL Normal 13.0-17.[address] [facility] Comment on above: Performed By: #### F ERR, GFR, FE, ADIFF, MG, IBC, ANEU, CMP, PHOS, CBC #### [place] [address] #### PTH #### [place] [address] MCH (RBC) [Entitic mass] 31.7 pg Normal 27.0-33.[address] [facility] Comment on above: Performed By: #### F ERR, GFR, FE, ADIFF, MG, IBC, ANEU, CMP, PHOS, CBC #### [place] [address] #### PTH #### [place] [address] MCHC 33.9 G/dL Normal 32.0-36.[address] [facility] Comment on above: Performed By: #### F ERR, GFR, FE, ADIFF, MG, IBC, ANEU, CMP, PHOS, CBC #### [place] [address] #### PTH #### [place] [address] MCV (RBC) [Entitic vol] 93.4 fL Normal 81.0-100.[address] [facility] Comment on above: Performed By: #### F ERR, GFR, FE, ADIFF, MG, IBC, ANEU, CMP, PHOS, CBC #### [place] [address] #### PTH #### [place] [address] Platelet 165 10 3/mcL Normal 150-[address] [facility] Comment on above: Performed By: #### F ERR, GFR, FE, ADIFF, MG, IBC, ANEU, CMP, PHOS, CBC #### [place] [address] #### PTH #### [place] [address] Platelet mean volume (Bld) [Entitic vol] 8.3 fL Normal 6.4-10.[address] [facility] Comment on above: Performed By: #### F ERR, GFR, FE, ADIFF, MG, IBC, ANEU, CMP, PHOS, CBC #### [place] [address] #### PTH #### [place] [address] RBC 4.84 10 6/mcL Normal 4.50-6.[address] [facility] Comment on above: Performed By: #### F ERR, GFR, FE, ADIFF, MG, IBC, ANEU, CMP, PHOS, CBC #### [place] [address] #### PTH #### [place] [address] WBC 4.3 10 3/mcL Low 4.5-10.[address] [facility] Comment on above: Performed By: #### F ERR, GFR, FE, ADIFF, MG, IBC, ANEU, CMP, PHOS, CBC #### [place] [address] #### PTH #### [place] [address] CMPon 07-18-2024 Albumin Level 3.9 G/dL Normal 3.4-4.[address] [facility] Comment on above: Performed By: #### F ERR, GFR, FE, ADIFF, MG, IBC, ANEU, CMP, PHOS, CBC #### [place] [address] #### PTH #### [place] [address] Albumin/Globulin [Mass ratio] 1.3 {ratio} Normal 1.1-2.[address] [facility] Comment on above: Performed By: #### F ERR, GFR, FE, ADIFF, MG, IBC, ANEU, CMP, PHOS, CBC #### [place] [address] #### PTH #### [address] [address] ALP [Catalytic activity/Vol] 67 U/L Normal 40-[address] [facility] Comment on above: Performed By: #### F ERR, GFR, FE, ADIFF, MG, IBC, ANEU, CMP, PHOS, CBC #### [place] [address] #### PTH #### [place] [address] ALT [Catalytic activity/Vol] 45 U/L Normal 16-[address] [facility] Comment on above: Performed By: #### F ERR, GFR, FE, ADIFF, MG, IBC, ANEU, CMP, PHOS, CBC #### [place] [address] #### PTH #### [place] [address] AST [Catalytic activity/Vol] 30 U/L Normal 10-[address] [facility] Comment on above: Performed By: #### F ERR, GFR, FE, ADIFF, MG, IBC, ANEU, CMP, PHOS, CBC #### [place] [address] #### PTH #### [place] [address] Bili Total 0.6 mg/dL Normal 0.2-1.[address] [facility] Comment on above: Result Comment: Use of this assay is not recommended for patients undergoing treatment with eltrombopag due to the potential for falsely elevated results. Performed By: #### F ERR, GFR, FE, ADIFF, MG, IBC, ANEU, CMP, PHOS, CBC #### [place] [address] #### PTH #### [place] [address] BUN/Creatinine Ratio 17 ratio Normal 7-27 [facility] Comment on above: Performed By: #### F ERR, GFR, FE, ADIFF, MG, IBC, ANEU, CMP, PHOS, CBC #### [address] [address] #### PTH #### [address] [address] Calcium [Mass/Vol] 9.2 mg/dL Normal 8.4-10.2 [facility] Comment on above: Performed By: #### F ERR, GFR, FE, ADIFF, MG, IBC, ANEU, CMP, PHOS, CBC #### [place] [address] #### PTH #### [address] [address] Chloride [Moles/Vol] 106 mmol/L Normal 98-107 [facility] Comment on above: Performed By: #### F ERR, GFR, FE, ADIFF, MG, IBC, ANEU, CMP, PHOS, CBC #### [place] [address] #### PTH #### [place] [address] CO2 [Moles/Vol] 31 mmol/L Normal 23-[address] [facility] Comment on above: Performed By: #### F ERR, GFR, FE, ADIFF, MG, IBC, ANEU, CMP, PHOS, CBC #### [address] [address] #### PTH #### [place] [address] Creatinine [Mass/Vol] 1.77 mg/dL High 0.70-1.30 [facility] Comment on above: Result Comment: Test ing performed on Siemens Dimension EXL analyzer using a modified kinetic Meño technique. Performed By: #### F ERR, GFR, FE, ADIFF, MG, IBC, ANEU, CMP, PHOS, CBC #### [place] [address] #### PTH #### [place] [address] Electrolyte Balance 6.0 mEq/L Normal 4.0-15.0 [facility] Comment on above: Performed By: #### F ERR, GFR, FE, ADIFF, MG, IBC, ANEU, CMP, PHOS, CBC #### [place] [address] #### PTH #### [address] [address] Globulin 2.9 G/dL Normal [facility] Comment on above: Performed By: #### F ERR, GFR, FE, ADIFF, MG, IBC, ANEU, CMP, PHOS, CBC #### [place] [address] #### PTH #### [address] [address] Glucose [Mass/Vol] 97 mg/dL Normal 83-110 [facility] Comment on above: Performed By: #### F ERR, GFR, FE, ADIFF, MG, IBC, ANEU, CMP, PHOS, CBC #### [place] [address] #### PTH #### [place] [address] Potassium [Moles/Vol] 4.7 mmol/L Normal 3.5-5.1 [facility] Comment on above: Performed By: #### F ERR, GFR, FE, ADIFF, MG, IBC, ANEU, CMP, PHOS, CBC #### [place] [address] #### PTH #### [place] [address] Sodium [Moles/Vol] 143 mmol/L Normal 136-145 [facility] Comment on above: Performed By: #### F ERR, GFR, FE, ADIFF, MG, IBC, ANEU, CMP, PHOS, CBC #### [place] [address] #### PTH #### [place] [address] Total Protein 6.8 G/dL Normal 6.4-8.[address] [facility] Comment on above: Performed By: #### F ERR, GFR, FE, ADIFF, MG, IBC, ANEU, CMP, PHOS, CBC #### [address] [address] #### PTH #### [address] [address] Urea nitrogen [Mass/Vol] 30 mg/dL High 7-[address] [facility] Comment on above: Performed By: #### F ERR, GFR, FE, ADIFF, MG, IBC, ANEU, CMP, PHOS, CBC #### [address] [address] #### PTH #### [address] [address] FT4on 07-18-2024 Free T4 [Mass/Vol] 0.82 ng/dL Normal 0.76-1.46 [facility] Comment on above: Performed By: #### F ERR, GFR, FE, ADIFF, MG, IBC, ANEU, CMP, PHOS, CBC #### [address] [address] #### PTH #### [place] [address] LABORATORYOrdered By: SYSTEM SYSTEM on 07-18-2024 25-hydroxyvitamin D3 [Mass/Vol] 42.2 ng/mL Invalid Interpretation Code AO ADM SS Comment on above: Interpretive Data: I nterpretive Values Based on Total 25(OH) Vitamin D: Deficient <20 ng/mL Insufficient 20 - <30 ng/mL Sufficient 30-100 ng/mL Albumin BCP dye [Mass/Vol] 3.9 G/dL Normal 3.4 - 4.8 G/dL AO ADM SS Albumin/Globulin [Mass ratio] 1.3 {ratio} Normal 1.1 - 2.5 ratio AO ADM SS ALP [Catalytic activity/Vol] 67 U/L Normal 40 - 135 U/L AO ADM SS ALT With P-5'-P [Catalytic activity/Vol] 45 U/L Normal 16 - 63 U/L AO ADM SS AST With P-5'-P [Catalytic activity/Vol] 30 U/L Normal 10 - 40 U/L AO ADM SS Basophils (Bld) [#/Vol] 0.0 103/mcL Normal 0.0 - 0.2 10^3/mcL AO Workflow SS Basophils/100 WBC (Bld) 0.6 % Normal 0.0 - 2.5 % AO Workflow SS Bilirubin [Mass/Vol] 0.6 mg/dL Normal 0.2 - 1 .0 mg/dL AO ADM SS Comment on above: Interpretive Data: U se of this assay is not recommended for patients undergoing treatment with eltrombopag due to the potential for falsely elevated results. Calcium [Mass/Vol] 9.2 mg/dL Normal 8.4 - 10. 2 mg/dL AO ADM SS Chloride [Moles/Vol] 106 mmol/L Normal 98 - 10 7 mmol/L AO ADM SS CO2 [Moles/Vol] 31 mmol/L Normal 23 - 31 mmol/L AO ADM SS Creatinine [Mass/Vol] 1.77 mg/dL High 0.70 - 1.30 mg/dL AO ADM SS Comment on above: Interpretive Data: T esting performed on Siem[employer] Dimension EXL analyzer using a modified kinetic Meño technique. Electrolyte Balance 6.0 mEq/L Normal 4.0 - 15 .0 mEq/L AO ADM SS Eosinophil, Absolute 0.2 103/mcL Normal 0.0 - 0 .7 10^3/mcL AO Workflow SS Eosinophils/100 WBC (Bld) 4.6 % Normal 0.0 - 7.0 % AO Workflow SS Erythrocyte distribution width (RBC) [Ratio] 12.9 % Normal 11.5 - 15.5 % AO Workflow SS Free T4 [Mass/Vol] 0.82 ng/dL Normal 0.76 - 1. 46 ng/dL AO ADM SS GFR/1.73 sq M.predicted among blacks MDRD (S/P/Bld) [Vol rate/Area] 45 ml/min/1.73sqm Invalid Interpretation Code AO Chemistry S Comment on above: Interpretive Data: GFR Population mean for , Non- Americans Ages 20-29 = 116 mL/min/1.73 sq.m. Ages 30-39 = 107 mL/min/1.73 sq.m. Ages 40-49 = 99 mL/min/1.73 sq.m. Ages 50-59 = 93 mL/min/1.73 sq.m. Ages 60-69 = 85 mL/min/1.73 sq.m. Ages 70+ = 75 mL/min/1.73 sq.m. Chronic Kidney Disease: Less than 60 mL/min/1.73 square meters End Stage Renal Disease: Less than 15 mL/min/1.73 square meters GFR/1.73 sq M.predicted among non-blacks MDRD (S/P/Bld) [Vol rate/Area] 37 ml/min/1.73sqm Invalid Interpretation Code AO Chemistry S Comment on above: Interpretive Data: GFR Population mean for , Non- Americans Ages 20-29 = 116 mL/min/1.73 sq.m. Ages 30-39 = 107 mL/min/1.73 sq.m. Ages 40-49 = 99 mL/min/1.73 sq.m. Ages 50-59 = 93 mL/min/1.73 sq.m. Ages 60-69 = 85 mL/min/1.73 sq.m. Ages 70+ = 75 mL/min/1.73 sq.m. Chronic Kidney Disease: Less than 60 mL/min/1.73 square meters End Stage Renal Disease: Less than 15 mL/min/1.73 square meters Globulin 2.9 G/dL Invalid Interpretation Code AO ADM SS Glucose [Mass/Vol] 97 mg/dL Normal 83 - 110 mg/dL AO ADM SS Glucose [Mass/Vol] 131 mg/dL Invalid Interpretation Code AO Chemistry S Comment on above: Interpretive Data: E stimated average glucose (eAG) is a calculated value from Hemoglobin A1C and is career services representative of the average blood glucose level in the last 2-3 month period. Normal range: less than 114 mg/dL HbA1c (Bld) [Mass fraction] 6.2 % Normal 4.3 - 6.4 % AO ADM SS Hematocrit (Bld) [Volume fraction] 45.2 % Normal 40.0 - 52.0 % AO Workflow SS Hemoglobin (Bld) [Mass/Vol] 15.3 G/dL Normal 13.0 - 17.5 G/dL AO Workflow SS Lymphocytes (Bld) [#/Vol] 0.9 103/mcL Normal 0.9 - 4.3 10^3/mcL AO Workflow SS Lymphocytes/100 WBC (Bld) 20.6 % Normal 20.0 - 40.0 % AO Workflow SS Magnesium [Mass/Vol] 2.1 mg/dL Normal 1.8 - 2 .4 mg/dL AO ADM SS MCH (RBC) [Entitic mass] 31.7 pg Normal 27.0 - 33.0 pg AO Workflow SS MCHC 33.9 G/dL Normal 32.0 - 36.0 G/dL AO Workflow SS MCV (RBC) [Entitic vol] 93.4 fL Normal 81.0 - 100.0 fL AO Workflow SS Monocytes (Bld) [#/Vol] 0.5 103/mcL Normal 0.1 - 1.4 10^3/mcL AO Workflow SS Monocytes/100 WBC (Bld) 12.8 % Normal 2.0 - 13.0 % AO Workflow SS Neutrophils (Bld) [#/Vol] 2.6 103/mcL Normal 2.3 - 8.1 10^3/mcL AO Workflow SS Neutrophils/100 WBC (Bld) 61.4 % Normal 50.0 - 75.0 % AO Workflow SS Platelet mean volume (Bld) [Entitic vol] 8.3 fL Normal 6.4 - 10.5 fL AO Workflow SS Platelets (Bld) [#/Vol] 165 103/mcL Normal 150 - 450 10^3/mcL AO Workflow SS Potassium [Moles/Vol] 4.7 mmol/L Normal 3.5 - 5.1 mmol/L AO ADM SS Prostate specific Ag [Mass/Vol] 1.77 ng/mL Normal 0.00 - 4.00 ng/mL AO ADM SS Protein [Mass/Vol] 6.8 G/dL Normal 6.4 - 8.2 G/dL AO ADM SS RBC (Bld) [#/Vol] 4.84 106/mcL Normal 4.50 - 6.0 0 10^6/mcL AO Workflow SS Sodium [Moles/Vol] 143 mmol/L Normal 136 - 145 mmol/L AO ADM SS TSH Qn 4.10 m[IU]/L High 0.36 - 3.74 mcIU/mL AO ADM SS Urea nitrogen [Mass/Vol] 30 mg/dL High 7 - 18 mg/dL AO ADM SS Urea nitrogen/Creatinine [Mass ratio] 17 ratio Normal 7 - 27 ratio AO ADM SS WBC (Bld) [#/Vol] 4.3 103/mcL Low 4.5 - 10.8 10^3/mcL AO Workflow SS LABORATORYOrdered By: Edgardo Heaton on 07-18-2024 Cholesterol [Mass/Vol] 150 mg/dL Normal 0 - 200 mg/dL AO ADM SS Comment on above: Interpretive Data: C holesterol Reference Interval: Less than 200 Desirable 200-239 Borderline high risk 240 and above High risk Cholesterol in HDL [Mass/Vol] 42 mg/dL Normal 40 - 60 mg/dL AO ADM SS Cholesterol in LDL [Mass/Vol] 84 mg/dL Normal 0 - 130 mg/dL AO ADM SS Triglyceride [Mass/Vol] 121 mg/dL Normal 0 - 150 mg/dL AO ADM SS Comment on above: Interpretive Data: T riglyceride Reference Interval: Less than 150 Normal 150-199 Borderline high risk 200-499 High risk 500 or higher Very high risk LIPIDon 07-18-2024 Cholesterol [Mass/Vol] 150 mg/dL Normal 0-200 [facility] Comment on above: Result Comment: Chol esterol Reference Interval: Less than 200 Desirable 200-239 Borderline high risk 240 and above High risk Performed By: #### F ERR, GFR, FE, ADIFF, MG, IBC, ANEU, CMP, PHOS, CBC #### [address] [address] #### PTH #### [address] [address] Cholesterol in HDL [Mass/Vol] 42 mg/dL Normal 40-[address] [facility] Comment on above: Performed By: #### F ERR, GFR, FE, ADIFF, MG, IBC, ANEU, CMP, PHOS, CBC #### [address] [address] #### PTH #### [address] [address] Cholesterol in LDL [Mass/Vol] 84 mg/dL Normal 0-[address] [facility] Comment on above: Performed By: #### F ERR, GFR, FE, ADIFF, MG, IBC, ANEU, CMP, PHOS, CBC #### [address] [address] #### PTH #### [address] [address] Triglyceride [Mass/Vol] 121 mg/dL Normal 0-[address] [facility] Comment on above: Result Comment: Trig lyceride Reference Interval: Less than 150 Normal 150-199 Borderline high risk 200-499 High risk 500 or higher Very high risk Performed By: #### F ERR, GFR, FE, ADIFF, MG, IBC, ANEU, CMP, PHOS, CBC #### [place] [address] #### PTH #### [place] [address] MGon 07-18-2024 Magnesium [Mass/Vol] 2.1 mg/dL Normal 1.8-2.4 [facility] Comment on above: Performed By: #### F ERR, GFR, FE, ADIFF, MG, IBC, ANEU, CMP, PHOS, CBC #### [place] [address] #### PTH #### [place] [address] PSAon 07-18-2024 Prostate Specific Antigen 1.77 ng/mL Normal 0.00-4.[address] [facility] Comment on above: Performed By: #### F ERR, GFR, FE, ADIFF, MG, IBC, ANEU, CMP, PHOS, CBC #### [place] [address] #### PTH #### [place] [address] TSHon 07-18-2024 TSH Qn 4.10 m[IU]/L High 0.36-3.[address] [facility] Comment on above: Performed By: #### F ERR, GFR, FE, ADIFF, MG, IBC, ANEU, CMP, PHOS, CBC #### [place] [address] #### PTH #### [place] [address] VIDHon 07-18-2024 Vit. D 25-Hydroxy 42.2 ng/mL Normal [facility] Comment on above: Result Comment: Inte rpretive Values Based on Total 25(OH) Vitamin D: Deficient <20 ng/mL Insufficient 20 - <30 ng/mL Sufficient 30-100 ng/mL Performed By: #### F ERR, GFR, FE, ADIFF, MG, IBC, ANEU, CMP, PHOS, CBC #### [address] [address] #### PTH #### [place] [address] US ABDOMEN LIMITEDon 024 US ABDOMEN LIMITED ORIGINAL EXAMINATION: RIGHT UPPER QUADRANT ULTRASOUND 06/21/2024 7:42 am COMPARISON: None. HISTORY: ORDERING SYSTEM PROVIDED HISTORY: Reason for Exam: 6-month follow-up to evaluate incidental 2 cm liver mass/cyst on right lobe to ensure stability FINDINGS: LIVER: The liver demonstrates diffuse increased echogenicity without evidence of intrahepatic biliary ductal dilatation. BILIARY SYSTEM: Gallbladder is appropriately distended contains multiple dependent shadowing stones. There is no ultrasound Gregory sign or gallbladder wall thickening. Common bile duct is within normal limits measuring 2.9 mm. RIGHT KIDNEY: The right kidney is grossly unremarkable without evidence of hydronephrosis. Right kidney measures 12.5 x 6.1 x 6.2 cm. PANCREAS: Visualized portions of the pancreas are unremarkable. OTHER: No evidence of right upper quadrant ascites. IMPRESSION: 1. Diffuse fatty infiltration of the liver. 2. Cholelithiasis without evidence for acute cholecystitis or biliary ductal dilatation. Interpreted by: Sushil Bolaños DO Preliminary Report By: Sushil Bolaños DO Electronically signed By Sushil Bolaños DO Dictated Date: 06/24/2024 11:02:20 AM Prelim Date: 06/24/2024 11:04:02 AM Sign Date: 06/24/2024 11:04:02 AM Ordering Provider: DEMETRIUS CALLEJAS Normal [facility] A1Con 01-19-2024 HbA1c (Bld) [Mass fraction] 6.5 % High 4.3-6.4 [facility] ([place]) Comment on above: Performed By: #### T SH, FT4 #### [place] [address] [place], [place] [address] .Auto Diffon 01-18-2024 Basophil, Absolute 0.0 10 3/mcL Normal 0.0-0.2 [facility] ([place]) Comment on above: Performed By: #### V IDH, CMP, TSH, ANEU, A1C, FT4, LIPID, CBC, GFR, ADIFF #### [address] [address] #### PTH #### [address] [address] Basophils/100 WBC (Bld) 0.4 % Normal 0.0-2.5 [facility] ([place]) Comment on above: Performed By: #### V IDH, CMP, TSH, ANEU, A1C, FT4, LIPID, CBC, GFR, ADIFF #### [place] [address] #### PTH #### [address] [address] Eosinophil, Absolute 0.2 10 3/mcL Normal 0.0-0.4 [facility] ([place]) Comment on above: Performed By: #### V IDH, CMP, TSH, ANEU, A1C, FT4, LIPID, CBC, GFR, ADIFF #### [address] [address] #### PTH #### [address] [address] Eosinophils/100 WBC (Bld) 4.0 % Normal 0.0-7.0 [facility] ([place]) Comment on above: Performed By: #### V IDH, CMP, TSH, ANEU, A1C, FT4, LIPID, CBC, GFR, ADIFF #### [address] [address] #### PTH #### [address] [address] Lymphocyte, Absolute 0.8 10 3/mcL Normal 0.8-3.9 [facility] ([place] Comment on above: Performed By: #### V IDH, CMP, TSH, ANEU, A1C, FT4, LIPID, CBC, GFR, ADIFF #### [place] [address] #### PTH #### [address] [address] Lymphocytes/100 WBC (Bld) 20.5 % Normal 10.0-50.0 [facility] ([place]) Comment on above: Performed By: #### V IDH, CMP, TSH, ANEU, A1C, FT4, LIPID, CBC, GFR, ADIFF #### [address] [address] #### PTH #### [address] [address] Monocyte, Absolute 0.5 10 3/mcL Normal 0.2-1.0 [facility] ([place]) Comment on above: Performed By: #### V IDH, CMP, TSH, ANEU, A1C, FT4, LIPID, CBC, GFR, ADIFF #### [address] [address] #### PTH #### [address] [address] Monocytes/100 WBC (Bld) 12.3 % Normal 1.7-13.0 [facility] ([place]) Comment on above: Performed By: #### V IDH, CMP, TSH, ANEU, A1C, FT4, LIPID, CBC, GFR, ADIFF #### [address] [address] #### PTH #### [address] [address] Neutrophils/100 WBC (Bld) 62.8 % Normal 37.0-80.0 [facility] ([place] Comment on above: Performed By: #### V IDH, CMP, TSH, ANEU, A1C, FT4, LIPID, CBC, GFR, ADIFF #### [address] [address] #### PTH #### [address] [address] .GFRon 01-18-2024 GFR 60 ml/min/1.73sqm Normal [facility] ([place]) Comment on above: Result Comment: GFR Population mean for , Non- Americans Ages 20-29 = 116 mL/min/1.73 sq.m. Ages 30-39 = 107 mL/min/1.73 sq.m. Ages 40-49 = 99 mL/min/1.73 sq.m. Ages 50-59 = 93 mL/min/1.73 sq.m. Ages 60-69 = 85 mL/min/1.73 sq.m. Ages 70+ = 75 mL/min/1.73 sq.m. Chronic Kidney Disease: Less than 60 mL/min/1.73 square meters End Stage Renal Disease: Less than 15 mL/min/1.73 square meters Performed By: #### T SH, FT4 #### [address] [address] GFR Non- 50 ml/min/1.73sqm Normal [facility] ([place]) Comment on above: Result Comment: GFR Population mean for , Non- Americans Ages 20-29 = 116 mL/min/1.73 sq.m. Ages 30-39 = 107 mL/min/1.73 sq.m. Ages 40-49 = 99 mL/min/1.73 sq.m. Ages 50-59 = 93 mL/min/1.73 sq.m. Ages 60-69 = 85 mL/min/1.73 sq.m. Ages 70+ = 75 mL/min/1.73 sq.m. Chronic Kidney Disease: Less than 60 mL/min/1.73 square meters End Stage Renal Disease: Less than 15 mL/min/1.73 square meters Performed By: #### T SH, FT4 #### [address] [address] .NEUABSon 01-18-2024 Neutrophil, Absolute 2.5 10 3/mcL Low 2.9-6.2 [facility] ([place]) Comment on above: Performed By: #### V IDH, CMP, TSH, ANEU, A1C, FT4, LIPID, CBC, GFR, ADIFF #### [address] [address] #### PTH #### [address] [address] CBCon 01-18-2024 Erythrocyte distribution width (RBC) [Ratio] 14.1 % Normal 11.5-14.5 [facility] ([place]) Comment on above: Performed By: #### V IDH, CMP, TSH, ANEU, A1C, FT4, LIPID, CBC, GFR, ADIFF #### [address] [address] #### PTH #### [address] [address] Hematocrit (Bld) [Volume fraction] 42.6 % Normal 42.0-52.0 [facility] ([place]) Comment on above: Performed By: #### V IDH, CMP, TSH, ANEU, A1C, FT4, LIPID, CBC, GFR, ADIFF #### [place] [address] #### PTH #### [place] [address] Hgb 14.6 G/dL Normal 14.0-18.0 [facility] ([place] Comment on above: Performed By: #### V IDH, CMP, TSH, ANEU, A1C, FT4, LIPID, CBC, GFR, ADIFF #### [address] [address] #### PTH #### [address] [address] MCH (RBC) [Entitic mass] 31.4 pg High 27.0-31.2 [facility] ([place]) Comment on above: Performed By: #### V IDH, CMP, TSH, ANEU, A1C, FT4, LIPID, CBC, GFR, ADIFF #### [address] [address] #### PTH #### [place] [address] MCHC 34.4 G/dL Normal 31.8-35.4 [facility] ([place] Comment on above: Performed By: #### V IDH, CMP, TSH, ANEU, A1C, FT4, LIPID, CBC, GFR, ADIFF #### [place] [address] #### PTH #### [address] [address] MCV (RBC) [Entitic vol] 91.2 fL Normal 80.0-94.0 [facility] ([place] Comment on above: Performed By: #### V IDH, CMP, TSH, ANEU, A1C, FT4, LIPID, CBC, GFR, ADIFF #### [address] [address] #### PTH #### [place] [address] Platelet 157 10 3/mcL Normal 130-400 [facility] ([place] Comment on above: Performed By: #### V IDH, CMP, TSH, ANEU, A1C, FT4, LIPID, CBC, GFR, ADIFF #### [place] [address] #### PTH #### [place] [address] Platelet mean volume (Bld) [Entitic vol] 8.8 fL Normal 7.4-10.4 [facility] ([place] Comment on above: Performed By: #### V IDH, CMP, TSH, ANEU, A1C, FT4, LIPID, CBC, GFR, ADIFF #### [place] [address] #### PTH #### [place] [address] RBC 4.67 10 6/mcL Normal 4.04-6.13 [facility] ([place] Comment on above: Performed By: #### V IDH, CMP, TSH, ANEU, A1C, FT4, LIPID, CBC, GFR, ADIFF #### [place] [address] #### PTH #### [place] [address] WBC 4.0 10 3/mcL Low 4.6-10.8 [facility] ([place] Comment on above: Performed By: #### V IDH, CMP, TSH, ANEU, A1C, FT4, LIPID, CBC, GFR, ADIFF #### [place] [id number] #### PTH #### [facility] [address] [place] [id number] [place] [address] 01-18-2024 Albumin Level 3.7 G/dL Normal 3.4-4.8 [facility] ([place]) Comment on above: Performed By: #### T SH, FT4 #### [address] [address] Albumin/Globulin [Mass ratio] 1.2 {ratio} Normal 1.1-2.5 [facility] ([place]) Comment on above: Performed By: #### T RAIN, FT4 #### [address] [address] ALP [Catalytic activity/Vol] 67 U/L Normal 40-135 [facility] ([place] Comment on above: Performed By: #### T RAIN, FT4 #### [address] [address] ALT [Catalytic activity/Vol] 29 U/L Normal 16-63 [facility] ([place] Comment on above: Performed By: #### T RAIN, FT4 #### [address] [address] AST [Catalytic activity/Vol] 25 U/L Normal 10-40 [facility] ([place]) Comment on above: Performed By: #### T RAIN, FT4 #### [address] [address] Bili Total 0.7 mg/dL Normal 0.2-1.0 [facility] ([place] Comment on above: Result Comment: Use of this assay is not recommended for patients undergoing treatment with eltrombopag due to the potential for falsely elevated results. Performed By: #### T RAIN, FT4 #### [address] [address] BUN/Creatinine Ratio 22 ratio Normal 7-27 [facility] ([place]) Comment on above: Performed By: #### T SH, FT4 #### [address] [address] Calcium [Mass/Vol] 8.8 mg/dL Normal 8.4-10.2 [facility] ([place] Comment on above: Performed By: #### T RAIN, FT4 #### [address] [address] Chloride [Moles/Vol] 105 mmol/L Normal 98-107 [facility] ([place]) Comment on above: Performed By: #### T RAIN, FT4 #### [address] [address] CO2 [Moles/Vol] 28 mmol/L Normal 23-31 [facility] ([place] Comment on above: Performed By: #### T RAIN, FT4 #### [address] [address] Creatinine [Mass/Vol] 1.39 mg/dL High 0.70-1.30 [facility] ([place]) Comment on above: Performed By: #### T RAIN, FT4 #### [address] [address] Electrolyte Balance 10.0 mEq/L Normal 4.0-15.0 [facility] ([place]) Comment on above: Performed By: #### T RAIN, FT4 #### [address] [address] Globulin 3.1 G/dL Normal [facility] ([place] Comment on above: Performed By: #### T RAIN, FT4 #### [address] [address] Glucose [Mass/Vol] 162 mg/dL High 83-110 [facility] ([place] Comment on above: Performed By: #### T RAIN, FT4 #### [address] [address] Potassium [Moles/Vol] 4.3 mmol/L Normal 3.5-5.1 [facility] ([place]) Comment on above: Performed By: #### T RAIN, FT4 #### [address] [address] Sodium [Moles/Vol] 143 mmol/L Normal 136-145 [facility] ([place] Comment on above: Performed By: #### T SH, FT4 #### [address] [address] Total Protein 6.8 G/dL Normal 6.4-8.2 [facility] ([place] Comment on above: Performed By: #### T SH, FT4 #### [place] [address] [place], [place] [address] Urea nitrogen [Mass/Vol] 30 mg/dL High 7-18 [facility] ([place]) Comment on above: Performed By: #### T SH, FT4 #### [address] [address] FT4on 01-18-2024 Free T4 [Mass/Vol] 1.00 ng/dL Normal 0.76-1.46 [facility] ([place]) Comment on above: Performed By: #### T RAIN, FT4 #### [address] [address] LABORATORYOrdered By: SYSTEM SYSTEM on 01-18-2024 25-hydroxyvitamin D3 [Mass/Vol] 42.1 ng/mL Invalid Interpretation Code AO ADM SS Comment on above: Interpretive Data: I nterpretive Values Based on Total 25(OH) Vitamin D: Deficient <20 ng/mL Insufficient 20 - <30 ng/mL Sufficient 30-100 ng/mL Albumin BCP dye [Mass/Vol] 3.7 G/dL Normal 3.4 - 4.8 G/dL AO ADM SS Albumin/Globulin [Mass ratio] 1.2 {ratio} Normal 1.1 - 2.5 ratio AO ADM SS ALP [Catalytic activity/Vol] 67 U/L Normal 40 - 135 U/L AO ADM SS ALT With P-5'-P [Catalytic activity/Vol] 29 U/L Normal 16 - 63 U/L AO ADM SS AST With P-5'-P [Catalytic activity/Vol] 25 U/L Normal 10 - 40 U/L AO ADM SS Basophil, Absolute 0.0 103/mcL Normal 0.0 - 0.2 10^3/mcL AO Workflow SS Basophils/100 WBC (Bld) 0.4 % Normal 0.0 - 2.5 % AO Workflow SS Bilirubin [Mass/Vol] 0.7 mg/dL Normal 0.2 - 1 .0 mg/dL AO ADM SS Comment on above: Interpretive Data: U se of this assay is not recommended for patients undergoing treatment with eltrombopag due to the potential for falsely elevated results. Calcium [Mass/Vol] 8.8 mg/dL Normal 8.4 - 10. 2 mg/dL AO ADM SS Chloride [Moles/Vol] 105 mmol/L Normal 98 - 10 7 mmol/L AO ADM SS CO2 [Moles/Vol] 28 mmol/L Normal 23 - 31 mmol/L AO ADM SS Creatinine [Mass/Vol] 1.39 mg/dL High 0.70 - 1.30 mg/dL AO ADM SS Electrolyte Balance 10.0 mEq/L Normal 4.0 - 15 .0 mEq/L AO ADM SS Eosinophil, Absolute 0.2 103/mcL Normal 0.0 - 0 .4 10^3/mcL AO Workflow SS Eosinophils/100 WBC (Bld) 4.0 % Normal 0.0 - 7.0 % AO Workflow SS Erythrocyte distribution width (RBC) [Ratio] 14.1 % Normal 11.5 - 14.5 % AO Workflow SS Free T4 [Mass/Vol] 1.00 ng/dL Normal 0.76 - 1. 46 ng/dL AO ADM SS GFR/1.73 sq M.predicted among blacks MDRD (S/P/Bld) [Vol rate/Area] 60 ml/min/1.73sqm Invalid Interpretation Code AO Chemistry S Comment on above: Interpretive Data: GFR Population mean for , Non- Americans Ages 20-29 = 116 mL/min/1.73 sq.m. Ages 30-39 = 107 mL/min/1.73 sq.m. Ages 40-49 = 99 mL/min/1.73 sq.m. Ages 50-59 = 93 mL/min/1.73 sq.m. Ages 60-69 = 85 mL/min/1.73 sq.m. Ages 70+ = 75 mL/min/1.73 sq.m. Chronic Kidney Disease: Less than 60 mL/min/1.73 square meters End Stage Renal Disease: Less than 15 mL/min/1.73 square meters GFR/1.73 sq M.predicted among non-blacks MDRD (S/P/Bld) [Vol rate/Area] 50 ml/min/1.73sqm Invalid Interpretation Code AO Chemistry S Comment on above: Interpretive Data: GFR Population mean for , Non- Americans Ages 20-29 = 116 mL/min/1.73 sq.m. Ages 30-39 = 107 mL/min/1.73 sq.m. Ages 40-49 = 99 mL/min/1.73 sq.m. Ages 50-59 = 93 mL/min/1.73 sq.m. Ages 60-69 = 85 mL/min/1.73 sq.m. Ages 70+ = 75 mL/min/1.73 sq.m. Chronic Kidney Disease: Less than 60 mL/min/1.73 square meters End Stage Renal Disease: Less than 15 mL/min/1.73 square meters Globulin 3.1 G/dL Invalid Interpretation Code AO ADM SS Glucose [Mass/Vol] 162 mg/dL High 83 - 110 mg/dL AO ADM SS Hematocrit (Bld) [Volume fraction] 42.6 % Normal 42.0 - 52.0 % AO Workflow SS Hemoglobin (Bld) [Mass/Vol] 14.6 G/dL Normal 14.0 - 18.0 G/dL AO Workflow SS Lymphocyte, Absolute 0.8 103/mcL Normal 0.8 - 3 .9 10^3/mcL AO Workflow SS Lymphocytes/100 WBC (Bld) 20.5 % Normal 10.0 - 50.0 % AO Workflow SS MCH (RBC) [Entitic mass] 31.4 pg High 27.0 - 31.2 pg AO Workflow SS MCHC 34.4 G/dL Normal 31.8 - 35.4 G/dL AO Workflow SS MCV (RBC) [Entitic vol] 91.2 fL Normal 80.0 - 94.0 fL AO Workflow SS Monocyte, Absolute 0.5 103/mcL Normal 0.2 - 1.0 10^3/mcL AO Workflow SS Monocytes/100 WBC (Bld) 12.3 % Normal 1.7 - 13.0 % AO Workflow SS Neutrophil, Absolute 2.5 103/mcL Low 2.9 - 6 .2 10^3/mcL AO Workflow SS Neutrophils/100 WBC (Bld) 62.8 % Normal 37.0 - 80.0 % AO Workflow SS Parathyrin.intact [Mass/Vol] 98.9 pg/mL High 18.5 - 88.0 pg/mL AH ADM SS Platelet mean volume (Bld) [Entitic vol] 8.8 fL Normal 7.4 - 10.4 fL AO Workflow SS Platelets (Bld) [#/Vol] 157 103/mcL Normal 130 - 400 10^3/mcL AO Workflow SS Potassium [Moles/Vol] 4.3 mmol/L Normal 3.5 - 5.1 mmol/L AO ADM SS Protein [Mass/Vol] 6.8 G/dL Normal 6.4 - 8.2 G/dL AO ADM SS RBC (Bld) [#/Vol] 4.67 106/mcL Normal 4.04 - 6.1 3 10^6/mcL AO Workflow SS Sodium [Moles/Vol] 143 mmol/L Normal 136 - 145 mmol/L AO ADM SS TSH Qn 3.57 m[IU]/L Normal 0.36 - 3.74 mcIU/mL AO ADM SS Urea nitrogen [Mass/Vol] 30 mg/dL High 7 - 18 mg/dL AO ADM SS Urea nitrogen/Creatinine [Mass ratio] 22 ratio Normal 7 - 27 ratio AO ADM SS WBC (Bld) [#/Vol] 4.0 103/mcL Low 4.6 - 10.8 10^3/mcL AO Workflow SS LABORATORYOrdered By: Edgardo Heaton on 01-18-2024 Albumin DL <= 20 mg/L (U) [Mass/Vol] 1181 mcg/dL Invalid Interpretation Code AO ADM SS Albumin/Creatinine DL <= 20 mg/L (U) [Mass ratio] 9 mcg/mg Normal 0 - 30 mcg/mg AO ADM SS Creatinine (U) [Mass/Vol] 134.9 mg/dL Normal 39.0 - 259.0 mg/dL AO ADM SS LABORATORYOrdered By: Krishna Haines on 01-18-2024 Cholesterol [Mass/Vol] 156 mg/dL Normal 0 - 200 mg/dL AO ADM SS Comment on above: Interpretive Data: C holesterol Reference Interval: Less than 200 Desirable 200-239 Borderline high risk 240 and above High risk Cholesterol in HDL [Mass/Vol] 40 mg/dL Normal 40 - 60 mg/dL AO ADM SS Cholesterol in LDL [Mass/Vol] 97 mg/dL Normal 0 - 130 mg/dL AO ADM SS Triglyceride [Mass/Vol] 97 mg/dL Normal 0 - 150 mg/dL AO ADM SS Comment on above: Interpretive Data: T riglyceride Reference Interval: Less than 150 Normal 150-199 Borderline high risk 200-499 High risk 500 or higher Very high risk LIPIDon 01-18-2024 Cholesterol [Mass/Vol] 156 mg/dL Normal 0-200 [facility] ([place]) Comment on above: Result Comment: Chol esterol Reference Interval: Less than 200 Desirable 200-239 Borderline high risk 240 and above High risk Performed By: #### T RAIN, FT4 #### [address] [address] Cholesterol in HDL [Mass/Vol] 40 mg/dL Normal 40-60 [facility] ([place]) Comment on above: Performed By: #### T RAIN, FT4 #### [address] [address] Cholesterol in LDL [Mass/Vol] 97 mg/dL Normal 0-130 [facility] ([place]) Comment on above: Performed By: #### T RAIN, FT4 #### [address] [address] Triglyceride [Mass/Vol] 97 mg/dL Normal 0-150 [facility] ([place] Comment on above: Result Comment: Trig lyceride Reference Interval: Less than 150 Normal 150-199 Borderline high risk 200-499 High risk 500 or higher Very high risk Performed By: #### T RAIN, FT4 #### [address] [address] MALBRon 01-18-2024 U Creatinine 134.9 mg/dL Normal 39.0-259.0 [facility] ([place] Comment on above: Performed By: #### M ALBR #### [address] [address] U Microalb 1181 mcg/dL Normal [facility] [place] Comment on above: Performed By: #### M ALBR #### [address] [address] U Ratio Alb/Cre 9 mcg/mg Normal 0-30 [facility] ([place] Comment on above: Performed By: #### M ALBR #### [address] [address] PTHon 01-18-2024 PTH, Intact 98.9 pg/mL High 18.5-88.0 [facility] ([place]) Comment on above: Performed By: #### V IDH, CMP, TSH, ANEU, A1C, FT4, LIPID, CBC, GFR, ADIFF #### [address] [address] [address] #### PTH #### [address] [address] TSHon 01-18-2024 TSH Qn 3.57 m[IU]/L Normal 0.36-3.74 [facility] ([place]) Comment on above: Performed By: #### T SH, FT4 #### [address] [address] VIDHon 01-18-2024 Vit. D 25-Hydroxy 42.1 ng/mL Normal [facility] ([place]) Comment on above: Result Comment: Inte rpretive Values Based on Total 25(OH) Vitamin D: Deficient <20 ng/mL Insufficient 20 - <30 ng/mL Sufficient 30-100 ng/mL Performed By: #### T SH, FT4 #### [address] [address] [address] ANGIOGRAPHY CHEST W/CONTR Christina 11-21-2023 CT ANGIOGRAPHY CHEST W/CONTRAST ORIGINAL EXAMINATION: CTA OF THE CHEST11/15/2023 12:[address] angiogram Chest with intravenous contrast, PE Protocol TECHNIQUE: CT angiogram Chest with intravenous contrast, Image Post Processing, 3-D and coronal reconstructions on an independent work station RADIATION DOSE REDUCTION: This exam was performed according to the departmental dose-optimization program which includes automated exposure control, adjustment of the mA and/or kV according to patient size and/or use of iterative reconstruction technique. Unless otherwise specified, incidental findings do not require dedicated imaging and follow-up. COMPARISON: Outside CT 04/05/2023 HISTORY: ORDERING SYSTEM PROVIDED HISTORY: Reason for Exam: 3-month reevaluation of previous pulmonary embolus, check for resolution secondary to patient preparing for surgery of rotator cuff revision., , evaluate for pulmonary embolism FINDINGS: Axial source, post-processed, 3-D and coronal reformatted images were reviewed. No pulmonary embolism is seen on this study to the level of the segmental branches. There is complete resolution of previous emboli. The main pulmonary artery is 3.3 cm in diameter. Nonaneurysmal aorta with moderate atherosclerotic calcification. Mild coronary artery calcifications also. Small hiatal hernia. No dilatation of the esophagus. No pathologic lymphadenopathy in the chest, pleural or pericardial effusion. The included upper abdomen shows gallstones. There is a small fluid density lesion in the inferior right lobe of liver suggesting a cyst of about 2 cm. The lungs show no consolidation, mass or suspicious nodules. There is a calcified granuloma in the right middle lobe. No acute aggressive skeletal abnormality. Thoracic spine degenerative changes. IMPRESSION: Complete resolution of previous pulmonary embolism. No acute findings in the chest. Incidental findings as described. RECOMMENDATIONS: Unless otherwise specified, incidental findings do not require dedicated imaging and follow-up. Interpreted by: Rocky Chaudhari MD Preliminary Report By: Rocky Chaudhari MD Electronically signed By Rocky Chaudhari MD Dictated Date: 11/21/2023 8:48:08 AM Prelim Date: 11/21/2023 8:51:06 AM Sign Date: 11/21/2023 8:51:06 AM Ordering Provider: DEMETRIUS CALLEJAS Normal [facility] ([place]) .GFRon 11-15-2023 GFR 56 ml/min/1.73sqm Normal [facility] ([place]) Comment on above: Result Comment: GFR Population mean for , Non- Americans Ages 20-29 = 116 mL/min/1.73 sq.m. Ages 30-39 = 107 mL/min/1.73 sq.m. Ages 40-49 = 99 mL/min/1.73 sq.m. Ages 50-59 = 93 mL/min/1.73 sq.m. Ages 60-69 = 85 mL/min/1.73 sq.m. Ages 70+ = 75 mL/min/1.73 sq.m. Chronic Kidney Disease: Less than 60 mL/min/1.73 square meters End Stage Renal Disease: Less than 15 mL/min/1.73 square meters Performed By: #### M ALBR #### [address] [place] [id number] GFR Non- 46 ml/min/1.73sqm Normal [facility] ([place]) Comment on above: Result Comment: GFR Population mean for , Non- Americans Ages 20-29 = 116 mL/min/1.73 sq.m. Ages 30-39 = 107 mL/min/1.73 sq.m. Ages 40-49 = 99 mL/min/1.73 sq.m. Ages 50-59 = 93 mL/min/1.73 sq.m. Ages 60-69 = 85 mL/min/1.73 sq.m. Ages 70+ = 75 mL/min/1.73 sq.m. Chronic Kidney Disease: Less than 60 mL/min/1.73 square meters End Stage Renal Disease: Less than 15 mL/min/1.73 square meters Performed By: #### M ALBR #### [address] [address] CREon 11-15-2023 Creatinine [Mass/Vol] 1.48 mg/dL High 0.70-1.30 [facility] ([place]) Comment on above: Performed By: #### M ALBR #### [address] [address] LABORATORYOrdered By: SYSTEM SYSTEM on 11-15-2023 Creatinine [Mass/Vol] 1.48 mg/dL High 0.70 - 1.30 mg/dL AO ADM SS GFR/1.73 sq M.predicted among blacks MDRD (S/P/Bld) [Vol rate/Area] 56 ml/min/1.73sqm Invalid Interpretation Code AO Chemistry S Comment on above: Interpretive Data: GFR Population mean for , Non- Americans Ages 20-29 = 116 mL/min/1.73 sq.m. Ages 30-39 = 107 mL/min/1.73 sq.m. Ages 40-49 = 99 mL/min/1.73 sq.m. Ages 50-59 = 93 mL/min/1.73 sq.m. Ages 60-69 = 85 mL/min/1.73 sq.m. Ages 70+ = 75 mL/min/1.73 sq.m. Chronic Kidney Disease: Less than 60 mL/min/1.73 square meters End Stage Renal Disease: Less than 15 mL/min/1.73 square meters GFR/1.73 sq M.predicted among non-blacks MDRD (S/P/Bld) [Vol rate/Area] 46 ml/min/1.73sqm Invalid Interpretation Code AO Chemistry S Comment on above: Interpretive Data: GFR Population mean for , Non- Americans Ages 20-29 = 116 mL/min/1.73 sq.m. Ages 30-39 = 107 mL/min/1.73 sq.m. Ages 40-49 = 99 mL/min/1.73 sq.m. Ages 50-59 = 93 mL/min/1.73 sq.m. Ages 60-69 = 85 mL/min/1.73 sq.m. Ages 70+ = 75 mL/min/1.73 sq.m. Chronic Kidney Disease: Less than 60 mL/min/1.73 square meters End Stage Renal Disease: Less than 15 mL/min/1.73 square meters DIMERon 10-05-2023 D-Dimer <200 Normal 0-230 [facility] ([place]) Comment on above: Result Comment: DDN: Results reported in D-DU ng/mL. Negative for D-dimer. DVT/PE is highly unlikely. Note: False negative results may be seen in patients on anticoagulant therapy. The result of the D-Dimer test should be evaluated in the context of all the clinical and laboratory data available. In those instances where the laboratory result does not agree with the clinical evaluation, additional tests should be performed accordingly. If the D-Dimer result is used to exclude DVT or PE, the recommended cutoff value is less than 230 ng/mL. The D-Dimer result should not be used alone to rule in DVT/PE, but should be used in conjunction with a clinical pretest probability (PTP)assessment model to exclude venous thromboembolism (VTE) in outpatients suspected of deep venous thrombosis (DVT) and pulmonary embolism (PE). Performed By: #### T RAIN, FT4 #### [address] [place] [address] [place], [place] [address] FT4on 10-05-2023 Free T4 [Mass/Vol] 0.98 ng/dL Normal 0.76-1.46 [facility] ([place]) Comment on above: Performed By: #### T RAIN, FT4 #### [address] [address] TSHon 10-05-2023 TSH Qn 2.48 m[IU]/L Normal 0.36-3.74 [facility] ([place]) Comment on above: Performed By: #### T SH, FT4 #### [address] [address] .Auto Diffon 08-17-2023 Basophil, Absolute 0.0 10 3/mcL Normal 0.0-0.2 [facility] ([place]) Comment on above: Performed By: #### M ALBR #### [address] [address] Basophils/100 WBC (Bld) 0.5 % Normal 0.0-2.5 [facility] ([place]) Comment on above: Performed By: #### M ALBR #### [address] [address] Eosinophil, Absolute 0.2 10 3/mcL Normal 0.0-0.4 [facility] ([place]) Comment on above: Performed By: #### M ALBR #### [address] [address] Eosinophils/100 WBC (Bld) 3.3 % Normal 0.0-7.0 [facility] ([place]) Comment on above: Performed By: #### M ALBR #### [address] [address] Lymphocyte, Absolute 1.0 10 3/mcL Normal 0.8-3.9 [facility] ([place]) Comment on above: Performed By: #### M ALBR #### [address] [address] Lymphocytes/100 WBC (Bld) 17.2 % Normal 10.0-50.0 [facility] ([place]) Comment on above: Performed By: #### M ALBR #### [address] [address] Monocyte, Absolute 0.6 10 3/mcL Normal 0.2-1.0 [facility] ([place]) Comment on above: Performed By: #### M ALBR #### [place] [address] [place], [place] [address] Monocytes/100 WBC (Bld) 9.5 % Normal 1.7-13.0 [facility] ([place]) Comment on above: Performed By: #### M ALBR #### [place] [address] [place], [place] [address] Neutrophils/100 WBC (Bld) 69.5 % Normal 37.0-80.0 [facility] ([place]) Comment on above: Performed By: #### M ALBR #### [place] [address] [place], [place] [address] .GFRon 08-17-2023 GFR 67 ml/min/1.73sqm Normal [facility] ([place]) Comment on above: Result Comment: GFR Population mean for , Non- Americans Ages 20-29 = 116 mL/min/1.73 sq.m. Ages 30-39 = 107 mL/min/1.73 sq.m. Ages 40-49 = 99 mL/min/1.73 sq.m. Ages 50-59 = 93 mL/min/1.73 sq.m. Ages 60-69 = 85 mL/min/1.73 sq.m. Ages 70+ = 75 mL/min/1.73 sq.m. Chronic Kidney Disease: Less than 60 mL/min/1.73 square meters End Stage Renal Disease: Less than 15 mL/min/1.73 square meters Performed By: #### P SA, CBC, A1C, IBC, CMP, ANEU, FE, VIDH, LIPID, GFR, ADIFF ####[place] [address] [place], [place] [address] GFR Non- 55 ml/min/1.73sqm Normal [facility] ([place]) Comment on above: Result Comment: GFR Population mean for , Non- Americans Ages 20-29 = 116 mL/min/1.73 sq.m. Ages 30-39 = 107 mL/min/1.73 sq.m. Ages 40-49 = 99 mL/min/1.73 sq.m. Ages 50-59 = 93 mL/min/1.73 sq.m. Ages 60-69 = 85 mL/min/1.73 sq.m. Ages 70+ = 75 mL/min/1.73 sq.m. Chronic Kidney Disease: Less than 60 mL/min/1.73 square meters End Stage Renal Disease: Less than 15 mL/min/1.73 square meters Performed By: #### P SA, CBC, A1C, IBC, CMP, ANEU, FE, VIDH, LIPID, GFR, ADIFF ####[address] [address] .NEUABSon 08-17-2023 Neutrophil, Absolute 4.2 10 3/mcL Normal 2.9-6.2 [facility] ([place]) Comment on above: Performed By: #### M ALBR #### [address] [address] A1Con 08-17-2023 HbA1c (Bld) [Mass fraction] 5.9 % Normal 4.3-6.4 [facility] ([place]) Comment on above: Performed By: #### M ALBR #### [address] [address] CBCon 08-17-2023 Erythrocyte distribution width (RBC) [Ratio] 13.4 % Normal 11.5-14.5 [facility] ([place]) Comment on above: Performed By: #### M ALBR #### [address] [address] Hematocrit (Bld) [Volume fraction] 42.4 % Normal 42.0-52.0 [facility] ([place]) Comment on above: Performed By: #### M ALBR #### [address] [address] Hgb 14.0 G/dL Normal 14.0-18.0 [facility] ([place] Comment on above: Performed By: #### M ALBR #### [address] [address] MCH (RBC) [Entitic mass] 30.5 pg Normal 27.0-31.2 [facility] ([place]) Comment on above: Performed By: #### M ALBR #### [address] [address] MCHC 33.0 G/dL Normal 31.8-35.4 [facility] ([place]) Comment on above: Performed By: #### M ALBR #### Kat [address] [address] MCV (RBC) [Entitic vol] 92.5 fL Normal 80.0-94.0 [facility] ([place] Comment on above: Performed By: #### M ALBR #### [address] [address] Platelet 217 10 3/mcL Normal 130-400 [facility] ([place] Comment on above: Performed By: #### M ALBR #### [address] [address] Platelet mean volume (Bld) [Entitic vol] 8.2 fL Normal 7.4-10.4 [facility] ([place] Comment on above: Performed By: #### M ALBR #### [address] [address] RBC 4.58 10 6/mcL Normal 4.04-6.13 [facility] ([place] Comment on above: Performed By: #### M ALBR #### [address] [address] WBC 6.0 10 3/mcL Normal 4.6-10.8 [facility] ([place] Comment on above: Performed By: #### M ALBR #### [address] [address] CMPon 08-17-2023 Albumin Level 3.5 G/dL Normal 3.4-4.8 [facility] ([place] Comment on above: Performed By: #### M ALBR #### [address] [address] Albumin/Globulin [Mass ratio] 1.0 {ratio} Low 1.1-2.5 [facility] ([place] Comment on above: Performed By: #### M ALBR #### [address] [address] ALP [Catalytic activity/Vol] 83 U/L Normal 40-135 [facility] ([place]) Comment on above: Performed By: #### M ALBR #### [address] [address] ALT [Catalytic activity/Vol] 29 U/L Normal 16-63 [facility] ([place] Comment on above: Performed By: #### M ALBR #### [address] [address] AST [Catalytic activity/Vol] 28 U/L Normal 10-40 [facility] ([place] Comment on above: Performed By: #### M ALBR #### [address] [address] Bili Total 0.4 mg/dL Normal 0.2-1.0 [facility] ([place]) Comment on above: Result Comment: Use of this assay is not recommended for patients undergoing treatment with eltrombopag due to the potential for falsely elevated results. Performed By: #### M ALBR #### [address] [address] BUN/Creatinine Ratio 23 ratio Normal 7-27 [facility] ([place]) Comment on above: Performed By: #### M ALBR #### [address] [address] Calcium [Mass/Vol] 9.3 mg/dL Normal 8.4-10.2 [facility] ([place]) Comment on above: Performed By: #### M ALBR #### [address] [address] Chloride [Moles/Vol] 103 mmol/L Normal 98-107 [facility] ([place]) Comment on above: Performed By: #### M ALBR #### [address] [address] CO2 [Moles/Vol] 30 mmol/L Normal 23-31 [facility] ([place] Comment on above: Performed By: #### M ALBR #### [address] [address] Creatinine [Mass/Vol] 1.27 mg/dL Normal 0.70-1.30 [facility] ([place]) Comment on above: Performed By: #### M ALBR #### [address] [address] Electrolyte Balance 7.0 mEq/L Normal 4.0-15.0 [facility] ([place]) Comment on above: Performed By: #### M ALBR #### [address] [address] Globulin 3.6 G/dL Normal [facility] ([place]) Comment on above: Performed By: #### M ALBR #### [address] [address] Glucose [Mass/Vol] 73 mg/dL Low 83-110 [facility] ([place] Comment on above: Performed By: #### M ALBR #### [address] [address] Potassium [Moles/Vol] 3.8 mmol/L Normal 3.5-5.1 [facility] ([place]) Comment on above: Performed By: #### M ALBR #### [address] [address] Sodium [Moles/Vol] 140 mmol/L Normal 136-145 [facility] ([place] Comment on above: Performed By: #### M ALBR #### Kat [address] [address] Total Protein 7.1 G/dL Normal 6.4-8.2 [facility] ([place]) Comment on above: Performed By: #### M ALBR #### [address] [address] Urea nitrogen [Mass/Vol] 29 mg/dL High 7-18 [facility] ([place]) Comment on above: Performed By: #### M ALBR #### Kat [address] [address] FEon 08-17-2023 Iron [Mass/Vol] 82 ug/dL Normal 65-175 [facility] ([place]) Comment on above: Performed By: #### M ALBR #### [address] [place], [place] [address] IBCon 08-17-2023 TIBC 364 mcg/dL Normal 250-450 [facility] ([place]) Comment on above: Performed By: #### P SA, CBC, A1C, IBC, CMP, ANEU, FE, VIDH, LIPID, GFR, ADIFF ####[address] [place], [place] [address] LABORATORYOrdered By: SYSTEM SYSTEM on 08-17-2023 25-hydroxyvitamin D3 [Mass/Vol] 40.2 ng/mL Invalid Interpretation Code AO ADM SS Comment on above: Interpretive Data: I nterpretive Values Based on Total 25(OH) Vitamin D: Deficient <20 ng/mL Insufficient 20 - <30 ng/mL Sufficient 30-100 ng/mL Albumin BCP dye [Mass/Vol] 3.5 G/dL Normal 3.4 - 4.8 G/dL AO ADM SS Albumin/Globulin [Mass ratio] 1.0 {ratio} Low 1.1 - 2.5 ratio AO ADM SS ALP [Catalytic activity/Vol] 83 U/L Normal 40 - 135 U/L AO ADM SS ALT With P-5'-P [Catalytic activity/Vol] 29 U/L Normal 16 - 63 U/L AO ADM SS AST With P-5'-P [Catalytic activity/Vol] 28 U/L Normal 10 - 40 U/L AO ADM SS Basophil, Absolute 0.0 103/mcL Normal 0.0 - 0.2 10^3/mcL AO Workflow SS Basophils/100 WBC (Bld) 0.5 % Normal 0.0 - 2.5 % AO Workflow SS Bilirubin [Mass/Vol] 0.4 mg/dL Normal 0.2 - 1 .0 mg/dL AO ADM SS Comment on above: Interpretive Data: U se of this assay is not recommended for patients undergoing treatment with eltrombopag due to the potential for falsely elevated results. Calcium [Mass/Vol] 9.3 mg/dL Normal 8.4 - 10. 2 mg/dL AO ADM SS Chloride [Moles/Vol] 103 mmol/L Normal 98 - 10 7 mmol/L AO ADM SS CO2 [Moles/Vol] 30 mmol/L Normal 23 - 31 mmol/L AO ADM SS Creatinine [Mass/Vol] 1.27 mg/dL Normal 0.70 - 1.30 mg/dL AO ADM SS Electrolyte Balance 7.0 mEq/L Normal 4.0 - 15 .0 mEq/L AO ADM SS Eosinophil, Absolute 0.2 103/mcL Normal 0.0 - 0 .4 10^3/mcL AO Workflow SS Eosinophils/100 WBC (Bld) 3.3 % Normal 0.0 - 7.0 % AO Workflow SS Erythrocyte distribution width (RBC) [Ratio] 13.4 % Normal 11.5 - 14.5 % AO Workflow SS GFR/1.73 sq M.predicted among blacks MDRD (S/P/Bld) [Vol rate/Area] 67 ml/min/1.73sqm Invalid Interpretation Code AO Chemistry S Comment on above: Interpretive Data: GFR Population mean for , Non- Americans Ages 20-29 = 116 mL/min/1.73 sq.m. Ages 30-39 = 107 mL/min/1.73 sq.m. Ages 40-49 = 99 mL/min/1.73 sq.m. Ages 50-59 = 93 mL/min/1.73 sq.m. Ages 60-69 = 85 mL/min/1.73 sq.m. Ages 70+ = 75 mL/min/1.73 sq.m. Chronic Kidney Disease: Less than 60 mL/min/1.73 square meters End Stage Renal Disease: Less than 15 mL/min/1.73 square meters GFR/1.73 sq M.predicted among non-blacks MDRD (S/P/Bld) [Vol rate/Area] 55 ml/min/1.73sqm Invalid Interpretation Code AO Chemistry S Comment on above: Interpretive Data: GFR Population mean for , Non- Americans Ages 20-29 = 116 mL/min/1.73 sq.m. Ages 30-39 = 107 mL/min/1.73 sq.m. Ages 40-49 = 99 mL/min/1.73 sq.m. Ages 50-59 = 93 mL/min/1.73 sq.m. Ages 60-69 = 85 mL/min/1.73 sq.m. Ages 70+ = 75 mL/min/1.73 sq.m. Chronic Kidney Disease: Less than 60 mL/min/1.73 square meters End Stage Renal Disease: Less than 15 mL/min/1.73 square meters Globulin 3.6 G/dL Invalid Interpretation Code AO ADM SS Glucose [Mass/Vol] 73 mg/dL Low 83 - 110 mg/dL AO ADM SS HbA1c (Bld) [Mass fraction] 5.9 % Normal 4.3 - 6.4 % AO ADM SS Hematocrit (Bld) [Volume fraction] 42.4 % Normal 42.0 - 52.0 % AO Workflow SS Hemoglobin (Bld) [Mass/Vol] 14.0 G/dL Normal 14.0 - 18.0 G/dL AO Workflow SS Iron [Mass/Vol] 82 ug/dL Normal 65 - 175 mcg/dL AO ADM SS Iron binding capacity [Mass/Vol] 364 mcg/dL Normal 250 - 450 mcg/dL AO ADM SS Lymphocyte, Absolute 1.0 103/mcL Normal 0.8 - 3 .9 10^3/mcL AO Workflow SS Lymphocytes/100 WBC (Bld) 17.2 % Normal 10.0 - 50.0 % AO Workflow SS MCH (RBC) [Entitic mass] 30.5 pg Normal 27.0 - 31.2 pg AO Workflow SS MCHC 33.0 G/dL Normal 31.8 - 35.4 G/dL AO Workflow SS MCV (RBC) [Entitic vol] 92.5 fL Normal 80.0 - 94.0 fL AO Workflow SS Monocyte, Absolute 0.6 103/mcL Normal 0.2 - 1.0 10^3/mcL AO Workflow SS Monocytes/100 WBC (Bld) 9.5 % Normal 1.7 - 13.0 % AO Workflow SS Neutrophil, Absolute 4.2 103/mcL Normal 2.9 - 6 .2 10^3/mcL AO Workflow SS Neutrophils/100 WBC (Bld) 69.5 % Normal 37.0 - 80.0 % AO Workflow SS Platelet mean volume (Bld) [Entitic vol] 8.2 fL Normal 7.4 - 10.4 fL AO Workflow SS Platelets (Bld) [#/Vol] 217 103/mcL Normal 130 - 400 10^3/mcL AO Workflow SS Potassium [Moles/Vol] 3.8 mmol/L Normal 3.5 - 5.1 mmol/L AO ADM SS Prostate specific Ag [Mass/Vol] 2.64 ng/mL Normal 0.00 - 4.00 ng/mL AO ADM SS Protein [Mass/Vol] 7.1 G/dL Normal 6.4 - 8.2 G/dL AO ADM SS RBC (Bld) [#/Vol] 4.58 106/mcL Normal 4.04 - 6.1 3 10^6/mcL AO Workflow SS Sodium [Moles/Vol] 140 mmol/L Normal 136 - 145 mmol/L AO ADM SS Urea nitrogen [Mass/Vol] 29 mg/dL High 7 - 18 mg/dL AO ADM SS Urea nitrogen/Creatinine [Mass ratio] 23 ratio Normal 7 - 27 ratio AO ADM SS WBC (Bld) [#/Vol] 6.0 103/mcL Normal 4.6 - 10.8 10^3/mcL AO Workflow SS LABORATORYOrdered By: Gisselle Alicia on 08-17-2023 Cholesterol [Mass/Vol] 155 mg/dL Normal 0 - 200 mg/dL AO ADM SS Comment on above: Interpretive Data: C holesterol Reference Interval: Less than 200 Desirable 200-239 Borderline high risk 240 and above High risk Cholesterol in HDL [Mass/Vol] 40 mg/dL Normal 40 - 60 mg/dL AO ADM SS Cholesterol in LDL [Mass/Vol] 99 mg/dL Normal 0 - 130 mg/dL AO ADM SS Triglyceride [Mass/Vol] 78 mg/dL Normal 0 - 150 mg/dL AO ADM SS Comment on above: Interpretive Data: T riglyceride Reference Interval: Less than 150 Normal 150-199 Borderline high risk 200-499 High risk 500 or higher Very high risk LIPIDon 08-17-2023 Cholesterol [Mass/Vol] 155 mg/dL Normal 0-200 [facility] ([place]) Comment on above: Result Comment: Chol esterol Reference Interval: Less than 200 Desirable 200-239 Borderline high risk 240 and above High risk Performed By: #### P SA, CBC, A1C, IBC, CMP, ANEU, FE, VIDH, LIPID, GFR, ADIFF ####[address] [place], [place] [address] Cholesterol in HDL [Mass/Vol] 40 mg/dL Normal 40-60 [facility] ([place]) Comment on above: Performed By: #### P SA, CBC, A1C, IBC, CMP, ANEU, FE, VIDH, LIPID, GFR, ADIFF ####[address] [place], [place] [address] Cholesterol in LDL [Mass/Vol] 99 mg/dL Normal 0-130 [facility] ([place]) Comment on above: Performed By: #### P SA, CBC, A1C, IBC, CMP, ANEU, FE, VIDH, LIPID, GFR, ADIFF ####[address] [place], [place] [address] Triglyceride [Mass/Vol] 78 mg/dL Normal 0-150 [facility] ([place] Comment on above: Result Comment: Trig lyceride Reference Interval: Less than 150 Normal 150-199 Borderline high risk 200-499 High risk 500 or higher Very high risk Performed By: #### P SA, CBC, A1C, IBC, CMP, ANEU, FE, VIDH, LIPID, GFR, ADIFF ####[address] [place], [place] [address] PSAon 08-17-2023 Prostate Specific Antigen 2.64 ng/mL Normal 0.00-4.00 [facility] ([place]) Comment on above: Performed By: #### M ALBR #### Kat [address] [address] VIDHon 08-17-2023 Vit. D 25-Hydroxy 40.2 ng/mL Normal [facility] ([place]) Comment on above: Result Comment: Inte rpretive Values Based on Total 25(OH) Vitamin D: Deficient <20 ng/mL Insufficient 20 - <30 ng/mL Sufficient 30-100 ng/mL Performed By: #### M ALBR #### [address] [address] FT4on 07-20-2023 Free T4 [Mass/Vol] 0.85 ng/dL Normal 0.76-1.46 [facility] ([place]) Comment on above: Performed By: #### T SH, FT4 #### [address] [address] LABORATORYOrdered By: SYSTEM SYSTEM on 07-20-2023 Free T4 [Mass/Vol] 0.85 ng/dL Invalid Interpretation Code 0.76 - 1.46 ng/dL AO ADM SS TSH Qn 4.67 m[IU]/L Invalid Interpretation Code 0.36 - 3.74 mcIU/mL AO ADM SS TSHon 07-20-2023 TSH Qn 4.67 m[IU]/L High 0.36-3.74 [facility] ([place]) Comment on above: Performed By: #### T RAIN, FT4 #### [address] [address] FT4on 04-24-2023 Free T4 [Mass/Vol] 0.90 ng/dL Normal 0.76-1.46 [facility] ([place]) Comment on above: Performed By: #### T RAIN, FT4 #### [address] [address] LABORATORYOrdered By: SYSTEM SYSTEM on 04-24-2023 Free T4 [Mass/Vol] 0.90 ng/dL Invalid Interpretation Code 0.76 - 1.46 ng/dL AO ADM SS TSH Qn 5.12 m[IU]/L Invalid Interpretation Code 0.36 - 3.74 mcIU/mL AO ADM SS TSHon 04-24-2023 TSH Qn 5.12 m[IU]/L High 0.36-3.74 [facility] ([place]) Comment on above: Performed By: #### T RAIN, FT4 #### [address] [address] Absolute lymphocyte countOrd ered By: Leanna Ramón on 04-06-2023 Lymphocytes Auto (Unsp spec) [#/Vol] 0.82 10*3/uL 0.83-4.51 [facility] Basophil percentageOrdered B y: Leanna Melgar on 04-06-2023 Basophils/100 WBC (Bld) 0.4 % 0-1 [facility] Bilirubin [Mass/Vol] 0.50 mg/dL 0.20-1.00 [facility] Comment on above: For patients on eltr ombopag therapy, use of Dimension [place] TBIL is not recommended. Chloride [Moles/Vol] 109 mmol/L 98-107 [facility] Eosinophils/100 WBC (Bld) 6.0 % 0-5 [facility] Glucose [Mass/Vol] 139 mg/dL 74-106 [facility] Comment on above: Fasting Glucose resu lt greater than or equal to 126 mg/dL suggests DIABETES MELLITUS per A.D.A. criteria. Neutrophils (Bld) [#/Vol] 3.3 10*3/uL 2.0-7.7 [facility] Neutrophils/100 WBC (Bld) 64.3 % 47-70 [facility] Potassium [Moles/Vol] 4.1 mmol/L 3.5-5.1 [facility] Protein [Mass/Vol] 6.3 g/dL 6.4-8.2 [facility] Sodium [Moles/Vol] 141 mmol/L 136-145 [facility] WBC (Bld) [#/Vol] 5.2 10*3/uL 4.4-11.0 [facility] Bedside Glucoseon 04-06-2023 FINGERSTICK GLU 184 mg/dL High [address] [place] [address] Comment on above: Result Comment: BRENDA GEMENT OF PATIENT CARE PER NURSING PROTOCOL Performed By: #### L 300.3900, L300.4310 #### [facility] [address] [place], [address] FINGERSTICK GLU 142 mg/dL High [address] [place] [address] Comment on above: Result Comment: BRENDA GEMENT OF PATIENT CARE PER NURSING PROTOCOL Performed By: #### L 300.3900, L300.4310 #### [facility] [address] [place], [address] FINGERSTICK GLU 138 mg/dL High [address] [place] [address] Comment on above: Result Comment: BRENDA GEMENT OF PATIENT CARE PER NURSING PROTOCOL Performed By: #### L 300.3900, L300.4310 #### [facility] [address] [place], [address] Blood erythrocytes count (nu mber/volume)Ordered By: Leanna Melgar on 04-06-2023 RBC (Bld) [#/Vol] 4.30 10*6/uL 4.6-6.2 [facility] Blood hemoglobin measurement (mass/volume)Ordered By: Leanna Melgar on 04-06-2023 Hemoglobin (Bld) [Mass/Vol] 13.3 g/dL 13.0-16.5 [facility] Blood lymphocytes/100 leukoc ytesOrdered By: Leanna Ramón on 04-06-2023 Lymphocytes/100 WBC (Bld) 15.9 % 19-41 [facility] Blood monocytes/100 leukocyt esOrdered By: Leanna Ramón on 04-06-2023 Monocytes/100 WBC (Bld) 12.8 % 0-10 [facility] Blood platelet mean volumeOr dered By: Leanna Ramón on 04-06-2023 Platelet mean volume (Bld) [Entitic vol] 10.2 fL 6.2-12.0 [facility] CBC W/Diff, Automatedon 03-12 Absolute Lymph 0.82 X10 3/uL Low 0.83-4.51 [facility] Comment on above: Performed By: #### L 500.4050, L501.9520, L506.0400, L100.0100 #### [facility] [address] [place], [address] Absolute Neut 3.3 X10 3/uL Normal 2.0-7.7 [facility] Comment on above: Performed By: #### L 500.4050, L501.9520, L506.0400, L100.0100 #### [facility] [address] [place], [address] Basophils/100 WBC (Bld) 0.4 % Normal 0-1 [facility] Comment on above: Performed By: #### L 500.4050, L501.9520, L506.0400, L100.0100 #### [facility] [address] [place], [address] Eosinophils/100 WBC (Bld) 6.0 % High 0-5 [facility] Comment on above: Performed By: #### L 500.4050, L501.9520, L506.0400, L100.0100 #### [facility] [address] [place], [address] Erythrocyte distribution width (RBC) [Ratio] 12.7 % Normal 11.6-14.6 [facility] Comment on above: Performed By: #### L 500.4050, L501.9520, L506.0400, L100.0100 #### [facility] [address] [place], [address] Hematocrit (Bld) [Volume fraction] 40.8 % Normal 40-54 [facility] Comment on above: Performed By: #### L 500.4050, L501.9520, L506.0400, L100.0100 #### [facility] [address] [place], [address] Hemoglobin (Bld) [Mass/Vol] 13.3 g/dL Normal 13.0-16.5 [facility] Comment on above: Performed By: #### L 500.4050, L501.9520, L506.0400, L100.0100 #### [facility] [address] [place], [address] IG% 0.600 Normal 0.0-0.9 [facility] Comment on above: Result Comment: IG% - Immature Granulocytes (promyelocytes, myelocytes and metamyelocytes) > 1% indicates that a LEFT SHIFT is Present. Performed By: #### L 500.4050, L501.9520, L506.0400, L100.0100 #### [facility] [address] [place], [address] Lymphocytes/100 WBC (Bld) 15.9 % Low 19-41 [facility] Comment on above: Performed By: #### L 500.4050, L501.9520, L506.0400, L100.0100 #### [facility] [address] [place], [address] MCH (RBC) [Entitic mass] 30.9 pg Normal 27.0-32.0 [facility] Comment on above: Performed By: #### L 500.4050, L501.9520, L506.0400, L100.0100 #### [facility] [address] [place], [address] MCHC (RBC) [Mass/Vol] 32.6 g/dL Normal 32-36 [facility] Comment on above: Performed By: #### L 500.4050, L501.9520, L506.0400, L100.0100 #### [facility] [address] [place], [address] MCV (RBC) [Entitic vol] 94.9 fL High 80-94 [facility] Comment on above: Performed By: #### L 500.4050, L501.9520, L506.0400, L100.0100 #### [facility] [address] [place], [address] Monocytes/100 WBC (Bld) 12.8 % High 0-10 [facility] Comment on above: Performed By: #### L 500.4050, L501.9520, L506.0400, L100.0100 #### [facility] [address] [place], [address] Neutrophils/100 WBC (Bld) 64.3 % Normal 47-70 [facility] Comment on above: Performed By: #### L 500.4050, L501.9520, L506.0400, L100.0100 #### [facility] [address] [place], [address] Nucleated RBC (Bld) [#/Vol] 0 10*3/uL Normal 0-5 [facility] Comment on above: Performed By: #### L 500.4050, L501.9520, L506.0400, L100.0100 #### [facility] [address] [place], [address] Platelet mean volume (Bld) [Entitic vol] 10.2 fL Normal 6.2-12.0 [facility] Comment on above: Performed By: #### L 500.4050, L501.9520, L506.0400, L100.0100 #### [facility] [address] [place], [address] Platelets (Bld) [#/Vol] 147 10*3/uL Low 150-450 [facility] Comment on above: Performed By: #### L 500.4050, L501.9520, L506.0400, L100.0100 #### [facility] [address] [place], [address] RBC (Bld) [#/Vol] 4.30 10*6/uL Low 4.6-6.2 [facility] Comment on above: Performed By: #### L 500.4050, L501.9520, L506.0400, L100.0100 #### [facility] [address] [place], [address] RDW SD 44.0 fl High 35.1-43.9 [facility] Comment on above: Performed By: #### L 500.4050, L501.9520, L506.0400, L100.0100 #### [facility] [address] [place], [address] WBC (Bld) [#/Vol] 5.2 10*3/uL Normal 4.4-11.0 [facility] Comment on above: Performed By: #### L 500.4050, L501.9520, L506.0400, L100.0100 #### [facility] [address] [place], [address] Comprehensive Metabolic Prof ilon 04-06-2023 Albumin [Mass/Vol] 2.9 g/dL Low 3.2-5.0 [facility] Comment on above: Performed By: #### L 500.4050, L501.9520, L506.0400, L100.0100 #### [facility] [address] [place], [address] Albumin/Globulin [Mass ratio] 0.9 {ratio} Normal 0.9-2.4 [facility] Comment on above: Performed By: #### L 500.4050, L501.9520, L506.0400, L100.0100 #### [facility] [address] [place], [address] ALK P 61 U/L Normal 45-117 [facility] Comment on above: Performed By: #### L 500.4050, L501.9520, L506.0400, L100.0100 #### [facility] [address] [place], [address] ALT [Catalytic activity/Vol] 29 U/L Normal 16-61 [facility] Comment on above: Performed By: #### L 500.4050, L501.9520, L506.0400, L100.0100 #### [facility] [address] [place], [address] AST [Catalytic activity/Vol] 28 U/L Normal 15-37 [facility] Comment on above: Performed By: #### L 500.4050, L501.9520, L506.0400, L100.0100 #### [facility] [address] [place], [address] Bilirubin [Mass/Vol] 0.50 mg/dL Normal 0.20-1.00 [facility] Comment on above: Result Comment: For patients on eltrombopag therapy, use of Dimension [place] TBIL is not recommended. Performed By: #### L 500.4050, L501.9520, L506.0400, L100.0100 #### [facility] [address] [place], [address] BUN/CRE 20.3 RATIO High 10-20 [facility] Comment on above: Performed By: #### L 500.4050, L501.9520, L506.0400, L100.0100 #### [facility] [address] [place], [address] CA,Total 8.6 mg/dL Normal 8.5-10.1 [facility] Comment on above: Performed By: #### L 500.4050, L501.9520, L506.0400, L100.0100 #### [facility] [address] [place], [address] Chloride [Moles/Vol] 109 mmol/L High 98-107 [facility] Comment on above: Performed By: #### L 500.4050, L501.9520, L506.0400, L100.0100 #### [facility] [address] [place], [address] CO2 [Moles/Vol] 27.0 mmol/L Normal 21.0-32.0 [facility] Comment on above: Performed By: #### L 500.4050, L501.9520, L506.0400, L100.0100 #### [facility] [address] [place], [address] Creatinine [Mass/Vol] 1.43 mg/dL High 0.70-1.30 [facility] Comment on above: Result Comment: The validity of the calculated GFR GFRAA in patients over 70 years has not been determined. Clinical correlation is essential. Performed By: #### L 500.4050, L501.9520, L506.0400, L100.0100 #### [facility] [address] [place], [address] ECRCL 48.24 ml/min Normal [facility] Comment on above: Performed By: #### L 500.4050, L501.9520, L506.0400, L100.0100 #### [facility] [address] [place], [address] EST GFR - AA 62 mL/min Normal >60 [facility] Comment on above: Result Comment: Afri can Syrian GFR Calc Performed By: #### L 500.4050, L501.9520, L506.0400, L100.0100 #### [facility] [address] [place], [address] GAP 5 Normal 5-15 [facility] Comment on above: Performed By: #### L 500.4050, L501.9520, L506.0400, L100.0100 #### [facility] [address] [place], [address] GFR/1.73 sq M.predicted among non-blacks MDRD (S/P/Bld) [Vol rate/Area] 51 mL/min/{1.73_m2} Low >60 [facility] Comment on above: Result Comment: Non- GFR Calc Performed By: #### L 500.4050, L501.9520, L506.0400, L100.0100 #### [facility] [address] [place], [address] Globulin (S) [Mass/Vol] 3.4 g/dL Normal 2.2-4.2 [facility] Comment on above: Performed By: #### L 500.4050, L501.9520, L506.0400, L100.0100 #### [facility] [address] [place], [address] Glucose [Mass/Vol] 139 mg/dL High 74-106 [facility] Comment on above: Result Comment: Fast ing Glucose result greater than or equal to 126 mg/dL suggests DIABETES MELLITUS per A.D.A. criteria. Performed By: #### L 500.4050, L501.9520, L506.0400, L100.0100 #### [facility] [address] [place], [address] Potassium [Moles/Vol] 4.1 mmol/L Normal 3.5-5.1 [facility] Comment on above: Performed By: #### L 500.4050, L501.9520, L506.0400, L100.0100 #### [facility] [address] [place], [address] Sodium [Moles/Vol] 141 mmol/L Normal 136-145 [facility] Comment on above: Performed By: #### L 500.4050, L501.9520, L506.0400, L100.0100 #### [facility] [address] [place], [address] T PROT 6.3 g/dL Low 6.4-8.2 [facility] Comment on above: Performed By: #### L 500.4050, L501.9520, L506.0400, L100.0100 #### [facility] [address] [place], [address] Urea nitrogen [Mass/Vol] 29 mg/dL High 7-18 [facility] Comment on above: Performed By: #### L 500.4050, L501.9520, L506.0400, L100.0100 #### [facility] [address] [place], [address] Determination of erythrocyte mean corpuscular volume (MCV)Ordered By: Leanna Melgar on 04-06-2023 MCV (RBC) [Entitic vol] 94.9 fL 80-94 [facility] Discharge Instructionon 03-12 Discharge Instruction [facility] Medical Records Department [address] [place] [address] Instructions for Home/Discharge Instructions 04/06/23 0857 MR#: [id number] Acct: [id number] Name: SHARLENE MAC Rep #: [id number] : 1945 77 From: Mckinley Patton MD PCP: Demetrius Callejas COSMETOLOGY TEACHER-C Status:ADM IN Discharge Instructions Diet Discharge Diet: Low fat / Low cholesterol, 1800 Calorie Control Diet and 2000 mg Sodium Diet Activity Discharge Activity: Return to Normal Activity Weight Bearing Status: Weight bearing as tolerated Dressing / Incision Call your doctor if you observe: Fever of 101 or Higher, Coldness, Increased Pain, Numbness or Tingling, Change in Color, Inability to urinate, Inability to have a bowel movement, Shortness of breath, Dizziness, Fainting spells, Swelling in the ankles, Chest pain, Prolonged hiccupping, Increased palpitations (irregular heartbeat) and Calf discomfort Follow Up Care When: IN 2 WEEKS Test Results: Test results from this visit will be discussed in further detail at your follow-up appointment, if applicable. Discharge Plan Admission Admit Date/Time: 04/05/23 21:18 Primary Reason for Your Visit: Bilateral PE Attending Provider: Mckinley Patton Primary Care Provider: Demetrius Callejas NP Consulting Providers: Leanna Melgar Discharge Orders/Prescription s Prescriptions: New sennosides-docusate sodium [Stool Softener-Stimulant Laxat] 8.6-50 mg Tablet 2 tab PO BID PRN PRN (Reason: Constipation) Qty: 0 0RF Eliquis DVT-PE Treat 30D Start 5 mg (74 tabs) tablets,dose pack 5 mg PO BID Qty: 74 2RF Rx Instructions: 10 mg twice daily for 1 week and then 5 mg twice daily to continue Continued metoprolol tartrate 100 MG tablet 100 mg PO BID sertraline 100 MG tablet 100 mg PO DAILY amlodipine 5 MG tablet 5 mg PO DAILY simvastatin 5 MG tablet 5 mg PO DAILY glimepiride 4 MG tablet 4 mg PO DAILY pramipexole 0.25 MG tablet 0.25 mg PO DAILY pioglitazone 30 MG tablet 30 mg PO DAILY meclizine 25 mg tablet 25 mg PO DAILY PRN PRN (Reason: dizziness) Trulicity 1.5 mg/0.5 mL pen injector 1.5 mg subcut QWEEK Rx Instructions: q Monday Held hydrochlorothiazide 12.5 MG tablet 12.5 mg PO DAILY Hold Instructions: Hold for 5 days. meloxicam 15 mg tablet 15 mg PO DAILY Hold Instructions: Hold for 1 week as patient has ALAN. Referrals / Follow Up: Demetrius Callejas COSMETOLOGY TEACHER, COSMETOLOGY TEACHER-C [Primary Care Provider] - Disposition Disposition (needs filled in before D/C Order can be placed): Home, Self Care 04/06/23 1135 Mckinley Patton MD CC: COSMETOLOGY TEACHER-C Demetrius Callejas; Dr. Leanna Melgar MD Signed Normal [facility] Echo Complete W/ Contraston 04-06-2023 Echo Complete W/ Contrast [facility] [address] [place] [address] Echo Complete W/ Contrast 04/06/23 0830 MR#: [id number] Acct: [id number] Name: SHARLENE MAC JARAD Rep #: [id number] : 1945 77 From: Gennaro Grace MD Attending Dr: Dr. Mckinley Patton MD Status: ADM IN Ordering Dr: Leanna Melgar MD Date: 04/05/23 Location: PCU Sex: M C Admitted: 04/05/23 Reason For Study: Dyspnea/SOB Procedure This was a 2D Doppler, Color Flow transthoracic echocardiogram. The study was technically difficult. Contrast injection was performed. Patient scanned supine due to recent rotator cuff surgery. Exam performed portable in patient room. Left Ventricle Normal LV size. Left ventricular systolic function is normal. The estimated ejection fraction is 65 %. Stage 1 diastolic dysfunction. No regional wall motion abnormalities noted. Right Ventricle Normal RV size. Normal systolic function. Tricuspid Valve Unable to estimate RV systolic pressure due to inadequate jet, pulmonary artery pressure probably normal. Pulmonic Valve The pulmonic valve is not well visualized. Great Vessels Normal aortic root. Pericardium/Pleural No pericardial effusion. Medication Diluted definity 4.5ml given slow IV push to enhance endocardial definition. MMode/2D Measurements Calculations LVIDd: 5.1 cm IVSd: 1.2 cm Ao root diam: 3.7 cm LVIDs: 3.6 cm LVPWd: 1.1 cm LA dimension: 3.9 cm FS: 28.8 % LAV(MOD-sp4): 56.9 ml SV(MOD-sp4): 52.1 ml LVAd ap4: 28.9 cm2 LVLd ap4: 7.9 cm EDV(MOD-sp4): 86.6 ml EDV(sp4-el): 90.3 ml LVAs ap4: 17.4 cm2 LVLs ap4: 7.5 cm ESV(MOD-sp4): 34.5 ml ESV(sp4-el): 34.3 ml EF(MOD-sp4): 60.2 % EF(sp4-el): 62.0 % SV(sp4-el): 56.0 ml LA A4 area: 20.0 cm2 Time Measurements MV dec time: 0.20 sec Doppler Measurements Calculations MV E max chucho: 55.9 cm/sec Lat Peak E' Chucho: 7.7 cm/sec Med Peak E' Chucho: 6.7 cm/sec MV A max chucho: 74.2 cm/sec E/E' lat: 7.3 E/E' med: 8.3 MV E/A: 0.75 MV V2 max: 79.1 cm/sec MV P1/2t max chucho: 64.4 cm/sec PA V2 max: 74.6 cm/sec MV max P.5 mmHg MV P1/2t: 68.2 msec MV V2 mean: 40.6 cm/sec MV dec slope: 276.5 cm/sec2 MV mean P.81 mmHg MV V2 VTI: 23.1 cm MVA(P1/2t): 3.2 cm2 ECHO/Echo Complete W/ Contrast Interpretation Summary Normal LV size. Left ventricular systolic function is normal. The estimated ejection fraction is 65 %. Stage 1 diastolic dysfunction. Contrast injection was performed. The study was technically difficult. __ Ordering Physician: eLanna Melgar Performed By: Joe Kendrick RCS 04/06/23 1246 Date Gennaro Grace MD CC: COSMETOLOGY TEACHER-C Demetrius Callejas; Dr. Leanna Melgar MD; Dr. Mckinley Patton MD Date Dictated: 04/06/23829 Date Transcribed: 04/06/231245 Brake Repairer Air: Signed Normal [facility] Glucose Glucometer (BldC) [M ass/Vol]Ordered By: Leanna Melgar on 04-06-2023 Glucose [Mass/Vol] 142 mg/dL 74-106 [facility] Comment on above: MANAGEMENT OF PATIEN T CARE PER NURSING PROTOCOL Hematocrit Auto (Bld) [Volum e fraction]Ordered By: Leanna Melgar on 04-06-2023 Hematocrit (Bld) [Volume fraction] 40.8 % 40-54 [facility] - Chemistry and C hemistry - challengeOrdered By: Leanna Melgar on 04-06-2023 ALP [Catalytic activity/Vol] 61 U/L 45-117 [facility] ALT [Catalytic activity/Vol] 29 U/L 16-61 [facility] CO2 [Moles/Vol] 27.0 mmol/L 21.0-32.0 [facility] Free T4 [Mass/Vol] 1.07 ng/dL 0.76-1.46 [facility] Globulin (S) [Mass/Vol] 3.4 g/dL 2.2-4.2 [facility] Urea nitrogen/Creatinine [Mass ratio] 20.3 mg/mg 10-20 [facility] - CoagulationOrde red By: Leanna Melgar on 04-06-2023 aPTT Coag (Bld) [Time] 46.5 s 24.1-36.2 [facility] - Hematology and Cell countsOrdered By: Leanna Melgar on 04-06-2023 Erythrocyte distribution width (RBC) [Entitic vol] 44.0 fL 35.1-43.9 [facility] Erythrocyte distribution width (RBC) [Ratio] 12.7 % 11.6-14.6 [facility] Immature granulocytes/100 WBC (Bld) 0.600 % 0.0-0.9 [facility] Comment on above: IG% - Immature Granu locytes (promyelocytes, myelocytes and metamyelocytes) > 1% indicates that a LEFT SHIFT is Present. MCH (RBC) [Entitic mass] 30.9 pg 27.0-32.0 [facility] Nucleated RBC/100 WBC (Bld) [Ratio] 0 % 0-5 [facility] MCHC Auto (RBC) [Mass/Vol]Or dered By: Leanna Melgar on 04-06-2023 MCHC (RBC) [Mass/Vol] 32.6 g/dL 32-36 [facility] No Panel InformationOrdered By: Leanna Melgar on 04-06-2023 Estimated Creatinine Clearance Calc 48.24 ml/min [facility] Estimated GFR (MDRD) Amer 62 mL/min >60 [facility] Comment on above: GFR Calc Estimated GFR (MDRD) Non-Af Amer 51 mL/min >60 [facility] Comment on above: Non- GFR Calc Thyroid Stimulating Hormone (TSH) 4.34 uIU/mL 0.358-3.74 [facility] Partial Thromboplast Timeon 04-06-2023 aPTT Coag (Bld) [Time] 46.5 s High 24.1-36.2 [facility] Comment on above: Performed By: #### L 300.3900, L300.4310 #### [facility] [address] [place], [address] aPTT Coag (Bld) [Time] 42.4 s High 24.1-36.2 [facility] Comment on above: Performed By: #### L 300.3900, L300.4310 #### [facility] [address] [place], [address] Platelets bldOrdered By: Aria Melgar on 04-06-2023 Platelets (Bld) [#/Vol] 147 10*3/uL 150-450 [facility] Serum or plasma albumin charu urement (mass/volume)Ordered By: Leanna Melgar on 04-06-2023 Albumin [Mass/Vol] 2.9 g/dL 3.2-5.0 [facility] Serum or plasma albumin/glob ulin mass ratioOrdered By: Leanna Ramón on 04-06-2023 Albumin/Globulin [Mass ratio] 0.9 {ratio} 0.9-2.4 [facility] Serum or plasma calcium charu urement (mass/volume)Ordered By: Leanna Melgar on 04-06-2023 Calcium [Mass/Vol] 8.6 mg/dL 8.5-10.1 [facility] Serum or plasma creatinine m easurement (mass/volume)Ordered By: Leanna Ramón on 04-06-2023 Creatinine [Mass/Vol] 1.43 mg/dL 0.70-1.30 [facility] Comment on above: The validity of the calculated GFR & GFRAA in patients over 70 years has not been determined. Clinical correlation is essential. Serum or plasma urea nitroge n measurement (mass/volume)Ordered By: Leanna Melgar on 04-06-2023 Urea nitrogen [Mass/Vol] 29 mg/dL 7-18 [facility] T4 Free Directon 04-06-2023 T4 FREE DIRECT 1.07 ng/dL Normal 0.76-1.46 [facility] Comment on above: Performed By: #### L 500.4050, L501.9520, L506.0400, L100.0100 #### [facility] [address] [place], [address] Thin prep Papanicolaou smear with manual screeningOrdered By: Leanna White on 04-06-2023 Thin prep Papanicolaou smear with manual screening 28 U/L 15-37 [facility] Thin prep Papanicolaou smear with manual screening 5 5-15 [facility] Thyroid Stim Hormone (TSH)on 04-06-2023 TSH 4.34 uIU/mL High 0.358-3.74 [facility] Comment on above: Performed By: #### L 500.4050, L501.9520, L506.0400, L100.0100 #### [facility] [address] [place], [address] 12 Lead EKGon 04-05-2023 12 Lead EKG [facility] [address] [place] [address] 12 Lead EKG 04/05/23 1644 MR#: [id number] Acct: [id number] Name: SHARLENE MAC JARAD Rep #: [id number] : 1945 77 From: Gennaro Grace MD Attending Dr: Dr. Mckinley Patton MD Status: ADM IN Ordering Dr: Mahamed Jaffe DO Date: 04/05/23 Location: [facility] Sex: M C Admitted: 04/05/23 Test Reason : CP Blood Pressure : / mmHG Vent. Rate : 075 BPM Atrial Rate : 075 BPM P-R Int : 166 ms QRS Dur : 088 ms QT Int : 396 ms P-R-T Axes : 043 -19 035 degrees QTc Int : 442 ms Normal sinus rhythm Normal ECG Confirmed by NORMAN BOWER, GENNARO ([id number]), tape editor MACIEL STOUT ([id number]) on 04/06/2023 1:17:24 PM Referred By: ALANNAH/DEBORAH Confirmed By:GENNARO GRACE MD 04/06/23 1317 Date Gennaro Grace MD CC: BLANCA Callejas; Dr. Mckinley Patton MD; Dr. Mahamed Jaffe, DO Signed Normal [facility] Absolute lymphocyte countOrd ered By: Mahamed Jaffe on 04-05-2023 Lymphocytes Auto (Unsp spec) [#/Vol] 0.72 10*3/uL 0.83-4.51 [facility] BNP,B-Type NATRIURETIC PEPTI Dolly 04-05-2023 Natriuretic peptide B (Bld) [Mass/Vol] 21.2 pg/mL Normal 0-100 [facility] Comment on above: Performed By: #### L 500.2500, L503.6620, L501.4020, L100.0100 #### [facility] [address] [place], [address] Basic Metabolic Profile (BMP )on 04-05-2023 BUN/CRE 21.9 RATIO High 10-20 [facility] Comment on above: Order Comment: 'TROP ' Serial specimen #1, #2 or #3: 1 Performed By: #### L 500.2500, L503.6620, L501.4020, L100.0100 #### [facility] [address] [place], [address] CA,Total 9.3 mg/dL Normal 8.5-10.1 [facility] Comment on above: Order Comment: 'TROP ' Serial specimen #1, #2 or #3: 1 Performed By: #### L 500.2500, L503.6620, L501.4020, L100.0100 #### [facility] [address] [place], [address] Chloride [Moles/Vol] 105 mmol/L Normal 98-107 [facility] Comment on above: Order Comment: 'TROP ' Serial specimen #1, #2 or #3: 1 Performed By: #### L 500.2500, L503.6620, L501.4020, L100.0100 #### [facility] [address] [place], [address] CO2 [Moles/Vol] 31.0 mmol/L Normal 21.0-32.0 [facility] Comment on above: Order Comment: 'TROP ' Serial specimen #1, #2 or #3: 1 Performed By: #### L 500.2500, L503.6620, L501.4020, L100.0100 #### [facility] [address] [place], [address] Creatinine [Mass/Vol] 1.60 mg/dL High 0.70-1.30 [facility] Comment on above: Order Comment: 'TROP ' Serial specimen #1, #2 or #3: 1 Result Comment: The validity of the calculated GFR GFRAA in patients over 70 years has not been determined. Clinical correlation is essential. Performed By: #### L 500.2500, L503.6620, L501.4020, L100.0100 #### [facility] [address] [place], [address] ECRCL 44.39 ml/min Normal [facility] Comment on above: Order Comment: 'TROP ' Serial specimen #1, #2 or #3: 1 Performed By: #### L 500.2500, L503.6620, L501.4020, L100.0100 #### [facility] [address] [place], [address] EST GFR - AA 54 mL/min Low >60 [facility] Comment on above: Order Comment: 'TROP ' Serial specimen #1, #2 or #3: 1 Result Comment: Afri can Syrian GFR Calc Performed By: #### L 500.2500, L503.6620, L501.4020, L100.0100 #### [facility] [address] [place], [address] GAP 2 Low 5-15 [facility] Comment on above: Order Comment: 'TROP ' Serial specimen #1, #2 or #3: 1 Performed By: #### L 500.2500, L503.6620, L501.4020, L100.0100 #### [facility] [address] [place], [address] GFR/1.73 sq M.predicted among non-blacks MDRD (S/P/Bld) [Vol rate/Area] 45 mL/min/{1.73_m2} Low >60 [facility] Comment on above: Order Comment: 'TROP ' Serial specimen #1, #2 or #3: 1 Result Comment: Non- GFR Calc Performed By: #### L 500.2500, L503.6620, L501.4020, L100.0100 #### [facility] [address] [place], [address] Glucose [Mass/Vol] 112 mg/dL High 74-106 [facility] Comment on above: Order Comment: 'TROP ' Serial specimen #1, #2 or #3: 1 Result Comment: Fast ing Glucose result from 100 to 125 mg/dL suggests IMPAIRED HOMEOSTASIS per A.D.A. criteria. Performed By: #### L 500.2500, L503.6620, L501.4020, L100.0100 #### [facility] [address] [place], [address] Potassium [Moles/Vol] 5.0 mmol/L Normal 3.5-5.1 [facility] Comment on above: Order Comment: 'TROP ' Serial specimen #1, #2 or #3: 1 Performed By: #### L 500.2500, L503.6620, L501.4020, L100.0100 #### [facility] [address] [place], [address] Sodium [Moles/Vol] 138 mmol/L Normal 136-145 [facility] Comment on above: Order Comment: 'TROP ' Serial specimen #1, #2 or #3: 1 Performed By: #### L 500.2500, L503.6620, L501.4020, L100.0100 #### [facility] [address] [place], [address] Urea nitrogen [Mass/Vol] 35 mg/dL High 7-18 [facility] Comment on above: Order Comment: 'TROP ' Serial specimen #1, #2 or #3: 1 Performed By: #### L 500.2500, L503.6620, L501.4020, L100.0100 #### [facility] [address] [place], [address] Basophil percentageOrdered B y: Mahamed Jaffe on 04-05-2023 Basophils/100 WBC (Bld) 0.5 % 0-1 [facility] Chloride [Moles/Vol] 105 mmol/L 98-107 [facility] Eosinophils/100 WBC (Bld) 5.7 % 0-5 [facility] Glucose [Mass/Vol] 112 mg/dL 74-106 [facility] Comment on above: Fasting Glucose resu lt from 100 to 125 mg/dL suggests IMPAIRED HOMEOSTASIS per A.D.A. criteria. Neutrophils (Bld) [#/Vol] 4.0 10*3/uL 2.0-7.7 [facility] Neutrophils/100 WBC (Bld) 68.1 % 47-70 [facility] Potassium [Moles/Vol] 5.0 mmol/L 3.5-5.1 [facility] Sodium [Moles/Vol] 138 mmol/L 136-145 [facility] WBC (Bld) [#/Vol] 5.9 10*3/uL 4.4-11.0 [facility] Blood erythrocytes count (nu mber/volume)Ordered By: Mahamed Jaffe on 04-05-2023 RBC (Bld) [#/Vol] 4.55 10*6/uL 4.6-6.2 [facility] Blood hemoglobin measurement (mass/volume)Ordered By: Mahamed Jaffe on 04-05-2023 Hemoglobin (Bld) [Mass/Vol] 14.1 g/dL 13.0-16.5 [facility] Blood lymphocytes/100 leukoc ytesOrdered By: Mahamed Jaffe on 04-05-2023 Lymphocytes/100 WBC (Bld) 12.2 % 19-41 [facility] Blood monocytes/100 leukocyt esOrdered By: Mahamed Jaffe on 04-05-2023 Monocytes/100 WBC (Bld) 13.0 % 0-10 [facility] Blood platelet mean volumeOr dered By: Mahamed Jaffe on 04-05-2023 Platelet mean volume (Bld) [Entitic vol] 9.6 fL 6.2-12.0 [facility] CBC W/Diff, Automatedon 03-12 Absolute Lymph 0.72 X10 3/uL Low 0.83-4.51 [facility] Comment on above: Performed By: #### L 500.2500, L503.6620, L501.4020, L100.0100 #### [facility] [address] [place], [address] Absolute Neut 4.0 X10 3/uL Normal 2.0-7.7 [facility] Comment on above: Performed By: #### L 500.2500, L503.6620, L501.4020, L100.0100 #### [facility] [address] [place], [address] Basophils/100 WBC (Bld) 0.5 % Normal 0-1 [facility] Comment on above: Performed By: #### L 500.2500, L503.6620, L501.4020, L100.0100 #### [facility] [address] [place], [address] Eosinophils/100 WBC (Bld) 5.7 % High 0-5 [facility] Comment on above: Performed By: #### L 500.2500, L503.6620, L501.4020, L100.0100 #### [facility] [address] [place], [address] Erythrocyte distribution width (RBC) [Ratio] 12.6 % Normal 11.6-14.6 [facility] Comment on above: Performed By: #### L 500.2500, L503.6620, L501.4020, L100.0100 #### [facility] [address] [place], [address] Hematocrit (Bld) [Volume fraction] 43.8 % Normal 40-54 [facility] Comment on above: Performed By: #### L 500.2500, L503.6620, L501.4020, L100.0100 #### [facility] [address] [place], [address] Hemoglobin (Bld) [Mass/Vol] 14.1 g/dL Normal 13.0-16.5 [facility] Comment on above: Performed By: #### L 500.2500, L503.6620, L501.4020, L100.0100 #### [facility] [address] [place], [address] IG% 0.500 Normal 0.0-0.9 [facility] Comment on above: Result Comment: IG% - Immature Granulocytes (promyelocytes, myelocytes and metamyelocytes) > 1% indicates that a LEFT SHIFT is Present. Performed By: #### L 500.2500, L503.6620, L501.4020, L100.0100 #### [facility] [address] [place], [address] Lymphocytes/100 WBC (Bld) 12.2 % Low 19-41 [facility] Comment on above: Performed By: #### L 500.2500, L503.6620, L501.4020, L100.0100 #### [facility] [address] [place], [address] MCH (RBC) [Entitic mass] 31.0 pg Normal 27.0-32.0 [facility] Comment on above: Performed By: #### L 500.2500, L503.6620, L501.4020, L100.0100 #### [facility] [address] [place], [address] MCHC (RBC) [Mass/Vol] 32.2 g/dL Normal 32-36 [facility] Comment on above: Performed By: #### L 500.2500, L503.6620, L501.4020, L100.0100 #### [facility] [address] [place], [address] MCV (RBC) [Entitic vol] 96.3 fL High 80-94 [facility] Comment on above: Performed By: #### L 500.2500, L503.6620, L501.4020, L100.0100 #### [facility] [address] [place], [address] Monocytes/100 WBC (Bld) 13.0 % High 0-10 [facility] Comment on above: Performed By: #### L 500.2500, L503.6620, L501.4020, L100.0100 #### [facility] [address] [place], [address] Neutrophils/100 WBC (Bld) 68.1 % Normal 47-70 [facility] Comment on above: Performed By: #### L 500.2500, L503.6620, L501.4020, L100.0100 #### [facility] [address] [place], [address] Nucleated RBC (Bld) [#/Vol] 0 10*3/uL Normal 0-5 [facility] Comment on above: Performed By: #### L 500.2500, L503.6620, L501.4020, L100.0100 #### [facility] [address] [place], [address] Platelet mean volume (Bld) [Entitic vol] 9.6 fL Normal 6.2-12.0 [facility] Comment on above: Performed By: #### L 500.2500, L503.6620, L501.4020, L100.0100 #### [facility] [address] [place], [address] Platelets (Bld) [#/Vol] 152 10*3/uL Normal 150-450 [facility] Comment on above: Performed By: #### L 500.2500, L503.6620, L501.4020, L100.0100 #### [facility] [address] [place], [address] RBC (Bld) [#/Vol] 4.55 10*6/uL Low 4.6-6.2 [facility] Comment on above: Performed By: #### L 500.2500, L503.6620, L501.4020, L100.0100 #### [facility] [address] [place], [address] RDW SD 45.3 fl High 35.1-43.9 [facility] Comment on above: Performed By: #### L 500.2500, L503.6620, L501.4020, L100.0100 #### [facility] [address] [place], [address] WBC (Bld) [#/Vol] 5.9 10*3/uL Normal 4.4-11.0 [facility] Comment on above: Performed By: #### L 500.2500, L503.6620, L501.4020, L100.0100 #### [facility] [address] [place], [address] CNOVon 04-05-2023 CNOV Office Visit ([facility]) ---- DANNYSHARLENE SHAH ([id number]) 1945 M Date Time Provider Department 04/05/23 4:15 PM DALI PYLE [facility] During your visit today, we recorded the following information about you: Dali Pyle APRN.PEDIATRIC SOCIAL WORKER 04/05/2023 4:42 PM Signed Patient triaged at [facility]. Here today with chest pressure. Patient is 1 week post surgical. Was told by PT to get checked for blood clot. I discussed limitations of the [facility] care and referred patient to ER, to drive pov to ER. Allergies As of Date: 04/05/2023 (No Known Allergies) Date Reviewed: 02/01/2012 Reviewed by: Delma Evans Ma - Fully Assessed Primary Visit Diagnosis:Chest pressure [R07.89] Prescriptions as of 04/05/2023 - Ferrous Sulfate 325 mg (65 mg iron) tablet Take 325 mg by mouth twice daily. - Omeprazole Magnesium (PRILOSEC OTC) 20 mg tablet Take 20 mg by mouth once daily. - metoprolol tartrate, short acting, 100 mg tablet Take 100 mg by mouth twice daily. - multivitamin tablet Take 1 tablet by mouth once daily. - lisinopril 10 mg tablet Take 20 mg by mouth once daily. - sertraline 100 mg tablet Take 100 mg by mouth once daily. - glimepiride 2 mg tablet Take 2 mg by mouth once daily. Problem List As Of Date 04/05/2023 Noted Resolved Iron deficiency anemia [D50.9] 02/01/2012 Encounter Status:Closed by DALI PYLE on 04/05/23 [facility] CTA Chest W/WO Contraston CTA Chest W/WO Contrast [facility] [address] [place] [address] CTA Chest W/WO Contrast MR#: [id number] Acct: [id number] Name: SHARLENE MAC JARAD Rep #: [id number] : 1945 M 77 From: Graham Acosta MD PCP: Demetrius Callejas, COSMETOLOGY TEACHER-C Status: ADM IN Study: CTA Chest W/WO Contrast Date of Exam: 04/05/23 Exam# [id number] Ordering Dr: Mahamed Jaffe DO ADDENDUM by Dr. Graham Acosta MD on 04/05/23 at 2022 STUDY: CTA CHEST REASON FOR EXAM: Male, 77 years old. SOB, recent surgery, r/o PE RADIATION DOSAGE (If Supplied By Facility): CTDIvol = ( 22.17 ) mGy, DLP = ( 576.66 ) mGycm TECHNIQUE: The examination was performed with the intravenous administration of 100mL Isovue-370. Post-processing of the angiographic images was performed, with multiplanar reformation and 3D reconstruction. Individualized dose optimization techniques were used for this CT. COMPARISON: None. FINDINGS: There are filling defects involving bilateral central and peripheral pulmonary arteries consistent with pulmonary embolism. Embolism is seen including in first order, second, and third order branches. Normal thoracic aorta and visualized great vessels. There is no demonstrated aortic dissection. There are calcifications of the coronary arteries. The right ventricle left ventricle ratio is 0.8. Normal mediastinum. Normal hilar regions. Normal visualized trachea and bronchi. The lungs are well expanded. Normal pulmonary parenchyma. Normal pleura. Normal chest wall structures. There are degenerative changes of thoracic spine. There are multiple gallstones. 04/05/232022 Date cc: COSMETOLOGY TEACHER-C Demetrius Callejas; Dr. Mahamed Jaffe DO * Signed ADDENDUM by Dr. Graham Acosta MD on 04/05/[address]/CTA Chest W/WO Contrast IMPRESSION: Abnormal CTA chest examination, with bilateral pulmonary embolism. N.B. : The above Results were Read Back by Graham Acosta MD to ALANNAH, MAHAMED, DO, and understanding confirmed on 04/05/2023 23:57:37 (ET). Electronically Signed: Graham Acosta MD at 20:23 EDT , 04/06/23 0004 Date cc: BLANCA Callejas; Dr. Mahamed Jaffe, DO * Signed We are attempting to reach an attending provider to discuss findings. An addendum with communication details will be sent when the communication is complete. STUDY: CTA CHEST REASON FOR EXAM: Male, 77 years old. SOB, recent surgery, r/o PE RADIATION DOSAGE (If Supplied By Facility): CTDIvol = ( 22.17 ) mGy, DLP = ( 576.66 ) mGycm TECHNIQUE: The examination was performed with the intravenous administration of 100mL Isovue-370. Post-processing of the angiographic images was performed, with multiplanar reformation and 3D reconstruction. Individualized dose optimization techniques were used for this CT. COMPARISON: None. FINDINGS: There are filling defects involving bilateral central and peripheral pulmonary arteries consistent with pulmonary embolism. Embolism is seen including in first order, second, and third order branches. Normal thoracic aorta and visualized great vessels. There is no demonstrated aortic dissection. There are calcifications of the coronary arteries. The right ventricle left ventricle ratio is 0.8. Normal mediastinum. Normal hilar regions. Normal visualized trachea and bronchi. The lungs are well expanded. Normal pulmonary parenchyma. Normal pleura. Normal chest wall structures. There are degenerative changes of thoracic spine. There are multiple gallstones. CT/CTA Chest W/WO Contrast IMPRESSION: Abnormal CTA chest examination, with bilateral pulmonary embolism. Electronically Signed: Graham Acosta MD at 20:23 EDT , CC: BLANCA Callejas; Dr. Mahamed Jaffe DO Brake Repairer Air: Signed Normal [facility] Determination of erythrocyte mean corpuscular volume (MCV)Ordered By: Mahamed Jaffe on 04-05-2023 MCV (RBC) [Entitic vol] 96.3 fL 80-94 [facility] Emergency Department Summary on 04-05-2023 Emergency Department Summary [facility] Medical Records Department [address] [place] [address] Emergency Department Summary 04/05/23 MR#: [id number] Acct: [id number] Name: SHARLENE MAC Rep #: [id number] : 1945 77 From: Mahamed Jaffe DO PCP: BLANCA Nelson Status:ADM IN Location: [place] [address] HPI History of Present Illness Chief Complaint: Shortness of Breath [facility] Medical History (Updated 04/05/23 @ 21:[address] Leanna Melgar MD) Anxiety and depression CKD (chronic kidney disease), stage III Diabetes mellitus, type 2 Former tobacco use HLD (hyperlipidemia) HTN (hypertension) Hx SBO Obesity RLS (restless legs syndrome) Home Medications amlodipine 5 mg tablet 5 mg PO DAILY 11/28/18 [History Last Taken Unknown] glimepiride 4 mg tablet 4 mg PO DAILY 11/28/18 [History Last Taken Unknown] hydrochlorothiazide 12.5 mg tablet 12.5 mg PO DAILY 11/28/18 [History Last Taken Unknown] metoprolol tartrate 100 mg tablet 100 mg PO BID 11/28/18 [History Last Taken Unknown] pioglitazone 30 mg tablet 30 mg PO DAILY 11/28/18 [History Last Taken Unknown] pramipexole 0.25 mg tablet 0.25 mg PO DAILY 11/28/18 [History Last Taken Unknown] sertraline 100 mg tablet 100 mg PO DAILY 11/28/18 [History Last Taken Unknown] simvastatin 5 mg tablet 5 mg PO DAILY 11/28/18 [History Last Taken Unknown] dulaglutide 1.5 mg/0.5 mL subcutaneous pen injector (Trulicity) 1.5 mg subcut QWEEK 04/05/23 [History Last Taken Unknown] meclizine 25 mg tablet 25 mg PO DAILY PRN PRN dizziness 04/05/23 [History Last Taken Unknown] meloxicam 15 mg tablet 15 mg PO DAILY 04/05/23 [History Last Taken Unknown] Allergy/AdvReac Type Severity Reaction Status Date / Time No Known Allergies Allergy Verified 04/05/23 16:36 Surgical History (Updated 04/05/23 @ 21:[address] Leanna Melgar MD) History of appendectomy History of shoulder surgery Social History (Updated 04/05/23 @ 21:[address] Leanna Melgar MD) household members: spouse Smoking Status: Never smoker alcohol intake: never substance use type: does not use EXAM Physical Exam Const Vital Signs: 04/05/23 16:36 04/05/23 17:47 04/05/23 21:00 Temperature 97.5 F L Temperature Source Temporal Pulse Rate 77 68 Respiratory Rate 18 12 Respiratory Effort Normal Non-Labored Respiratory Depth Normal Respiratory Pattern Normal Blood Pressure 137/77 H Blood Pressure Mean 97 Pulse Ox 96 97 Oxygen Delivery Method Room Air Room Air Room Air MDM MDM MDM Narrative Medical decision making narrative: HISTORY OF PRESENT ILLNESS: 77-year-old male here with shortness of breath. Notes shoulder surgery last week. He is not having chest tightness and shortness of breath. He further states earlier today was at physical therapy. Does not endorse chest pain but notes more chest tightness and sensation of being winded. The patient denies recent immobilization in the last 3 days, denies previous diagnosis of DVT or PE, hemoptysis, unilateral leg swelling or malignancy with treatment the last 6 months. No estrogen use noted. REVIEW OF SYSTEMS: Pertinent positives: Shortness of breath Pertinent negatives: Syncope, chest pain PHYSICAL EXAM: Nursing triage notes reviewed, Vital signs reviewed Constitutional: please see mdm HENT: MMM Eyes: Pupils equal round and reactive to light, Extraocular muscles intact Neck: No stridor, no JVD, full neck ROM Lungs: Clear to auscultation, No wheezing or rales. No increased work of breathing, no conversational dyspnea, no accessory muscle use, no nasal flaring. No respiratory distress noted Heart: Regular rate and rhythm, No murmurs, No rubs and No gallops, 2+ distal pulses (radial, femoral, posterior tibial) in all extremities Abdomen: Soft, there is no tenderness, rigidity, rebound or guarding, no obvious peritoneal signs, no palpable pulsatile abdominal masses, no auscultated abdominal bruit : No CVAT Extremities: No edema Neuro: No focal neurological deficits, cranial nerves II through XII intact, 5/5 strength in all extremities. Intact sensation to light touch in all extremities, 2+ reflexes bilateral patella tendons. Normal gait. No ataxia. Skin: No rash or lesions noted MEDICAL DECISION MAKING: Chief Complaint: Shortness of breath External records reviewed: No recent cardiac catheterizations, stress test or echocardiograms noted in the chart Factors affecting care: Hypertension, type 2 diabetes, hyperlipidemia Social determinants of health: Never smoker History obtained from others: Patient's spouse Consults: Internal medicine ALL IMAGES (IF OBTAINED) HAVE BEEN PERSONALLY REVIEWED AND INTERPRETED BY MYSELF. EKG with normal sinus rhythm, normal intervals, no STEMI, occasional PVCs MDM Narrative: Patient was (more content not included)... Normal [facility] H AND P Exam - [facility] 04-05-2023 H&P Exam - Hospitalist [facility] Medical Records Department [address] [place] [address] H P Exam - Hospitalist 04/05/234 MR#: [id number] Acct: [id number] Name: SHARLENE MAC Rep #: [id number] : 1945 77 From: Leanna Melgar MD PCP: Demetrius Callejas, COSMETOLOGY TEACHER-C Status:ADM IN Location: [address] HPI - General General Date of Admission: 04/05/23 Date of Service: 04/05/23 Chief Complaint: Chest pain, dyspnea. HPI Narrative The patient is a 77 y/o M w/ PMHx: BREN noncompliant with CPAP, CKD stage III unclear subtype (03/02/23 Cr 1.55), Hypothyroidism, Hx SBO, Obesity, RLS, HTN, HLD, Anxiety and Depression, Diabetes mellitus type II, BREN who presents to the [facility] ED on 04/05/23 with history of right shoulder rotator cuff repair at [place] [facility] outpatient approximately 1 week prior to current presentation on 03/29/2023 with since then extreme inactivity as he was under the belief that he could not do anything but he has not even been moving or very active and of the last 6 couple days he does noted dyspnea, worse with exertion and pleuritic chest discomfort bilaterally worse with deep inspiratory effort attempts prompting eventual ED evaluation. Work-up in the ED included T97.5, heart 77, BP 137/77, respiratory rate 18, 96% on room air, CBC with WC 5.9, hemoglobin 14.1, platelet 152 with lymphopenia, unremarkable coags, BMP with BUN/creatinine 35/1.60, glucose 112, troponin 9, BNP 21.2, CTPA with bilateral pulmonary emboli involving central and peripheral pulmonary arteries seen including in the first order, second and third order branches, EKG sinus rhythm with no acute evidence of ischemia. Patient records and labs were obtained from the [employer] system following review of his outpatient data. [facility] Medical History (Updated 04/05/23 @ 21:[address] Leanna Melgar MD) Anxiety and depression CKD (chronic kidney disease), stage III Diabetes mellitus, type 2 Former tobacco use HLD (hyperlipidemia) HTN (hypertension) Hx SBO Obesity RLS (restless legs syndrome) Home Medications amlodipine 5 mg tablet 5 mg PO DAILY 11/28/18 [History Last Taken Unknown] glimepiride 4 mg tablet 4 mg PO DAILY 11/28/18 [History Last Taken Unknown] hydrochlorothiazide 12.5 mg tablet 12.5 mg PO DAILY 11/28/18 [History Last Taken Unknown] metoprolol tartrate 100 mg tablet 100 mg PO BID 11/28/18 [History Last Taken Unknown] pioglitazone 30 mg tablet 30 mg PO DAILY 11/28/18 [History Last Taken Unknown] pramipexole 0.25 mg tablet 0.25 mg PO DAILY 11/28/18 [History Last Taken Unknown] sertraline 100 mg tablet 100 mg PO DAILY 11/28/18 [History Last Taken Unknown] simvastatin 5 mg tablet 5 mg PO DAILY 11/28/18 [History Last Taken Unknown] dulaglutide 1.5 mg/0.5 mL subcutaneous pen injector (Trulicity) 1.5 mg subcut QWEEK 04/05/23 [History Last Taken Unknown] meclizine 25 mg tablet 25 mg PO DAILY PRN PRN dizziness 04/05/23 [History Last Taken Unknown] meloxicam 15 mg tablet 15 mg PO DAILY 04/05/23 [History Last Taken Unknown] Allergy/AdvReac Type Severity Reaction Status Date / Time No Known Allergies Allergy Verified 04/05/23 16:36 Surgical History (Updated 04/05/23 @ 22:[address] Leanna Melgar MD) History of appendectomy History of shoulder surgery Social History (Updated 04/05/23 @ 22:[address] Leanna Melgar MD) household members: spouse Smoking Status: Former smoker how long ago did patient quit smoking: Quit remotely. alcohol intake: never substance use type: does not use ROS ROS Narrative Admission Review of Systems: CONSTITUTIONAL: No weight loss, fever, chills, + weakness or fatigue. HEENT: Eyes: No visual loss, blurred vision, double vision or yellow sclerae. Ears, Nose, Throat: No hearing loss, sneezing, congestion, runny nose or sore throat. SKIN: No rash or itching, lesions, wounds. CARDIOVASCULAR: + chest pain, chest pressure or chest discomfort. No palpitations, edema, orthopnea, syncopal events. RESPIRATORY: + shortness of breath, No cough or sputum, wheezing, hemoptysis. GASTROINTESTINAL: No anorexia, nausea, vomiting or diarrhea, abdominal pain, melena, BRBPR. GENITOURINARY: No dysuria, frequency, urgency or retention. NEUROLOGICAL: No headache, dizziness, syncope, paralysis, ataxia, numbness or tingling in the extremities, focal weakness, change in bowel or bladder control, seizure. MUSCULOSKELETAL: + muscle, back pain, joint pain or stiffness. HEMATOLOGIC: No anemia, bleeding or bruising. LYMPHATICS: No enlarged nodes. No history of splenectomy. PSYCHIATRIC: + history of depression or anxiety. ENDOCRINOLOGIC: No reports of sweating, cold or heat intolerance. No polyuria or polydipsia. ALLERGIES: No history of asthma, hives, eczema or rhinitis. Vital Signs Vital Signs Vital Signs: 04/05/23 16:36 04/05/23 17:47 04/05/23 21:00 Temperature 97 (more content not included)... Normal [facility] Hematocrit Auto (Bld) [Volum e fraction]Ordered By: Mahamed Jaffe on 04-05-2023 Hematocrit (Bld) [Volume fraction] 43.8 % 40-54 [facility] INR in Blood by Coagulation assayOrdered By: Mahamed Jaffe on 04-05-2023 INR Coag (Bld) [Relative time] 1.0 {INR} [facility] L501.4020on 04-05-2023 TROPONIN-I HS 9 pg/mL Normal 3.0-78.0 [facility] Comment on above: Order Comment: 'TROP ' Serial specimen #1, #2 or #3: 1 Result Comment: Ra medel Note: New Test Units and Gender Specific Reference Ranges. For more information see Policy Stat Procedure [place] High Sensitivity Troponin (TNIH) and attachments. Performed By: #### L 500.2500, L503.6620, L501.4020, L100.0100 #### [facility] [address] [place], [address] Laboratory - Chemistry and C hemistry - challengeOrdered By: Mahamed Jaffe on 04-05-2023 CO2 [Moles/Vol] 31.0 mmol/L 21.0-32.0 [facility] Natriuretic peptide B (Bld) [Mass/Vol] 21.2 pg/mL 0-100 [facility] Urea nitrogen/Creatinine [Mass ratio] 21.9 mg/mg 10-20 [facility] Laboratory - CoagulationOrde red By: Mahamed Jaffe on 04-05-2023 aPTT Coag (Bld) [Time] 26.8 s 24.1-36.2 [facility] PT Coag (PPP) [Time] 13.4 s 11.7-14.9 [facility] Laboratory - Hematology and Cell countsOrdered By: Mahamed Jaffe on 04-05-2023 Erythrocyte distribution width (RBC) [Entitic vol] 45.3 fL 35.1-43.9 [facility] Erythrocyte distribution width (RBC) [Ratio] 12.6 % 11.6-14.6 [facility] Immature granulocytes/100 WBC (Bld) 0.500 % 0.0-0.9 [facility] Comment on above: IG% - Immature Granu locytes (promyelocytes, myelocytes and metamyelocytes) > 1% indicates that a LEFT SHIFT is Present. MCH (RBC) [Entitic mass] 31.0 pg 27.0-32.0 [facility] Nucleated RBC/100 WBC (Bld) [Ratio] 0 % 0-5 [facility] (RBC) [Mass/Vol]Or dered By: Mahamed Jaffe on 04-05-2023 MCHC (RBC) [Mass/Vol] 32.2 g/dL 32-36 [facility] No Panel InformationOrdered By: Mahamed Jaffe on 04-05-2023 Estimated Creatinine Clearance Calc 44.39 ml/min [facility] Estimated GFR (MDRD) Amer 54 mL/min >60 [facility] Comment on above: GFR Calc Estimated GFR (MDRD) Non-Af Amer 45 mL/min >60 [facility] Comment on above: Non- GFR Calc Troponin I High Sensitivity 9 pg/mL 3.0-78.0 [facility] Comment on above: Please Note: New Jenny t Units and Gender Specific Reference Ranges. For more information see Policy Stat Procedure [place] High Sensitivity Troponin (TNIH) and attachments. Partial Thromboplast Timeon 04-05-2023 aPTT Coag (Bld) [Time] 26.8 s Normal 24.1-36.2 [facility] Comment on above: Performed By: #### L 300.3900, L300.4310 #### [facility] [address] [place], [address] Platelets bldOrdered By: Cathy Jaffe on 04-05-2023 Platelets (Bld) [#/Vol] 152 10*3/uL 150-450 [facility] Prothrombin Time w/INRon INR Coag (PPP) [Relative time] 1.0 {INR} Normal [facility] Comment on above: Performed By: #### L 300.3900, L300.4310 #### [facility] [address] [place], [address] PT Coag (PPP) [Time] 13.4 s Normal 11.7-14.9 [facility] Comment on above: Performed By: #### L 300.3900, L300.4310 #### [facility] [address] [place], [address] Serum or plasma calcium charu urement (mass/volume)Ordered By: Mahamed Jaffe on 04-05-2023 Calcium [Mass/Vol] 9.3 mg/dL 8.5-10.1 [facility] Serum or plasma creatinine m easurement (mass/volume)Ordered By: Mahamed Jaffe on 04-05-2023 Creatinine [Mass/Vol] 1.60 mg/dL 0.70-1.30 [facility] Comment on above: The validity of the calculated GFR & GFRAA in patients over 70 years has not been determined. Clinical correlation is essential. Serum or plasma urea nitroge n measurement (mass/volume)Ordered By: Mahamed Jaffe on 04-05-2023 Urea nitrogen [Mass/Vol] 35 mg/dL 7-18 [facility] Thin prep Papanicolaou smear with manual screeningOrdered By: Mahamed Jaffe on 04-05-2023 Thin prep Papanicolaou smear with manual screening 2 5-15 [facility] .Auto Diffon 03-02-2023 Basophil, Absolute 0.0 10 3/mcL Normal 0.0-0.2 [facility] ([place]) Comment on above: Performed By: #### A 1C, CBC, FT4, GFR, ANEU, TSH, ADIFF, CMP, LIPID ####[address], [place] [address] Basophils/100 WBC (Bld) 0.6 % Normal 0.0-2.5 [facility] ([place]) Comment on above: Performed By: #### A 1C, CBC, FT4, GFR, ANEU, TSH, ADIFF, CMP, LIPID ####[address], [place] [address] Eosinophil, Absolute 0.2 10 3/mcL Normal 0.0-0.4 [facility] ([place]) Comment on above: Performed By: #### A 1C, CBC, FT4, GFR, ANEU, TSH, ADIFF, CMP, LIPID ####[address], [place] [address] Eosinophils/100 WBC (Bld) 3.3 % Normal 0.0-7.0 [facility] ([place] Comment on above: Performed By: #### A 1C, CBC, FT4, GFR, ANEU, TSH, ADIFF, CMP, LIPID ####[address], [place] [address] Lymphocyte, Absolute 1.0 10 3/mcL Normal 0.8-3.9 [facility] ([place] Comment on above: Performed By: #### A 1C, CBC, FT4, GFR, ANEU, TSH, ADIFF, CMP, LIPID ####[address], [place] [address] Lymphocytes/100 WBC (Bld) 18.2 % Normal 10.0-50.0 [facility] ([place] Comment on above: Performed By: #### A 1C, CBC, FT4, GFR, ANEU, TSH, ADIFF, CMP, LIPID ####[address], [place] [address] Monocyte, Absolute 0.7 10 3/mcL Normal 0.2-1.0 [facility] ([place]) Comment on above: Performed By: #### A 1C, CBC, FT4, GFR, ANEU, TSH, ADIFF, CMP, LIPID ####[place] [address], [place] [address] Monocytes/100 WBC (Bld) 12.9 % Normal 1.7-13.0 [facility] ([place]) Comment on above: Performed By: #### A 1C, CBC, FT4, GFR, ANEU, TSH, ADIFF, CMP, LIPID ####[address], [place] [address] Neutrophils/100 WBC (Bld) 65.0 % Normal 37.0-80.0 [facility] ([place] Comment on above: Performed By: #### A 1C, CBC, FT4, GFR, ANEU, TSH, ADIFF, CMP, LIPID ####[address], [place] [address] .GFRon 03-02-2023 GFR Non- 44 ml/min/1.73sqm Normal [facility] ([place]) Comment on above: Result Comment: GFR Population mean for , Non- Americans Ages 20-29 = 116 mL/min/1.73 sq.m. Ages 30-39 = 107 mL/min/1.73 sq.m. Ages 40-49 = 99 mL/min/1.73 sq.m. Ages 50-59 = 93 mL/min/1.73 sq.m. Ages 60-69 = 85 mL/min/1.73 sq.m. Ages 70+ = 75 mL/min/1.73 sq.m. Chronic Kidney Disease: Less than 60 mL/min/1.73 square meters End Stage Renal Disease: Less than 15 mL/min/1.73 square meters Performed By: #### T SH, FT4 #### Kat [address] [address] GFR 53 ml/min/1.73sqm Normal [facility] ([place]) Comment on above: Result Comment: GFR Population mean for , Non- Americans Ages 20-29 = 116 mL/min/1.73 sq.m. Ages 30-39 = 107 mL/min/1.73 sq.m. Ages 40-49 = 99 mL/min/1.73 sq.m. Ages 50-59 = 93 mL/min/1.73 sq.m. Ages 60-69 = 85 mL/min/1.73 sq.m. Ages 70+ = 75 mL/min/1.73 sq.m. Chronic Kidney Disease: Less than 60 mL/min/1.73 square meters End Stage Renal Disease: Less than 15 mL/min/1.73 square meters Performed By: #### T SH, FT4 #### [address] [address] .NEUABSon 03-02-2023 Neutrophil, Absolute 3.4 10 3/mcL Normal 2.9-6.2 [facility] ([place]) Comment on above: Performed By: #### A 1C, CBC, FT4, GFR, ANEU, TSH, ADIFF, CMP, LIPID ####[address] [place], [place] [address] A1Con 06-22-2023 HbA1c (Bld) [Mass fraction] 7.2 % High 4.3-6.4 [facility] ([place]) Comment on above: Performed By: #### A 1C, CBC, FT4, GFR, ANEU, TSH, ADIFF, CMP, LIPID ####[address], [place] [address] CBCon 03-02-2023 Erythrocyte distribution width (RBC) [Ratio] 13.4 % Normal 11.5-14.5 [facility] ([place]) Comment on above: Performed By: #### A 1C, CBC, FT4, GFR, ANEU, TSH, ADIFF, CMP, LIPID ####[address], [place] [address] Hematocrit (Bld) [Volume fraction] 43.3 % Normal 42.0-52.0 [facility] ([place]) Comment on above: Performed By: #### A 1C, CBC, FT4, GFR, ANEU, TSH, ADIFF, CMP, LIPID ####[address], [place] [address] Hgb 14.7 G/dL Normal 14.0-18.0 [facility] ([place] Comment on above: Performed By: #### A 1C, CBC, FT4, GFR, ANEU, TSH, ADIFF, CMP, LIPID ####[address], [place] [address] MCH (RBC) [Entitic mass] 31.1 pg Normal 27.0-31.2 [facility] ([place] Comment on above: Performed By: #### A 1C, CBC, FT4, GFR, ANEU, TSH, ADIFF, CMP, LIPID ####[address], [place] [address] MCHC 33.9 G/dL Normal 31.8-35.4 [facility] ([place] Comment on above: Performed By: #### A 1C, CBC, FT4, GFR, ANEU, TSH, ADIFF, CMP, LIPID ####[address], [place] [address] MCV (RBC) [Entitic vol] 91.9 fL Normal 80.0-94.0 [facility] ([place] Comment on above: Performed By: #### A 1C, CBC, FT4, GFR, ANEU, TSH, ADIFF, CMP, LIPID ####[address], [place] [address] Platelet 187 10 3/mcL Normal 130-400 [facility] ([place] Comment on above: Performed By: #### A 1C, CBC, FT4, GFR, ANEU, TSH, ADIFF, CMP, LIPID ####[address], [place] [address] Platelet mean volume (Bld) [Entitic vol] 7.8 fL Normal 7.4-10.4 [facility] ([place] Comment on above: Performed By: #### A 1C, CBC, FT4, GFR, ANEU, TSH, ADIFF, CMP, LIPID ####[address], [place] [address] RBC 4.72 10 6/mcL Normal 4.04-6.13 [facility] ([place] Comment on above: Performed By: #### A 1C, CBC, FT4, GFR, ANEU, TSH, ADIFF, CMP, LIPID ####[address], [place] [address] WBC 5.2 10 3/mcL Normal 4.6-10.8 [facility] ([place] Comment on above: Performed By: #### A 1C, CBC, FT4, GFR, ANEU, TSH, ADIFF, CMP, LIPID ####[address], [place] [address] CMPon 03-02-2023 Albumin Level 3.9 G/dL Normal 3.4-4.8 [facility] ([place] Comment on above: Performed By: #### A 1C, CBC, FT4, GFR, ANEU, TSH, ADIFF, CMP, LIPID ####[address], [place] [address] Albumin/Globulin [Mass ratio] 1.4 {ratio} Normal 1.1-2.5 [facility] ([place] Comment on above: Performed By: #### A 1C, CBC, FT4, GFR, ANEU, TSH, ADIFF, CMP, LIPID ####[place] [address], [place] [address] ALP [Catalytic activity/Vol] 60 U/L Normal 40-135 [facility] ([place] Comment on above: Performed By: #### A 1C, CBC, FT4, GFR, ANEU, TSH, ADIFF, CMP, LIPID ####[facility], [place] [address] ALT [Catalytic activity/Vol] 48 U/L Normal 16-63 [facility] ([place] Comment on above: Performed By: #### A 1C, CBC, FT4, GFR, ANEU, TSH, ADIFF, CMP, LIPID ####[place] [address], [place] [address] AST [Catalytic activity/Vol] 39 U/L Normal 10-40 [facility] ([place] Comment on above: Performed By: #### A 1C, CBC, FT4, GFR, ANEU, TSH, ADIFF, CMP, LIPID ####[facility], [place] [address] Bili Total 0.7 mg/dL Normal 0.2-1.0 [facility] ([place] Comment on above: Result Comment: Use of this assay is not recommended for patients undergoing treatment with eltrombopag due to the potential for falsely elevated results. Performed By: #### A 1C, CBC, FT4, GFR, ANEU, TSH, ADIFF, CMP, LIPID ####[facility], [place] [address] BUN/Creatinine Ratio 18 ratio Normal 7-27 [facility] ([place]) Comment on above: Performed By: #### A 1C, CBC, FT4, GFR, ANEU, TSH, ADIFF, CMP, LIPID ####[place] [address], [place] [address] Calcium [Mass/Vol] 9.3 mg/dL Normal 8.4-10.2 [facility] ([place] Comment on above: Performed By: #### A 1C, CBC, FT4, GFR, ANEU, TSH, ADIFF, CMP, LIPID ####[facility], [place] [address] Chloride [Moles/Vol] 105 mmol/L Normal 98-107 [facility] ([place]) Comment on above: Performed By: #### A 1C, CBC, FT4, GFR, ANEU, TSH, ADIFF, CMP, LIPID ####[address], [place] [address] CO2 [Moles/Vol] 30 mmol/L Normal 23-31 [facility] ([place] Comment on above: Performed By: #### A 1C, CBC, FT4, GFR, ANEU, TSH, ADIFF, CMP, LIPID ####[address], [place] [address] Creatinine [Mass/Vol] 1.55 mg/dL High 0.70-1.30 [facility] ([place]) Comment on above: Performed By: #### A 1C, CBC, FT4, GFR, ANEU, TSH, ADIFF, CMP, LIPID ####[address], [place] [address] Electrolyte Balance 7.0 mEq/L Normal 4.0-15.0 [facility] ([place]) Comment on above: Performed By: #### A 1C, CBC, FT4, GFR, ANEU, TSH, ADIFF, CMP, LIPID ####[address], [place] [address] Globulin 2.8 G/dL Normal [facility] ([place] Comment on above: Performed By: #### A 1C, CBC, FT4, GFR, ANEU, TSH, ADIFF, CMP, LIPID ####[address], [place] [address] Glucose [Mass/Vol] 147 mg/dL High 83-110 [facility] ([place] Comment on above: Performed By: #### A 1C, CBC, FT4, GFR, ANEU, TSH, ADIFF, CMP, LIPID ####[address], [place] [address] Potassium [Moles/Vol] 4.7 mmol/L Normal 3.5-5.1 [facility] ([place]) Comment on above: Performed By: #### A 1C, CBC, FT4, GFR, ANEU, TSH, ADIFF, CMP, LIPID ####[address], [place] [address] Sodium [Moles/Vol] 142 mmol/L Normal 136-145 [facility] ([place] Comment on above: Performed By: #### A 1C, CBC, FT4, GFR, ANEU, TSH, ADIFF, CMP, LIPID ####[address], [place] [address] Total Protein 6.7 G/dL Normal 6.4-8.2 [facility] ([place] Comment on above: Performed By: #### A 1C, CBC, FT4, GFR, ANEU, TSH, ADIFF, CMP, LIPID ####[address], [place] [address] Urea nitrogen [Mass/Vol] 28 mg/dL High 7-18 [facility] ([place] Comment on above: Performed By: #### A 1C, CBC, FT4, GFR, ANEU, TSH, ADIFF, CMP, LIPID ####[address], [place] [address] FT4on 03-02-2023 Free T4 [Mass/Vol] 0.77 ng/dL Normal 0.76-1.46 [facility] ([place] Comment on above: Performed By: #### A 1C, CBC, FT4, GFR, ANEU, TSH, ADIFF, CMP, LIPID ####[address], [place] [address] LABORATORYOrdered By: SYSTEM SYSTEM on 03-02-2023 Albumin BCP dye [Mass/Vol] 3.9 G/dL Invalid Interpretation Code 3.4 - 4.8 G/dL AO ADM SS Albumin/Globulin [Mass ratio] 1.4 {ratio} Invalid Interpretation Code 1.1 - 2.5 ratio AO ADM SS ALP [Catalytic activity/Vol] 60 U/L Invalid Interpretation Code 40 - 135 U/L AO ADM SS ALT With P-5'-P [Catalytic activity/Vol] 48 U/L Invalid Interpretation Code 16 - 63 U/L AO ADM SS AST With P-5'-P [Catalytic activity/Vol] 39 U/L Invalid Interpretation Code 10 - 40 U/L AO ADM SS Bilirubin [Mass/Vol] 0.7 mg/dL Invalid Interpretation Code 0.2 - 1.0 mg/dL AO ADM SS Calcium [Mass/Vol] 9.3 mg/dL Invalid Interpretation Code 8.4 - 10.2 mg/dL AO ADM SS Chloride [Moles/Vol] 105 mmol/L Invalid Interpretation Code 98 - 107 mmol/L AO ADM SS CO2 [Moles/Vol] 30 mmol/L Invalid Interpretation Code 23 - 31 mmol/L AO ADM SS Creatinine [Mass/Vol] 1.55 mg/dL Invalid Interpretation Code 0.70 - 1.30 mg/dL AO ADM SS Electrolyte Balance 7.0 mEq/L Invalid Interpretation Code 4.0 - 15.0 mEq/L AO ADM SS Free T4 [Mass/Vol] 0.77 ng/dL Invalid Interpretation Code 0.76 - 1.46 ng/dL AO ADM SS GFR/1.73 sq M.predicted among blacks MDRD (S/P/Bld) [Vol rate/Area] 53 ml/min/1.73sqm Invalid Interpretation Code AO Chemistry S GFR/1.73 sq M.predicted among non-blacks MDRD (S/P/Bld) [Vol rate/Area] 44 ml/min/1.73sqm Invalid Interpretation Code AO Chemistry S Globulin 2.8 G/dL Invalid Interpretation Code AO ADM SS Glucose [Mass/Vol] 147 mg/dL Invalid Interpretation Code 83 - 110 mg/dL AO ADM SS HbA1c (Bld) [Mass fraction] 7.2 % Invalid Interpretation Code 4.3 - 6.4 % AO ADM SS Potassium [Moles/Vol] 4.7 mmol/L Invalid Interpretation Code 3.5 - 5.1 mmol/L AO ADM SS Protein [Mass/Vol] 6.7 G/dL Invalid Interpretation Code 6.4 - 8.2 G/dL AO ADM SS Sodium [Moles/Vol] 142 mmol/L Invalid Interpretation Code 136 - 145 mmol/L AO ADM SS TSH Qn 3.23 m[IU]/L Invalid Interpretation Code 0.36 - 3.74 mcIU/mL AO ADM SS Urea nitrogen [Mass/Vol] 28 mg/dL Invalid Interpretation Code 7 - 18 mg/dL AO ADM SS Urea nitrogen/Creatinine [Mass ratio] 18 ratio Invalid Interpretation Code 7 - 27 ratio AO ADM SS LABORATORYOrdered By: Saman Austin on 03-02-2023 Basophil, Absolute 0.0 103/mcL Invalid Interpretation Code 0.0 - 0.2 10^3/mcL AO Workflow SS Basophils/100 WBC (Bld) 0.6 % Invalid Interpretation Code 0.0 - 2.5 % AO Workflow SS Eosinophil, Absolute 0.2 103/mcL Invalid Interpretation Code 0.0 - 0.4 10^3/mcL AO Workflow SS Eosinophils/100 WBC (Bld) 3.3 % Invalid Interpretation Code 0.0 - 7.0 % AO Workflow SS Erythrocyte distribution width (RBC) [Ratio] 13.4 % Invalid Interpretation Code 11.5 - 14.5 % AO Workflow SS Hematocrit (Bld) [Volume fraction] 43.3 % Invalid Interpretation Code 42.0 - 52.0 % AO Workflow SS Hemoglobin (Bld) [Mass/Vol] 14.7 G/dL Invalid Interpretation Code 14.0 - 18.0 G/dL AO Workflow SS Lymphocyte, Absolute 1.0 103/mcL Invalid Interpretation Code 0.8 - 3.9 10^3/mcL AO Workflow SS Lymphocytes/100 WBC (Bld) 18.2 % Invalid Interpretation Code 10.0 - 50.0 % AO Workflow SS MCH (RBC) [Entitic mass] 31.1 pg Invalid Interpretation Code 27.0 - 31.2 pg AO Workflow SS MCHC 33.9 G/dL Invalid Interpretation Code 31.8 - 35.4 G/dL AO Workflow SS MCV (RBC) [Entitic vol] 91.9 fL Invalid Interpretation Code 80.0 - 94.0 fL AO Workflow SS Monocyte, Absolute 0.7 103/mcL Invalid Interpretation Code 0.2 - 1.0 10^3/mcL AO Workflow SS Monocytes/100 WBC (Bld) 12.9 % Invalid Interpretation Code 1.7 - 13.0 % AO Workflow SS Neutrophil, Absolute 3.4 103/mcL Invalid Interpretation Code 2.9 - 6.2 10^3/mcL AO Workflow SS Neutrophils/100 WBC (Bld) 65.0 % Invalid Interpretation Code 37.0 - 80.0 % AO Workflow SS Platelet mean volume (Bld) [Entitic vol] 7.8 fL Invalid Interpretation Code 7.4 - 10.4 fL AO Workflow SS Platelets (Bld) [#/Vol] 187 103/mcL Invalid Interpretation Code 130 - 400 10^3/mcL AO Workflow SS RBC (Bld) [#/Vol] 4.72 106/mcL Invalid Interpretation Code 4.04 - 6.13 10^6/mcL AO Workflow SS WBC (Bld) [#/Vol] 5.2 103/mcL Invalid Interpretation Code 4.6 - 10.8 10^3/mcL AO Workflow SS LABORATORYOrdered By: Lexie Chaidez on 03-02-2023 Cholesterol [Mass/Vol] 144 mg/dL Invalid Interpretation Code 0 - 200 mg/dL AO ADM SS Cholesterol in HDL [Mass/Vol] 39 mg/dL Invalid Interpretation Code 40 - 60 mg/dL AO ADM SS Cholesterol in LDL [Mass/Vol] 80 mg/dL Invalid Interpretation Code 0 - 130 mg/dL AO ADM SS Triglyceride [Mass/Vol] 124 mg/dL Invalid Interpretation Code 0 - 150 mg/dL AO ADM SS LIPIDon 03-02-2023 Cholesterol [Mass/Vol] 144 mg/dL Normal 0-200 [facility] ([place]) Comment on above: Result Comment: Chol esterol Reference Interval: Less than 200 Desirable 200-239 Borderline high risk 240 and above High risk Performed By: #### T SH, FT4 #### [address] [address] Cholesterol in HDL [Mass/Vol] 39 mg/dL Low 40-60 [facility] ([place]) Comment on above: Performed By: #### T SH, FT4 #### [address] [address] Cholesterol in LDL [Mass/Vol] 80 mg/dL Normal 0-130 [facility] ([place]) Comment on above: Performed By: #### T SH, FT4 #### [facility] [address] [place], [place] [address] Triglyceride [Mass/Vol] 124 mg/dL Normal 0-150 [facility] ([place]) Comment on above: Result Comment: Trig lyceride Reference Interval: Less than 150 Normal 150-199 Borderline high risk 200-499 High risk 500 or higher Very high risk Performed By: #### T SH, FT4 #### [address] [address] TSHon 03-02-2023 TSH Qn 3.23 m[IU]/L Normal 0.36-3.74 [facility] ([place]) Comment on above: Performed By: #### A 1C, CBC, FT4, GFR, ANEU, TSH, ADIFF, CMP, LIPID ####[address], [place] [address] Vital Signs Date Time Vital Sign Value Performing Clinician Facility 04-06-2023 15:35-0400 SaO2% (BldA) [Mass fraction] 95 % COSMETOLOGY TEACHER-C Demetrius Callejas COSMETOLOGY TEACHER Work Phone: [facility] 04-06-2023 11:35-0400 Body temperature 97 [degF] COSMETOLOGY TEACHER-C Demetrius Callejas COSMETOLOGY TEACHER Work Phone: [facility] 04-06-2023 11:35-0400 Diastolic blood pressure 84 mm[Hg] COSMETOLOGY TEACHER-C Demetrius Callejas COSMETOLOGY TEACHER Work Phone: [facility] 04-06-2023 11:35-0400 Heart rate 65 /min COSMETOLOGY TEACHER-C Demetrius Callejas COSMETOLOGY TEACHER Work Phone: [facility] 04-06-2023 11:35-0400 Respiratory rate 18 /min COSMETOLOGY TEACHER-C Demetrius Callejas COSMETOLOGY TEACHER Work Phone: [facility] 04-06-2023 11:35-0400 Systolic blood pressure 148 mm[Hg] COSMETOLOGY TEACHER-C Demetrius Callejas COSMETOLOGY TEACHER Work Phone: [facility] 04-06-2023 05:34-0400 Body mass index (BMI) [Ratio] 36.4 kg/m2 COSMETOLOGY TEACHER-C Demetrius Callejas COSMETOLOGY TEACHER Work Phone: [facility] 04-06-2023 05:34-0400 Body weight 121.9 kg COSMETOLOGY TEACHER-C Demetrius Callejas COSMETOLOGY TEACHER Work Phone: [facility] 04-05-2023 23:01-0400 Body height 182.88 cm COSMETOLOGY TEACHER-C Demetrius Callejas COSMETOLOGY TEACHER Work Phone: [facility] 04-05-2023 22:03-0400 Body temperature 97.6 [degF] COSMETOLOGY TEACHER-C Demetrius Callejas COSMETOLOGY TEACHER Work Phone: [facility] 04-05-2023 22:03-0400 Diastolic blood pressure 95 mm[Hg] COSMETOLOGY TEACHER-C Demetrius Callejas COSMETOLOGY TEACHER Work Phone: [facility] 04-05-2023 22:03-0400 Heart rate 73 /min COSMETOLOGY TEACHER-C Demetrius Callejas COSMETOLOGY TEACHER Work Phone: [facility] 04-05-2023 22:03-0400 Respiratory rate 19 /min COSMETOLOGY TEACHER-C Demetrius Callejas COSMETOLOGY TEACHER Work Phone: [facility] 04-05-2023 22:03-0400 SaO2% (BldA) [Mass fraction] 95 % COSMETOLOGY TEACHER-C Demetrius Callejas COSMETOLOGY TEACHER Work Phone: [facility] 04-05-2023 22:03-0400 Systolic blood pressure 137 mm[Hg] COSMETOLOGY TEACHER-C Demetrius Callejas COSMETOLOGY TEACHER Work Phone: [facility] 04-05-2023 16:36-0400 Body height 185.42 cm COSMETOLOGY TEACHER-C Demetrius Callejas COSMETOLOGY TEACHER Work Phone: [facility] 04-05-2023 16:36-0400 Body mass index (BMI) [Ratio] 35.5 kg/m2 COSMETOLOGY TEACHER-C Demetrius Callejas COSMETOLOGY TEACHER Work Phone: [facility] 04-05-2023 16:36-0400 Body weight 122.24 kg COSMETOLOGY TEACHER-C Demetrius Callejas COSMETOLOGY TEACHER Work Phone: [facility] 02-25-2022 15:15-0400 Body height 182.9 cm IAN LOVE MD [facility] 02-25-2022 15:15-0400 Body temperature 97.88 [degF] IAN LOVE MD [facility] 02-25-2022 15:15-0400 Body weight 122.7 kg IAN LOVE MD [facility] 02-25-2022 15:15-0400 Diastolic blood pressure 77 mm[Hg] IAN LOVE MD [facility] 02-25-2022 15:15-0400 Heart rate 72 /min IAN LOVE MD [facility] 02-25-2022 15:15-0400 Mean blood pressure 101 mm[Hg] IAN LOVE MD [facility] 02-25-2022 15:15-0400 Respiratory rate 16 /min IAN LOVE MD [facility] 02-25-2022 15:15-0400 Systolic blood pressure 148 mm[Hg] IAN LOVE MD [facility] Encounters Encounter Date Encounter Type Care Provider Facility Start: 04-07-2025 End: 04-07-2025 ambulatory DEMETRIUS CALLEJAS [employer] - PEDIATRIC SOCIAL WORKER Facility:[facility] Start: 04-07-2025 End: 04-07-2025 Patient encounter procedure DEMETRIUS CALLEJAS [employer] - PEDIATRIC SOCIAL WORKER [facility] Start: 01-20-2025 End: 01-20-2025 ambulatory DEMETRIUS CALLEJAS [employer] [place] [employer] PEDIAT[employer]IC SOCIAL WORKER Facility:[facility] Start: 01-20-2025 End: 01-20-2025 Patient encounter procedure DEMETRIUS CALLEJAS [employer] - PEDIATRIC SOCIAL WORKER [facility] Start: 11-28-2024 End: 11-28-2024 ambulatory DEMETRIUS TUTTLEPKINS [employer] [place] [employer]IC SOCIAL WORKER Facility:[facility] Start: 08-13-2024 End: 08-13-2024 ambulatory DEMETRIUS Melendrez JÚNIOR [employer] [place] [employer] PEDIATRIC SOCIAL WORKER Facility:[facility] Start: 08-13-2024 End: 08-13-2024 Patient encounter procedure ESSIE ROMERO MD [facility] Start: 07-18-2024 End: 07-22-2024 ambulatory DEMETRIUS Melendrez JÚNIOR [employer] - PEDIATRIC SOCIAL WORKER Facility:[facility] Start: 07-18-2024 End: 07-22-2024 Outreach Lab DEMETRIUS TUTTLEPKINS [employer] - PEDIATRIC SOCIAL WORKER [facility] Start: 06-21-2024 End: 06-21-2024 ambulatory DEMETRIUS TUTTLEPKINS [employer] - PEDIATRIC SOCIAL WORKER Facility:[facility] Start: 06-21-2024 End: 06-21-2024 Patient encounter procedure DEMETRIUS TUTTLEPKINS [employer] - PEDIATRIC SOCIAL WORKER [facility] Start: 01-18-2024 End: 01-19-2024 ambulatory DEMETRIUS TUTTLEPKINS [employer] - PEDIATRIC SOCIAL WORKER Facility:[facility] Start: 01-18-2024 End: 01-18-2024 Patient encounter procedure DEMETRIUS TUTTLEPKINS [employer] - PEDIATRIC SOCIAL WORKER [facility] Start: 11-15-2023 End: 11-16-2023 ambulatory MEE GARZA Facility:[facility] Start: 11-15-2023 End: 11-15-2023 Patient encounter procedure EDMETRIUS Melendrez JÚNIOR [employer] - PEDIATRIC SOCIAL WORKER [facility] Start: 10-05-2023 End: 10-06-2023 ambulatory DEMETRIUS Aneesh JÚNIOR [employer] - PEDIATRIC SOCIAL WORKER Facility:[facility] Start: 08-17-2023 End: 08-22-2023 ambulatory DEMETRIUS CALLEJAS [employer] - PEDIATRIC SOCIAL WORKER Facility:[facility] Start: 08-17-2023 End: 08-21-2023 Outreach Lab DEMETRIUS CALLEJAS [employer] - PEDIATRIC SOCIAL WORKER [facility] Start: 07-20-2023 End: 07-25-2023 ambulatory DEMETRIUS CALLEJAS [employer] - PEDIATRIC SOCIAL WORKER Facility:[facility] Start: 07-20-2023 End: 07-24-2023 Outreach Lab DEMETRIUS CALLEJAS [employer] - PEDIATRIC SOCIAL WORKER [facility] Start: 04-24-2023 End: 04-25-2023 ambulatory DEMETRIUS CALLEJAS [employer] - PEDIATRIC SOCIAL WORKER Facility:[facility] Start: 04-24-2023 End: 04-24-2023 Patient encounter procedure DEMETRIUS CALLEJAS [employer] - PEDIATRIC SOCIAL WORKER [facility] Start: 04-06-2023 Non-patient / Non-visit COSMETOLOGY TEACHER-C R alonzo Callejas COSMETOLOGY TEACHER Work Phone: [facility] Work Phone: Start: 04-06-2023 ambulatory Demetrius Capo Tuttlepkins Facility:[facility] Start: 04-06-2023 Non-patient / Non-visit COSMETOLOGY TEACHER-C George Callejas COSMETOLOGY TEACHER Work Phone: [facility] Start: 04-05-2023 ambulatory Demetrius Capo Tuttlepkins Facility:[facility] Start: 04-05-2023 End: 04-06-2023 Evaluation and management of inpatient Demetrius Jjkins Facility:[facility] Start: 04-05-2023 Non-patient / Non-visit COSMETOLOGY TEACHER-C George Callejas COSMETOLOGY TEACHER Work Phone: [facility] Work Phone: Start: 04-05-2023 End: 04-06-2023 Evaluation and management of inpatient COSMETOLOGY TEACHER-C Demetrius Callejas COSMETOLOGY TEACHER Work Phone: [facility] Work Phone: Start: 04-05-2023 End: 04-06-2023 ambulatory DEMETRIUS CALLEJAS Facility:[facility] Start: 04-05-2023 End: 04-05-2023 Patient encounter procedure Dali Pyle [employer].PEDIATRIC SOCIAL WORKER Work Phone: [facility] Comment on above: Chest pressure (Prim shin Dx) Start: 03-02-2023 End: 03-03-2023 ambulatory DEMETRIUS CALLEJAS [employer] - PEDIATRIC SOCIAL WORKER Facility:[facility] Start: 03-02-2023 End: 03-02-2023 Patient encounter procedure DEMETRIUS CALLEJAS [employer] - PEDIATRIC SOCIAL WORKER [facility] Start: 02-13-2023 End: 03-17-2023 ambulatory DEMETRIUS CALLEJAS [employer] - PEDIATRIC SOCIAL WORKER Facility:[facility] Start: 02-13-2023 End: 03-17-2023 Physical therapy management DEMETRIUS CALLEJAS [employer] - PEDIATRIC SOCIAL WORKER [facility] Start: 06-23-2022 End: 06-23-2022 Patient encounter procedure DEMETRIUS CALLEJAS [employer] - PEDIATRIC SOCIAL WORKER [facility] Start: 02-25-2022 End: 02-25-2022 Emergency department patient visit IAN LOVE MD [facility] Start: 12-06-2021 End: 12-06-2021 Patient encounter procedure DEMETRIUS CALLEJAS [employer] - PEDIATRIC SOCIAL WORKER [facility] Procedures Date Procedure Procedure Detail Performing Clinician Start: 04-05-2023 CT angiography of chest with contrast COSMETOLOGY TEACHER-C Demetrius Callejas COSMETOLOGY TEACHER Work Phone: History of repair of musculotendinous cuff of shoulder S/P rotator cuff repair DEMETRIUS TUTTLEPKINS [employer] - PEDIATRIC SOCIAL WORKER Plan of Treatment Date Care Activity Detail Author Start: 05-12-2023 Influenza vaccination INFLUENZA (#1) [facility] Start: 04-06-2023 Partial thromboplastin time, activated [facility] Start: 04-06-2023 Patient discharge [facility] Start: 04-05-2023 Following clinical pathway protocol [facility] Start: 04-05-2023 Assessment of risk of venous thromboembolism [facility] Start: 04-05-2023 Care regimes management [facility] Start: 04-05-2023 Continuous positive airway pressure ventilation treatment [facility] Start: 04-05-2023 Fall prevention [facility] Start: 04-05-2023 Incentive spirometry [facility] Start: 04-05-2023 Inhalation therapy procedure [facility] Start: 04-05-2023 Insertion of catheter into peripheral vein [facility] Start: 04-05-2023 Introduction of urinary catheter [facility] Start: 04-05-2023 Measuring intake and output [facility] Start: 04-05-2023 Notification of physician [facility] Start: 04-05-2023 Oxygen therapy [facility] Start: 04-05-2023 Providing care according to standard [facility] Start: 04-05-2023 Provision of activity privileges [facility] Start: 04-05-2023 Referral to occupational therapist [facility] Start: 04-05-2023 Referral to service [facility] Start: 04-05-2023 [facility] Start: 04-05-2023 Verification routine [facility] Start: 04-05-2023 Admission procedure [facility] Start: 04-05-2023 Patient referral to dietitian [facility] Start: 09-11-2022 ADVANCE DIRECTIVE DISCUSSION ADVANCE DIRECTIVE DISCUSSION [facility] Start: 09-11-2022 DEPRESSION ASSESSMENT DEPRESSION ASSESSMENT [facility] Start: 01-31-2015 DIABETES SCREEN DIABETES SCREEN [facility] Start: 12-30-2011 PNEUMOCOCCAL: 65+ (1 - PCV) PNEUMOCOCCAL: 65+ (1 - PCV) [facility] Start: 1996 SHINGRIX VACCINE (1 of 2) SHINGRIX VACCINE (1 of 2) [facility] Start: 1965 Urine microalbumin profile DTAP,TDAP,TD (1 - Tdap) [facility] Start: 1964 HEPATITIS C SCREENING HEPATITIS C SCREENING [facility] Start: 06-30-1947 COVID-19 VACCINE (#1) COVID-19 VACCINE (#1) [facility] Patient referral [facility] Work Phone: Immunizations Immunization Date Immunization Notes Care Provider Fa cili 07-14-2023 influenza, injectabl e, quadrivalent, contains preservative; Translations: [Fluarix PF Quadrivalent ] DEMETRIUS CALLEJAS [employer] - PEDIATRIC SOCIAL WORKER [facility] 06-23-2022 influenza, injectabl e, quadrivalent, contains preservative; Translations: [Fluarix PF Quadrivalent ] DEMETRIUS CALLEJAS [employer] - PEDIATRIC SOCIAL WORKER [facility] 02-25-2022 tetanus and diphther ia toxoids, adsorbed, preservative free, for adult use (2 Lf of tetanus toxoid and 2 Lf of diphtheria toxoid) IAN LOVE MD [facility] 06-20-2021 influenza virus vacc ine, unspecified formulation DEMETRIUS CALLEJAS [employer] - PEDIATRIC SOCIAL WORKER [facility] 07-05-2020 influenza virus vacc ine, unspecified formulation DEMETRIUS CALLEJAS [employer] - PEDIATRIC SOCIAL WORKER [facility] 07-18-2019 influenza, injectabl e, quadrivalent, preservative free; Translations: [Fluarix PF Quadrivalent ] DEMETRIUS CALLEJAS [employer] - PEDIATRIC SOCIAL WORKER [facility] 07-10-2018 influenza virus vacc ine, unspecified formulation DEMETRIUS CALLEJAS [employer] - PEDIATRIC SOCIAL WORKER [facility] 07-10-2017 influenza virus vacc ine, unspecified formulation DEMETRIUS CALLEJAS [employer] - PEDIATRIC SOCIAL WORKER [facility] 07-08-2016 influenza virus vacc ine, unspecified formulation DEMETRIUS CALLEJAS [employer] - PEDIATRIC SOCIAL WORKER [facility] 06-30-2015 influenza virus vacc ine, unspecified formulation DEMETRIUS CALLEJAS [employer] - PEDIATRIC SOCIAL WORKER [facility] 04-09-2015 pneumococcal conjuga te vaccine, 13 valent DEMETRIUS CALLEJAS [employer] - PEDIATRIC SOCIAL WORKER [facility] 06-13-2013 influenza virus vacc ine, unspecified formulation DEMETRIUS CALLEJAS [employer] - PEDIATRIC SOCIAL WORKER [facility] 12-13-2012 tetanus toxoid, redu pérez diphtheria toxoid, and acellular pertussis vaccine, adsorbed DEMETRIUS CALLEJAS [employer] - PEDIATRIC SOCIAL WORKER [facility] 06-22-2012 influenza virus vacc ine, unspecified formulation DEMETRIUS CALLEJAS [employer] - PEDIATRIC SOCIAL WORKER [facility] 06-22-2012 pneumococcal polysaccharide vaccine, 23 valent DEMETRIUS CALLEJAS [employer] - PEDIATRIC SOCIAL WORKER [facility] Payers Date Payer Category Payer Private Health Insurance [id number] 2024 Unknown [id number] 2024 Unknown [id number] 2024 Unknown [id number] 2023 Self-pay [id number] 2018 Medicare [id number] 2018 Medicare HUMANA MEDICARE HUMANA MEDICARE PPO [id number] 2018-Present [phone] [address] [address] [place] [address] PPO [id number] 2011 Medicare ANTHEM MEDICARE PPO [id number] 1945 Unknown [id number] .[id number] .1945 Unknown [id number] .[id number] 1945 Unknown [id number] .1.162206.3.579.2 .1946 Unknown [id number] 10.27.830.1.953078.3.579.2 .1945 Unknown [id number] 10.27.830.1.443808.3.579.2 1945 Unknown [id number] 10.27.830.1.693910.3.579.2 .1946 Unknown [id number] 10.27.830.1.692745.3.579.2 .1945 Unknown [id number] 2.16.840.1.657872.3.579.2 .62 1945 Unknown [id number] 2.16.840.1.805708.3.579.2 .1945 Unknown [id number] 2.16.840.1.935234.3.579.2 .1945 Unknown [id number] 2.16.840.1.708838.3.579.2 .1945 Unknown [id number] 2.16.840.1.754898.3.579.2 .1946 Unknown [id number] 2.16.840.1.466927.3.579.2 .1946 Unknown [id number] 2.16.840.1.502766.3.579.2 .1945 Unknown [id number] 2.16.840.1.972653.3.579.2 .1945 Unknown [id number] 2.16.840.1.462023.3.579.2 .1945 Unknown [id number] 2.16.840.1.759587.3.579.2 .627 Unknown [id number] 2.16.840.1.430452.3.579.2 .462 Unknown [id number] 2.16.840.1.044841.3.579.2 .462 Unknown [id number] 2.16.840.1.906718.3.579.2 .462 Unknown [id number] 2.16.840.1.310999.3.579.2 .462 Social History Date Type Detail Facility Start: 05-14-2019 End: 01-24-2025 Ex-smoker (finding) [facility] Comment on above: No smoke exposure Start: 1945 Sex Assigned At Male [facility] Start: 04-05-2023 End: 04-05-2023 Tobacco smoking status NHIS Unknown if ever smoked [facility] Start: 06-10-[address] [facility] Start: 06-10-[address] [facility] Start: 02-01-2012 Tobacco smoking stat us NHIS Never smoked tobacco [facility] Start: 02-01-2012 Tobacco use and exposure Smoke less tobacco non-user [facility] Start: 04-28-2022 Alcohol intake Not Asked [facility] Start: 04-28-2022 History of Social function [facility] Start: 04-28-2022 Tobacco use panel [facility] Start: 1945 Sex Assigned At Not on file [facility] Sexual Orientation [facility] Start: 03-06-2019 Sex Male (finding) [facility] Functional Status Date Assessment Result Facility 04-06-2023 Functional status Activity Abili ty Standby Assist [facility] Work Phone: 02-25-2022 Functional Status Standard Safet y ID band on, Allergy Band on, Call device within reach, Bed in low position, Wheels locked, Upper/Half-Length side-rails up [facility] Mental Status Date Assessment Result Facility 04-06-2023 Cognitive function Voice/Name [facility] Work Phone: 02-25-2022 Mental Status Oriented x 4 [facility] Clinical Notes 02-25-2022 to 04-07-2025 Note Date & Type Note Facility 04-07-2025 Note Exam Date Time Procedure Performing Provider Status 04/07/25 11:[address] Liver/Spleen w/Contrast DEANDRE TO MD; Auth (Verified) [id number] ORIGINAL EXAM: Multiphase CT of the abdomen with contrast (CT Liver Protocol) dated 04/07/2025. INDICATION: ORDERING SYSTEM PROVIDED HISTORY: Reason for Exam: See comments HYPODENSE MASS INFERIOR-MEDIAL ASPECTI RT HEPATIC LOBE FOLLOW UPNO HX CA COMPARISON: CTA abdomen 08/13/2024 and abdominal ultrasound 06/21/2024 TECHNIQUE: CT images were obtained from the lung bases to the upper thighs following the administration of 120 mL Omnipaque intravenous contrast and reconstructed to a slice thickness of 2.5 and 0.625 mm. Imaging was acquired in an early arterial phase and repeated during a portal venous phase post contrast. Coronal and sagittal reformatted images were obtained and reviewed. CT Radiation Dose: Integrated Dose-length product (DLP) = 541.52 mGy*cm. CT Dose Reduction Employed: Per department protocol including the following measures where applicable: Automated exposure control, adjustment of the mAs and/or kVp according to patient size and/or exam, and an iterative reconstruction algorithm. FINDINGS: The bilateral lung bases are unremarkable. There is a trace amount of pericardial fluid. Mild degenerative changes are noted within the spine. No acute osseous abnormalities. A roughly 1.9 cm round, well-marginated, uniformly hypodense, nonenhancing lesion is seen within the inferior medial right hepatic lobe, consistent with a benign hepatic cyst. The spleen, pancreas, and adrenal glands appear normal. There is cholelithiasis. The visualized portion of the bilateral kidneys demonstrate symmetric excretion. No evidence of hydronephrosis is seen. The visualized portion of the GI tract demonstrates no acute abnormalities. No visualized intra-abdominal lymphadenopathy, free fluid, or free air. Mild aortic atherosclerosis is noted. IMPRESSION: 1.9 cm benign hepatic cyst within the inferomedial right hepatic lobe. No follow-up imaging is needed. Cholelithiasis. I have personally reviewed the images of this examination and agree with the resident's findings and interpretation. Interpreted by: Essie To MD Preliminary Report By: Harriet Sheehan Electronically signed By Essie To MD Dictated Date: 04/07/2025 2:18:43 PM Prelim Date: 04/07/2025 4:15:18 PM Sign Date: 04/07/2025 4:15:18 PM Ordering Provider: DEMETRIUS CALLEJAS [facility]07-27-2023 Consult note Author Chava Suárez [facility] April 06, 2023 1:41pm Note Date/Time April 06, 2023 1:42 pm [facility] Medical Records Department [address] [place] [address] Counseling Note - Pharmacy 04/06/23 1340 MR#: [id number] Acct: [id number] Name: SHARLENE MAC Rep #:[id number] : 1945 77 From: Chava Suárez PCP: BLANCA Nelson tus:ADM IN Y Location: [place] [address] Pharmacy [facility] has performed discharge medication reconciliation and counseling for this patient. The patient's discharge medication list was reviewed for discrepancies and discrepancies were resolved. The patient was counseled on the following discharge medications and changes in medications for homegoing were reviewed. The Reason for Use, instructions for use, and potential side effects were reviewed for all new medications. The patient's questions regarding all of their medications were answered. 1. Mucinex DM 2. Eliquis 3. Senna-s The patient was able to verbally demonstrate an understanding of their dischargemedications. The patient was counselled on new medications by student services director [place]. Medications at Discharge Home Medications amlodipine 5 mg tablet 5 mg PO DAILY blood pressure 11/28/18 glimepiride 4 mg tablet 4 mg PO DAILY diabetes 11/28/18 hydrochlorothiazide 12.5 mg tablet 12.5 mg PO DAILY diuretic 11/28/18 metoprolol tartrate 100 mg tablet 100 mg PO BID blood pressure 11/28/18 pioglitazone 30 mg tablet 30 mg PO DAILY diabetes 11/28/18 pramipexole 0.25 mg tablet 0.25 mg PO DAILY restless legs 11/28/18 sertraline 100 mg tablet 100 mg PO DAILY mental health 11/28/18 simvastatin 5 mg tablet 5 mg PO DAILY cholesterol 11/28/18 dulaglutide 1.5 mg/0.5 mL subcutaneous pen injector (Trulicity) 1.5 mg subcut QWEEK diabetes 04/05/23 meclizine 25 mg tablet 25 mg PO DAILY PRN PRN dizziness 04/05/23 meloxicam 15 mg tablet 15 mg PO DAILY bone health 04/05/23 apixaban 5 mg (74 tabs) tablets in a dose pack (Eliquis DVT-PE Treat 30D Start) 5 mg PO BID #74 tabs 04/06/23 dextromethorphan-guaifenesin ER 60 mg-1,200 mg tab,extend release,12hr (Mucinex DM) 1 tab PO Q12H 7 days #14 tabs 04/06/23 sennosides 8.6 mg-docusate sodium 50 mg tablet (Stool Softener-Stimulant Laxative) 2 tab PO BID PRN PRN Constipation #0 tabs 04/06/23 04/06/23 1341 <Electronically signed by Chava beckett> Date _ Chava Negreteigner Signature (if applicable): Date CC: ~ Signed [facility] Work Phone: 1(799) 500-792607-27-2023 Discharge summary Author Mckinleytony Patton [facility] April 06, 2023 12:47pm Note Date/Time April 06, 2023 11:4 5am [facility] Medical Records Department [address] [place] [address] Discharge Summary 04/06/23 1135 MR#: [id number] Acct: [id number] Name: SHARLENE MAC JARAD Rep #:[id number] : 1945 77 From: Mckinley Melendrez PCP: BLANCA Nelson Sta tus:ADM IN Location: [place] [address] Providers Date of Admission: 04/05/23 Date of Discharge: 04/06/23 Primary Care Physician: BLANCA Nelson Reason For Visit: BL PE Diagnosis Discharge Diagnosis (1) Pulmonary embolism: Status: Acute Code(s): I26.99 - Other pulmonary embolism without acute cor pulmonale Qualifiers: Pulmonary embolism type: other Chronicity: acute Acute cor pulmonale presence: without acute cor pulmonale Qualified Code(s): I26.99 - Other pulmonary embolism without acute cor pulmonale Plan 1. Acute BL Pulmonary Embolism most likely provoked thromboembolic phenomenon: Patient is being admitted in PCU.Chest CTA images individually reviewed shows filling defect involving bilateral central and peripheral pulmonary arteries seen in first-order second-order and third order branches consistent with bilateral pulmonary embolism. Patient had right-sided rotator cuff surgery donelast week on 03/29/2023. Patient started having symptoms of exertional pleuriticchest pain discomfort bilaterally worse with deep inspiration along with shortness of breath progressively getting worse in the last 1 week. Patient was started on IV heparin drip. 2D echo was done but report pending. Patient is discharged on Eliquis 10 mg p.o. twice daily for 1 week then 5 mg twice daily tocontinue. Patient needs to take at least for 6 months seeing the burden of blood clots. #2. Recent right upper extremity rotator cuff repair: We will continue PT and OT assessments, continue sling that is in place, nonweightbearing to this extremity. Follow-up orthopedic surgeon in 1 week. #3. Unclear whether patient has overt hypothyroidism or subclinical hypothyroidism: Patient not on levothyroxine or thyroid supplement at home. TSH4.34, free T41.07. TSH slightly elevated. In my opinion patient has subclinical hypothyroidism. Follow- up thyroid function test after 3 months. #4. BREN: Patient has been noncompliant secondary to difficulty tolerating but given his presentation willing to try, CPAP nightly. #5. Diabetes mellitus type II: Hold oral home regimen, ADA diet, accu checks with sliding scale insulin glucoses controlled. #6. Hypertension: Continue home regimen including hydrochlorothiazide, amlodipine, metoprolol, PRN hydralazine. #7. Hyperlipidemia: continue patient on statin therapy. #8. History SBO: Patient with history of SBO previously with prior significant intervention for ruptured appendicitis #9. Obesity: Weight loss and lifestyle changes encouraged. #10. Restless leg syndrome: We will continue patient home pramipexole regimen. #11. Anxiety and depression: We will continue patient home sertraline regimen. #12. 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 Admission BUN/Cr 35/1.6, baseline renal function most recently 03/02/2023 creatinine 1.55, repeat BMP shows improvement 1.43. Advised to hold hydrochlorothiazide for 5 days and repeat BMP before resumption. #13. DVT prophylaxis: We will continue heparin drip initiated in the ED pendingcase management/social work discussion for oral NOAC options [place]. Medications at Discharge Home Medications amlodipine 5 mg tablet 5 mg PO DAILY blood pressure 11/28/18 glimepiride 4 mg tablet 4 mg PO DAILY diabetes 11/28/18 hydrochlorothiazide 12.5 mg tablet 12.5 mg PO DAILY diuretic 11/28/18 metoprolol tartrate 100 mg tablet 100 mg PO BID blood pressure 11/28/18 pioglitazone 30 mg tablet 30 mg PO DAILY diabetes 11/28/18 pramipexole 0.25 mg tablet 0.25 mg PO DAILY restless legs 11/28/18 sertraline 100 mg tablet 100 mg PO DAILY mental health 11/28/18 simvastatin 5 mg tablet 5 mg PO DAILY cholesterol 11/28/18 dulaglutide 1.5 mg/0.5 mL subcutaneous pen injector (Trulicity) 1.5 mg subcut QWEEK diabetes 04/05/23 meclizine 25 mg tablet 25 mg PO DAILY PRN PRN dizziness 04/05/23 meloxicam 15 mg tablet 15 mg PO DAILY bone health 04/05/23 apixaban 5 mg (74 tabs) tablets in a dose pack (EliquTopFun DVT-PE Treat 30D Start) 5 mg PO BID #74 tabs 04/06/23 dextromethorphan-guaifenesin ER 60 mg-1,200 mg tab,extend release,12hr (Mucinex DM) 1 tab PO Q12H 7 days #14 tabs 04/06/23 sennosides 8.6 mg-docusate sodium 50 mg tablet (Stool Softener-Stimulant Laxative) 2 tab PO BID PRN PRN Constipation #0 tabs 04/06/23 Physical Exam Narrative General: Alert, Oriented x3, Cooperative, morbid obesity BMI 36.4 kg/m? HEENT: Atraumatic, PERRLA, EOMI, Normocephalic Oral: Oral mucosa moist. No Gingival or Mucosal Lesions/ Ulcerations Neck: Supple, No JVD, Negative Carotid Bruits Lungs: Air entry diminished in bilateral lung bases. No crepitation/rhonchi Cardiovascular: Regular rate, Regular Rhythm, Normal S1, Normal S2, No murmurs Abdomen: Bowel Sounds Present, Soft, Non Tender, Non-Distended : No renal angle tenderness. No suprapubic tenderness. Extremities: Right shoulder: Sling and swath. No acute tenderness. No edema, Capillary Refill Less than 3 Seconds Skin: No rashes, No breakdown Musculoskeletal: No Tenderness to Palpation of Joints or Extremities. Range of motion intact in lower extremities. Neurological: Cranial nerves II-XII grossly intact, DTR 2+/4 and Symmetrical, Neuro grossly intact Psych/Mental Status: Normal Affect, Appropriate. Weight / BMI Weight Weight: 268 lb 11.896 oz Body Mass Index (BMI) 36.4 ABG / Lab / Microbiology Data 04/06/23 03:30 04/06/23 03:30 Laboratory: Laboratory Results - last 24 hr 04/05/23 18:40: WBC 5.9, RBC 4.55 L, Hgb 14.1, Hct 43.8, MCV 96.3 H, MCH 31.0, MCHC 32.2, RDW Std Deviation 45.3 H, RDW Coeff of Sona 12.6, Plt Count 152, MPV 9.6, Immature Gran % (Auto) 0.500, Neut % (Auto) 68.1, Lymph % (Auto) 12.2 L, Cataño % (Auto) 13.0 H, Eos % (Auto) 5.7 H, Baso % (Auto) 0.5, Absolute Neuts (auto) 4.0, Absolute Lymphs (auto) 0.72 L, Nucleated RBC % 0, PT 13.4, INR 1.0, APTT 26.8, Sodium 138, Potassium 5.0, Chloride 105, Carbon Dioxide 31.0, Anion Gap 2 L, BUN 35 H, Creatinine 1.60 H, Estim Creat Clear Calc 44.39, Est GFR (MDRD) Af Amer 54 L, Est GFR (MDRD) Non-Af 45 L, BUN/Creatinine Ratio 21.9 H, Glucose 112 H, Calcium 9.3, Troponin I High Sens 9, B-Natriuretic Peptide 21.2 04/05/23 23:45: POC Glucose 138 H 04/06/23 03:30: WBC 5.2, RBC 4.30 L, Hgb 13.3, Hct 40.8, MCV 94.9 H, MCH 30.9, MCHC 32.6, RDW Std Deviation 44.0 H, RDW Coeff of Sona 12.7, Plt Count 147 L, MPV10.2, Immature Gran % (Auto) 0.600, Neut % (Auto) 64.3, Lymph % (Auto) 15.9 L, Cataño % (Auto) 12.8 H, Eos % (Auto) 6.0 H, Baso % (Auto) 0.4, Absolute Neuts (auto) 3.3, Absolute Lymphs (auto) 0.82 L, Nucleated RBC % 0, APTT 42.4 H, Sodium 141, Potassium 4.1, Chloride 109 H, Carbon Dioxide 27.0, Anion Gap 5, BUN29 H, Creatinine 1.43 H, Estim Creat Clear Calc 48.24, Est GFR (MDRD) Af Amer 62, Est GFR (MDRD) Non-Af 51 L, BUN/Creatinine Ratio 20.3 H, Glucose 139 H, Calcium 8.6, Total Bilirubin 0.50, AST 28, ALT 29, Alkaline Phosphatase 61, Total Protein 6.3 L, Albumin 2.9 L, Globulin 3.4, Albumin/Globulin Ratio 0.9, TSH 4.34 H, Free T4 1.07 04/06/23 06:16: POC Glucose 142 H 04/06/23 10:07: APTT 46.5 H Radiography Diagnostic Testing: Radiology Impression Chest CTA 04/05/23 17:52 IMPRESSION: Abnormal CTA chest examination, with bilateral pulmonary embolism. Electronically Signed: Graham Acosta MD at 20:23 EDT Reading Location ID and State: [facility] / [place] , Service support , ADDENDUM: 04/06/23 0004 IMPRESSION: Abnormal CTA chest examination, with bilateral pulmonary embolism. N.B. : The above Results were Read Back by Graham Acosta MD to MAHAMED JAFFE DO, and understanding confirmed on 04/05/2023 23:57:37 (ET). Electronically Signed: Graham Acosta MD at 20:23 EDT , D/C Instructions Discharge Diet: Low fat / Low cholesterol, 1800 Calorie Control Diet and 2000 mgSodium Diet Weight Bearing Status: Weight bearing as tolerated Call your doctor if you observe: Fever of 101 or Higher, Coldness, Increased Pain, Numbness or Tingling, Change in Color, Inability to urinate, Inability to have a bowel movement, Shortness of breath, Dizziness, Fainting spells, Swellingin the ankles, Chest pain, Prolonged hiccupping, Increased palpitations (irregular heartbeat) and Calf discomfort When: IN 2 WEEKS Meaningful Use Info Meaningful Use Diagnoses (Choose all that apply): VTE VTE Anticoag overlap given w/in hospital stay or rx'd at dc?: No Reason overlap not ordered, prescribed, or given for 5 days: Procedure Not Indicated and Treatment Not Indicated Discharge Plan Admission Admit Date/Time: 04/05/23 21:18 Primary Reason for Your Visit: Bilateral PE Attending Provider: Mckinley Patton Primary Care Provider: Demetrius Callejas COSMETOLOGY TEACHER Consulting Providers: Leanna Melgar Instructions Additional Instructions / Restrictions: Follow-up BMP in 3 days and titrate the dose of HCTZ accordingly. Discharge Orders/Prescriptions Prescriptions: New sennosides-docusate sodium [Stool Softener-Stimulant Laxat] 8.6-50 mg Tablet 2 tab PO BID PRN PRN (Reason: Constipation) Qty: 0 0RF Eliquis DVT-PE Treat 30D Start 5 mg (74 tabs) tablets,dose pack 5 mg PO BID Qty: 74 2RF Rx Instructions: 10 mg twice daily for 1 week and then 5 mg twice daily to continue dextromethorphan-guaifenesin [Mucinex DM] 60-1,200 mg tablet extended release 12 hr 1 tab PO Q12H 7 Days Qty: 14 0RF Continued metoprolol tartrate 100 MG tablet 100 mg PO BID sertraline 100 MG tablet 100 mg PO DAILY amlodipine 5 MG tablet 5 mg PO DAILY simvastatin 5 MG tablet 5 mg PO DAILY glimepiride 4 MG tablet 4 mg PO DAILY pramipexole 0.25 MG tablet 0.25 mg PO DAILY pioglitazone 30 MG tablet 30 mg PO DAILY meclizine 25 mg tablet 25 mg PO DAILY PRN PRN (Reason: dizziness) Trulicity 1.5 mg/0.5 mL pen injector 1.5 mg subcut QWEEK Rx Instructions: q Monday Held hydrochlorothiazide 12.5 MG tablet 12.5 mg PO DAILY Hold Instructions: Hold for 5 days. meloxicam 15 mg tablet 15 mg PO DAILY Hold Instructions: Hold for 1 week as patient has ALAN. Referrals / Follow Up: Demetrius Callejas NP, NP-C [Primary Care Provider] - Trey Wong DO [Med Staff - Active Staff] - Within 2 Weeks (Bilateral pulmonaryembolism in first, second and third order pulmonary branches) Disposition Disposition (needs filled in before D/C Order can be placed): Home, Self Care 04/06/23 1147 <Electronically signed by Mckinley Patton MD> Cosigner Signature (if applicable): CC: BLANCA Callejas; Dr. Mckinley Patton MD~ Signed ADDENDUM by Dr. Mckinley Patton MD on 04/06/23 at 1247 Addendum Echo was done and reported EF 65% with stage I diastolic function. RV size and systolic function normal. 04/06/23 1247<Electronically signed by Mckinley Patton MD> Cosigner Signature (if applicable): cc: BLANCA Callejas; Dr. Mckinley Patton MD ~* Signed [facility] Work Phone: 1(611) 683-792907-27-2023 Discharge summary Author Mckinley Patton [facility] April 06, 2023 11:35am Note Date/Time April 06, 2023 11:2 0am [facility] Medical Records Department [address] [place] [id number] Instructions for Home/Discharge Instructions 04/06/23 0857 MR#: [id number] Acct: [id number] Name: SHARLENE MAC JARAD Rep #:[id number] : 1945 77 From: Mckinley Melendrez PCP: BLANCA Nelson Sta tus:ADM IN Discharge Instructions Diet Discharge Diet: Low fat / Low cholesterol, 1800 Calorie Control Diet and 2000 mgSodium Diet Activity Discharge Activity: Return to Normal Activity Weight Bearing Status: Weight bearing as tolerated Dressing / Incision Call your doctor if you observe: Fever of 101 or Higher, Coldness, Increased Pain, Numbness or Tingling, Change in Color, Inability to urinate, Inability to have a bowel movement, Shortness of breath, Dizziness, Fainting spells, Swellingin the ankles, Chest pain, Prolonged hiccupping, Increased palpitations (irregular heartbeat) and Calf discomfort Follow Up Care When: IN 2 WEEKS Test Results: Test results from this visit will be discussed in further detail at your follow- up appointment, if applicable. Discharge Plan Admission Admit Date/Time: 04/05/23 21:18 Primary Reason for Your Visit: Bilateral PE Attending Provider: Mckinley Patton Primary Care Provider: Demetrius Callejas NP Consulting Providers: Leanna Melgar Discharge Orders/Prescriptions Prescriptions: New sennosides-docusate sodium [Stool Softener-Stimulant Laxat] 8.6-50 mg Tablet 2 tab PO BID PRN PRN (Reason: Constipation) Qty: 0 0RF Eliquis DVT-PE Treat 30D Start 5 mg (74 tabs) tablets,dose pack 5 mg PO BID Qty: 74 2RF Rx Instructions: 10 mg twice daily for 1 week and then 5 mg twice daily to continue Continued metoprolol tartrate 100 MG tablet 100 mg PO BID sertraline 100 MG tablet 100 mg PO DAILY amlodipine 5 MG tablet 5 mg PO DAILY simvastatin 5 MG tablet 5 mg PO DAILY glimepiride 4 MG tablet 4 mg PO DAILY pramipexole 0.25 MG tablet 0.25 mg PO DAILY pioglitazone 30 MG tablet 30 mg PO DAILY meclizine 25 mg tablet 25 mg PO DAILY PRN PRN (Reason: dizziness) Trulicity 1.5 mg/0.5 mL pen injector 1.5 mg subcut QWEEK Rx Instructions: q Monday Held hydrochlorothiazide 12.5 MG tablet 12.5 mg PO DAILY Hold Instructions: Hold for 5 days. meloxicam 15 mg tablet 15 mg PO DAILY Hold Instructions: Hold for 1 week as patient has ALAN. Referrals / Follow Up: Demetrius Callejas NP, COSMETOLOGY TEACHER-C [Primary Care Provider] - Disposition Disposition (needs filled in before D/C Order can be placed): Home, Self Care 04/06/23 6490<Electronically signed by Mckinley Patton MD>Mckinley Patton MD CC: BLANCA Callejas; Dr. Leanna Melgar MD ~ Signed [facility] Work Phone: [phone]) 738-609707-27-2023 [facility] Medical Records Department [address] [place] [address] Discharge Summary 04/06/23 1135 MR#: [id number] Acct: [id number] Name: SHARLENE MAC JARAD Rep #: [id number] : 1945 77 From: Mckinley Patton MD PCP: BLANCA Nelson Status:ADM IN Location: [id number] Providers Date of Admission: 04/05/23 Date of Discharge: 04/06/23 Primary Care Physician: BLANCA Nelson Reason For Visit: BL PE Diagnosis Discharge Diagnosis (1) Pulmonary embolism: Status: Acute Code(s): I26.99 - Other pulmonary embolism without acute cor pulmonale Qualifiers: Pulmonary embolism type: other Chronicity: acute Acute cor pulmonale presence: without acute cor pulmonale Qualified Code(s): I26.99 - Other pulmonary embolism without acute cor pulmonale Plan 1. Acute BL Pulmonary Embolism most likely provoked thromboembolic phenomenon: Patient is being admitted in PCU.Chest CTA images individually reviewed shows filling defect involving bilateral central and peripheral pulmonary arteries seen in first-order second-order and third order branches consistent with bilateral pulmonary embolism. Patient had right-sided rotator cuff surgery done last week on 03/29/2023. Patient started having symptoms of exertional pleuritic chest pain discomfort bilaterally worse with deep inspiration along with shortness of breath progressively getting worse in the last 1 week. Patient was started on IV heparin drip. 2D echo was done but report pending. Patient is discharged on Eliquis 10 mg p.o. twice daily for 1 week then 5 mg twice daily to continue. Patient needs to take at least for 6 months seeing the burden of blood clots. #2. Recent right upper extremity rotator cuff repair: We will continue PT and OT assessments, continue sling that is in place, nonweightbearing to this extremity. Follow-up orthopedic surgeon in 1 week. #3. Unclear whether patient has overt hypothyroidism or subclinical hypothyroidism: Patient not on levothyroxine or thyroid supplement at home. TSH 4.34, free T41.07. TSH slightly elevated. In my opinion patient has subclinical hypothyroidism. Follow-up thyroid function test after 3 months. #4. BREN: Patient has been noncompliant secondary to difficulty tolerating but given his presentation willing to try, CPAP nightly. #5. Diabetes mellitus type II: Hold oral home regimen, ADA diet, accu checks with sliding scale insulin glucoses controlled. #6. Hypertension: Continue home regimen including hydrochlorothiazide, amlodipine, metoprolol, PRN hydralazine. #7. Hyperlipidemia: continue patient on statin therapy. #8. History SBO: Patient with history of SBO previously with prior significant intervention for ruptured appendicitis #9. Obesity: Weight loss and lifestyle changes encouraged. #10. Restless leg syndrome: We will continue patient home pramipexole regimen. #11. Anxiety and depression: We will continue patient home sertraline regimen. #12. 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 Admission BUN/Cr 35/1.6, baseline renal function most recently 03/02/2023 creatinine 1.55, repeat BMP shows improvement 1.43. Advised to hold hydrochlorothiazide for 5 days and repeat BMP before resumption. #13. DVT prophylaxis: We will continue heparin drip initiated in the ED pending case management /social work discussion for oral NOAC options cost [place]. Medications at Discharge Home Medications amlodipine 5 mg tablet 5 mg PO DAILY blood pressure 11/28/18 glimepiride 4 mg tablet 4 mg PO DAILY diabetes 11/28/18 hydrochlorothiazide 12.5 mg tablet 12.5 mg PO DAILY diuretic 11/28/18 metoprolol tartrate 100 mg tablet 100 mg PO BID blood pressure 11/28/18 pioglitazone 30 mg tablet 30 mg PO DAILY diabetes 11/28/18 pramipexole 0.25 mg tablet 0.25 mg PO DAILY restless legs 11/28/18 sertraline 100 mg tablet 100 mg PO DAILY mental health 11/28/18 simvastatin 5 mg tablet 5 mg PO DAILY cholesterol 11/28/18 dulaglutide 1.5 mg/0.5 mL subcutaneous pen injector (Trulicity) 1.5 mg subcut QWEEK diabetes 04/05/23 meclizine 25 mg tablet 25 mg PO DAILY PRN PRN dizziness 04/05/23 meloxicam 15 mg tablet 15 mg PO DAILY bone health 04/05/23 apixaban 5 mg (74 tabs) tablets in a dose pack (Eliquis DVT-PE Treat 30D Start) 5 mg PO BID #74 tabs 04/06/23 dextromethorphan-guaifenesin ER 60 mg-1,200 mg tab,extend release,12hr (Mucinex DM) 1 tab PO Q12H 7 days #14 tabs 04/06/23 sennosides 8.6 mg-docusate sodium 50 mg tablet (Stool Softener-Stimulant Laxative) 2 tab PO BID PRN PRN Constipation #0 tabs 04/06/23 Physical Exam Narrative General: Alert, Oriented x3, Cooperative, morbid obesity BMI 36.4 kg/m??? HEENT: Atraumatic, PERRLA, EOMI, Normocephalic Oral: Oral mucosa moist. No Gingival or Mucosal Lesions/ Ulcerations Neck: Supple, No JVD, Negative Car (more content not included)...[facility]07-27-2023 History and physical note Author Leanna Melgar [facility] April 05, 2023 10:23pm Note Date/Time April 05, 2023 9:24 pm [facility] Medical Records Department [address] [place] [address] H&P Exam - Hospitalist 04/05/232123 MR#: [id number] Acct: [id number] Name: SHARLENE MACN Rep #:[id number] : 1945 77 From: Leanna Melgar MD PCP: BLANCA Nelson tus:ADM IN Location: [place] [id number] HPI - General General Date of Admission: 04/05/23 Date of Service: 04/05/23 Chief Complaint: Chest pain, dyspnea. HPI Narrative The patient is a 77 y/o M w/ PMHx: BREN noncompliant with CPAP, CKD stage III unclear subtype (03/02/23 Cr 1.55), Hypothyroidism, Hx SBO, Obesity, RLS, HTN, HLD, Anxiety and Depression, Diabetes mellitus type II, BREN who presents to the [facility] ED on 04/05/23 with history of right shoulder rotator cuff repair at [facility] outpatient approximately 1 week prior to current presentation on 03/29/2023 with since then extreme inactivity as he was under the belief that he could not do anything but he has not even been moving or very active and of the last 6 couple days he does noted dyspnea, worse with exertion and pleuritic chest discomfort bilaterally worse with deep inspiratory effort attempts prompting eventual ED evaluation. Work-up in the ED included T97.5, heart 77, BP 137/77, respiratory rate 18, 96% on room air, CBC with WC 5.9, hemoglobin 14.1, platelet 152 with lymphopenia, unremarkable coags, BMP with BUN/creatinine 35/1.60, glucose 112, troponin 9, BNP 21.2, CTPA with bilateral pulmonary emboliinvolving central and peripheral pulmonary arteries seen including in the first order, second and third order branches, EKG sinus rhythm with no acute evidence of ischemia. Patient records and labs were obtained from the [employer] system following review of his outpatient data. [facility] Medical History (Updated 04/05/23 @ 21:[address] Leanna Melgar MD) Anxiety and depression CKD (chronic kidney disease), stage III Diabetes mellitus, type 2 Former tobacco use HLD (hyperlipidemia) HTN (hypertension) Hx SBO Obesity RLS (restless legs syndrome) Home Medications amlodipine 5 mg tablet 5 mg PO DAILY 11/28/18 [History Last Taken Unknown] glimepiride 4 mg tablet 4 mg PO DAILY 11/28/18 [History Last Taken Unknown] hydrochlorothiazide 12.5 mg tablet 12.5 mg PO DAILY 11/28/18 [History Last Taken Unknown] metoprolol tartrate 100 mg tablet 100 mg PO BID 11/28/18 [History Last Taken Unknown] pioglitazone 30 mg tablet 30 mg PO DAILY 11/28/18 [History Last Taken Unknown] pramipexole 0.25 mg tablet 0.25 mg PO DAILY 11/28/18 [History Last Taken Unknown] sertraline 100 mg tablet 100 mg PO DAILY 11/28/18 [History Last Taken Unknown] simvastatin 5 mg tablet 5 mg PO DAILY 11/28/18 [History Last Taken Unknown] dulaglutide 1.5 mg/0.5 mL subcutaneous pen injector (Trulicity) 1.5 mg subcut QWEEK 04/05/23 [History Last Taken Unknown] meclizine 25 mg tablet 25 mg PO DAILY PRN PRN dizziness 04/05/23 [History Last Taken Unknown] meloxicam 15 mg tablet 15 mg PO DAILY 04/05/23 [History Last Taken Unknown] Allergy/AdvReac Type Severity Reaction Status Date / Time No Known Allergies Allergy Verified 04/05/23 16:36 Surgical History (Updated 04/05/23 @ 22:[address] Leanna Melgar MD) History of appendectomy History of shoulder surgery Social History (Updated 04/05/23 @ 22:[address] Leanna Melgar MD) household members: spouse Smoking Status: Former smoker how long ago did patient quit smoking: Quit remotely. alcohol intake: never substance use type: does not use ROS ROS Narrative Admission Review of Systems: CONSTITUTIONAL: No weight loss, fever, chills, + weakness or fatigue. HEENT: Eyes: No visual loss, blurred vision, double vision or yellow sclerae. Ears, Nose, Throat: No hearing loss, sneezing, congestion, runny nose or sore throat. SKIN: No rash or itching, lesions, wounds. CARDIOVASCULAR: + chest pain, chest pressure or chest discomfort. No palpitations, edema, orthopnea, syncopal events. RESPIRATORY: + shortness of breath, No cough or sputum, wheezing, hemoptysis. GASTROINTESTINAL: No anorexia, nausea, vomiting or diarrhea, abdominal pain, melena, BRBPR. GENITOURINARY: No dysuria, frequency, urgency or retention. NEUROLOGICAL: No headache, dizziness, syncope, paralysis, ataxia, numbness or tingling in the extremities, focal weakness, change in bowel or bladder control,seizure. MUSCULOSKELETAL: + muscle, back pain, joint pain or stiffness. HEMATOLOGIC: No anemia, bleeding or bruising. LYMPHATICS: No enlarged nodes. No history of splenectomy. PSYCHIATRIC: + history of depression or anxiety. ENDOCRINOLOGIC: No reports of sweating, cold or heat intolerance. No polyuria orpolydipsia. ALLERGIES: No history of asthma, hives, eczema or rhinitis. Vital Signs Vital Signs Vital Signs: 04/05/23 16:36 04/05/23 17:47 04/05/23 21:00 Temperature 97.5 F L Temperature Source Temporal Pulse Rate 77 68 Respiratory Rate 18 12 Respiratory Effort Normal Non-Labored Respiratory Depth Normal Respiratory Pattern Normal Blood Pressure 137/77 H Blood Pressure Mean 97 Pulse Ox 96 97 Oxygen Delivery Method Room Air Room Air Room Air Weight Weight: 269 lb 8 oz Body Mass Index (BMI) 35.5 Physical Exam Narrative Physical Examination: General: Awake, alert, oriented x 3 and cooperative, seated upright in ED bed, notes some discomfort especially with deep inspiratory effort, denies any current severe chest pain at this time, heparin drip ongoing. Skin: Normal color, normal turgor, no icterus, no cyanosis except for recent expected postoperative changes right upper extremity status post rotator cuff repair. HEENT: AT/NC, EOMI, PERRLA, MMM, no carotid bruits or JVD noted; however, thickened neck makes evaluation difficult. Lungs: Mildly diminished, greater bases, mildly decreased effort secondary to discomfort elicited with deep inspiratory effort, no rales, ronchi or wheezing. Heart: Regular rate and rhythm; no gallop, rub audible. Abdomen: Soft, obese, NTTP, ND, normal BS, no HSM. Extremities: No cyanosis, no clubbing, status post recent right rotator cuff repair, peripheral pulses intact, no marked edema, expected postop skin changes. Neurological: Patient awake, alert, oriented as noted, cognitive function intact; pupils equally reactive to light and accommodation, cranial nerves grossly normal, moving all 4 extremities except expected reduction to the right upper extremity given recent OR, currently postoperative sling being replaced, strength accordingly mildly to moderately globally decreased secondary to acute presentation and recent operative intervention Psychiatric: Affect appears fatigued otherwise normal, no acute evidence of depressive or anxiety feelings. Results Lab / Micro Data 04/05/23 18:40 04/05/23 18:40 Labs: Laboratory Results - last 24 hr 04/05/23 18:40: WBC 5.9, RBC 4.55 L, Hgb 14.1, Hct 43.8, MCV 96.3 H, MCH 31.0, MCHC 32.2, RDW Std Deviation 45.3 H, RDW Coeff of Sona 12.6, Plt Count 152, MPV 9.6, Immature Gran % (Auto) 0.500, Neut % (Auto) 68.1, Lymph % (Auto) 12.2 L, Cataño % (Auto) 13.0 H, Eos % (Auto) 5.7 H, Baso % (Auto) 0.5, Absolute Neuts (auto) 4.0, Absolute Lymphs (auto) 0.72 L, Nucleated RBC % 0, PT 13.4, INR 1.0, APTT 26.8, Sodium 138, Potassium 5.0, Chloride 105, Carbon Dioxide 31.0, Anion Gap 2 L, BUN 35 H, Creatinine 1.60 H, Estim Creat Clear Calc 44.39, Est GFR (MDRD) Af Amer 54 L, Est GFR (MDRD) Non-Af 45 L, BUN/Creatinine Ratio 21.9 H, Glucose 112 H, Calcium 9.3, Troponin I High Sens 9, B-Natriuretic Peptide 21.2 Radiology Impression Chest CTA 04/05/23 17:52 IMPRESSION: Abnormal CTA chest examination, with bilateral pulmonary embolism. Electronically Signed: rGaham Acosta MD at 20:23 EDT , Assessment & Plan Assessment/Plan (1) Pulmonary embolism: PLAN: Plan The patient is a 77 y/o M w/ PMHx: BREN noncompliant with CPAP, CKD stage III unclear subtype (03/02/23 Cr 1.55), Hypothyroidism, Hx SBO, Obesity, RLS, HTN, HLD, Anxiety and Depression, Diabetes mellitus type II, BREN who presents to the [facility] ED on 04/05/23 with history of right shoulder rotator cuff repair at [facility] outpatient approximately 1 week prior to current presentation on 03/29/2023 with since then extreme inactivity as he was under the belief that he could not do anything but he has not even been moving or very active and of the last 6 couple days he does noted dyspnea, worse with exertion and pleuritic chest discomfort bilaterally worse with deep inspiratory effort attempts prompting eventual ED evaluation. #1. Dyspnea, chest pain secondary to Acute BL Pulmonary Embolism status post recent operative intervention with significant reduced activity, would consider provoked at this point: CTPA with bilateral pulmonary emboli involving central and peripheral pulmonary arteries seen including in the first order, second and third order branches, EKG sinus rhythm with no acute evidence of ischemia. Will admit to PCU, maintain on cardiac telemetry. Will obtain ECHO to be cautious although initial CT imaging without any concern for strain with normal BNP/troponin initial. Will continue therapeutic herparin drip regimen started inthe ED with pending AM insurance oral regimen investigation. Patient surgeon (Dr. Birch) was courtesy updated. #2. Recent right upper extremity rotator cuff repair: We will continue PT and OT assessments, continue sling that is in place, nonweightbearing to this extremity. #3. Chart reported history hypothyroidism: Noted in history, not on regimen, will obtain TSH and free T4 to be cautious. #4. BREN: Patient has been noncompliant secondary to difficulty tolerating but given his presentation willing to try, CPAP nightly. #5. Diabetes mellitus type II: Hold oral home regimen, ADA diet, accu checks w/ISS. #6. Hypertension: Continue home regimen including hydrochlorothiazide, amlodipine, metoprolol, PRN hydralazine. #7. Hyperlipidemia: We will continue patient on statin therapy. #8. History SBO: Patient with history of SBO previously with prior significant intervention for ruptured appendicitis #9. Obesity: Weight loss and lifestyle changes encouraged. #10. Restless leg syndrome: We will continue patient home pramipexole regimen. #11. Anxiety and depression: We will continue patient home sertraline regimen. #12. Chronic Kidney Disease Stage III, unclear subtype: Admission BUN/Cr 35/1.6, baseline renal function most recently 03/02/2023 creatinine 1.55, repeat BMP in AM. #13. DVT prophylaxis: We will continue heparin drip initiated in the ED pendingcase management/social work discussion for oral NOAC options [place]. Charges/Coding Visit Charges Inpatient E&M: 87498 Init Hosp L3 04/05/232222 <Electronically signed by Leanna Melgar MD> Cosigner Signature (if applicable): CC: BLANCA Callejas; Dr. Leanna Melgar MD~ Signed [facility] Work Phone: 1(840) 796-910807-27-2023 Discharge summary Author Mahamed Alannah [facility] April 05, 2023 10:02pm Note Date/Time April 05, 2023 5:52 pm [facility] Medical Records Department [address] [place] [address] Emergency Department Summary 04/05/23 MR#: [id number] Acct: [id number] Name: BUBBASHARLENE JARAD Rep #:[id number] : 1945 77 From: Mahmaed Swanson PCP: Demetrius Callejas, BLANCA Sta tus:ADM IN Location: [address] History of Present Illness Chief Complaint: Shortness of Breath PFSH PFS Medical History (Updated 04/05/23 @ 21:[address] Leanna Melgar MD) Anxiety and depression CKD (chronic kidney disease), stage III Diabetes mellitus, type 2 Former tobacco use HLD (hyperlipidemia) HTN (hypertension) Hx SBO Obesity RLS (restless legs syndrome) Home Medications amlodipine 5 mg tablet 5 mg PO DAILY 11/28/18 [History Last Taken Unknown] glimepiride 4 mg tablet 4 mg PO DAILY 11/28/18 [History Last Taken Unknown] hydrochlorothiazide 12.5 mg tablet 12.5 mg PO DAILY 11/28/18 [History Last Taken Unknown] metoprolol tartrate 100 mg tablet 100 mg PO BID 11/28/18 [History Last Taken Unknown] pioglitazone 30 mg tablet 30 mg PO DAILY 11/28/18 [History Last Taken Unknown] pramipexole 0.25 mg tablet 0.25 mg PO DAILY 11/28/18 [History Last Taken Unknown] sertraline 100 mg tablet 100 mg PO DAILY 11/28/18 [History Last Taken Unknown] simvastatin 5 mg tablet 5 mg PO DAILY 11/28/18 [History Last Taken Unknown] dulaglutide 1.5 mg/0.5 mL subcutaneous pen injector (Trulicity) 1.5 mg subcut QWEEK 04/05/23 [History Last Taken Unknown] meclizine 25 mg tablet 25 mg PO DAILY PRN PRN dizziness 04/05/23 [History Last Taken Unknown] meloxicam 15 mg tablet 15 mg PO DAILY 04/05/23 [History Last Taken Unknown] Allergy/AdvReac Type Severity Reaction Status Date / Time No Known Allergies Allergy Verified 04/05/23 16:36 Surgical History (Updated 04/05/23 @ 21:[address] Leanna Melgar MD) History of appendectomy History of shoulder surgery Social History (Updated 04/05/23 @ 21:[address] Leanna Melgar MD) household members: spouse Smoking Status: Never smoker alcohol intake: never substance use type: does not use EXAM Physical Exam Const Vital Signs: 04/05/23 16:36 04/05/23 17:47 04/05/23 21:00 Temperature 97.5 F L Temperature Source Temporal Pulse Rate 77 68 Respiratory Rate 18 12 Respiratory Effort Normal Non-Labored Respiratory Depth Normal Respiratory Pattern Normal Blood Pressure 137/77 H Blood Pressure Mean 97 Pulse Ox 96 97 Oxygen Delivery Method Room Air Room Air Room Air [facility] Medical decision making narrative: HISTORY OF PRESENT ILLNESS: 77-year-old male here with shortness of breath. Notes shoulder surgery last week. He is not having chest tightness and shortness of breath. He further states earlier today was at physical therapy. Does not endorse chest pain but notes more chest tightness and sensation of being winded. The patient denies recent immobilization in the last 3 days, denies previous diagnosis of DVT or PE, hemoptysis, unilateral leg swelling or malignancy with treatment the last 6 months. No estrogen use noted. REVIEW OF SYSTEMS: Pertinent positives: Shortness of breath Pertinent negatives: Syncope, chest pain PHYSICAL EXAM: Nursing triage notes reviewed, Vital signs reviewed Constitutional: please see mdm HENT: MMM Eyes: Pupils equal round and reactive to light, Extraocular muscles intact Neck: No stridor, no JVD, full neck ROM Lungs: Clear to auscultation, No wheezing or rales. No increased work of breathing, no conversational dyspnea, no accessory muscle use, no nasal flaring. No respiratory distress noted Heart: Regular rate and rhythm, No murmurs, No rubs and No gallops, 2+ distal pulses (radial, femoral, posterior tibial) in all extremities Abdomen: Soft, there is no tenderness, rigidity, rebound or guarding, no obviousperitoneal signs, no palpable pulsatile abdominal masses, no auscultated abdominal bruit : No CVAT Extremities: No edema Neuro: No focal neurological deficits, cranial nerves II through XII intact, 5/5strength in all extremities. Intact sensation to light touch in all extremities,2+ reflexes bilateral patella tendons. Normal gait. No ataxia. Skin: No rash or lesions noted MEDICAL DECISION MAKING: Chief Complaint: Shortness of breath External records reviewed: No recent cardiac catheterizations, stress test or echocardiograms noted in the chart Factors affecting care: Hypertension, type 2 diabetes, hyperlipidemia Social determinants of health: Never smoker History obtained from others: Patient's spouse Consults: Internal medicine ALL IMAGES (IF OBTAINED) HAVE BEEN PERSONALLY REVIEWED AND INTERPRETED BY MYSELF. EKG with normal sinus rhythm, normal intervals, no STEMI, occasional PVCs MDM Narrative: Patient was hemodynamically stable, afebrile, nontoxic-appearing. I considered the following differential diagnosis: PE, ACS, arrhythmia, anemia, myocardial ischemia, pneumonia Given patient recent surgery and chest pain obtain a CT of the chest. CT of thechest showed evidence of cute bilateral pulmonary embolism there is no evidence of heart strain. Patient troponin and BNP were negative. EKG was nonischemic. Given the patient's PE I started him on heparin and admitted to the floor for transfer to oral anticoagulation The patient and/or family, caregivers express understanding. The patient and/orfamily, caregivers agrees with the plan. Shared decision making: I will have a discussion with the patient and or visitors regarding risk/benefits of further testing or admission. They will be made aware of of the risk/benefits inherent in this decision they will be given the opportunity to voice understanding. Total critical care time today provided was at least 0 minutes. This excludes separately billable procedures. Critical care time (if documented) is secondary to the patient having high probability of clinically significant/life threatening deterioration in the patient's condition which required my urgent intervention. Lab Data Attestation: I reviewed the patient's lab results. Lab results narrative: CBC with no leukocytosis, no anemia, no thrombocytopenia PT, INR PTT without evidence of coagulopathy BMP without evidence of significant electrolyte abnormalities, no anion gap, no acute kidney injury. Troponin is negative, no evidence of myocardial ischemia BNP within normal limits suggestive of no increased myocyte stretch Labs: Laboratory Results - last 24 hr 04/05/23 18:40 WBC 5.9 RBC 4.55 L Hgb 14.1 Hct 43.8 MCV 96.3 H MCH 31.0 MCHC 32.2 RDW Std Deviation 45.3 H RDW Coeff of Sona 12.6 Plt Count 152 MPV 9.6 Immature Gran % (Auto) 0.500 Neut % (Auto) 68.1 Lymph % (Auto) 12.2 L Cataño % (Auto) 13.0 H Eos % (Auto) 5.7 H Baso % (Auto) 0.5 Absolute Neuts (auto) 4.0 Absolute Lymphs (auto) 0.72 L Nucleated RBC % 0 PT 13.4 INR 1.0 APTT 26.8 Sodium 138 Potassium 5.0 Chloride 105 Carbon Dioxide 31.0 Anion Gap 2 L BUN 35 H Creatinine 1.60 H Estim Creat Clear Calc 44.39 Est GFR (MDRD) Af Amer 54 L Est GFR (MDRD) Non-Af 45 L BUN/Creatinine Ratio 21.9 H Glucose 112 H Calcium 9.3 Troponin I High Sens 9 B-Natriuretic Peptide 21.2 Radiography Diagnostic Testing: Clinical Impression(s) from Imaging Studies Chest CTA 04/05/23 17:52 IMPRESSION: Abnormal CTA chest examination, with bilateral pulmonary embolism. Electronically Signed: Graham Acosta MD at 20:23 EDT , Discharge Plan Triage Chief Complaint: Shortness of Breath ED Provider: Mahamed Jaffe Dx/Rx/DC Orders Clinical Impression: Pulmonary embolism Primary Care Provider: Demetrius Callejas NP Disposition Disposition: Acute Care Hospital [facility] What to do if you have Problems For any increased pain, shortness of breath, bleeding, nausea or vomiting, chestpain, or any unexpected problems, contact your Primary Care Provider. Call [facility] ([phone]) or report to the closest Emergency Room. Call 911 if necessary. 04/05/232201 <Electronically signed by Mahamed Jaffe DO> Cosigner Signature (if applicable): CC: BLANCA Callejas ~ Signed [facility] Work Phone: 1(768) 672-598707-26-2023 Discharge summary Author Mahamed Jaffe [facility] April 05, 2023 10:02pm Note Date/Time April 05, 2023 5:52 pm [facility] Medical Records Department [address] [place] [address] Emergency Department Summary 04/05/23 MR#: [id number] Acct: [id number] Name: SHARLENE MAC JARAD Rep #:[id number] 24 : 1945 77 From: Mahamed Swanson PCP: BLANCA Nelson Sta tus:ADM IN Location: [place] [address] HPI History of Present Illness Chief Complaint: Shortness of Breath [facility] Medical History (Updated 04/05/23 @ 21:[address] Leanna Melgar MD) Anxiety and depression CKD (chronic kidney disease), stage III Diabetes mellitus, type 2 Former tobacco use HLD (hyperlipidemia) HTN (hypertension) Hx SBO Obesity RLS (restless legs syndrome) Home Medications amlodipine 5 mg tablet 5 mg PO DAILY 11/28/18 [History Last Taken Unknown] glimepiride 4 mg tablet 4 mg PO DAILY 11/28/18 [History Last Taken Unknown] hydrochlorothiazide 12.5 mg tablet 12.5 mg PO DAILY 11/28/18 [History Last Taken Unknown] metoprolol tartrate 100 mg tablet 100 mg PO BID 11/28/18 [History Last Taken Unknown] pioglitazone 30 mg tablet 30 mg PO DAILY 11/28/18 [History Last Taken Unknown] pramipexole 0.25 mg tablet 0.25 mg PO DAILY 11/28/18 [History Last Taken Unknown] sertraline 100 mg tablet 100 mg PO DAILY 11/28/18 [History Last Taken Unknown] simvastatin 5 mg tablet 5 mg PO DAILY 11/28/18 [History Last Taken Unknown] dulaglutide 1.5 mg/0.5 mL subcutaneous pen injector (Trulicity) 1.5 mg subcut QWEEK 04/05/23 [History Last Taken Unknown] meclizine 25 mg tablet 25 mg PO DAILY PRN PRN dizziness 04/05/23 [History Last Taken Unknown] meloxicam 15 mg tablet 15 mg PO DAILY 04/05/23 [History Last Taken Unknown] Allergy/AdvReac Type Severity Reaction Status Date / Time No Known Allergies Allergy Verified 04/05/23 16:36 Surgical History (Updated 04/05/23 @ 21:[address] Leanna Melgar MD) History of appendectomy History of shoulder surgery Social History (Updated 04/05/23 @ 21:[address] Leanna Melgar MD) household members: spouse Smoking Status: Never smoker alcohol intake: never substance use type: does not use EXAM Physical Exam Const Vital Signs: 04/05/23 16:36 04/05/23 17:47 04/05/23 21:00 Temperature 97.5 F L Temperature Source Temporal Pulse Rate 77 68 Respiratory Rate 18 12 Respiratory Effort Normal Non-Labored Respiratory Depth Normal Respiratory Pattern Normal Blood Pressure 137/77 H Blood Pressure Mean 97 Pulse Ox 96 97 Oxygen Delivery Method Room Air Room Air Room Air [facility] Narrative Medical decision making narrative: HISTORY OF PRESENT ILLNESS: 77-year-old male here with shortness of breath. Notes shoulder surgery last week. He is not having chest tightness and shortness of breath. He further states earlier today was at physical therapy. Does not endorse chest pain but notes more chest tightness and sensation of being winded. The patient denies recent immobilization in the last 3 days, denies previous diagnosis of DVT or PE, hemoptysis, unilateral leg swelling or malignancy with treatment the last 6 months. No estrogen use noted. REVIEW OF SYSTEMS: Pertinent positives: Shortness of breath Pertinent negatives: Syncope, chest pain PHYSICAL EXAM: Nursing triage notes reviewed, Vital signs reviewed Constitutional: please see mdm HENT: MMM Eyes: Pupils equal round and reactive to light, Extraocular muscles intact Neck: No stridor, no JVD, full neck ROM Lungs: Clear to auscultation, No wheezing or rales. No increased work of breathing, no conversational dyspnea, no accessory muscle use, no nasal flaring. No respiratory distress noted Heart: Regular rate and rhythm, No murmurs, No rubs and No gallops, 2+ distal pulses (radial, femoral, posterior tibial) in all extremities Abdomen: Soft, there is no tenderness, rigidity, rebound or guarding, no obviousperitoneal signs, no palpable pulsatile abdominal masses, no auscultated abdominal bruit : No CVAT Extremities: No edema Neuro: No focal neurological deficits, cranial nerves II through XII intact, 5/5strength in all extremities. Intact sensation to light touch in all extremities,2+ reflexes bilateral patella tendons. Normal gait. No ataxia. Skin: No rash or lesions noted MEDICAL DECISION MAKING: Chief Complaint: Shortness of breath External records reviewed: No recent cardiac catheterizations, stress test or echocardiograms noted in the chart Factors affecting care: Hypertension, type 2 diabetes, hyperlipidemia Social determinants of health: Never smoker History obtained from others: Patient's spouse Consults: Internal medicine ALL IMAGES (IF OBTAINED) HAVE BEEN PERSONALLY REVIEWED AND INTERPRETED BY MYSELF. EKG with normal sinus rhythm, normal intervals, no STEMI, occasional PVCs [facility] Narrative: Patient was hemodynamically stable, afebrile, nontoxic-appearing. I considered the following differential diagnosis: PE, ACS, arrhythmia, anemia, myocardial ischemia, pneumonia Given patient recent surgery and chest pain obtain a CT of the chest. CT of thechest showed evidence of cute bilateral pulmonary embolism there is no evidence of heart strain. Patient troponin and BNP were negative. EKG was nonischemic. Given the patient's PE I started him on heparin and admitted to the floor for transfer to oral anticoagulation The patient and/or family, caregivers express understanding. The patient and/orfamily, caregivers agrees with the plan. Shared decision making: I will have a discussion with the patient and or visitors regarding risk/benefits of further testing or admission. They will be made aware of of the risk/benefits inherent in this decision they will be given the opportunity to voice understanding. Total critical care time today provided was at least 0 minutes. This excludes separately billable procedures. Critical care time (if documented) is secondary to the patient having high probability of clinically significant/life threatening deterioration in the patient's condition which required my urgent intervention. Lab Data Attestation: I reviewed the patient's lab results. Lab results narrative: CBC with no leukocytosis, no anemia, no thrombocytopenia PT, INR PTT without evidence of coagulopathy BMP without evidence of significant electrolyte abnormalities, no anion gap, no acute kidney injury. Troponin is negative, no evidence of myocardial ischemia BNP within normal limits suggestive of no increased myocyte stretch Labs: Laboratory Results - last 24 hr 04/05/23 18:40 WBC 5.9 RBC 4.55 L Hgb 14.1 Hct 43.8 MCV 96.3 H MCH 31.0 MCHC 32.2 RDW Std Deviation 45.3 H RDW Coeff of Sona 12.6 Plt Count 152 MPV 9.6 Immature Gran % (Auto) 0.500 Neut % (Auto) 68.1 Lymph % (Auto) 12.2 L Cataño % (Auto) 13.0 H Eos % (Auto) 5.7 H Baso % (Auto) 0.5 Absolute Neuts (auto) 4.0 Absolute Lymphs (auto) 0.72 L Nucleated RBC % 0 PT 13.4 INR 1.0 APTT 26.8 Sodium 138 Potassium 5.0 Chloride 105 Carbon Dioxide 31.0 Anion Gap 2 L BUN 35 H Creatinine 1.60 H Estim Creat Clear Calc 44.39 Est GFR (MDRD) Af Amer 54 L Est GFR (MDRD) Non-Af 45 L BUN/Creatinine Ratio 21.9 H Glucose 112 H Calcium 9.3 Troponin I High Sens 9 B-Natriuretic Peptide 21.2 Radiography Diagnostic Testing: Clinical Impression(s) from Imaging Studies Chest CTA 04/05/23 17:52 IMPRESSION: Abnormal CTA chest examination, with bilateral pulmonary embolism. Electronically Signed: Graham Acosta MD at 20:23 EDT Reading Location ID and State: [facility] / [place] , Service support , Discharge Plan Triage Chief Complaint: Shortness of Breath ED Provider: Mahamed Jaffe Dx/Rx/DC Orders Clinical Impression: Pulmonary embolism Primary Care Provider: Demetrius Callejas NP Disposition Disposition: Acute Care Hospital [facility] What to do if you have Problems For any increased pain, shortness of breath, bleeding, nausea or vomiting, chestpain, or any unexpected problems, contact your Primary Care Provider. Call [facility] ([phone]) or report to the closest Emergency Room. Call 911 if necessary. 04/05/232201 <Electronically signed by Mahamed Jaffe DO> Cosigner Signature (if applicable): CC: COSMETOLOGY TEACHER-C Demetrius Callejas ~ Signed [facility] Work Phone: 1(324) 971-334007-26-2023 NoteHNO ID: [id number] Author: Dali Pyle APRN.FAMILIA Service: ? Author Type: Nurse Practitioner Type: Progress Notes Filed: 04/05/2023 4:42 PM Note Text: Patient triaged at [facility]. Here today with chest pressure. Patient is 1 week post surgical. Was told by PT to get checked for blood clot. I discussed limitations of express care and referred patient to ER, to drive pov to ER.[facility]07-26-2023 History of Present illness Narrative* Dali Pyle APRN.FAMILIA - 04/05/2023 4:41 PM EDT Patient triaged at [facility]. Here today with chest pressure. Patient is 1 week post surgical. Was told by PT to get checked for blood clot. I discussed limitations of express care and referred patient to ER, to drive pov to ER. [facility] Discharge instructions Patient Education 02/25/2022 15:26:46 Laceration, Extremity: Suture, Staple, or Tape Extremity Laceration: Stitches, Vernon, or Tape A laceration is a cut through the skin. If it is deep, it may require stitches or dez to close so it can heal. Minor cuts may be treated with surgical tape closures, or skin glue. X-rays may be done if something may have entered the skin through the cut. You may also need a tetanus shot if you are not up to date on this vaccine. Home care Follow the healthcare provider s instructions on how to care for the cut. Wash your hands with soap and warm water before and after caring for your wound. This is to help prevent infection. Keep the wound clean and dry. If a bandage was applied and it becomes wet or dirty, replace it. Otherwise, leave it in place for the first 24 hours, then change it once a day or as directed. If stitches or dez were used, clean the wound daily: oAfter removing the bandage, wash the area with soap and water. Use a wet cotton swab to loosen andremove any blood or crust that forms. oAfter cleaning, keep the wound clean and dry. Talk with your healthcare provider before putting any antibiotic ointment on the wound. Reapply the bandage. You may remove the bandage to shower as usual after the first 24 hours, but don't soak the area in water (no swimming) until the stitches or dez are removed. If surgical tape closures were used, keep the area clean and dry. If it becomes wet, blot it dry with a towel. Let the surgical tape fall off on its own. The healthcare provider may prescribe an antibiotic cream or ointment to prevent infection. He or she may also prescribe an antibiotic pill. Don't stop taking this medicine until you have finished itall or the provider tells you to stop. The provider may also prescribe medicine for pain. Follow the instructions for taking these medicines. Don't do activities that may reopen your wound. Follow-up care Follow up with your healthcare provider, or as advised. Most skin wounds heal within 10 days. But an infection may sometimes occur even with proper treatment. Check the wound daily for the signs of infection listed below. Stitches and dez should be removed within 7 to14 days. If surgical tape closures were used, you may remove them after 10 days if they have not fallen off by then. When to seek medical advice Call your healthcare provider right away if any of these occur: Wound bleeding not controlled by direct pressure Signs of infection, including increasing pain in the wound, increasing wound redness or swelling, or pus or bad odor coming from the wound Fever of 100.4 F (38 C) or higher, or as directed by your healthcare provider Stitches or dez come apart or fall out or surgical tape falls off before 7 days Wound edges reopen Wound changes colors Numbness occurs around the wound Decreased movement around the injured area [id number] [employer]. [address] [place] [address]. All rights reserved. This information is not intended as a substitute for professional medical care. Always follow yourhealthcare professional's instructions. Follow Up Care 02/25/2022 14:53:49 With:DEMETRIUS CALLEJAS APRN, CNP Address: [address] [place] [address] [place] [address]- When:2-4 days [facility] Evaluation + Plan note Future Appointments Appointment Date:12/14/2021 03:40:00 PM Scheduled Provider:DEMETRIUS CALLEJAS APRN, CNP Location:[facility] Appointment Type:PC OV Appointment Date:02/17/2022 08:30:00 AM Scheduled Provider: Location:[facility] Appointment Type:PC Nurse Lab Appointment Date:02/18/2022 03:40:00 PM Scheduled Provider:DEMETRIUS CALLEJAS APRN, CNP Location:[facility] Appointment Type:PC OV Controlled Medication Appointment Date:02/28/2022 03:40:00 PM Scheduled Provider:DEMETRIUS CALLEJAS APRN, CNP Location:[facility] Appointment Type:PC OV Follow Up Future Scheduled Tests Laboratory* Iron Level 02/18/22 * A1C Hemoglobin 02/19/22 * A1C Hemoglobin 02/18/22 * A1C Hemoglobin 11/18/21 * Complete Blood Count 02/18/22 * Lipid Profile 02/19/22 * Lipid Profile 02/18/22 * Microalbumin Level Urine 02/19/22 * Complete Metabolic Panel 02/19/22 * Complete Metabolic Panel 02/18/22 * TIBC 02/18/22 [facility] Evaluation + Plan note Future Appointments Appointment Date:02/28/2022 03:40:00 PM Scheduled Provider:DEMETRIUS CALLEJAS APRN [employer] Location:[facility] Appointment Type:PC OV Follow Up Future Scheduled Tests Laboratory* A1C Hemoglobin 02/19/22 * A1C Hemoglobin 11/18/21 * Complete Blood Count 01/11/22 * Lipid Profile 02/19/22 * Microalbumin Level Urine 01/11/22 * Microalbumin Level Urine 02/19/22 * Complete Metabolic Panel 01/11/22 * Complete Metabolic Panel 02/19/22 * N-Terminal proBNP 01/11/22 [facility] Evaluation + Plan note Future Appointments Appointment Date:08/18/2022 09:45:00 AM Scheduled Provider: Location:[facility] Appointment Type:PC Nurse Lab Appointment Date:08/30/2022 04:00:00 PM Scheduled Provider:DEMETRIUS CALLEJAS APRN - PEDIATRIC SOCIAL WORKER Location:[facility] Appointment Type:PC OV Follow Up Future Scheduled Tests Laboratory* Renin, Plasma 08/30/22 * Iron Level 08/30/22 * Prostate Specific Antigen 08/30/22 * Thyroid Stimulating Hormone 08/30/22 * A1C Hemoglobin 08/30/22 * A1C Hemoglobin 02/19/22 * A1C Hemoglobin 11/18/21 * Complete Blood Count 08/30/22 * Complete Blood Count 01/11/22 * Lipid Profile 02/19/22 * Lipid Profile 08/30/22 * Microalbumin Level Urine 08/30/22 * Microalbumin Level Urine 01/11/22 * Microalbumin Level Urine 02/19/22 * PTH, Intact 08/30/22 * Vitamin D Level 08/30/22 * Complete Metabolic Panel 08/30/22 * Complete Metabolic Panel 01/11/22 * Complete Metabolic Panel 02/19/22 * N-Terminal proBNP 01/11/22 * TIBC 08/30/22 Radiology* XR Knee 3 Views Left 06/23/22 [facility] Evaluation + Plan note Future Appointments Appointment Date:03/09/2023 03:20:00 PM Scheduled Provider:DEMETRIUS CALLEJAS APRN - PEDIATRIC SOCIAL WORKER Location:[facility] Appointment Type:PC OV Follow Up Future Scheduled Tests Laboratory* Microalbumin Level Urine 08/30/22 * Microalbumin Level Urine 02/28/23 Radiology* XR Knee 3 Views Left 06/23/22 * XR Shoulder Minimum 2 Views Right 02/03/23 [facility] Evaluation + Plan note Future Appointments Appointment Date:03/27/2023 02:40:00 PM Scheduled Provider:DEMETRIUS CALLEJAS [employer] - PEDIATRIC SOCIAL WORKER [facility] Appointment Type:PC OV Pre Op Future Scheduled Tests Laboratory* Microalbumin Level Urine 08/30/22 * Microalbumin Level Urine 02/28/23 Radiology* XR Knee 3 Views Left 06/23/22 * XR Shoulder Minimum 2 Views Right 02/03/23 [facility] Evaluation + Plan note Future Appointments Appointment Date:05/01/2023 03:20:00 PM Scheduled Provider:DEMETRIUS CALLEJAS [employer]EN - PEDIATRIC SOCIAL WORKER Location:[facility] Appointment Type:PC OV Follow Up Future Scheduled Tests Laboratory* Microalbumin Level Urine 08/30/22 * Microalbumin Level Urine 02/28/23 Radiology* XR Knee 3 Views Left 06/23/22 * XR Shoulder Minimum 2 Views Right 02/03/23 [facility] Evaluation + Plan note Future Appointments Appointment Date:07/27/2023 03:20:00 PM Scheduled Provider:DEMETRIUS CALLEJAS [employer] - PEDIATRIC SOCIAL WORKER Location:[facility] Appointment Type:PC OV Follow Up Future Scheduled Tests Radiology* XR Shoulder Minimum 2 Views Right 02/03/23 * US Thyroid 04/27/23 [facility] Evaluation + Plan note Future Appointments Appointment Date:08/24/2023 09:40:00 AM Scheduled Provider:DEMETRIUS CALLEJAS APRN, CNP Location:[facility] Appointment Type:PC OV Follow Up Appointment Date:01/25/2024 10:00:00 AM Scheduled Provider:DEMETRIUS CALLEJAS APRN, CNP Location:[facility] Appointment Type:PC OV Future Scheduled Tests Laboratory* Thyroid Stimulating Hormone 10/27/23 * Free T4 10/27/23 Radiology* XR Shoulder Minimum 2 Views Right 02/03/23 * US Thyroid 04/27/23 [facility] Evaluation + Plan note Future Appointments Appointment Date:01/18/2024 08:30:00 AM Scheduled Provider: Location:[facility] Appointment Type:PC Nurse Lab Appointment Date:01/25/2024 10:00:00 AM Scheduled Provider:DEMETRIUS CALLEJAS APRN, CNP Location:[facility] Appointment Type:PC OV Future Scheduled Tests Laboratory* Thyroid Stimulating Hormone 02/23/24 * Free T4 02/23/24 * A1C Hemoglobin 02/23/24 * Complete Blood Count 02/23/24 * Lipid Profile 02/23/24 * Albumin/Creatinine Ratio, Random Urine 02/23/24 * PTH, Intact 02/23/24 * Vitamin D Level 02/23/24 * Complete Metabolic Panel 02/23/24 Radiology* XR Shoulder Minimum 2 Views Right 02/03/23 * US Thyroid 04/27/23 [facility] Evaluation + Plan note Future Appointments Appointment Date:01/25/2024 10:00:00 AM Scheduled Provider:DEMETRIUS CALLEJAS APRN, CNP Location:[facility] Appointment Type:PC OV Diagnostic Tests Pending * A1C Hemoglobin 01/18/24 Future Scheduled Tests Radiology* US Abdomen Limited 05/23/24 * XR Shoulder Minimum 2 Views Right 02/03/23 * US Thyroid 04/27/23 [facility] Evaluation + Plan note Future Appointments Appointment Date:07/18/2024 08:30:00 AM Scheduled Provider: Location:[facility] Appointment Type:PC Nurse Lab Appointment Date:07/26/2024 10:00:00 AM Scheduled Provider:DEMETRIUS CALLEJAS APRN, CNP Location:[facility] Appointment Type:PC OV Follow Up [facility] Evaluation + Plan note Future Appointments Appointment Date:07/26/2024 10:00:00 AM Scheduled Provider:DEMETRIUS CALLEJAS APRN, CNP Location:[facility] Appointment Type:PC OV Follow Up Future Scheduled Tests Laboratory* Albumin/Creatinine Ratio, Random Urine 07/16/24 [facility] Evaluation + Plan note Future Appointments Appointment Date:08/16/2024 09:40:00 AM Scheduled Provider:DEMETRIUS CALLEJAS APRN, CNP Location:[facility] Appointment Type:PC OV Follow Up Appointment Date:10/25/2024 09:00:00 AM Scheduled Provider:DEMETRIUS CALLEJAS APRN - [place] Location:[facility] Appointment Type:PC OV Appointment Date:01/24/2025 09:40:00 AM Scheduled Provider:DEMETRIUS CALLEJAS APRN, CNP Location:[facility] Appointment Type:PC OV Future Scheduled Tests Laboratory* Iron Level 01/23/25 * Magnesium Level 01/23/25 * Prostate Specific Antigen 01/23/25 * Thyroid Stimulating Hormone 10/26/24 * Thyroid Stimulating Hormone 01/23/25 * Free T4 10/26/24 * Free T4 01/23/25 * A1C Hemoglobin 10/26/24 * A1C Hemoglobin 01/23/25 * Complete Blood Count 01/23/25 * Lipid Profile 01/23/25 * Albumin/Creatinine Ratio, Random Urine 07/16/24 * Albumin/Creatinine Ratio, Random Urine 01/23/25 * PTH, Intact 01/23/25 * Vitamin D Level 01/23/25 * Complete Metabolic Panel 10/26/24 * Complete Metabolic Panel 01/23/25 * TIBC 01/23/25 [facility] Evaluation + Plan note Future Appointments Appointment Date:01/24/2025 09:40:00 AM Scheduled Provider:DEMETRIUS CALLEJAS APRN, CNP Location:[facility] Appointment Type:PC OV Future Scheduled Tests Laboratory* Albumin/Creatinine Ratio, Random Urine 01/23/25 Radiology* CT Liver And Spleen w/ contrast 02/14/25 [facility] Evaluation + Plan note Future Appointments Appointment Date:04/11/2025 02:00:00 PM Scheduled Provider:DEMETRIUS CALLEJAS APRN, CNP Location:[facility] Appointment Type:PC OV Appointment Date:07/28/2025 09:40:00 AM Scheduled Provider:DEMETRIUS CALLEJAS APRN, CNP Location:[facility] Appointment Type: OV Future Scheduled Tests Laboratory* Albumin/Creatinine Ratio, Random Urine 01/23/25 [facility] Evaluation note* Diagnosis Onset Date Resolution Status Pulmonary embolism acute [facility] Work Phone: Evaluation note* Diagnosis Chest pressure- Primary Other chest pain [facility] Leanna Melgar [facility] April 05, 2023 10:23pm Note Date/Time April 05, 2023 9:24 pm [facility] Medical Records Department [address] [place] [id number] H&P Exam - Hospitalist 04/05/232123 MR#: [id number] Acct: [id number] Name: SHARLENE MACN Rep #:[id number] : 1945 77 From: Leanna Melgar MD PCP: BLANCA Nelson tus:ADM IN Location: [facility] [id number] HPI - General General Date of Admission: 04/05/23 Date of Service: 04/05/23 Chief Complaint: Chest pain, dyspnea. HPI Narrative The patient is a 77 y/o M w/ PMHx: BREN noncompliant with CPAP, CKD stage III unclear subtype (03/02/23 Cr 1.55), Hypothyroidism, Hx SBO, Obesity, RLS, HTN, HLD, Anxiety and Depression, Diabetes mellitus type II, BREN who presents to the [facility] ED on 04/05/23 with history of right shoulder rotator cuff repair at [facility] outpatient approximately 1 week prior to current presentation on 03/29/2023 with since then extreme inactivity as he was under the belief that he could not do anything but he has not even been moving or very active and of the last 6 couple days he does noted dyspnea, worse with exertion and pleuritic chest discomfort bilaterally worse with deep inspiratory effort attempts prompting eventual ED evaluation. Work-up in the ED included T97.5, heart 77, BP 137/77, respiratory rate 18, 96% on room air, CBC with WC 5.9, hemoglobin 14.1, platelet 152 with lymphopenia, unremarkable coags, BMP with BUN/creatinine 35/1.60, glucose 112, troponin 9, BNP 21.2, CTPA with bilateral pulmonary emboliinvolving central and peripheral pulmonary arteries seen including in the first order, second and third order branches, EKG sinus rhythm with no acute evidence of ischemia. Patient records and labs were obtained from the [employer] system following review of his outpatient data. [facility] Medical History (Updated 04/05/23 @ 21:[address] Leanna Melgar MD) Anxiety and depression CKD (chronic kidney disease), stage III Diabetes mellitus, type 2 Former tobacco use HLD (hyperlipidemia) HTN (hypertension) Hx SBO Obesity RLS (restless legs syndrome) Home Medications amlodipine 5 mg tablet 5 mg PO DAILY 11/28/18 [History Last Taken Unknown] glimepiride 4 mg tablet 4 mg PO DAILY 11/28/18 [History Last Taken Unknown] hydrochlorothiazide 12.5 mg tablet 12.5 mg PO DAILY 11/28/18 [History Last Taken Unknown] metoprolol tartrate 100 mg tablet 100 mg PO BID 11/28/18 [History Last Taken Unknown] pioglitazone 30 mg tablet 30 mg PO DAILY 11/28/18 [History Last Taken Unknown] pramipexole 0.25 mg tablet 0.25 mg PO DAILY 11/28/18 [History Last Taken Unknown] sertraline 100 mg tablet 100 mg PO DAILY 11/28/18 [History Last Taken Unknown] simvastatin 5 mg tablet 5 mg PO DAILY 11/28/18 [History Last Taken Unknown] dulaglutide 1.5 mg/0.5 mL subcutaneous pen injector (Trulicity) 1.5 mg subcut QWEEK 04/05/23 [History Last Taken Unknown] meclizine 25 mg tablet 25 mg PO DAILY PRN PRN dizziness 04/05/23 [History Last Taken Unknown] meloxicam 15 mg tablet 15 mg PO DAILY 04/05/23 [History Last Taken Unknown] Allergy/AdvReac Type Severity Reaction Status Date / Time No Known Allergies Allergy Verified 04/05/23 16:36 Surgical History (Updated 04/05/23 @ 22:[address] Leanna Melgar MD) History of appendectomy History of shoulder surgery Social History (Updated 04/05/23 @ 22:[address] Leanna Melgar MD) household members: spouse Smoking Status: Former smoker how long ago did patient quit smoking: Quit remotely. alcohol intake: never substance use type: does not use ROS ROS Narrative Admission Review of Systems: CONSTITUTIONAL: No weight loss, fever, chills, + weakness or fatigue. HEENT: Eyes: No visual loss, blurred vision, double vision or yellow sclerae. Ears, Nose, Throat: No hearing loss, sneezing, congestion, runny nose or sore throat. SKIN: No rash or itching, lesions, wounds. CARDIOVASCULAR: + chest pain, chest pressure or chest discomfort. No palpitations, edema, orthopnea, syncopal events. RESPIRATORY: + shortness of breath, No cough or sputum, wheezing, hemoptysis. GASTROINTESTINAL: No anorexia, nausea, vomiting or diarrhea, abdominal pain, melena, BRBPR. GENITOURINARY: No dysuria, frequency, urgency or retention. NEUROLOGICAL: No headache, dizziness, syncope, paralysis, ataxia, numbness or tingling in the extremities, focal weakness, change in bowel or bladder control,seizure. MUSCULOSKELETAL: + muscle, back pain, joint pain or stiffness. HEMATOLOGIC: No anemia, bleeding or bruising. LYMPHATICS: No enlarged nodes. No history of splenectomy. PSYCHIATRIC: + history of depression or anxiety. ENDOCRINOLOGIC: No reports of sweating, cold or heat intolerance. No polyuria orpolydipsia. ALLERGIES: No history of asthma, hives, eczema or rhinitis. Vital Signs Vital Signs Vital Signs: 04/05/23 16:36 04/05/23 17:47 04/05/23 21:00 Temperature 97.5 F L Temperature Source Temporal Pulse Rate 77 68 Respiratory Rate 18 12 Respiratory Effort Normal Non-Labored Respiratory Depth Normal Respiratory Pattern Normal Blood Pressure 137/77 H Blood Pressure Mean 97 Pulse Ox 96 97 Oxygen Delivery Method Room Air Room Air Room Air Weight Weight: 269 lb 8 oz Body Mass Index (BMI) 35.5 Physical Exam Narrative Physical Examination: General: Awake, alert, oriented x 3 and cooperative, seated upright in ED bed, notes some discomfort especially with deep inspiratory effort, denies any current severe chest pain at this time, heparin drip ongoing. Skin: Normal color, normal turgor, no icterus, no cyanosis except for recent expected postoperative changes right upper extremity status post rotator cuff repair. HEENT: AT/NC, EOMI, PERRLA, MMM, no carotid bruits or JVD noted; however, thickened neck makes evaluation difficult. Lungs: Mildly diminished, greater bases, mildly decreased effort secondary to discomfort elicited with deep inspiratory effort, no rales, ronchi or wheezing. Heart: Regular rate and rhythm; no gallop, rub audible. Abdomen: Soft, obese, NTTP, ND, normal BS, no HSM. Extremities: No cyanosis, no clubbing, status post recent right rotator cuff repair, peripheral pulses intact, no marked edema, expected postop skin changes. Neurological: Patient awake, alert, oriented as noted, cognitive function intact; pupils equally reactive to light and accommodation, cranial nerves grossly normal, moving all 4 extremities except expected reduction to the right upper extremity given recent OR, currently postoperative sling being replaced, strength accordingly mildly to moderately globally decreased secondary to acute presentation and recent operative intervention Psychiatric: Affect appears fatigued otherwise normal, no acute evidence of depressive or anxiety feelings. Results Lab / Micro Data 04/05/23 18:40 04/05/23 18:40 Labs: Laboratory Results - last 24 hr 04/05/23 18:40: WBC 5.9, RBC 4.55 L, Hgb 14.1, Hct 43.8, MCV 96.3 H, MCH 31.0, MCHC 32.2, RDW Std Deviation 45.3 H, RDW Coeff of Sona 12.6, Plt Count 152, MPV 9.6, Immature Gran % (Auto) 0.500, Neut % (Auto) 68.1, Lymph % (Auto) 12.2 L, Cataño % (Auto) 13.0 H, Eos % (Auto) 5.7 H, Baso % (Auto) 0.5, Absolute Neuts (auto) 4.0, Absolute Lymphs (auto) 0.72 L, Nucleated RBC % 0, PT 13.4, INR 1.0, APTT 26.8, Sodium 138, Potassium 5.0, Chloride 105, Carbon Dioxide 31.0, Anion Gap 2 L, BUN 35 H, Creatinine 1.60 H, Estim Creat Clear Calc 44.39, Est GFR (MDRD) Af Amer 54 L, Est GFR (MDRD) Non-Af 45 L, BUN/Creatinine Ratio 21.9 H, Glucose 112 H, Calcium 9.3, Troponin I High Sens 9, B-Natriuretic Peptide 21.2 Radiology Impression Chest CTA 04/05/23 17:52 IMPRESSION: Abnormal CTA chest examination, with bilateral pulmonary embolism. Electronically Signed: Graham Acosta MD at 20:23 EDT , Assessment & Plan Assessment/Plan (1) Pulmonary embolism: PLAN: Plan The patient is a 77 y/o M w/ PMHx: BREN noncompliant with CPAP, CKD stage III unclear subtype (03/02/23 Cr 1.55), Hypothyroidism, Hx SBO, Obesity, RLS, HTN, HLD, Anxiety and Depression, Diabetes mellitus type II, BREN who presents to the [facility] ED on 04/05/23 with history of right shoulder rotator cuff repair at [facility] outpatient approximately 1 week prior to current presentation on 03/29/2023 with since then extreme inactivity as he was under the belief that he could not do anything but he has not even been moving or very active and of the last 6 couple days he does noted dyspnea, worse with exertion and pleuritic chest discomfort bilaterally worse with deep inspiratory effort attempts prompting eventual ED evaluation. #1. Dyspnea, chest pain secondary to Acute BL Pulmonary Embolism status post recent operative intervention with significant reduced activity, would consider provoked at this point: CTPA with bilateral pulmonary emboli involving central and peripheral pulmonary arteries seen including in the first order, second and third order branches, EKG sinus rhythm with no acute evidence of ischemia. Will admit to PCU, maintain on cardiac telemetry. Will obtain ECHO to be cautious although initial CT imaging without any concern for strain with normal BNP/troponin initial. Will continue therapeutic herparin drip regimen started inthe ED with pending AM insurance oral regimen investigation. Patient surgeon (Dr. Birch) was courtesy updated. #2. Recent right upper extremity rotator cuff repair: We will continue PT and OT assessments, continue sling that is in place, nonweightbearing to this extremity. #3. Chart reported history hypothyroidism: Noted in history, not on regimen, will obtain TSH and free T4 to be cautious. #4. BREN: Patient has been noncompliant secondary to difficulty tolerating but given his presentation willing to try, CPAP nightly. #5. Diabetes mellitus type II: Hold oral home regimen, ADA diet, accu checks w/ISS. #6. Hypertension: Continue home regimen including hydrochlorothiazide, amlodipine, metoprolol, PRN hydralazine. #7. Hyperlipidemia: We will continue patient on statin therapy. #8. History SBO: Patient with history of SBO previously with prior significant intervention for ruptured appendicitis #9. Obesity: Weight loss and lifestyle changes encouraged. #10. Restless leg syndrome: We will continue patient home pramipexole regimen. #11. Anxiety and depression: We will continue patient home sertraline regimen. #12. Chronic Kidney Disease Stage III, unclear subtype: Admission BUN/Cr 35/1.6, baseline renal function most recently 03/02/2023 creatinine 1.55, repeat BMP in AM. #13. DVT prophylaxis: We will continue heparin drip initiated in the ED pendingcase management/social work discussion for oral NOAC options cost [place]. Charges/Coding Visit Charges Inpatient E&M: 89637 Init Hosp L3 04/05/232222 <Electronically signed by Leanna Melgar MD> Cosigner Signature (if applicable): CC: BLANCA Callejas; Dr. Leanna Melgar MD~ Signed [facility] Work Phone: Hospital course Narrative No data available for this section [facility] Hospital Discharge instructions No data available for this section [facility] Progress note No data available for this section [facility] Chief Complaint and Reason for Visit Chief Complaint BL PE BL PE Reason for Visit Pulmonary embolism Chief Complaint BL PE BL PE BL PE Reason for Visit Pulmonary embolism Advance Directives No Advanced Directives Records Found Advance Directive Response Recorded Date/ Time Living Will No April 05, 2023 5:48pm Power of Licensed Surveyor No April 05 5:48pm Advance Directive Response Recorded Date/ Time Living Will No April 05, 2023 11:13pm Power of Licensed Surveyor No April 05 11:13pm Summary Purpose Family History No Family History Records FoundNo Family History Records Found No data available for this section No data available for this section No data available for this section No data available for this section No data available for this section No data available for this section No Family History Records Found No data available for this section No data available for this section No data available for this section No data available for this section No data available for this section No data available for this section No data available for this section No Family History Records Found Additional Source Comments Care Team (unrecognized sect ion and content) Team Status: Active Member Role Status Dates Demetrius Callejas COSMETOLOGY TEACHER, COSMETOLOGY TEACHER-C Family Provider Activ e Demetrius Callejas COSMETOLOGY TEACHER, COSMETOLOGY TEACHER-C Primary Care Provider Active Team Status: Active Member Role Status Dates Demetrius Callejas COSMETOLOGY TEACHER, COSMETOLOGY TEACHER-C Primary Care Provider Active Dr. Mahamed Jaffe DO Emergency Provider Active Dr. Leanna Melgar MD Admit Provider, Attending Provider, Other Provider Active Team Status: Active Member Role Status Dates Demetrius Callejas NP, COSMETOLOGY TEACHER-C Primary Care Provider Active Dr. Mahamed Jaffe DO Emergency Provider Active Dr. Leanna Melgar MD Admit Provider, Attending Prov ider Active Commissioned Fire Officer Relationship Specialty Start Date End Date Demetrius Callejas, [address] [place] [address] PCP - General Family Medicine 01/23/12 Team Status: Active Member Role Status Dates Demetrius Callejas COSMETOLOGY TEACHER, COSMETOLOGY TEACHER-C Primary Care Provider Active Dr. Mahamed Jaffe DO Emergency Provider Active Dr. Leanna Melgar MD Admit Provider, Other Provider Active Dr. Mckinley Patton MD Attending Provider, Other Provi mariposa Active Team Status: Active Member Role Status Dates Demetrius Callejas COSMETOLOGY TEACHER, COSMETOLOGY TEACHER-C Primary Care Provider Active Dr. Gennaro Grace MD Attending Provider Active Team Status: Inactive Member Role Status Dates Demetrius Callejas COSMETOLOGY TEACHER, COSMETOLOGY TEACHER-C Primary Care Provider Active Dr. Mahamed Jaffe DO Emergency Provider Active Dr. Leanna Melgar MD Admit Provider, Other Provider Active Dr. 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 Position: P4 Advanced Practice Nurse Med Service: Employed Provider Member Role: Primary Care Physician Address: Address: [address] [place] [address]- [place] Care Team Related Persons Name: MALINDA MAC Goals (unrecognized section and content) Goals may be documented in a n alternate section Source Comments (unrecognize d section and content) In the event this informatio n is protected by the Federal Confidentiality of Alcohol and Drug Abuse Patient Records regulations: The Federal rules restrict any use of the information to criminally investigate or prosecute any alcohol or drug abuse patient.[facility] (unrecognized sect ion and content) No Status Records FoundNo Status Records FoundNo Status Records FoundNo Status Records Found INFORMATION SOURCE (unrecogn ized section and content) DATE CREATED AUTHOR 04/06/2023 [facility] DATE CREATED AUTHOR AUTHOR'S ORGANIZ ATION 04/12/2023 [facility] DATE CREATED AUTHOR AUTHOR'S ORGANIZ ATION 01/22/2024 [facility] ([place] DATE CREATED AUTHOR AUTHOR'S ORGANIZ ATION 04/10/[address] [facility] FOR RECORDS PERTAINING TO PATIENTS WHO ARE OR HAVE BEEN ENROLLED IN A CHEMICAL DEPENDENCY/SUBSTANCEABUSE PROGRAM, SOME INFORMATION MAY BE OMITTED. This clinical summary was aggregated from multiple sources. Caution should be exercised in using it in the provision of clinical care. This summary normalizes information from multiple sources, and as a consequence, information in this document may materially change the coding, format and clinical context of patient data. In addition, data may be omitted in some cases. CLINICAL DECISIONS SHOULD BE BASED ON THE PRIMARY CLINICAL RECORDS. [employer]. provides no warranty or guarantee of the accuracy or completeness of information in this document.
[2025-08-26] MEDS: Azithromycin 500 MG in 0.9% Normal Saline (250mL Bag) 250 ML 255 MG IV (01:21)
[2025-08-26] MEDS: Propofol 10MG/Ml 1,000 MG/100 ML Bottle 6.5 MG CONT INF (01:29)
--- NOTE | 2025-08-26 01:32 | RAD_ITS ---
PROCEDURE: CHEST 1 VIEW (PORTABLE) 08/25/2025 REASON FOR EXAM: INTUBATION TECHNIQUE: Frontal view of the chest. COMPARISON: 08/25/2020 FINDINGS: Hardware: Endotracheal tube tip projects about 5 cm above the irene. Heart: The heart size is normal. Lungs: Left basilar platelike atelectasis. No pneumothorax or pleural effusion. Bones: The bones are unremarkable. RAD/Chest 1 View (Portable) IMPRESSION: Left basilar platelike atelectasis. Reading [facility]
--- NOTE | 2025-08-26 01:38 | ED.RN ---
Propofol not initially started, blood pressure low and pt not agitated.
[2025-08-26 02:21] LABS: CPK Total, Creatine Kinase 1984 U/L (24-195); Triglycerides 72 mg/dL
--- NOTE | 2025-08-26 02:24 | ED.RN ---
Propofol drip decreased to 5mcg/kg/min per ED MD due to low blood pressure until new sedation received by pharmacy
--- NOTE | 2025-08-26 02:28 | PCA ---
PT ACCEPTED MAIN [facility]A. CALLED [facility] ETA WAS 7 AM. CALLED [facility] WAITING CALL BACK.
[2025-08-26] MEDS: fentaNYL 100 MCG/2 ML Ampul 50 MCG IV (02:29)
[2025-08-26 02:32] LABS: Troponin T High Sens 2 HR 90 ng/L (<=22)
--- NOTE | 2025-08-26 03:47 | ED.RN ---
Vancomycin given to flight crew, they will infuse enroute
== END 2025-08-26 03:53 | disposition short-term general hospital (02) ==
PROVIDERS: Emergency Provider Emergency Medicine; PCP Nurse Practitioner Family; Visit Provider Emergency Medicine
DX: J69.0 Pneumonitis due to inhalation of food and vomit (principal); E11.22 Type 2 diabetes mellitus with diabetic chronic kidney disease; Z79.4 Long term (current) use of insulin; N18.30 Chronic kidney disease, stage 3 unspecified; Z86.711 Personal history of pulmonary embolism; R41.82 Altered mental status, unspecified; E86.0 Dehydration; E78.5 Hyperlipidemia, unspecified; I12.9 Hypertensive chronic kidney disease with stage 1 through stage 4 chronic kidney disease, or unspecified chronic kidney disease; E87.0 Hyperosmolality and hypernatremia; R06.82 Tachypnea, not elsewhere classified
CPT/HCPCS: 31500; 31720; 36600; 51702; 70450; 71045; 80053; 81001; 82550; 82803; 82962; 83605; 83880; 84478; 84484; 85025; 85610; 85730; 87040; 87070; 87077; 87086; 87186; 87205; 93005; 94002; 94640; 96361; 96365; 96366; 99252; 99285; A4216; G0463; J0295